=== PATIENT | male | born 1940 | race Caucasian/White ===

== ENCOUNTER 2017-09-28 09:46 | Day surgery (SDC) | payer MEDICARE, SELFPAY ==
[2017-09-28 09:57] VITALS: BP 134/52; PULSE 80; RESP 16; TEMP 36.5; O2SAT 95; BMI 31.8
[2017-09-28 10:30] VITALS: BP 137/87; PULSE 67; RESP 18; O2SAT 97
[2017-09-28 10:32] VITALS: BP 137/88; PULSE 68; RESP 18; O2SAT 97
--- NOTE | 2017-09-28 10:32 | HMH.PMPROC ---
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 He is having some increased pain. We will refill his intrathecal pain pump and increase him to 0.3 mg per day from 0.17 mg per day. We will also increase his PTM dose to 0.03 mg. He does have an antalgic gait. Motor strength of the lower extremities is 5/5. There is no gross sensory deficit. Procedure Details:: Pump refill Informed consent was obtained and the risks and benefits of the procedure was explained to the patient. The patient was taken to the procedure room. The pump was interrogated. The area over the pump was prepped using ChloraPrep. The pump was accessed with a 22-gauge needle. Approximately 6 mL mL's of the intrathecal solution was withdrawn and discarded. The pump was then refilled with 20 mL's of intrathecal Dilaudid 2 mg/mL. The pump was interrogated and the infusion was increased to 0.3 mg per day. PTC was increased to 0.03 mg up to 4 times a day with a 6 hour lockout. The patient tolerated the procedure well with no complication. Plan and Disposition:: We will follow-up with him in 2-3 weeks. We will make adjustments if needed. I have told him not to take hydrocodone and to use his bolus device instead. At his next refill we will refill him with intrathecal Dilaudid 5 mg per ml and add bupivacaine 5 mg/mL.
[2017-09-28 10:54] VITALS: BP 135/73; PULSE 72; RESP 18; O2SAT 99
== END 2017-09-28 10:45 | disposition home or self-care (01) ==
LOC: SC.PAINP 09:50
PROVIDERS: Family Provider Family Medicine; PCP Family Medicine; Visit Provider Anesthesiology
DX: M51.16 Intervertebral disc disorders with radiculopathy, lumbar region (principal); M96.1 Postlaminectomy syndrome, not elsewhere classified
CPT/HCPCS: 62370

== ENCOUNTER → 2017-12-04 10:12 | Outpatient (POV) | payer MEDICARE, SELFPAY ==
[2017-12-04 10:37] VITALS: BP 141/79; PULSE 70; RESP 18; O2SAT 98; BMI 31.7
--- NOTE | 2017-12-04 11:20 | HMH.PMPROC ---
- Procedure Date: 12/04/17 Time: 11:00 Anesthesiologist:: Zulma Wyatt APRN Complications:: None Pre-procedure Diagnosis:: Postlaminectomy syndrome, degenerative disc disease of lumbar spine with lumbar radiculopathy Post-procedure Diagnosis:: Same Indications for Procedure:: Patient is a pleasant 77-year-old white male who presents today for intrathecal pain pump increase. Patient has been doing well after his last increase however he is having increase in pain. Patient rates his pain a 6 out of 10 today. He denies any side effects to his current Dilaudid intrathecal dose of 0.3 mg a day with boluses. Patient has states he has been taking all of his boluses. Patient notices quite a difference after his bolus for at least 2 hours. We will change him today to periodic flow. Procedure Details:: Informed consent was obtained and the risk and benefits of the procedure were explained to the patient. The patient was taken to the procedure room where noninvasive monitoring was placed including noninvasive blood pressure cuff and pulse oximeter. Patient's pump was interrogated. The infusion rate was changed to 0.04 mg every 2 hours with a daily dose of 0.48 mg. The patient tolerated the procedure well. Plan and Disposition:: Follow-up with this patient in 2 weeks and reassess his symptoms at that time if the patient is doing well he is free to cancel that appointment and be seen at his next pain pump refill. Patient has been instructed to call the office if he has any issues prior to his next appointment. This note was dictated using voice recognition software and may contain errors or omissions
== END ==
PROVIDERS: Family Provider Family Medicine; PCP Family Medicine; Visit Provider Clinical Nurse Specialist Family Health
DX: M54.16 Radiculopathy, lumbar region (principal)
CPT/HCPCS: 99212

== ENCOUNTER → 2017-12-18 11:13 | Outpatient (POV) | payer MEDICARE, SELFPAY ==
[2017-12-18 11:32] VITALS: BP 139/75; PULSE 77; RESP 18; O2SAT 98; BMI 73.2
--- NOTE | 2017-12-18 11:42 | HMH.PMPROC ---
- Procedure Date: 12/18/17 Time: 11:40 Anesthesiologist:: Zulma Wyatt APRN Complications:: None Pre-procedure Diagnosis:: Stenosis, degenerative disc disease of the lumbar spine with lumbar radiculopathy Post-procedure Diagnosis:: Same Indications for Procedure:: Patient is a pleasant 77-year-old white male who presents today for intrathecal pain pump adjustment. Patient is having increase in pain and decreased in functionality. Patient states he is unable to walk or stand for long periods of time without having to sit down immediately and forward or backwards for relief. Patient has a diagnosis of stenosis which has seemed to worsen over the last few months. Patient was switched to periodic flow at his last intrathecal pain pump adjustment. Patient states he did not get much relief from this. Patient rates his pain a 7 out of 10 today. Denies side effects to his intrathecal infusion of Dilaudid. Physical Exam General: Alert and oriented x3, no acute distress, pleasant and cooperative, [on room air] Lungs: Resps E/U, Symmetrical chest expansion, Eyes: PERRL Musculoskeletal: Flexion and extension of lumbar spine somewhat guarded secondary to pain, deep tendon reflexes normal, strength in upper and lower extremities [5/5], [abnormal gait noted] Neurological: speech clear, salvage cutter equal, no gross sensory deficits Procedure Details:: Informed consent was obtained and the risk and benefits of the procedure were explained to the patient. The patient was taken to the procedure room where noninvasive monitoring was placed including noninvasive blood pressure cuff and pulse oximeter. Patient's pump was interrogated. The infusion rate was switch back to continuous flow of 0.5 mg daily. Patient's PTC was set up at 005 mg up to 4 times per day. Total daily dose 0.7 mg a day. The patient tolerated the procedure well. Plan and Disposition:: Patient and I had a long discussion about the mild procedure I believe that this would be beneficial for him. We will get a new MRI to determine any new pathology given the worsening pain and inability to walk for long periods of time. Patient and I discussed this therapy and I answered his questions. I also gave him information in regards to this. I will follow-up with the patient after his MRI. The patient has any issues prior to his next appointment he is to call the office. This note was dictated using voice recognition software and may contain errors or omissions
--- NOTE | 2017-12-18 11:47 | P.PCN_ITS ---
- Procedure Date: 12/18/17 Time: 11:40 Anesthesiologist:: Zulma Wyatt APRN Complications:: None Pre-procedure Diagnosis:: Stenosis, degenerative disc disease of the lumbar spine with lumbar radiculopathy Post-procedure Diagnosis:: Same Indications for Procedure:: Patient is a pleasant 77-year-old white male who presents today for intrathecal pain pump adjustment. Patient is having increase in pain and decreased in functionality. Patient states he is unable to walk or stand for long periods of time without having to sit down immediately and forward or backwards for relief. Patient has a diagnosis of stenosis which has seemed to worsen over the last few months. Patient was switched to periodic flow at his last intrathecal pain pump adjustment. Patient states he did not get much relief from this. Patient rates his pain a 7 out of 10 today. Denies side effects to his intrathecal infusion of Dilaudid. Physical Exam General: Alert and oriented x3, no acute distress, pleasant and cooperative, [ on room air] Lungs: Resps E/U, Symmetrical chest expansion, Eyes: PERRL Musculoskeletal: Flexion and extension of lumbar spine somewhat guarded secondary to pain, deep tendon reflexes normal, strength in upper and lower extremities [5/5], [abnormal gait noted] Neurological: speech clear, services advisor equal, no gross sensory deficits Procedure Details:: Informed consent was obtained and the risk and benefits of the procedure were explained to the patient. The patient was taken to the procedure room where noninvasive monitoring was placed including noninvasive blood pressure cuff and pulse oximeter. Patient's pump was interrogated. The infusion rate was switch back to continuous flow of 0.5 mg daily. Patient's PTC was set up at 005 mg up to 4 times per day. Total daily dose 0.7 mg a day. The patient tolerated the procedure well. Plan and Disposition:: Patient and I had a long discussion about the mild procedure I believe that this would be beneficial for him. We will get a new MRI to determine any new pathology given the worsening pain and inability to walk for long periods of time. Patient and I discussed this therapy and I answered his questions. I also gave him information in regards to this. I will follow-up with the patient after his MRI. The patient has any issues prior to his next appointment he is to call the office. This note was dictated using voice recognition software and may contain errors or omissions
== END ==
PROVIDERS: Family Provider Family Medicine; PCP Family Medicine; Visit Provider Clinical Nurse Specialist Family Health
DX: Z45.1 Encounter for adjustment and management of infusion pump (principal); M54.16 Radiculopathy, lumbar region
CPT/HCPCS: 99212

== ENCOUNTER → 2018-01-01 12:37 | Outpatient (CLI) | payer MEDICARE, SELFPAY ==
--- NOTE | 2018-01-01 12:44 | MR_ITS ---
MR lumbar spine wo con HISTORY: Low back pain ITS.REASON: WORSENING BACK PAIN ORDERING PHYSICIAN: Zulma Wyatt PATIENT AGE: 77 years Comparison: 04/21/2015 TECHNIQUE: Standard multiplanar multiecho sequences are performed without contrast. 3-D MIP and myelographic images are also rendered and reviewed FINDINGS: This exam is very limited with significant artifact and patient's prior lumbar surgery as previously described.. Artifact is even much more extensive on today's exam as compared to 04/21/2015. Aside from the interpedicular screws from L2 to L5, there is either an epidural stimulator device or epidural pump pack the right lower quadrant likely accounting for the increase artifact. The lower levels of the lumbar spine are not interpretable from L2 to S1. CT scan may provide further evaluation if clinically warranted. The spinal cord ends at the L1 level. T10-T11: Degenerative disc disease with right-sided lateral recess narrowing from ligamentum flavum hypertrophy. T11-T12: Mild degenerative disc disease. T12-L1: Degenerative disc disease with mild facet and ligamentum flavum hypertrophy. L1-L2: Severe degenerative disc disease with type III endplate changes and posterior endplate osteophytes. The sagittal images suggest base central disc protrusion/concentric bulging disc. There is bilateral foraminal narrowing from the facet hypertrophic change and bulging disc. IMPRESSION: 1. Very limited exam due to artifact from the posterior lumbar fusion from L2 to L5 and also due to a right lower quadrant epidural or neurostimulator. L2-S1 vertebra and endplates are not adequately evaluated. 2. Degenerative disc disease in the lower thoracic spine with severe degenerative disc disease at L1-L2 with type III endplate changes and posterior endplate osteophytes. The sagittal images suggest a central disc protrusion/concentric bulging disc. There is bilateral foraminal narrowing from the facet hypertrophic change and bulging disc
== END ==
PROVIDERS: Family Provider Family Medicine; PCP Family Medicine; Visit Provider Clinical Nurse Specialist Family Health
DX: M54.5 Low back pain (principal)
CPT/HCPCS: 72148; 76376

== ENCOUNTER → 2018-01-04 13:31 | Outpatient (POV) | payer MEDICARE, SELFPAY ==
[2018-01-04 13:15] VITALS: BP 133/78; PULSE 67; RESP 18; BMI 34.6
--- NOTE | 2018-01-04 13:35 | HMH.PMPROC ---
- Procedure Date: 01/04/18 Time: 13:35 Anesthesiologist:: Ruperto Carey MD Complications:: None Pre-procedure Diagnosis:: Adjustment of intrathecal morphine pain pump infusion Post-procedure Diagnosis:: Same Indications for Procedure:: This patient is a pleasant 77-year-old white male who we are treating for low back pain with lumbar radicular symptoms and postlaminectomy syndrome of lumbar spine. He is having some increasing back pain. We will adjust his intrathecal morphine pain pump today. He does have an antalgic gait. Motor strength of the lower extremities is 5/5. There is no gross sensory deficit. He also did recently get an MRI of lumbar spine. Due to artifact we are not able to see anything below L1. We will obtain a CT scan to discern pathology better at the L3-L4, L4-L5 and L5-S1 levels. I do believe that he has an aspect of spinal stenosis which would benefit from the mild procedure. We will follow-up with him after his CT scan. We will increase his intrathecal morphine pain pump today. Procedure Details:: Adjustment of intrathecal morphine pain pump Informed consent was obtained and the risk and benefits of the procedure was explained to the patient. Patient was taken to the procedure room. The pump was interrogated. Intrathecal morphine pain plan increase to 0.8 mg per day. PTM boluses were increased to 0.08 mg up to 6 times a day with a 4 hour lockout. The patient tolerated the procedure well with no complications. Plan and Disposition:: We will follow-up with him in 2 weeks. We will obtain a CT scan of the lumbar spine to discern pathology at L3-L4, L4-L5 and L5-S1 to see if he may be a candidate for the mild procedure to help with spinal stenosis.
== END ==
PROVIDERS: Family Provider Family Medicine; PCP Family Medicine; Visit Provider Anesthesiology
DX: M54.16 Radiculopathy, lumbar region (principal)
CPT/HCPCS: 62368

== ENCOUNTER → 2018-02-14 07:35 | Outpatient (CLI) | payer MEDICARE, SELFPAY ==
--- NOTE | 2018-02-14 07:53 | XR_ITS ---
XR tibia fibula RT 2V CLINICAL INDICATION: Pain and swelling ITS.REASON: CELLULITIS RT LEG ORDERING PHYSICIAN: Ryan Haynes MD PATIENT AGE: 77 years Comparison: None FINDINGS: No fracture or dislocation. No lytic or blastic change. Mild osteoarthritic changes are present at the patellofemoral joint. There is globular calcification along the distal aspect of the tibia laterally between the tibia and fibula which could be due to old syndesmosis injury. No radiopaque foreign bodies or soft tissue gas evident IMPRESSION: 1. No acute finding 2. Nonspecific calcification in the tibial fibular syndesmosis region distally suggesting old injury
[2018-02-14 11:39] LABS: Alanine Aminotransferase 22 U/L (12-78); Albumin Level 3.8 gm/dL (3.4-5.0); Albumin/Globulin Ratio 1.5 (1.1-1.8); Alkaline Phosphatase 74 U/L (46-116); Anion Gap 9.7 mEq/L (5-15); Aspartate Amino Transferase 15 U/L (15-37); Bilirubin,Total 0.3 mg/dL (0.2-1.0); Blood Urea Nitrogen 34 mg/dL (7-18); Carbon Dioxide 31 mmol/L (21.0-32.0); Chloride 106 mmol/L (98-107); Chol/HDL Ratio 2.5 (1-3.5); Cholesterol 119 mg/dL (140-200); Creatinine,Serum 1.21 mg/dL (0.70-1.30); Estimated Glomerular Filt Rate 58 ml/min (>60); GFR (African American) 70 ML/MIN (>60); Globulin 2.6 gm/dl (1.3-3.2); Glucose 95 mg/dL (74-106); HDL Cholesterol 47 mg/dL (27-67); LDL Cholesterol 36 mg/dL (0-130); Potassium 4.7 mmoL/L (3.5-5.1); Sodium 142 mmol/L (136-145); Total Protein,Serum 6.4 gm/dL (6.4-8.2); Triglycerides 179 mg/dL (30-200); VLDL Cholesterol 36 mg/dL (0-40)
== END ==
PROVIDERS: Visit Provider Family Medicine
DX: I25.10 Atherosclerotic heart disease of native coronary artery without angina pectoris (principal); E78.5 Hyperlipidemia, unspecified; L03.115 Cellulitis of right lower limb; Z79.899 Other long term (current) drug therapy
CPT/HCPCS: 36415; 73590; 80053; 80061; 83036

== ENCOUNTER → 2018-07-09 09:45 | Outpatient (CLI) | payer MEDICARE, SELFPAY ==
--- NOTE | 2018-07-09 09:53 | US_ITS ---
US Arterial Ankle Brachial Ind History: Peripheral vascular disease, skin color changes ORDERING PHYSICIAN: Ryan Haynes MD PATIENT AGE: 77 years TECHNIQUE: Segmental pressures obtained of both right and left leg. These are compared to brachial blood pressure to yield index at each level sampled including summary ISIDRA. The data sheets from the procedure are available in PACS FINDINGS Rest study only performed today No prior studies available for comparison. Blood pressures reported are in millimeters mercury. RIGHT LEG ISIDRA = 0.98. RIGHT LEG TBI=0.56 Brachial BP: 125 Thigh BP: 128 Calf BP: 128 Ankle PT: 122 Ankle DP : 123 Digit =70 LEFT LEG ISIDRA = 1.09 LEFT LEG TBI= 0.54 Brachial BPD: 123 Thigh BP: 130 Calf BP: 125 Ankle PT:136 Ankle DP: 140 Digit = 67 Pulses and waveforms: Normal IMPRESSION: The ABIs as reported above are within normal limits. Waveforms and pulses are also unremarkable. The TBI's are slightly low which may indicate small vessel disease
== END ==
PROVIDERS: PCP Family Medicine; Visit Provider Family Medicine
DX: I73.9 Peripheral vascular disease, unspecified (principal)
CPT/HCPCS: 93922

== ENCOUNTER → 2018-08-27 08:56 | Outpatient (POV) | payer MEDICARE, SELFPAY | PROVIDERS: Visit Provider Otolaryngology | DX: Z00.00 Encounter for general adult medical examination without abnormal findings (principal) ==

== ENCOUNTER → 2018-09-11 10:45 | Outpatient (CLI) | payer MEDICARE, SELFPAY ==
--- NOTE | 2018-09-11 10:47 | FL_ITS ---
FL barium swallow modified: 09/11/2018 10:47 AM CLINICAL HISTORY: Dysphagia, trouble swallowing ORDERING PHYSICIAN: Anusha Kimball MD PATIENT AGE: 78 years Comparison: None TECHNIQUE: Patient administered varying consistencies of barium contrast, while viewed in lateral position under real-time fluoroscopy with cine recording. FLUOROSCOPY TIME: 3 minutes and 29 seconds The study was performed in conjunction with speech pathologist. Please see that report & recommendations. FINDINGS: Patient was given varying consistencies of barium. There was flash penetration of thin liquids. Other consistencies swallowed without difficulty. IMPRESSION: Flash Penetration with thin liquids Please see speech pathologist report and recommendations.
--- NOTE | 2018-09-11 11:41 | HMH.SLMBS2 ---
Speech & Language Evaluation Speech/Language Mod Barium Swallow Start: 09/11/18 11:28 Freq: once Status: Complete Protocol: Document 09/11/18 11:28 STARR (Rec: 09/11/18 11:41 STARR [id number]) [facility] Recommendations Diet Dietary Recommendations Regular Thin Liquids Treatment/Strategies Treatment Recommendation Compens. Strategy Educat. Strategy/Precaution Recommend Sitting Upright (90 deg) Referrals/Other Other Recommendations Follow up with ENT and Primary Care if further difficulties arise. Oral Motor exercises and compensatory strategies were given to complete at home to help strengthen the swallowing mechanism. Mod Barium Swallow Impressions Summary and Impressions Oral Phase Impression No Impairment (WFL) Pharyngeal Phase Impression Mild Impairment Pharyngeal Phase Summary Mild pharyngeal impairment with minimal flash penetration . Mucas was also visualized on study at level of epiglotis . Speech/Language MBS Assessment/Goals/Plan Assessment Date of Evaluation: 09/11/18 Evaluation Type Initial Certification Assessment/Problems Pt reports sensation of something stuck or hung in throat . Denies problems with drinking and eating or any choking episodes. Does Patient Qualify for Service No Qualify/Failure Comment Pt. was able to perform compensatory strategies and with home exercise program to strengthen swallow mechanism swallowing should improve. He was instructed to consult with primary care doctor to initiate speech therapy if swallowing does not improve with home exercise program. Chin tuck strategy implemented to decrease penetration of thin fluids. Recommendations PHYSICIAN CERTIFICATION: The specified therapy services are required, authorized, and reviewed every 30 days. Diet Recommendations Normal Liquid Type Recommendations Normal/Thin SL Swallow Guidelines Standard Aspiration Prec. Dysphagia Swallow Precautions/Strategies Chin Tuck Plan Pt/Guardian verbally ack understanding Yes of dx/prognosis/goals Pt/Guardian ve
== END ==
PROVIDERS: PCP Family Medicine; Visit Provider Otolaryngology
DX: K21.9 Gastro-esophageal reflux disease without esophagitis (principal); R13.14 Dysphagia, pharyngoesophageal phase
CPT/HCPCS: 70371; 92611

== ENCOUNTER → 2019-03-25 12:55 | Outpatient (CLI) | payer MEDICARE, SELFPAY ==
[2019-03-25 16:02] LABS: Prostate Specific Ag Screen 1.1 ng/mL (0.0-4.0)
== END ==
PROVIDERS: Visit Provider Urology
DX: Z12.5 Encounter for screening for malignant neoplasm of prostate (principal); N40.0 Benign prostatic hyperplasia without lower urinary tract symptoms
CPT/HCPCS: 36415; G0103

== ENCOUNTER → 2019-05-28 12:20 | Outpatient (CLI) | payer MEDICARE, SELFPAY ==
--- NOTE | 2019-05-28 12:29 | XR_ITS ---
PROCEDURE: XR CHEST 2V CLINICAL HISTORY: SOB Shortness of breath, congestion COMPARISON: CXR1 CHEST-PORTABLE from 09/30/[address] CHEST W/O CONTRAST from 09/30/2015 CXR2 XR chest AP from 12/21/2017 FINDINGS: The cardiomediastinal silhouette and pulmonary vascularity are within normal limits. Increased markings are present in the left lung base consistent with an area of atelectasis or infiltrate. No lobar consolidation or collapse is evident. A small triangular-shaped area of increased density is present in the right lung base laterally at the CP angle and could be due to small area atelectasis or fibrosis versus a patchy area of infiltrate.. No acute bony abnormalities. Postsurgical changes lower cervical spine IMPRESSION: 1. Left basilar atelectasis and/or infiltrate a 2. Patchy density right lung base laterally which could be due to an area of fibrosis, atelectasis, or patchy infiltrate. Dictated by: Yovanny Neil MD 05/28/2019 13:08 Electronically signed by Yovanny Neil MD in [place] 05/28/2019 13:08
== END ==
PROVIDERS: PCP Nurse Practitioner Family; Visit Provider Nurse Practitioner Family
DX: R06.02 Shortness of breath (principal)
CPT/HCPCS: 71046

== ENCOUNTER → 2019-10-13 11:30 | Outpatient (POV) | payer MEDICARE, SELFPAY ==
--- NOTE | 2019-10-13 12:06 | XR_ITS ---
PROCEDURE: XR MULTIPLE SPINE 6+V CLINICAL INDICATION: ACUTE PAIN COMPARISON: SPLUMBWO CT lumbar spine wo con from 02/05/2018 FINDINGS: Thoracic spine: Three view show multilevel degenerative disc disease with endplate hypertrophic change as well as anterior bridging osteophytes. There is normal alignment. There is a bone plate present along the lower cervical spine. No acute fracture or dislocation. Lumbar spine: Five views. Postsurgical changes are present with inter pedicular screws at L2-L3 L4 and L5 with connecting rods and disc spacers. Severe degenerative disc disease is present at T12-L1 and L1-L2 as well as L5-S1. There is anterolisthesis of L5 on S1 of 10 mm not significantly changed. A pain pump is present with the tip at the T11-T12 area. No acute fracture or dislocation is evident. Incidental note is made of a 9 mm calcific density overlying the right mid abdominal region consistent with a kidney stone.. IMPRESSION: 1. Degenerative changes thoracic spine with no acute finding. 2. Degenerative and postsurgical changes of the lumbar spine as detailed above which appear stable from 02/05/2018. 3. Right nephrolithiasis. Dictated by: Yovanny Neil MD 10/13/2019 13:00 Electronically signed by Yovanny Neil MD in [place] 10/13/2019 13:00
[2019-10-13 12:29] VITALS: BP 144/79; PULSE 82; RESP 18; TEMP 37.2; O2SAT 98; BMI 32.3
--- NOTE | 2019-10-13 13:00 | P.PCN_ITS ---
- Procedure Date: 10/13/19 Time: 13:01 Anesthesiologist:: Zulma Wyatt APRN Complications:: None Pre-procedure Diagnosis:: Degenerative disc disease lumbar spine with lumbar radiculopathy symptoms and postlaminectomy syndrome lumbar spine with spinal stenosis neurogenic claudication Post-procedure Diagnosis:: Same Indications for Procedure:: Patient is a pleasant 79-year-old white male who presents today for follow-up. Patient was leaning down in his bathroom when he had an extreme pain in his low back radiating down his leg. Patient was concerned in regards to his intrathec al catheter. Patient was sent for x-rays to ensure catheter placement. Patient states the pain has alleviated somewhat. He rates his pain a 6 out of 10. Physical Exam General: Alert and oriented x3, no acute distress, pleasant and cooperative, [on room air] Lungs: Resps E/U, Symmetrical chest expansion, Eyes: PERRL Musculoskeletal: Flexion and extension of lumbar spine somewhat guarded s econdary to pain, deep tendon reflexes normal, strength in upper and lower extremities [5/5], [abnormal gait noted] Neurological: speech clear, vocational examiner equal, no gross sensory deficits Procedure Details:: Informed consent was obtained and the risk and benefits of the procedure were explained to the patient. The patient was taken to the procedure room where noninvasive monitoring was placed including noninvasive blood pressure cuff and pulse oximeter. Patient's pump was interrogated and reprogrammed. The a one- time bolus of 0.4 mg was given over 2 minutes. Patient did not notice a significant amount of difference however sitting down his pain was relieved some. The patient tolerated the procedure well. Plan and Disposition:: Put the patient on prednisone 20 mg 1 p.o. twice daily. Patient and I did discuss his kidney issues. This will be a short-term process for potential lumbar strain. Patient is going to let our office know if he is not feeling better on . If he is not we will move forward with a dye study. We specifically discussed risk factors for Covid-19 including age, heart or lung disease, diabetes, immunosuppression and travel. We also discussed that NSAIDs may worsen Covid-19 infection symptoms and that they should not be used to treat Covid-19 symptoms. Patient was also informed that corticosteroids in any form oral or injectable will decrease immune response and may increase risk of Covid- [address] Carey has reviewed this patient's chart and this note and agrees with plan of care. Patient has been instructed to call the office if they have any issues prior to the next appointment.
== END ==
LOC: SC.PAIN 11:30 → RAD 12:04
PROVIDERS: PCP Family Medicine; Visit Provider Clinical Nurse Specialist Family Health
DX: M54.5 Low back pain (principal); M54.6 Pain in thoracic spine
CPT/HCPCS: 62368; 72084

== ENCOUNTER 2019-12-09 13:38 | Day surgery (SDC) | payer MEDICARE, SELFPAY ==
[2019-12-09 14:05] VITALS: BP 145/69; PULSE 67; RESP 18; TEMP 36.5; O2SAT 93; BMI 32.5
[2019-12-09 14:40] VITALS: BP 135/89; BP 140/87; PULSE 86; PULSE 88; RESP 18; TEMP 36.8; O2SAT 99
--- NOTE | 2019-12-09 14:44 | P.PCN_ITS ---
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 He rates his pain today 2 out of 10 and overall doing well. He does have issues with standing for long periods of time and walking. Due to his spinal stenosis. Patient's intrathecal pain pump is currently at a dose of 2.57 mg/day of Dilaudid and is doing well with this. Physical Exam General: Alert and oriented x3, no acute distress, pleasant and cooperative, [on room air] Lungs: Resps E/U, Symmetrical chest expansion, Eyes: PERRL Musculoskeletal: Flexion and extension of lumbar spine somewhat guarded secondary to pain, deep tendon reflexes normal, strength in upper and lower extremities [5/5], [abnormal gait noted] Neurological: speech clear, donor relations coordinator equal, no gross sensory deficits Procedure Details:: Informed consent was obtained and the risk and benefits of the procedure were explained to the patient. The patient was taken to the procedure room where noninvasive monitoring was placed including noninvasive blood pressure cuff and pulse oximeter. Patient's pump was interrogated. The area over the pump was cleansed with chlorhexidine as a cleansing solution. In sterile fashion the pump was accessed with a 22-gauge needle. Approximately 7.5 mL's were removed of the pump solution and discarded appropriately. The pump was then refilled with 20 mL's of Dilaudid 20 mg/mL. The needle was withdrawn and a bandage was placed over the puncture site. The infusion rate was reprogrammed to continue at 2.57 mg/day. The patient tolerated the procedure well. Plan and Disposition:: I will follow-up with the patient i at his next intrathecal pain pain pump refill and reprogram patient's Levi #[id number] reviewed and appropriate. He is on Lyrica from his primary care physician. Dr. Carey has reviewed this note and agrees with this plan of care. This note was dictated using voice recognition software and may contain errors or omissions
[2019-12-09 14:50] VITALS: BP 172/79; PULSE 68; RESP 18; O2SAT 93
== END 2019-12-09 15:02 | disposition home or self-care (01) ==
LOC: SC.PAINP 13:39
PROVIDERS: PCP Family Medicine; Visit Provider Clinical Nurse Specialist Family Health
DX: M51.16 Intervertebral disc disorders with radiculopathy, lumbar region (principal); M48.062 Spinal stenosis, lumbar region with neurogenic claudication; M96.1 Postlaminectomy syndrome, not elsewhere classified
CPT/HCPCS: 95991

== ENCOUNTER 2020-02-23 13:01 | Day surgery (SDC) | payer MEDICARE, SELFPAY ==
[2020-02-23 13:12] VITALS: BP 127/73; BP 148/78; PULSE 67; PULSE 78; RESP 20; TEMP 36.7; O2SAT 97; BMI 33.2
--- NOTE | 2020-02-23 13:27 | HMH.PMPROC ---
- Procedure Date: 02/23/20 Time: 13:27 Anesthesiologist:: Zulma Wyatt APRN Complications:: None Pre-procedure Diagnosis:: degenerative disc disease lumbar spine lumbar radiculopathy and postlaminectomy syndrome with spinal stenosis and neurogenic claudication Post-procedure Diagnosis:: Same Indications for Procedure:: Patient is a pleasant 79-year-old white male who presents today for intrathecal pain pump refill and reprogram patient does not get much relief when he standing and walking. He does utilize a bolus which does help temporarily. We discussed changing him to periodic flow. Patient has been talked to about a neurostimulator but at this time he does not want to proceed with that. We will change him to periodic flow and see if this is helpful. He denies any side effects his medication his total daily dose is 4 mg/day of Dilaudid Physical Exam General: Alert and oriented x3, no acute distress, pleasant and cooperative, [on room air] Lungs: Resps E/U, Symmetrical chest expansion, Eyes: PERRL Musculoskeletal: Flexion and extension of lumbar spine somewhat guarded secondary to pain, deep tendon reflexes normal, strength in upper and lower extremities [5/5], [abnormal gait noted] Neurological: speech clear, medical and health services manager equal, no gross sensory deficits Procedure Details:: Informed consent was obtained and the risk and benefits of the procedure were explained to the patient. The patient was taken to the procedure room where noninvasive monitoring was placed including noninvasive blood pressure cuff and pulse oximeter. Patient's pump was interrogated. The area over the pump was cleansed with chlorhexidine as a cleansing solution. In sterile fashion the pump was accessed with a 22-gauge needle. Approximately 8.5 mL's were removed of the pump solution and discarded appropriately. The pump was then refilled with 20 mL's of Dilaudid 20 mg/mL. The needle was withdrawn and a bandage was placed over the puncture site. The infusion rate was reprogrammed to a periodic flow of 0.2 mg every 1 hour for total daily dose of 4.8 mg. The patient tolerated the procedure well. Plan and Disposition:: I will see him back in 1 week reassess his symptoms at that time. If he does not get relief from the periodic flow we may discuss changing him to fentanyl. He has been instructed to call the office if he has any issues prior to his next appointment. Dr. Carey has reviewed this note and agrees with this plan of care. This note was dictated using voice recognition software and may contain errors or omissions
[2020-02-23 13:31] VITALS: BP 158/72; PULSE 71; RESP 18; O2SAT 97
== END 2020-02-23 13:51 | disposition home or self-care (01) ==
PROVIDERS: PCP Family Medicine; Visit Provider Clinical Nurse Specialist Family Health
DX: M54.16 Radiculopathy, lumbar region (principal); M96.1 Postlaminectomy syndrome, not elsewhere classified; M48.061 Spinal stenosis, lumbar region without neurogenic claudication; Z87.39 Personal history of other diseases of the musculoskeletal system and connective tissue; Z88.2 Allergy status to sulfonamides; I10 Essential (primary) hypertension; K21.9 Gastro-esophageal reflux disease without esophagitis; N40.0 Benign prostatic hyperplasia without lower urinary tract symptoms; Z90.49 Acquired absence of other specified parts of digestive tract
CPT/HCPCS: 62370

== ENCOUNTER → 2020-02-27 10:41 | Outpatient (POV) | payer MEDICARE, SELFPAY ==
[2020-02-27 11:23] VITALS: BP 146/81; PULSE 64; RESP 18; TEMP 36.4; O2SAT 94; BMI 33.9
--- NOTE | 2020-02-27 11:36 | [facility]H.PMPROC ---
- Procedure Date: 02/27/20 Time: 11:36 Anesthesiologist:: Ruperto Carey MD Complications:: None Pre-procedure Diagnosis:: Postlaminectomy syndrome lumbar spine with lumbar radiculopathy symptoms Post-procedure Diagnosis:: Same Indications for Procedure:: Patient is a pleasant 79-year-old white male who we are treating for postlaminectomy syndrome lumbar spine with lumbar radiculopathy symptoms. He has an intrathecal Dilaudid pain pump in place on periodic flow with 0.2 mg boluses every hour. Total daily dose is 4.8 mg/day. He says he felt better when he was on a continuous infusion. We will switch him back to a continuous infusion at 5 mg/day with PTC boluses of 0.2 mg up to 4 times a day. Most of his pain is while standing walking. I do believe he has some aspect of spinal stenosis. We will plan on a lumbar epidural steroid injection with epidurogram to assess stenosis and make adjustments to his pain pump today. Procedure Details:: Pain pump analysis and adjustment Informed consent was obtained and the risk and benefits of the procedure were explained to the patient. Patient was taken to the procedure room. The pump was interrogated. Intrathecal Dilaudid infusion was switched to continuous infusion at 5 mg/day. PTC boluses were reinitiated at 0.2 mg up to 4 times a day. Patient tolerated the procedure well with no complications. Plan and Disposition:: We will follow-up with this patient in 2 weeks. Will plan on a lumbar epidural steroid injection with epidurogram to assess levels of stenosis. We will also follow-up on how he does with these adjustments to his pain pump.
== END ==
PROVIDERS: PCP Family Medicine; Visit Provider Anesthesiology
DX: M96.1 Postlaminectomy syndrome, not elsewhere classified (principal); M54.16 Radiculopathy, lumbar region; E66.9 Obesity, unspecified; Z68.33 Body mass index [BMI] 33.0-33.9, adult
CPT/HCPCS: 62368; 99212

== ENCOUNTER 2020-03-05 08:30 | Day surgery (SDC) | payer MEDICARE, SELFPAY ==
[2020-03-05 08:58] VITALS: BP 153/76; PULSE 81; RESP 18; TEMP 36; O2SAT 96; BMI 33.9
[2020-03-05 09:57] VITALS: BP 145/85; PULSE 85; RESP 18
[2020-03-05 09:58] VITALS: BP 144/78; PULSE 85; RESP 18; O2SAT 98
--- NOTE | 2020-03-05 10:12 | P.PCN_ITS ---
- Procedure Date: 03/05/20 Time: 10:12 Anesthesiologist:: Ruperto Carey MD Complications:: None Pre-procedure Diagnosis:: Postlaminectomy syndrome lumbar spine with lumbar radiculopathy symptoms Post-procedure Diagnosis:: Same Indications for Procedure:: This patient is a pleasant 79-year-old white male who we are treating for postlaminectomy syndrome lumbar spine with lumbar radiculopathy symptoms. He currently has an intrathecal Dilaudid pain pump in place. He continues to have significant pain in his back and down his legs with neurogenic claudication symptoms. We will do lumbar epidural steroid injection today to help him with his neurogenic claudication symptoms and radicular symptoms. Procedure Details:: Lumbar epidural steroid injection under fluoroscopy informed consent was obtained and the risk and benefits of the procedure was explained to the patient. The patient was taken to the procedure room. The patient was placed prone on the procedure table. The patient was prepped and draped in sterile fashion. C-arm fluoroscopy was used to view the lumbar spine. Skin and subcutaneous tissues were anesthetized using lidocaine. I placed an 18-gauge epidural needle and advanced into the L4-L5 interspace using fluoroscopic guidance and [id number] to air. After confirmation of needle placement in the epidural space with dye I injected 2 mL of lidocaine 1.5% with Depo-Medrol 80 mg. Patient tolerated the procedure well with no complications. Plan and Disposition:: We will follow-up with him in 2 weeks. Will reevaluate symptoms at that time. With all the hardware in his back is not a candidate for any lumbar spinal stenosis procedures including minimally invasive lumbar decompression or Supe cedric Vertiflex. However he may be candidate for spinal cord stimulation. We will see if he is amenable to a [employer] spinal cord stimulator trial.
[2020-03-05 10:25] VITALS: BP 135/77; PULSE 66; RESP 18; O2SAT 96
== END 2020-03-05 10:25 | disposition home or self-care (01) ==
PROVIDERS: PCP Family Medicine; Visit Provider Anesthesiology
DX: M96.1 Postlaminectomy syndrome, not elsewhere classified (principal); M54.16 Radiculopathy, lumbar region; I10 Essential (primary) hypertension; K21.9 Gastro-esophageal reflux disease without esophagitis; N40.0 Benign prostatic hyperplasia without lower urinary tract symptoms; F41.9 Anxiety disorder, unspecified; Z82.49 Family history of ischemic heart disease and other diseases of the circulatory system; Z88.2 Allergy status to sulfonamides; Z90.49 Acquired absence of other specified parts of digestive tract; Z79.82 Long term (current) use of aspirin; Z79.899 Other long term (current) drug therapy
CPT/HCPCS: 62323; J1040; Q9966

== ENCOUNTER → 2020-03-29 08:37 | Outpatient (POV) | payer MEDICARE, SELFPAY ==
[2020-03-29 09:06] VITALS: BP 128/74; PULSE 74; RESP 18; TEMP 36.8; O2SAT 99; BMI 33.9
--- NOTE | 2020-03-29 09:26 | P.PCN_ITS ---
- Procedure Date: 03/29/20 Time: 09:26 Anesthesiologist:: Adeline Aleman APRN Complications:: None Pre-procedure Diagnosis:: Degenerative disc disease lumbar spine with lumbar radiculopathy symptoms Post-procedure Diagnosis:: Same Indications for Procedure:: Patient is a pleasant 79-year-old white male who presents today for intrathecal pain pump adjustment. The patient has been treated for chronic low back pain with lumbar radiculopathy symptoms as well as postlaminectomy syndrome lumbar spine. Patient did undergo a lumbar epidural steroid injection at L4-L5 for which he says he got approximately 70% relief for 4 days. Patient says his pain has returned. Patient does have an intrathecal pain pump with Dilaudid at 5 mg/day. He says that he did hit the back of the pump when getting into the vehicle and says that he had significant pain at the pump site at the time. Per the patient's , the patient has a low tolerance for pain. She says that the patient is unable to tolerate most any type of pain. Patient is asking for an increase in his intrathecal therapy today as well as a repeat lumbar epidural steroid injection. He rates his pain a 5 out of 10 today. Physical exam General: Alert and oriented x3, no acute distress, pleasant and cooperative, [on room air] Lungs: Respirations even and unlabored, symmetrical chest expansion Eyes: PERRL Musculoskeletal: Flexion and extension of lumbar spine somewhat guarded secondary to pain, deep tendon reflexes normal, strength in upper and lower extremities [5/5], [abnormal gait noted] Neurological: Speech clear, net developer programmer equal, no gross sensory deficit Procedure Details:: Informed consent was obtained and the risk and benefits of the procedure were explained to the patient. Patient was taken to the procedure room where noninvasive monitoring was placed including noninvasive blood pressure cuff and pulse oximeter. Patient's pump was interrogated and was reprogrammed to Dila udid at 5.9 mg/day. The patient tolerated the procedure well with no complications. Plan and Disposition:: We will schedule the patient for a lumbar epidural steroid injection at L4-L5. He did get approximately 4 days of relief with the injection. We will plan to see him back in the clinic after his injection to reassess his symptoms. Patient has been instructed to contact the clinic if he has any concerns before his next appointment. Patient says he is not on any anticoagulation therapy. The patient and I specifically discussed risk factors for COVID19. These risks include, but are not limited to age greater than 60, heart or lung disease, diabetes, immunosuppression, and travel. We also discussed NSAIDs may worsen COVID19 infection or symptoms. Patient should not use NSAIDs to treat COVID19 signs or symptoms. Patient was also informed that any type of corticosteroid of any form (oral or injection) will decrease the patient's immune system response and may increase the likelihood of COVID19 infection [address] symptoms[address] Carey has reviewed this note and agrees with this plan of care. This note was dictated using voice recognition software and make contain errors or omissions.
== END ==
PROVIDERS: PCP Family Medicine; Visit Provider Clinical Nurse Specialist Family Health
DX: M51.16 Intervertebral disc disorders with radiculopathy, lumbar region (principal)
CPT/HCPCS: 62368

== ENCOUNTER 2020-04-02 11:01 | Day surgery (SDC) | payer MEDICARE, SELFPAY ==
[2020-04-02 11:36] VITALS: BP 168/60; PULSE 88; RESP 20; TEMP 36.4; O2SAT 96; BMI 33.9
[2020-04-02 12:15] VITALS: BP 135/88; PULSE 85; RESP 18; O2SAT 98
[2020-04-02 12:16] VITALS: BP 133/78; PULSE 88; RESP 18; O2SAT 99
--- NOTE | 2020-04-02 12:23 | HMH.PMPROC ---
- Procedure Date: 04/02/20 Time: 12:24 Anesthesiologist:: Ruperto Carey MD Complications:: None Pre-procedure Diagnosis:: Degenerative disc disease of lumbar spine with lumbar radiculopathy symptoms and postlaminectomy syndrome lumbar spine Post-procedure Diagnosis:: Same Indications for Procedure:: Patient is a pleasant 79-year-old white male who we have been treating for low back pain with lumbar radiculopathy symptoms and postlaminectomy syndrome lumbar spine. He did very well after his last lumbar epidural steroid injection. His pain is now starting to return. We will do a repeat lumbar pleural steroid injection under fluoroscopy today. Procedure Details:: Lumbar epidural steroid injection under fluoroscopy Informed consent was obtained and the risk and benefits of the procedure was explained to the patient. The patient was taken to the procedure room. The patient was placed prone on the procedure table. The patient was prepped and draped in sterile fashion. C-arm fluoroscopy was used to view the lumbar spine. Skin and subcutaneous tissues were anesthetized using lidocaine. I placed an 18-gauge epidural needle and advanced into the L4-L5 interspace using fluoroscopic guidance and [id number] to air. After confirmation of needle placement in the epidural space with dye I injected 2 mL of lidocaine 1.5% with Depo-Medrol 80 mg. Patient tolerated the procedure well with no complications. Plan and Disposition:: We will follow-up with him in 2 weeks. Will reevaluate symptoms at that time. He is also having some pain around his pump. I did also did inject some local and steroids around his pump site to help with his pain symptoms.
[2020-04-02 12:33] VITALS: BP 139/63; PULSE 78; RESP 20; O2SAT 96
== END 2020-04-02 12:34 | disposition home or self-care (01) ==
LOC: SC.PAINP 11:03
PROVIDERS: PCP Family Medicine; Visit Provider Anesthesiology
DX: M51.16 Intervertebral disc disorders with radiculopathy, lumbar region (principal); M96.1 Postlaminectomy syndrome, not elsewhere classified; G62.9 Polyneuropathy, unspecified; E78.5 Hyperlipidemia, unspecified; Z90.49 Acquired absence of other specified parts of digestive tract
CPT/HCPCS: 62323; J1040; Q9966

== ENCOUNTER 2020-04-19 15:11 | Day surgery (SDC) | payer MEDICARE, SELFPAY ==
[2020-04-19 15:40] VITALS: BP 134/72; PULSE 76; RESP 18; O2SAT 94; BMI 33.9
[2020-04-19 16:42] VITALS: BP 138/89; PULSE 85; RESP 18
--- NOTE | 2020-04-19 16:48 | HMH.PMPROC ---
- Procedure Date: 04/19/20 Time: 16:48 Anesthesiologist:: Zulma Wyatt APRN Complications:: None Pre-procedure Diagnosis:: Degenerative disc disease lumbar spine lumbar radiculopathy symptoms and postlaminectomy syndrome lumbar spine with spinal stenosis with neurogenic claudication Post-procedure Diagnosis:: Same Indications for Procedure:: Patient is a very pleasant 79-year-old white male who presents today for intrathecal pain pump refill and reprogram. Patient denies side effects his medication stating the lumbar epidural steroid injections are working well for him at this time he does not need any adjustments. Patient does seem to walk better and straighter after his injective therapy. Physical Exam General: Alert and oriented x3, no acute distress, pleasant and cooperative, [on room air] Lungs: Resps E/U, Symmetrical chest expansion, Eyes: PERRL Musculoskeletal: Flexion and extension of lumbar spine somewhat guarded secondary to pain, deep tendon reflexes normal, strength in upper and lower extremities [5/5], [abnormal gait noted] Neurological: speech clear, cardiac catheterization technician equal, no gross sensory deficits Procedure Details:: Informed consent was obtained and the risk and benefits of the procedure were explained to the patient. The patient was taken to the procedure room where noninvasive monitoring was placed including noninvasive blood pressure cuff and pulse oximeter. Patient's pump was interrogated. The area over the pump was cleansed with chlorhexidine as a cleansing solution. In sterile fashion the pump was accessed with a 22-gauge needle. Approximately 4.5 mL's were removed of the pump solution and discarded appropriately. The pump was then refilled with 20 mL's of Dilaudid 20 mg/mL. The needle was withdrawn and a bandage was placed over the puncture site. The infusion rate was reprogrammed to continue at 5.9 mg a day. The patient tolerated the procedure well. Plan and Disposition:: I will follow-up with the patient his next intrathecal pain pump refill and reprogram he has been instructed to call the office if he has any issues prior to his next appointment. Patient Levi #[id number] reviewed and appropriate. Dr. Carey has reviewed this note and agrees with this plan of care. This note was dictated using voice recognition software and may contain errors or omissions
[2020-04-19 16:50] VITALS: BP 148/74; PULSE 85; RESP 18; O2SAT 98
[2020-04-19 16:58] VITALS: BP 146/75; PULSE 61; RESP 20; O2SAT 94
== END 2020-04-19 16:59 | disposition home or self-care (01) ==
LOC: SC.PAINP 15:14
PROVIDERS: PCP Family Medicine; Visit Provider Clinical Nurse Specialist Family Health
DX: M51.16 Intervertebral disc disorders with radiculopathy, lumbar region (principal); M96.1 Postlaminectomy syndrome, not elsewhere classified; M48.062 Spinal stenosis, lumbar region with neurogenic claudication; I25.10 Atherosclerotic heart disease of native coronary artery without angina pectoris; E78.5 Hyperlipidemia, unspecified; I10 Essential (primary) hypertension; N40.0 Benign prostatic hyperplasia without lower urinary tract symptoms; Z90.49 Acquired absence of other specified parts of digestive tract; Z79.82 Long term (current) use of aspirin; Z79.899 Other long term (current) drug therapy
CPT/HCPCS: 95991

== ENCOUNTER → 2020-04-29 10:34 | Outpatient (POV) | payer MEDICARE, SELFPAY ==
[2020-04-29 11:30] VITALS: BP 144/74; PULSE 74; RESP 18; O2SAT 98; BMI 33.9
--- NOTE | 2020-04-29 11:59 | P.PCN_ITS ---
- Procedure Date: 04/29/20 Time: 11:59 Anesthesiologist:: Adeline Aleman APRN Complications:: None Pre-procedure Diagnosis:: Degenerative disc disease lumbar spine with lumbar radiculopathy symptoms, postlaminectomy syndrome lumbar spine, spinal stenosis with neurogenic claudication symptoms Post-procedure Diagnosis:: Same Indications for Procedure:: Patient is an 79-year-old white male who presents today for intrathecal pain pump adjustment. He has been treated for chronic low back pain with lumbar radiculopathy symptoms as well as postlaminectomy syndrome lumbar spine spinal stenosis with neurogenic claudication symptoms. Patient is complaining of low back pain today. He says that he is continuing to radiate down his legs. He did undergo a lumbar epidural steroid injection in the past which did give him relief. Patient is requesting to undergo a repeat injection to the area. He does rate his pain a 6 out of 10 today. He would also like an increase in his intrathecal therapy. Patient is currently on Dilaudid at 5.9 mg/day. The patient's drug screens have been appropriate. His morphine equivalent is 175. His Levi #[id number] has been reviewed and is appropriate. Physical exam General: Alert and oriented x3, no acute distress, pleasant and cooperative, [on room air] Lungs: Respirations even and unlabored, symmetrical chest expansion Eyes: PERRL Musculoskeletal: Flexion and extension of lumbar spine somewhat guarded secondary to pain, deep tendon reflexes normal, strength in upper and lower extremities [5/5], [abnormal gait noted] Neurological: Speech clear, aircraft pneudraulic systems mechanic equal, no gross sensory deficit Procedure Details:: Informed consent was obtained and the risk and benefits of the procedure were explained to the patient. Patient was taken to the procedure room where noninvasive monitoring was placed including noninvasive blood pressure cuff and pulse oximeter. Patient's pump was interrogated and was reprogrammed to Dilaudid at 6.5 mg/day. The patient tolerated the procedure well with no complications. Plan and Disposition:: Patient has undergone a lumbar epidural steroid injection at L4-L5 and has gotten relief in the past. We will schedule him for repeat injection. He does state he got about 70 to 80% relief with this injection. We will schedule him for a lumbar epidural steroid injection at L4-L5. He is not on any anticoagulation therapy. We will plan to see him back after his injection to reassess his symptoms. He was increased today. We will see if he gets relief with his increase in his intrathecal therapy as well. Patient has been instructed to contact the clinic if he has any concerns before his next appointment. The patient and I specifically discussed risk factors for COVID19. These risks include, but are not limited to age greater than 60, heart or lung disease, diabetes, immunosuppression, and travel. We also discussed NSAIDs may worsen COVID19 infection or symptoms. Patient should not use NSAIDs to treat COVID19 signs or symptoms. Patient was also informed that any type of corticosteroid of any form (oral or injection) will decrease the patient's immune system response and may increase the likelihood of COVID19 [address] Carey has reviewed this note and agrees with this plan of care. This note was dictated using voice recognition software and make contain errors or omissions.
== END ==
PROVIDERS: PCP Family Medicine; Visit Provider Clinical Nurse Specialist Family Health
DX: M51.16 Intervertebral disc disorders with radiculopathy, lumbar region (principal); M96.1 Postlaminectomy syndrome, not elsewhere classified; M48.062 Spinal stenosis, lumbar region with neurogenic claudication
CPT/HCPCS: 62368

== ENCOUNTER 2020-05-14 09:34 | Day surgery (SDC) | payer MEDICARE, SELFPAY ==
[2020-05-14 10:06] VITALS: BP 167/78; PULSE 78; RESP 18; TEMP 36.6; O2SAT 97; BMI 33.9
[2020-05-14 10:23] VITALS: BP 133/75; PULSE 84; RESP 18; O2SAT 98
[2020-05-14 10:26] VITALS: BP 143/89; PULSE 89; RESP 18; O2SAT 98
[2020-05-14 10:37] VITALS: BP 140/77; PULSE 67; RESP 18; O2SAT 97
--- NOTE | 2020-05-14 12:26 | HMH.PMPROC ---
- Procedure Date: 05/14/20 Time: 12:26 Anesthesiologist:: Ruperto Carey MD Complications:: None Pre-procedure Diagnosis:: Degenerative disc disease of lumbar spine with lumbar radiculopathy symptoms and postlaminectomy syndrome lumbar spine with spinal stenosis and neurogenic claudication symptoms Post-procedure Diagnosis:: Same Indications for Procedure:: Patient is a pleasant 79-year-old white male who we are treating for low back pain with lumbar radiculopathy symptoms. He is also currently on intrathecal Dilaudid pain pump at 5.9 mg/day. He did well with his last lumbar epidural steroid injection. He is 78% better. He presents for repeat lumbar epidural steroid injections today for his residual pain symptoms. Procedure Details:: Lumbar epidural steroid injection under fluoroscopy Informed consent was obtained and the risk and benefits of the procedure was explained to the patient. The patient was taken to the procedure room. The patient was placed prone on the procedure table. The patient was prepped and draped in sterile fashion. C-arm fluoroscopy was used to view the lumbar spine. Skin and subcutaneous tissues were anesthetized using lidocaine. I placed an 18-gauge epidural needle and advanced into the L4-L5 interspace using fluoroscopic guidance and [id number] to air. After confirmation of needle placement in the epidural space with dye I injected 2 mL of lidocaine 1.5% with Depo-Medrol 80 mg. Patient tolerated the procedure well with no complications. Plan and Disposition:: We will follow-up with him in 2 weeks. Will reevaluate his symptoms at that time.
== END 2020-05-14 10:38 | disposition home or self-care (01) ==
LOC: SC.PAINP 09:35
PROVIDERS: PCP Family Medicine; Visit Provider Anesthesiology
DX: M51.16 Intervertebral disc disorders with radiculopathy, lumbar region (principal); M96.1 Postlaminectomy syndrome, not elsewhere classified; M48.062 Spinal stenosis, lumbar region with neurogenic claudication; I10 Essential (primary) hypertension; K21.9 Gastro-esophageal reflux disease without esophagitis; N40.0 Benign prostatic hyperplasia without lower urinary tract symptoms; Z88.2 Allergy status to sulfonamides
CPT/HCPCS: 62323; J1040; Q9966

== ENCOUNTER 2020-05-31 13:25 | Day surgery (SDC) | payer MEDICARE, SELFPAY ==
[2020-05-31 13:26] VITALS: BP 130/74; PULSE 76; RESP 18; TEMP 36.8; O2SAT 95; BMI 33.9
[2020-05-31 14:07] VITALS: BP 141/64; PULSE 67; RESP 18; O2SAT 98
--- NOTE | 2020-05-31 14:11 | P.PCN_ITS ---
- Procedure Date: 05/31/20 Time: 14:15 Anesthesiologist:: Zulma Wyatt APRN Complications:: None Pre-procedure Diagnosis:: Degenerative disc disease lumbar spine lumbar radiculopathy and postlaminectomy syndrome lumbar spine with spinal stenosis and neurogenic claudication symptoms, back pain Post-procedure Diagnosis:: Same Indications for Procedure:: Patient is a pleasant 79-year-old white male who presents today for intrathecal pain pump refill and reprogram. He is currently on intrathecal Dilaudid going at 6.5 mg/day. Patient has had several epidural steroid injections which have been beneficial for him. Today he is here for his intrathecal pain pump refill. [facility] #[id number] reviewed and appropriate. Physical Exam General: Alert and oriented x3, no acute distress, pleasant and cooperative, [on room air] Lungs: Resps E/U, Symmetrical chest expansion, Eyes: PERRL Musculoskeletal: Flexion and extension of lumbar spine somewhat guarded secondary to pain, deep tendon reflexes normal, strength in upper and lower extremities [5/5], [abnormal gait noted] Neurological: speech clear, digital program manager equal, no gross sensory deficits Procedure Details:: Informed consent was obtained and the risk and benefits of the procedure were explained to the patient. The patient was taken to the procedure room where noninvasive monitoring was placed including noninvasive blood pressure cuff and pulse oximeter. Patient's pump was interrogated. The area over the pump was cleansed with chlorhexidine as a cleansing solution. In sterile fashion the pump was accessed with a 22-gauge needle. Approximately 6 mL's were removed of the pump solution and discarded appropriately. The pump was then refilled with 20 mL's of Dilaudid 20 mg/mL. The needle was withdrawn and a bandage was placed over the puncture site. The infusion rate was reprogrammed to continue at 6.5 mg/day. The patient tolerated the procedure well. Plan and Disposition:: We will see the patient back at his next intrathecal pain pump refill and reprogram he has been instructed to call the office if he has any issues prior to his next appointment. Dr. Carey has reviewed this note and agrees with this plan of care. This note was dictated using voice recognition software and may contain errors or omissions
[2020-05-31 14:12] VITALS: BP 160/57; PULSE 85; RESP 18; O2SAT 98
[2020-05-31 14:31] VITALS: BP 132/69; PULSE 77; RESP 20; O2SAT 95
== END 2020-05-31 14:32 | disposition home or self-care (01) ==
LOC: SC.PAINP 13:26
PROVIDERS: PCP Family Medicine; Visit Provider Clinical Nurse Specialist Family Health
DX: M51.16 Intervertebral disc disorders with radiculopathy, lumbar region (principal); M96.1 Postlaminectomy syndrome, not elsewhere classified; M48.062 Spinal stenosis, lumbar region with neurogenic claudication
CPT/HCPCS: 95991

== ENCOUNTER → 2020-07-05 08:14 | Outpatient (POV) | payer MEDICARE, SELFPAY ==
[2020-07-05 08:36] VITALS: BP 139/85; PULSE 85; RESP 18; O2SAT 98; BMI 33.9
--- NOTE | 2020-07-05 08:38 | HMH.PAINSOAP ---
[facility] Pain Management SOAP Note Subjective:: Patient is an 79-year-old white male who presents today for follow-up. Patient has an intrathecal pain pump going at 6.5 mg of Dilaudid a day. Patient is following up because he had a epidural steroid injection back in April and had 80% relief with his symptoms adjust until recently. His pain is started to return. He rates his pain a 9 out of 10 when he is standing and walking he has no pain when he sitting. He does have pain secondary to stenosis. Patient's not on any anticoagulation therapy. He is failed other conservative modalities of treatment including medications and pain pump adjustments. ROS General: no recent weight change, no fever, no sleep disturbances Respiratory: no cough, no shortness of air, no recurring pulmonary infections Cardiovascular/Peripheral Vascular: No chest pain, No palpitations, no edema, no shortness of breath. Gastrointestinal: no new onset incontinence, normal bowel movements reported Genitourinary: no new onset incontinence Musculoskeletal: Back pain, leg pain Psychiatric: normal mood/ affect Neurological: [denies new onset weakness in extremities], [denies new onset balance issues] Objective:: Physical Exam General: Alert and oriented x3, no acute distress, pleasant and cooperative, [on room air] Lungs: Resps E/U, Symmetrical chest expansion, Eyes: PERRL Musculoskeletal: Flexion and extension of lumbar spine somewhat guarded secondary to pain, deep tendon reflexes normal, strength in upper and lower extremities [5/5], [abnormal gait noted] Neurological: speech clear, geodetic technician equal, no gross sensory deficits Assessment:: Degenerative disc disease lumbar spine lumbar radiculopathy, postlaminectomy syndrome lumbar spine, spinal stenosis with neurogenic claudication and back pain Plan:: We will set the patient up for L4-L5 lumbar epidural steroid injection given the efficacy of this in the past. I will follow-up with him after his injection and reassess his symptoms at that time. He has been instructed to call the office if he has any issues prior to his next appointment. Dr. Carey has reviewed this note and agrees with this plan of care. This note was dictated using voice recognition software and may contain errors or omissions [facility] History I have reviewed the patient's past medical history: Yes Medical History: Reports:: Coronary Artery Disease, Hyperlipidemia, Hypertension Denies:: Cancer, Diabetes Mellitus Type 1, Diabetes Mellitus Type 2, MRSA, Seizures *Have you ever received a pneumonia vaccine?: Yes *Have you received a flu vaccine this season?: Yes Other Medical History: Denies: Blood Transfusion Reaction Other Surgeries: Yes: Appendectomy, Cardiac Catheterization, Colonoscopy, Other (painp pump implant) Amputation: No Fractures: No - *Social History Smoking Status: Never smoker Alcohol Intake: never Substance Use Type: denies use *Occupational Status:: other Housing: house Household Members: spouse *Travel in the last 8 weeks: None Family Hx:: Unable to obtain
== END ==
PROVIDERS: PCP Family Medicine; Visit Provider Clinical Nurse Specialist Family Health
DX: M51.16 Intervertebral disc disorders with radiculopathy, lumbar region (principal); M96.1 Postlaminectomy syndrome, not elsewhere classified; M48.062 Spinal stenosis, lumbar region with neurogenic claudication
CPT/HCPCS: 99212; G0463

== ENCOUNTER 2020-07-09 10:53 | Day surgery (SDC) | payer MEDICARE, SELFPAY ==
[2020-07-09 12:04] VITALS: BP 108/65; PULSE 74; RESP 18; TEMP 36.8; O2SAT 94; BMI 33.9
[2020-07-09 12:16] VITALS: BP 140/78; PULSE 74; RESP 18; O2SAT 98
[2020-07-09 12:25] VITALS: BP 142/78; PULSE 84; RESP 18; O2SAT 98
--- NOTE | 2020-07-09 12:41 | P.PCN_ITS ---
- Procedure Date: 07/09/20 Time: 12:41 Anesthesiologist:: Ruperto Carey MD Complications:: None Pre-procedure Diagnosis:: Postlaminectomy syndrome lumbar spine with lumbar radiculopathy symptoms and degenerative disc disease of lumbar spine Post-procedure Diagnosis:: Same Indications for Procedure:: Patient is a pleasant 79-year-old white male who we are treating for low back pain with lumbar radiculopathy symptoms and postlaminectomy syndrome lumbar spine. He did very well with his last lumbar epidural steroid injection. He was 80 to 90% better for a significant amount of time. He does have an intrathecal Dilaudid pain pump in place. We are adding bupivacaine to his intrathecal infusion today. We will refill his pump and add bupivacaine to his infusion. We will also do a repeat lumbar pleural steroid injection under fluoroscopy today. Levi and urine drug screen are all appropriate Levi [id number]. Patient does have an antalgic gait. Motor strength of the lower ex tremities is 5/5. There is no gross sensory deficit. Procedure Details:: Pain pump refill informed consent was obtained and the risks and benefits of the procedure was explained to the patient. The patient was taken to the procedure room. The pump was interrogated. The area over the pump was prepped using ChloraPrep. The pump was accessed with a 22-gauge needle. Approximately 7 mL's of the intrathecal solution was withdrawn and discarded. The pump was then refilled with 20 mL's of intrathecal Dilaudid 30 mg/mL plus bupivacaine 7.5 mg/mL. The pump was interrogated and the infusion was continued at 6.5 mg/day with PTC boluses of 0.2 mg up to 6 times a day. . The patient tolerated the procedure well with no complication. Lumber epidural steroid injection under fluoroscopy Informed consent was obtained and the risk and benefits of the procedure was explained to the patient. The patient was taken to the procedure room. The patient was placed prone on the procedure table. The patient was prepped and draped in sterile fashion. C-arm fluoroscopy was used to view the lumbar spine. Skin and subcutaneous tissues were anesthetized using lidocaine. I placed an 18-gauge epidural needle and advanced into the L2-L3 interspace using fluoroscopic guidance and [id number] to air. Access was above his hardware. After confirmation of needle placement in the epidural space with dye I injected 2 mL of lidocaine 1.5% with Depo-Medrol 80 mg. Patient tolerated the procedure well with no complications. Plan and Disposition:: We will follow-up with him in 2 weeks. Will reevaluate his symptoms at that time.
[2020-07-09 13:20] VITALS: BP 145/76; PULSE 75; RESP 18; TEMP 36.8; O2SAT 94
== END 2020-07-09 12:25 | disposition home or self-care (01) ==
LOC: SC.PAINP 10:55
PROVIDERS: PCP Family Medicine; Visit Provider Anesthesiology
DX: M96.1 Postlaminectomy syndrome, not elsewhere classified (principal); M51.16 Intervertebral disc disorders with radiculopathy, lumbar region; I11.0 Hypertensive heart disease with heart failure; K21.9 Gastro-esophageal reflux disease without esophagitis; N40.0 Benign prostatic hyperplasia without lower urinary tract symptoms
CPT/HCPCS: 62323; 95991; J1040; Q9966

== ENCOUNTER → 2020-08-04 10:18 | Outpatient (POV) | payer MEDICARE, SELFPAY ==
[2020-08-04 11:12] VITALS: BP 120/90; PULSE 110; RESP 20; TEMP 36.4; O2SAT 94; BMI 33.9
--- NOTE | 2020-08-04 11:21 | HMH.PAINSOAP ---
[facility] Pain Management SOAP Note Subjective:: Patient is a pleasant 67-year-old white male who I am treating for low back pain with lumbar radiculopathy symptoms and spinal stenosis with neurogenic claudication symptoms and postlaminectomy syndrome lumbar spine. He does have an intrathecal Dilaudid/bupivacaine pain pump in place. Currently is going at 6.5 mg/day. He is also received epidurals he does have some increasing low back pain with unsteadiness of his lower extremity along with weakness of his lower extremities. This weakness is progressively gotten worse. He is not a candidate for mill invasive lumbar decompression or superion vertiflex because of his previous surgery. I talked to him extensively about spinal cord stimulation. We will plan on setting him up for a spinal cord stimulator trial with [employer]. I believe this will help him significantly with his lower extremity weakness, unsteadiness and issues with walking and standing. Objective:: Alert and oriented x3 no acute distress. Patient does have an antalgic gait with some unsteadiness. Motor strength of the lower extremities is 4 out of 5. There is no gross sensory deficit. Intrathecal Dilaudid/bupivacaine pain pump was interrogated currently going at 6.5 mg/day. Refill is September 16, 2020. Assessment:: Postlaminectomy syndrome lumbar spine with lumbar radiculopathy symptoms. Degenerative disc disease of lumbar spine with lumbar radiculopathy symptoms with increasing lower extremity weakness and unsteadiness. Plan:: We will seek approval and plan on spinal cord stimulator trial to help him with his lower extremity weakness and unsteadiness. This will be with the [employer] system with leads placed at T7-T8 and T9. [facility] History Medical History: Reports:: Coronary Artery Disease, Hyperlipidemia, Hypertension Denies:: Cancer, Diabetes Mellitus Type 1, Diabetes Mellitus Type 2, MRSA, Seizures *Have you ever received a pneumonia vaccine?: Yes *Have you received a flu vaccine this season?: Yes Other Medical History: Denies: Blood Transfusion Reaction Other Surgeries: Yes: Appendectomy, Cardiac Catheterization, Colonoscopy, Other (painp pump implant) Amputation: No Fractures: No - *Social History Smoking Status: Never smoker Alcohol Intake: never Substance Use Type: denies use *Occupational Status:: retired Housing: house Household Members: spouse *Travel in the last 8 weeks: None Family Hx:: Unable to obtain
== END ==
PROVIDERS: PCP Family Medicine; Visit Provider Anesthesiology
DX: M96.1 Postlaminectomy syndrome, not elsewhere classified (principal); M51.16 Intervertebral disc disorders with radiculopathy, lumbar region
CPT/HCPCS: 99212; G0463

== ENCOUNTER → 2020-09-02 14:30 | Outpatient (POV) | payer MEDICARE, SELFPAY ==
--- NOTE | 2020-09-02 14:34 | HMH.VVPMSO ---
[facility] Virtual Visit SOAP Consent for virtual visit:: With the recent concerns about the COVID-19, we are trying to minimize exposure to you by shifting to telehealth appointments whenever possible. It restricts me from seeing you in person, but the trade off is protecting you during this pandemic. Can you see and hear me okay, and do you consent to this option? If not, I would be happy to see if we can reschedule your appointment in the future, when feasible. Has patient consented to this virtual visit?: Yes Subjective:: Pleasant 80-year-old white male who presents today for virtual visit in regards to his low back and leg pain. Patient has had multiple epidurals in the past however he stated his last epidural was not beneficial. He stated that it felt like it was not in the right place. Patient states that typically his epidurals are effective that he gets up to 80% relief for several months. Patient would like to repeat epidural given the efficacy in the past. Patient does have a intrathecal pain pump which is beneficial but is not covering his current pain. He is not on any anticoagulation therapy. He rates his pain a 8 out of 10. Objective:: Physical exam: Constitutional: Healthy appearing, well-developed, alert, in no acute distress Psychiatric: Judgment and insight intact, Alert and oriented x4 Mood and affect: Mood normal, affect appropriate Head and face: Inspection: Normocephalic atraumatic, extraocular movement intact Respiratory: Breathing nonlabored, nondyspneic Cardiovascular: No cyanosis, clubbing, or edema observed Skin: Head and neck: Skin with no lesions or rash observed Gait: Able to walk without assistive device: Able to heel and toe walk Neurologic: Sensation grossly intact per patient Musculoskeletal: Decreased range of motion lumbar spine Assessment:: Postlaminectomy syndrome lumbar spine spinal stenosis neurogenic claudication, lumbar radiculopathy, degenerative disc disease lumbar spine Plan:: We will set the patient up for repeat L4-L5 lumbar epidural steroid injection hopefully he will get increased benefit from this versus his last one. Patient's been instructed to call the office if he has any issues prior to his next appointment he is not on any anticoagulation therapy. Dr. Carey has reviewed this note and agrees with this plan of care. This encounter was performed as a telemedicine visit via secure 2 way video and audio to minimize risk and transmission of Covid-19. The patient and we understand the limitations of a telemedicine visit including inability to check reflexes, possibly missing subtle findings on physical exam. Alternative options were presented to the patient and the patient elected to proceed with the visit. We specifically discussed risk factors for Covid-19 including age, heart or lung disease, diabetes, immunosuppression and travel. We also discussed that NSAIDs may worsen Covid-19 infection symptoms and that they should not be used to treat Covid-19 symptoms. Patient was also informed that corticosteroids in any form oral or injectable will decrease immune response and may increase risk of Covid-[address] Carey has reviewed this patient's chart and this note and agrees with plan of care. Patient has been instructed to call the office if they have any issues prior to the next appointment. Time In:: 14:15 Time Out:: 14:30 [facility] History I have reviewed the patient's past medical history: Yes Medical History: Reports:: Coronary Artery Disease, Hyperlipidemia, Hypertension Denies:: Cancer, Diabetes Mellitus Type 1, Diabetes Mellitus Type 2, MRSA, Seizures *Have you ever received a pneumonia vaccine?: Yes *Have you received a flu vaccine this season?: Yes Other Medical History: Denies: Blood Transfusion Reaction Other Surgeries: Yes: Appendectomy, Cardiac Catheterization, Colonoscopy, Other (painp pump implant) Amputation: No Fractures: No - *Social History Smoking Status:
== END ==
PROVIDERS: Visit Provider Clinical Nurse Specialist Family Health
DX: M96.1 Postlaminectomy syndrome, not elsewhere classified (principal); M48.062 Spinal stenosis, lumbar region with neurogenic claudication; M51.16 Intervertebral disc disorders with radiculopathy, lumbar region
CPT/HCPCS: 99212; G0463

== ENCOUNTER 2020-09-03 09:54 | Day surgery (SDC) | payer MEDICARE, SELFPAY ==
[2020-09-03 09:56] VITALS: BP 153/69; PULSE 82; RESP 20; TEMP 36.4; O2SAT 95; BMI 33.9
[2020-09-03 11:25] VITALS: BP 135/64; PULSE 62; RESP 20; O2SAT 98
--- NOTE | 2020-09-03 11:30 | HMH.PMPROC ---
- Procedure Date: 09/03/20 Time: 11:30 Anesthesiologist:: Ruperto Carey MD Complications:: None Pre-procedure Diagnosis:: Postlaminectomy syndrome lumbar spine with lumbar radiculopathy symptoms Post-procedure Diagnosis:: Same Indications for Procedure:: This patient is a pleasant 80-year-old white male who has an intrathecal Dilaudid/bupivacaine pain pump in place. He is currently going at 6.5 mg/day. He is having some increasing pain in his back and legs. He also has a rash over his right hip. This rash does appear to be acute herpes zoster. We will do a peripheral nerve block for this acute herpes zoster episode and refill his intrathecal Dilaudid/bupivacaine pain pump today. Levi and drug screen are all appropriate. Patient does have an antalgic gait. Motor strength of the lower extremities is 4 out of 5. There is no gross sensory deficit. There is no new neurological changes. Patient was also scheduled for lumbar epidural steroid injection however since he is on antibiotics we will not do lumbar epidural steroid injection today. We did talk about spinal cord stimulator trial. We will plan on this in the next few weeks after he has completed his antibiotics. Today also we will place him on acyclovir 80 mg 5 times a day for his new onset of acute herpes zoster. Procedure Details:: Pain pump refill Informed consent was obtained and the risks and benefits of the procedure was explained to the patient. The patient was taken to the procedure room. The pump was interrogated. The area over the pump was prepped using ChloraPrep. The pump was accessed with a 22-gauge needle. Approximately 7 mL mL's of the intrathecal solution was withdrawn and discarded. The pump was then refilled with 20 mL's of intrathecal Dilaudid 30 mg/mL plus bupivacaine 7.5 mg per ml. The pump was interrogated and the infusion was continued at 6.5 mg/day. The patient tolerated the procedure well with no complication. Peripheral nerve block A 25-gauge needle was used to inject 5 mL bupivacaine 0.25% subcutaneous to the macular papular rash over the right hip. Patient tolerated the procedure well with no complications. Plan and Disposition:: We will place him on acyclovir 800 mg 5 times a day. He is to also continue with his antibiotics. We will follow-up with him in 2 weeks. Will plan on spinal cord stimulator trial to help him with his low back pain and leg pain in the next few weeks after is completed his antibiotic course.
[2020-09-03 13:50] VITALS: BP 142/78; PULSE 74; RESP 18; O2SAT 98
[2020-09-03 13:55] VITALS: BP 148/75; PULSE 79; RESP 18; O2SAT 98
== END 2020-09-03 11:25 | disposition home or self-care (01) ==
LOC: SC.PAINP 09:56
PROVIDERS: PCP Family Medicine; Visit Provider Anesthesiology
DX: M96.1 Postlaminectomy syndrome, not elsewhere classified (principal); M51.16 Intervertebral disc disorders with radiculopathy, lumbar region; Z45.1 Encounter for adjustment and management of infusion pump
CPT/HCPCS: 64450; 95991

== ENCOUNTER → 2020-09-23 09:24 | Outpatient (POV) | payer MEDICARE, SELFPAY ==
--- NOTE | 2020-09-23 10:18 | HMH.PMPROC ---
- Procedure Date: 09/23/20 Time: 10:18 Anesthesiologist:: Zulma Wyatt APRN Complications:: None Pre-procedure Diagnosis:: Degenerative disc disease lumbar spine lumbar radiculopathy and postlaminectomy syndrome Post-procedure Diagnosis:: Same Indications for Procedure:: Patient is a pleasant 80-year-old white male who presents today for intrathecal Dilaudid/bupivacaine adjustment. Patient would like to adjust his PTCs. He is rates his pain 8 out of 10 he is having difficulty with standing and walking. Patient was recently diagnosed with shingles which has since resolved. Patient and Dr. Pascual had a long conversation in regards to neurostimulator should he is ready to move forward has had a psychological evaluation. Procedure Details:: Informed consent was obtained and the risk and benefits of the procedure were explained to the patient. The patient was taken to the procedure room where noninvasive monitoring was placed including noninvasive blood pressure cuff and pulse oximeter. Patient's pump was interrogated and reprogrammed. The infusion rate was left at 6.5 mg a day and his PTC was set up to 0.4 milligrams per activation. The patient tolerated the procedure well. Plan and Disposition:: We will see the patient back for neurostimulator trial. I will follow-up with him after this reassess his symptoms at that time he has been instructed to call the office if he has any issues prior to his next appointment. Dr. Carey has reviewed this note and agrees with this plan of care. This note was dictated using voice recognition software and may contain errors or omissions
[2020-09-23 10:50] VITALS: BP 139/85; PULSE 82; RESP 18; O2SAT 98; BMI 33.2
== END ==
PROVIDERS: PCP Family Medicine; Visit Provider Clinical Nurse Specialist Family Health
DX: M51.16 Intervertebral disc disorders with radiculopathy, lumbar region (principal); M96.1 Postlaminectomy syndrome, not elsewhere classified
CPT/HCPCS: 62368

== ENCOUNTER → 2020-10-04 14:56 | Outpatient (CLI) | payer MEDICARE, SELFPAY ==
[2020-10-04 15:42] LABS: Basophils # 0.1 K/mm3 (0-0.2); Basophils % 0.7 % (0.1-2.0); Eosinophils # 0.3 K/mm3 (0.0-0.4); Eosinophils % 4.6 % (0.1-12.0); Hematocrit 37.2 % (42.0-52.0); Hemoglobin 12.2 g/dL (14.1-18.0); Lymphocytes # 2.1 K/mm3 (0.7-4.5); Lymphocytes % 29.7 % (10-50); Mean Corpuscular HGB Conc 32.9 g/dL (31.8-35.4); Mean Corpuscular Hemoglobin 31.2 pg (27.0-31.2); Mean Corpuscular Volume 94.8 fl (80-94); Mean Platelet Volume 9.7 fl (7.4-10.4); Monocytes # 0.3 K/mm3 (0.1-1.0); Monocytes % 4.3 % (1.7-9.3); Neutrophils # 4.2 K/mm3 (1.8-7.8); Neutrophils % 60.7 % (37.0-80.0); Platelet Count 122 K/mm3 (142-424); Red Blood Count 3.92 M/mm3 (4.60-6.20); Red Cell Distribution Width 13.3 % (11.5-17.5); White Blood Count 6.9 K/mm3 (4.8-10.8)
[2020-10-04 15:53] LABS: Chloride 102 mmol/L (98-107); Sodium 139 mmol/L (136-145)
[2020-10-04 15:54] LABS: Potassium 4.4 mmoL/L (3.5-5.1)
[2020-10-04 15:56] LABS: Blood Urea Nitrogen 26 mg/dl (9-20); Estimated Glomerular Filt Rate 72 ml/min (>60); GFR (African American) 87 ML/MIN (>60)
[2020-10-04 15:57] LABS: Anion Gap 11.4 mEq/L (5-15); Calcium 9.5 mg/dl (8.4-10.2); Carbon Dioxide 30 mmol/L (22.0-30.0); Glucose 133 mg/dl (74-100)
[2020-10-04 16:10] LABS: Coronavirus 19 IgG Antibody Positive (Negative); Coronavirus 19 IgM Antibody Negative (Negative)
== END ==
PROVIDERS: Visit Provider Anesthesiology
DX: Z01.812 Encounter for preprocedural laboratory examination (principal); Z20.822 Contact with and (suspected) exposure to COVID-19; M51.36 Other intervertebral disc degeneration, lumbar region
CPT/HCPCS: 36415; 80048; 85025; 86328

== ENCOUNTER 2020-10-06 09:30 | Day surgery (SDC) | payer MEDICARE, SELFPAY ==
[2020-10-04 14:22] VITALS: BMI 34.0
[2020-10-06] VITALS (8 sets, daily range): BP systolic 131–157; BP diastolic 72–88; PULSE 68–108; RESP 16–18; TEMP 36.4–37; O2SAT 93–98
--- NOTE | 2020-10-06 10:12 | HMH.ANESCL ---
[facility] Anesthesia Checklist - Patient Identification Patient Identification: Arm Band - Structural Data Admitted From: Home Planned Operative Procedure/s: Trial Neurostimulator Lead Placement Consent for Planned Operative Procedure(s) Verified: Yes Verified Documents: Surgical Consent, History and Physical - NPO Status Verified Time NPO: 00:00 - Additional verifications Anesthesia Reactions: No Hx Blood Transfusions: No Blood Transfusion Reaction: No - Airway Assessment C-Spine Mobility Assessed: Yes (mp2) TMJ Mobility Assessed: Yes Dentition: Good Dentition - Neurological Assessment Level of Consciousness: Awake, Alert - Anesthesia Plan Anesthesia Risk discussed: Yes Anesthesia Plan: Verified ASA Class: III Anesthesia Type: MAC [facility] History I have reviewed the patient's past medical history: Yes Medical History: Reports:: Coronary Artery Disease, Gastroesophageal Reflux Disease(GERD), Hyperlipidemia, Hypertension Denies:: Cancer, Diabetes Mellitus Type 1, Diabetes Mellitus Type 2, Internal Pacemaker, MRSA, Seizures *Have you ever received a pneumonia vaccine?: Yes *Have you received a flu vaccine this season?: Yes Other Medical History: Denies: Blood Transfusion Reaction Anesthesia experience/problems:: nac Other Surgeries: Yes: Appendectomy, Cardiac Catheterization, Colonoscopy, Other (painp pump implant). No: Pacemaker Amputation: No Fractures: No - *Social History Last grade of school completed: High school graduate Smoking Status: Never smoker Alcohol Intake: never Substance Use Type: denies use *Occupational Status:: retired Housing: house Household Members: spouse *Travel in the last 8 weeks: None Family Hx:: Unable to obtain
--- NOTE | 2020-10-06 11:52 | HMH.OPNOTE ---
Date of procedure: 10/06/20 Pre-op Diagnosis:: Postlaminectomy syndrome lumbar spine with lumbar radiculopathy symptoms and increasing back pain with degenerative disc disease of lumbar spine Post-op Diagnosis:: Same Procedure performed:: Spinal cord stimulator trial epidural lead placement x2 Surgeon:: Ruperto Carey MD GENERATOR OPERATOR STRAIGHT BEVEL GEAR:: Other Anesthesia: MAC Estimated blood loss (mL): 1 Clinical Note:: This patient is a pleasant 80-year-old white male who we are treating for low back pain and right leg pain. He has failed all previous conservative therapy including injections, oral medications, intrathecal therapy and previous surgery. He continues to have increasing low back pain and right leg pain. He has had a successful psychological evaluation. He presents for spinal cord stimulator trial with epidural lead placement x2 today to see if this gives him better relief of his pain symptoms. Operative findings:: None Operative note:: Informed consent was obtained and the risk and benefits of the procedure were explained to the patient. The patient was taken to the operating room placed prone on the procedure table. He was prepped and draped in sterile fashion. C-arm fluoroscopy was used to view the lumbar spine. The skin and subcutaneous tissues were anesthetized using lidocaine. I placed a 17-gauge epidural needle and advanced into the T12-L1 interspace. After confirmation needle placement in the epidural space stimulating lead was advanced to the T7-T8-T9 vertebral body. This lead was at midline. A second needle was inserted and advanced into the T12-L1 interspace again. Again after confirmation of needle placement in the epidural space a stimulating lead was inserted and advanced again to the T7-T8-T9 vertebral body. This lead was right of midline. Both leads were checked in AP and lateral views. The stylets and needles were withdrawn. The leads were secured in place. The patient tolerated the procedure well with no complications. The patient was programmed by the [employer] employee relations representative with good stimulation in all areas of pain. He was placed on a paresthesia free fast program. Patient was discharged home neurologically intact and with good relief of pain symptoms. And disposition: We will follow-up with this patient in 1 week for lead pull. We will continue to make adjustments throughout the week. If he has any problems or questions she is to call us back in the pain clinic. Condition: stable Disposition: PACU Complications:: None
== END 2020-10-06 13:15 | disposition home or self-care (01) ==
LOC: OR 09:30
PROVIDERS: PCP Family Medicine; Visit Provider Anesthesiology
PROC: (CPT 63650; principal; 2020-10-06 11:15)
DX: M96.1 Postlaminectomy syndrome, not elsewhere classified (principal); M51.16 Intervertebral disc disorders with radiculopathy, lumbar region; I25.10 Atherosclerotic heart disease of native coronary artery without angina pectoris; K21.9 Gastro-esophageal reflux disease without esophagitis; E78.5 Hyperlipidemia, unspecified; I10 Essential (primary) hypertension; Z90.49 Acquired absence of other specified parts of digestive tract; Z79.82 Long term (current) use of aspirin; Z79.899 Other long term (current) drug therapy
CPT/HCPCS: 63650 ×2; 96374; C1778; J2704; J3370

== ENCOUNTER → 2020-10-13 10:43 | Outpatient (POV) | payer MEDICARE, SELFPAY ==
--- NOTE | 2020-10-13 11:19 | HMH.PAINSOAP ---
[facility] Pain Management SOAP Note Subjective:: This patient is a pleasant 80-year-old white male who we have been treating for low back pain and right leg pain. He underwent spinal cord stimulator trial. He did not get adequate relief of his pain symptoms with the spinal cord stimulator trial. He presents for lead pull today. This was an unsuccessful trial. Objective:: Alert and oriented x3 no acute distress. Leads were pulled intact. There is no signs of redness or infection. Patient does have an antalgic gait. Motor strength of the lower extremities is 5/5. There is no gross sensory deficit. Assessment:: Degenerative disc disease of lumbar spine with lumbar radiculopathy symptoms and postlaminectomy syndrome lumbar spine Plan:: Leads were pulled intact. This was an unsuccessful spinal cord stimulator trial. Patient did get some temporary benefit from previous epidural steroid injections. We will plan on a repeat lumbar epidural steroid injection under fluoroscopy next week. [facility] History Medical History: Reports:: Coronary Artery Disease, Gastroesophageal Reflux Disease(GERD), Hyperlipidemia, Hypertension Denies:: Cancer, Diabetes Mellitus Type 1, Diabetes Mellitus Type 2, Internal Pacemaker, MRSA, Seizures *Have you ever received a pneumonia vaccine?: Yes *Have you received a flu vaccine this season?: Yes Other Medical History: Denies: Blood Transfusion Reaction Other Surgeries: Yes: Appendectomy, Cardiac Catheterization, Colonoscopy, Other (painp pump implant). No: Pacemaker Amputation: No Fractures: No - *Social History Smoking Status: Never smoker Alcohol Intake: never Substance Use Type: denies use *Occupational Status:: retired Housing: house Household Members: spouse *Travel in the last 8 weeks: Inside the [facility] Family Hx:: Unable to obtain
[2020-10-13 11:24] VITALS: BP 118/75; PULSE 75; RESP 20; O2SAT 94; BMI 33.2
== END ==
PROVIDERS: PCP Family Medicine; Visit Provider Anesthesiology
DX: M51.16 Intervertebral disc disorders with radiculopathy, lumbar region (principal); M96.1 Postlaminectomy syndrome, not elsewhere classified
CPT/HCPCS: 99212; G0463

== ENCOUNTER → 2020-10-22 11:48 | Day surgery (SDC) | payer MEDICARE, SELFPAY ==
[2020-10-22 11:52] VITALS: BP 185/86; PULSE 73; RESP 18; O2SAT 98; BMI 33.2
[2020-10-22 12:04] VITALS: BP 142/79; BP 143/89; PULSE 82; PULSE 89; RESP 18; O2SAT 98
--- NOTE | 2020-10-22 12:06 | HMH.PMPROC ---
- Procedure Date: 10/22/20 Time: 12:06 Anesthesiologist:: Ruperto Carey MD Complications:: None Pre-procedure Diagnosis:: Degenerative disc disease of lumbar spine with lumbar radiculopathy symptoms and postlaminectomy syndrome of the lumbar spine Post-procedure Diagnosis:: Same Indications for Procedure:: Patient is a pleasant 80-year-old white male who we are treating for low back pain with lumbar radiculopathy symptoms. Has increasing pain in the low back radiating down both legs. He has failed a previous spinal cord stimulator trial. He did get some benefit from previous epidural steroid injections however this has not been long-lasting. He does have an intrathecal pain pump in place. We will do lumbar epidural steroid injection today to see if this will help with some of his pain symptoms. Procedure Details:: Informed consent was obtained and the risk and benefits of the procedure was explained to the patient. The patient was taken to the procedure room. The patient was placed prone on the procedure table. The patient was prepped and draped in sterile fashion. C-arm fluoroscopy was used to view the lumbar spine. Skin and subcutaneous tissues were anesthetized using lidocaine. I placed an 18-gauge epidural needle and advanced into the L5-S1 interspace using fluoroscopic guidance and [id number] to air. After confirmation of needle placement in the epidural space with dye I injected 2 mL of lidocaine 1.5% with Depo-Medrol 80 mg. Patient tolerated the procedure well with no complications. Plan and Disposition:: We will follow-up with him in 2 weeks. Will reevaluate his symptoms at that time.
[2020-10-22 12:18] VITALS: BP 152/79; PULSE 70; RESP 18; O2SAT 98
== END ==
PROVIDERS: PCP Family Medicine; Visit Provider Anesthesiology
DX: M51.16 Intervertebral disc disorders with radiculopathy, lumbar region (principal); M96.1 Postlaminectomy syndrome, not elsewhere classified; I25.10 Atherosclerotic heart disease of native coronary artery without angina pectoris; E78.5 Hyperlipidemia, unspecified; I10 Essential (primary) hypertension; K21.9 Gastro-esophageal reflux disease without esophagitis; Z88.2 Allergy status to sulfonamides; F41.9 Anxiety disorder, unspecified
CPT/HCPCS: 62323; J1040

== ENCOUNTER 2020-11-01 13:25 | Day surgery (SDC) | payer MEDICARE, SELFPAY ==
[2020-11-01 13:34] VITALS: BP 131/74; BP 135/77; BP 135/87; BP 147/63; PULSE 74; PULSE 75; PULSE 84; RESP 18; O2SAT 97; O2SAT 98; BMI 33.2
--- NOTE | 2020-11-01 13:46 | P.PCN_ITS ---
- Procedure Date: 11/01/20 Time: 13:46 Anesthesiologist:: Zulma Wyatt APRN Complications:: None Pre-procedure Diagnosis:: Degenerative disc disease lumbar spine lumbar radiculopathy, back pain, postlaminectomy syndrome lumbar spine Post-procedure Diagnosis:: Same Indications for Procedure:: Patient is a pleasant 80-year-old white male who presents today for intrathecal pain pump refill and reprogram. He currently rates his pain a 6 out of 10. [facility] #[id number] reviewed and appropriate. Patient has pain in his low back radiating into his bilateral lower extremities. He has had a epidural recently which has helped somewhat. Patient has intrathecal pain pump infusion of Dilaudid at going at 6.5 mg/day he would like a slight increase to this. He denies side effects to the medication. Procedure Details:: Informed consent was obtained and the risk and benefits of the procedure were explained to the patient. The patient was taken to the procedure room where noninvasive monitoring was placed including noninvasive blood pressure cuff and pulse oximeter. Patient's pump was interrogated. The area over the pump was cleansed with chlorhexidine as a cleansing solution. In sterile fashion the pump was accessed with a 22-gauge needle. Approximately 5 mL's were removed of the pump solution and discarded appropriately. The pump was then refilled with 20 mL's of hydromorphone 30 mg/mL. The needle was withdrawn and a bandage was placed over the puncture site. The infusion rate was reprogrammed to 6.75 mg/day. The patient tolerated the procedure well. Plan and Disposition:: We will see the patient back in his next intrathecal pain pump refill and reprogram he has been instructed to call the office if he has any issues prior to his next appointment. Dr. Carey has reviewed this note and agrees with this plan of care. This note was dictated using voice recognition software and may contain errors or omissions
== END 2020-11-01 13:50 | disposition home or self-care (01) ==
LOC: SC.PAINP 13:26
PROVIDERS: PCP Family Medicine; Visit Provider Clinical Nurse Specialist Family Health
DX: M51.16 Intervertebral disc disorders with radiculopathy, lumbar region (principal); M96.1 Postlaminectomy syndrome, not elsewhere classified; Z45.1 Encounter for adjustment and management of infusion pump; I25.10 Atherosclerotic heart disease of native coronary artery without angina pectoris; I10 Essential (primary) hypertension; E78.5 Hyperlipidemia, unspecified; Z88.2 Allergy status to sulfonamides
CPT/HCPCS: 62370

== ENCOUNTER 2020-12-03 10:02 | Day surgery (SDC) | payer MEDICARE, SELFPAY ==
[2020-12-03 10:34] VITALS: BP 155/74; PULSE 66; RESP 18; TEMP 36.4; O2SAT 98; BMI 33.2
[2020-12-03 10:57] VITALS: BP 123/56; PULSE 63; RESP 18; O2SAT 96
[2020-12-03 10:59] VITALS: BP 138/75; PULSE 65; RESP 18; O2SAT 97
[2020-12-03 11:20] VITALS: BP 132/75; PULSE 61; RESP 18; O2SAT 98
--- NOTE | 2020-12-03 13:59 | HMH.PMPROC ---
- Procedure Date: 12/03/20 Time: 13:59 Anesthesiologist:: Ashley Abdi MD Complications:: None Pre-procedure Diagnosis:: Degenerative disc disease of the lumbar spine, lumbar radiculopathy, postlaminectomy syndrome Post-procedure Diagnosis:: Same Indications for Procedure:: Patient is a very pleasant 80-year-old white male who presents today with low back pain radiating into his bilateral lower extremities. He also has an intrathecal pain pump which she is reports is helping with his overall pain except for this pain described above. He is also trialed oral pain medications and home stretching program with minimal pain relief. Plan for today is for the patient to undergo laboratory steroid injection at L5-S1. Procedure Details:: Informed consent was obtained and the risk and benefits of the procedure was explained to the patient. The patient was taken to the procedure room. The patient was placed prone on the procedure table. The patient was prepped and draped in sterile fashion. C-arm fluoroscopy was used to view the lumbar spine. Skin and subcutaneous tissues were anesthetized using lidocaine. I placed an 18-gauge epidural needle and advanced into the L5-S1 interspace using fluoroscopic guidance and [id number] to air and saline. After confirmation of needle placement in the epidural space with dye I injected 2 mL of lidocaine 1.5% with Depo-Medrol 80 mg. Patient tolerated the procedure well with no complications. Plan and Disposition:: We will follow up with the patient in 2 weeks. Will reevaluate his pain symptoms at that time.
== END 2020-12-03 11:15 | disposition home or self-care (01) ==
LOC: SC.PAINP 10:04
PROVIDERS: PCP Family Medicine; Visit Provider Anesthesiology Pain Medicine
DX: M51.16 Intervertebral disc disorders with radiculopathy, lumbar region (principal); M96.1 Postlaminectomy syndrome, not elsewhere classified
CPT/HCPCS: 62323; J1040; Q9966

== ENCOUNTER 2020-12-20 14:27 | Day surgery (SDC) | payer MEDICARE, SELFPAY ==
[2020-12-20 14:32] VITALS: BP 125/70; PULSE 78; RESP 18; TEMP 37; O2SAT 98; BMI 31.8
[2020-12-20 15:04] VITALS: BP 114/69; PULSE 61; RESP 18; O2SAT 95
[2020-12-20 15:08] VITALS: BP 120/64; PULSE 61; RESP 18; O2SAT 96
--- NOTE | 2020-12-20 15:21 | P.PCN_ITS ---
- Procedure Date: 12/20/20 Time: 15:21 Anesthesiologist:: Adeline Aleman APRN Complications:: None Pre-procedure Diagnosis:: Degenerative disc disease lumbar spine with lumbar radicular symptoms, this laminectomy syndrome lumbar spine, chronic low back pain Post-procedure Diagnosis:: Same Indications for Procedure:: Patient is an 80-year-old white male who presents today for follow-up after lumbar epidural steroid injection at L5-S1 and for intrathecal pump refill and reprogram. He is being treated for degenerative disc disease lumbar spine with lumbar radicular symptoms and postlaminectomy syndrome lumbar spine. Patient rates his pain a 7 out of 10 today. He is currently on intrathecal therapy of Dilaudid at 6.75 mg/day and bupivacaine at 1.68 mg/day. He would like an increase. He denies any side effects. Levi and drug screen are appropriate. Patient says he did get about 60% relief with the epidural steroid injection for about a week. His pain has returned. He would like to undergo a repeat injection to the L5-S1 area. His pain is in his low back to bilateral lower extremities. 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 The patient was taken to the procedure room where noninvasive monitoring was placed including noninvasive blood pressure cuff and pulse oximeter. Patient's pump was interrogated. The area over the pump was cleansed with chlorhexidine as a cleansing solution. In sterile fashion the pump was accessed with a 22-gauge needle. Approximately 7 mls of the pump solution was removed and discarded appropriately. The pump was then refilled with 20 mL's of Dilaudid 30 mg/mL and bupivacaine 7.5 mg/mL. The needle was withdrawn and a bandage was placed over the puncture site. The infusion rate was reprogrammed at increased to Dilaudid at 7.4 mg/day and bupivacaine at 1.85 mg/day. The patient tolerated well with no complication. Plan and Disposition:: We will schedule the patient for a repeat lumbar epidural steroid injection at L5-S1. He did get 60% relief for up to a week with this last injection and would like a repeat injection. He was increased with his intrathecal therapy today. Patient is not on any anticoagulation therapy. We will see him back after his injection for reevaluation of symptoms. He has been instructed to contact clinic if he has any concerns for his next appointment. Patient has been instructed to contact the clinic with any concerns before the next appointment. Dr. Carey has reviewed this note and agrees with this plan of care. This note was dictated using voice recognition software and make contain errors or omissions. Risks and benefits of the procedure have been explained to the patient. Patient would like to proceed with the procedure. Possible side effects of corticosteroids have been discussed with the patient.
[2020-12-20 15:38] VITALS: BP 113/50; PULSE 63; RESP 18; TEMP 37; O2SAT 98
== END 2020-12-20 15:20 | disposition home or self-care (01) ==
LOC: SC.PAINP 14:28
PROVIDERS: PCP Family Medicine; Visit Provider Clinical Nurse Specialist Family Health
DX: M51.16 Intervertebral disc disorders with radiculopathy, lumbar region (principal); M96.1 Postlaminectomy syndrome, not elsewhere classified; G89.29 Other chronic pain
CPT/HCPCS: 62370

== ENCOUNTER 2020-12-24 13:36 | Day surgery (SDC) | payer MEDICARE, SELFPAY ==
[2020-12-24 13:38] VITALS: BP 98/56; PULSE 73; RESP 18; TEMP 36.7; O2SAT 98; BMI 31.8
[2020-12-24 14:00] VITALS: PULSE 66; RESP 18; O2SAT 97
[2020-12-24 14:10] VITALS: BP 140/78; PULSE 68; RESP 16; O2SAT 98
[2020-12-24 14:35] VITALS: BP 124/76; PULSE 63; RESP 18; O2SAT 98
--- NOTE | 2020-12-24 14:42 | P.PCN_ITS ---
- Procedure Date: 12/24/20 Time: 14:42 Anesthesiologist:: Ashley Abdi MD Complications:: None Pre-procedure Diagnosis:: Degenerative disc disease of the lumbar spine, lumbar radiculopathy, post laminectomy syndrome Post-procedure Diagnosis:: Same Indications for Procedure:: This is a very pleasant 80-year-old white male with back pain radiating into both legs to the above diagnosis. He has previously undergone lumbar epidural steroid injection and notes about 60% pain relief for about 1 week. He has tried and failed conservative treatment including oral pain medication home st retching program for greater than 6 weeks. He will prefer to undergo repeat lumbar epidural steroid injection for improved pain relief. He also has an intrathecal pain pump as well. Today the plan is for the patient to undergo repeat lumbar epidural steroid injection at L5-S1. Procedure Details:: Informed consent was obtained and the risk and benefits of the procedure was explained to the patient. The patient was taken to the procedure room. The patient was placed prone on the procedure table. The patient was prepped and draped in sterile fashion. C-arm fluoroscopy was used to view the lumbar spine. Skin and subcutaneous tissues were anesthetized using lidocaine. I placed an 18-gauge epidural needle and advanced into the L5-S1 interspace using fluoroscop ic guidance and [id number] to air and saline. After confirmation of needle placement in the epidural space with dye I injected 2 mL of lidocaine 1.0% with Depo-Medrol 80 mg. Patient tolerated the procedure well with no complications. Plan and Disposition:: We will follow-up with this patient in 2 weeks. Will reevaluate pain symptoms at that time.
== END 2020-12-24 14:35 | disposition home or self-care (01) ==
PROVIDERS: PCP Family Medicine; Visit Provider Anesthesiology Pain Medicine
DX: M51.16 Intervertebral disc disorders with radiculopathy, lumbar region (principal); M96.1 Postlaminectomy syndrome, not elsewhere classified; I25.10 Atherosclerotic heart disease of native coronary artery without angina pectoris; E78.5 Hyperlipidemia, unspecified; I10 Essential (primary) hypertension; K21.9 Gastro-esophageal reflux disease without esophagitis
CPT/HCPCS: 62323; J1040; Q9966

== ENCOUNTER → 2021-01-24 12:45 | Outpatient (CLI) | payer MEDICARE, SELFPAY ==
--- NOTE | 2021-01-24 | CA_ITS ---
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, suspect AFIB Doppler Spectral Velocity Analysis ECA (R) 88.30/0.00 cm/s ECA (L) 74.80/6.70 cm/s dICA (R) 110.50/29.10 cm/s dICA (L) 63.00/23.00 cm/s Aga (R) 149.90/39.40 cm/s Aga (L) 64.30/22.40 cm/s pICA (R) 117.40/25.70 cm/s pICA (L) 66.60/12.00 cm/s dCCA (R) 76.30/15.70 cm/s dCCA (L) 74.80/21.70 cm/s pCCA (R) 70.30/11.20 cm/s pCCA (L) 93.50/16.50 cm/s Vert (R) 32.90/0.00 cm/s Vert (L) 38.90/0.00 cm/s ICA/CCA 1.90 ICA/CCA 0.89 Findings Duplex evaluation demonstrates stenosis of the right proximal internal carotid artery in the range of 50-69% with PSV =140 cm/sec, EDV <100 cm/sec, and IC/CC Ratio <4.0. Duplex evaluation demonstrates stenosis of the left proximal internal carotid artery in the range of 20-49% with PSV <140 cm/sec, EDV <100 cm/sec, and IC/CC Ratio <4.0. Duplex evaluation demonstrates antegrade flow of the bilateral Vertebral Arteries. Cardiac arrythmia noted throughout exam. Conclusion Duplex evaluation demonstrates stenosis of the right proximal internal carotid artery in the range of 50-69% with PSV =140 cm/sec, EDV <100 cm/sec, and IC/CC Ratio <4.0. Duplex evaluation demonstrates stenosis of the left proximal internal carotid artery in the range of 20-49% with PSV <140 cm/sec, EDV <100 cm/sec, and IC/CC Ratio <4.0. Duplex evaluation demonstrates antegrade flow of the bilateral Vertebral Arteries. Electronically signed by : Yovanny Neil MD 01/24/2021 16:54:21
== END ==
PROVIDERS: PCP Family Medicine; Visit Provider Otolaryngology
DX: R42 Dizziness and giddiness (principal)
CPT/HCPCS: 93880

== ENCOUNTER → 2021-01-27 12:54 | Outpatient (CLI) | payer MEDICARE, SELFPAY ==
--- NOTE | 2021-01-27 12:56 | CA_ITS ---
APPROVED REPORT Bilateral Lower Extremity Venous Study for DVT. Chain Builder Loom Control: GAL MckeonT Indications Lower Extremity Edema: Bilateral Shortness of breath dypsnea,EDEMA Medications Aspirin Vein Imaging CFV (R): compressive, spontaneous, phasic, augmentation FEM (R): compressive, spontaneous, phasic, augmentation POP (R): compressive, spontaneous, phasic, augmentation PTV (R): Compressible GSV (R): Compressible Peroneals (R):Compressible GAS (R): Compressible CFV (L): compressive, spontaneous, phasic, augmentation FEM (L): compressive, spontaneous, phasic, augmentation POP (L): compressive, spontaneous, phasic, augmentation PTV (L): Compressible GSV (L): Compressible Peroneals (L):Compressible GAS (L): Compressible Findings Study suggests no evidence of DVT or SVT of the bilateral lower extremities. Conclusion Study suggests no evidence of DVT or SVT of the bilateral lower extremities. Electronically signed by : Yovanny Neil MD 01/27/2021 16:17:41
== END ==
PROVIDERS: PCP Family Medicine; Visit Provider Internal Medicine Cardiovascular Disease
DX: E78.5 Hyperlipidemia, unspecified (principal); I10 Essential (primary) hypertension; I25.10 Atherosclerotic heart disease of native coronary artery without angina pectoris; I49.9 Cardiac arrhythmia, unspecified; R00.2 Palpitations; R06.00 Dyspnea, unspecified; R42 Dizziness and giddiness; R60.0 Localized edema; Z95.5 Presence of coronary angioplasty implant and graft; I65.23 Occlusion and stenosis of bilateral carotid arteries
CPT/HCPCS: 93225; 93970

== ENCOUNTER → 2021-02-04 10:02 | Outpatient (CLI) | payer MEDICARE, SELFPAY ==
--- NOTE | 2021-02-04 | CA_ITS ---
APPROVED REPORT Exam: Pharmacologic Technologist: ethan pino, Ht: 6 ft 0 in Wt: 249 lbs BSA: 2.34 m2 HR: 74 bpm BP: 150/70 mmHg Indications: SOB, Abn Ekg, CAD Medical History Medications: Asa,,,,, Trazadone,,,,, Flomax,,,,, Losartan,,,,, Lyrica,,,,, Lasix,,,,, Crestor,,,,, Zolpidem,,,,, Valium,,,,, Celecoxib,,,,, Allergies: Sulfa Cardiac Risk Factors: HTN, , Hyperlipidemia Stress Test Details Test: LEXISCAN HR Resting HR: 70 bpm Max Heart Rate (APMHR): 138.307892 bpm Max HR Achieved: 90 bpm Target HR (85% APMHR): 117.582801 bpm % of APMHR: 65.22 Recovery HR: 78 bpm BP Resting BP: 150/70 mmHg Max BP: 150/70 mmHg Recovery BP: 136.0/74.0 mmHg ECG Resting ECG: NSR, frequent ectopic beats (probable PAC's). Cannot R/O ant MT Clinical Exercise duration: 04:02 min Highest Stage Achieved: Exercise capacity: 1.0 METs Stress ECG Conclusion No chest pain. Mild SOA at peak infusion resolved in recovery. Frequent PAC's. Occ PVC. No significant ST changes. Unremarkable Lexiscan stress.. Images reported separately. Test Summary REST 04:49 . . 70 . 150/ 70 . . Stage 1 01:00 . . 77 . . . . Stage 2 01:00 . . 80 . 131/ 67 . . Stage 3 01:00 . . 81 . . . . Stage 4 01:00 . . 77 . 132/ 66 . . Stage 4 01:02 . . 77 . 132/ 66 . Stop exercise at 04:02 RECOVERY 01:00 . . 74 . 136/ 74 . . RECOVERY 02:00 . . 72 . 141/ 65 . . RECOVERY 03:00 . . 74 . 148/ 67 . . RECOVERY 03:18 . . 73 . 148/ 67 . . Electronically signed by : Joshua Sun MD 02/05/2021 17:12:10
--- NOTE | 2021-02-04 10:03 | CA_ITS ---
APPROVED REPORT EXAM: Comprehensive 2D, Doppler, and color-flow Echocardiogram Grain Drier Operator: Joan Momin RDCS Ht: 6 ft 0 in Wt: 249lbs BSA: 2.34 BP: 129/68 mmHg Indications: SOA,ABN EKG 2D Dimensions LVOT 1.96 cm (M/F) 1.5-2.5 LA Volume 73.70 mL LA Volume Index 31.49 mL/m2 (M/F) 16-34 M-Mode Dimensions RVDd 3.14 cm (0.9-2.6) LA Diam 4.05 cm (1.9-4.0) LVDd 5.39 cm (3.5-5.7) Ao Diam 3.45 cm (2.0-3.7) LVDs 3.74 cm (3.5-5.7) IVSd 0.64 cm (0.6-1.1) PWd 0.89 cm (0.6-1.1) EF (Teich) 57.60% FS 30.60% EDV (Teich) 140.70 mL TAPSE 3.00 (<1.7) ESV (Teich) 59.60 mL LV Diastology E Decel Time 247.00 (160-240 msec) E/A Ratio 1.0 MED E' 5.20 (< 7 cm/sec) E'/MED E' Ratio 15.69 (>14) LAT E' 2.80 (<10 cm/sec) E/LAT E' Ratio 29.14 (>14) Mitral Valve MV E Max Maurice. 82.00 (40-130 cm/s) MV A Velocity 82.00 (40-130 cm/s) E/A Ratio 0.99 MV Decel. Time 247.00 (160-240 ms) MV PHT 72.00 ms Left Ventricle Left atrium is mildly enlarged, left ventricle is normal size, mild concentric left ventricular hypertrophy, visually estimated ejection fraction 55% with no regional wall motion abnormality, grade 2 diastolic dysfunction seen with tissue Doppler evidence of raise left atrial pressure. Right Ventricle Right atrium and right ventricle are normal size and contractility. Aortic Valve Aortic valve is minimally thickened and fibrosed, there is no aortic stenosis or aortic insufficiency. Mitral Valve Mitral valve is grossly normal, there is mild mitral regurgitation. Tricuspid Valve Tricuspid grossly normal, there is mild tricuspid regurgitation, tricuspid regurgitation jet velocity is inadequate for calculation of the right ventricular systolic pressure. Pulmonic Valve Pulmonic valve is poorly visualized. Great Vessels Aortic root is normal size. Pericardium No significant pericardial effusion noted. Conclusion 1. Mildly enlarged left atrium, normal left ventricular size, mild concentric left ventricular hypertrophy, visually estimated ejection fraction 55% with no regional wall motion abnormality, grade 2 diastolic dysfunction seen with tissue Doppler evidence of raise left atrial pressure. 2. Mild mitral and tricuspid regurgitation. 3. No significant pericardial effusion noted. Electronically signed by : Joshua Sun MD 02/04/2021 13:27:50
--- NOTE | 2021-02-04 10:30 | NM_ITS ---
APPROVED REPORT Exam: Nuclear Stress Test Indication: CAD, H/O MO, OBESITY, HTN, HYPERLIPIDEMIA, SOB, SYNCOPE, FATIGUE ABN EKG Patient Location: Outpatient Stress Tech: Ila Pickens [place] Tech:Mary Silveira JENNYPaloma RT (R)(N)(M) Ht: 6 ft 0 in Wt: 237 lbs HR: 74 bpm BP: 150/70 mmHg BSA: 2.29 m2 History: CAD, H/O MO, OBESITY, HTN, HYPERLIPIDEMIA, SOB, SYNCOPE, FATIGUE ABN EKG Procedure: Patient received a 0.4 mg of intravenous Lexiscan, resting heart rate 74 bpm, resting blood pressure 150/70 mmHg, with Lexiscan maximum heart rate achived was 98 bpm which is Less than 85 % of the maximum predicted heart rate and blood pressure was 131/67 mmHg. With Lexiscan, patient denied any complaint of chest pain. PT C/O SOA Electrocardiogram Resting electrocardiogram showed sinus rhythm, with Lexiscan there is less than 1.[address] segment depression noted from the baseline EKG. The EKG portion of the Lexiscan is nondiagnostic. Cardiac Stress and Resting SPECT Images: Cardiac Stress and Resting SPECT images were obtained using technetium 99m Myoview 32.9 mCi stress and 10.89 mCi at rest. Gated SPECT for analysis of segmental wall motion and calculation of the ejection fraction also done. Prone images were also obtained. Cardiac stress and resting SPECT images show a fixed defect involving the anterior apical wall consistent with area of myocardial scarring, in addition there is reversible ischemia involving the anteroseptal wall. Computer derived ejection fraction is 44% with moderate anterior apical wall hypokinesis, right ventricle is normal size and contractility. Conclusion: 1. The EKG portion of the Lexiscan is nondiagnostic. 2. Scintigraphic evidence of myocardial scarring involving the anterior apical wall, in addition there is reversible ischemia involving the anteroseptal wall, computer derived ejection fraction is 44% with segmental wall motion abnormality described above, right ventricle is normal size and contractility. 3. Abnormal Lexiscan Myoview study. Electronically signed by : Joshua Sun MD 02/05/2021 17:20:24
== END ==
PROVIDERS: PCP Family Medicine; Visit Provider Internal Medicine Cardiovascular Disease
DX: E78.5 Hyperlipidemia, unspecified (principal); I10 Essential (primary) hypertension; I25.10 Atherosclerotic heart disease of native coronary artery without angina pectoris; I49.9 Cardiac arrhythmia, unspecified; I65.29 Occlusion and stenosis of unspecified carotid artery; R00.2 Palpitations; R06.00 Dyspnea, unspecified; R42 Dizziness and giddiness; R60.0 Localized edema; Z95.5 Presence of coronary angioplasty implant and graft; R94.31 Abnormal electrocardiogram [ECG] [EKG]
CPT/HCPCS: 78452; 93017; 93306; A9502; J2785

== ENCOUNTER 2021-02-07 13:36 | Day surgery (SDC) | payer MEDICARE, SELFPAY ==
[2021-02-07 13:42] VITALS: BP 182/78; PULSE 73; RESP 18; TEMP 36.6; O2SAT 97; BMI 31.8
--- NOTE | 2021-02-07 13:51 | HMH.PMPROC ---
- Procedure Date: 02/07/21 Time: 13:51 Anesthesiologist:: Adeline Aleman APRN Complications:: None Pre-procedure Diagnosis:: Degenerative disc disease lumbar spine with lumbar radiculopathy symptoms Post-procedure Diagnosis:: Same Indications for Procedure:: Patient is an 80-year-old white male who presents today for intrathecal pain pump refill and reprogram. He has been treated for degenerative disc disease lumbar spine with lumbar radiculopathy symptoms. Patient says that he is having increased pain in the middle of his time for refill. He says that the pain is never completely controlled. He does report that he feels as though the pump is not working accurately. He says he was previously able to hear the pump taking on and off and is not able to hear that into this time. We will check his volume to determine if there is a discrepancy. His drug screen and Levi are appropriate. He is currently on a dose of Dilaudid and bupivacaine at 7.4 mg/day. 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 The patient was taken to the procedure room where noninvasive monitoring was placed including noninvasive blood pressure cuff and pulse oximeter. Patient's pump was interrogated. The area over the pump was cleansed with chlorhexidine as a cleansing solution. In sterile fashion the pump was accessed with a 22-gauge needle. Approximately next 6.5 mls of the pump solution was removed and discarded appropriately. The pump was then refilled with 20 mL's of Dilaudid 30 mg/mL and bupivacaine 7.5 mg/mL. The needle was withdrawn and a bandage was placed over the puncture site. The infusion rate was reprogrammed at Dilaudid/bupivacaine at 7.4 mg/day. The patient tolerated well with no complication. Plan and Disposition:: We will bring the patient back to the clinic in 4 weeks to see if this helps with his medication which seems to be wearing off early, before refill. Patient has been instructed to contact the clinic with any concerns before the next appointment. Dr. Carey has reviewed this note and agrees with this plan of care. This note was dictated using voice recognition software and make contain errors or omissions.
[2021-02-07 13:52] VITALS: BP 146/68; PULSE 69; RESP 18; O2SAT 97
[2021-02-07 13:54] VITALS: BP 146/68; PULSE 69; RESP 18; O2SAT 96
[2021-02-07 14:07] VITALS: BP 162/75; PULSE 65; RESP 18; O2SAT 97
== END 2021-02-07 14:08 | disposition home or self-care (01) ==
LOC: SC.PAINP 13:37
PROVIDERS: PCP Family Medicine; Visit Provider Clinical Nurse Specialist Family Health
DX: M51.16 Intervertebral disc disorders with radiculopathy, lumbar region (principal); Z45.1 Encounter for adjustment and management of infusion pump; I25.10 Atherosclerotic heart disease of native coronary artery without angina pectoris; E78.5 Hyperlipidemia, unspecified; I10 Essential (primary) hypertension; K21.9 Gastro-esophageal reflux disease without esophagitis
CPT/HCPCS: 62370

== ENCOUNTER → 2021-02-11 13:54 | Outpatient (CLI) | payer MEDICARE, SELFPAY | PROVIDERS: Visit Provider Internal Medicine Gastroenterology | DX: Z01.812 Encounter for preprocedural laboratory examination (principal); Z20.822 Contact with and (suspected) exposure to COVID-19; Z13.810 Encounter for screening for upper gastrointestinal disorder | CPT/HCPCS: U0003 ==

== ENCOUNTER 2021-02-14 08:48 | Day surgery (SDC) | payer MEDICARE, SELFPAY ==
[2021-02-08 11:11] VITALS: BMI 34.2
[2021-02-14 09:16] VITALS: BP 165/68; PULSE 75; RESP 20; TEMP 36.3; O2SAT 97
--- NOTE | 2021-02-14 09:27 | P.PN_ITS ---
[facility] Anesthesia Checklist - Patient Identification Patient Identification: Arm Band, Verbal (Name & ) - Structural Data Admitted From: Home Planned Operative Procedure/s: egd Consent for Planned Operative Procedure(s) Verified: Yes Verified Documents: History and Physical - NPO Status Verified Time NPO: 00:00 - Additional verifications Patient : No Anesthesia Reactions: No Hx Blood Transfusions: No Blood Transfusion Reaction: No Cephalosporin Allergy: No Previous Colonoscopy: No - Cardiovascular Assessment Heart Sounds: S1 & S2 Pulse Strength: Baseline Pulse Rhythm: Regular Peripheral Edema: No - Airway Assessment C-Spine Mobility Assessed: Yes TMJ Mobility Assessed: Yes Dentition: Good Dentition - Neurological Assessment Level of Consciousness: Awake, Alert, Appropriate Hx Seizures: No Numbness or tingling in extremities: No - Anesthesia Plan Anesthesia Risk discussed: Yes Anesthesia Plan: Verified ASA Class: II Anesthesia Type: MAC [facility] History I have reviewed the patient's past medical history: Yes Medical History: Reports:: Arrhythmia, Coronary Artery Disease, Gastroesophageal Reflux Disease(GERD), Hyperlipidemia, Hypertension, Peripheral Artery Disease, Peripheral Vascular Disease Denies:: Cancer, Diabetes Mellitus Type 1, Diabetes Mellitus Type 2, Internal Pacemaker, MRSA, Seizures *Have you ever received a pneumonia vaccine?: No *Have you received a flu vaccine this season?: Yes Other Medical History: Denies: Blood Transfusion Reaction Anesthesia experience/problems:: none Other Surgeries: Yes: Appendectomy, Cardiac Catheterization, Colonoscopy, Coronary Stent, Other (pain pump implant). No: Pacemaker Amputation: No Fractures: No - *Social History Last grade of school completed: High school graduate Smoking Status: Never smoker Alcohol Intake: never Substance Use Type: denies use *Occupational Status:: retired Housing: house Household Members: spouse *Travel in the last 8 weeks: None Family Hx:: Cancer, Coronary Artery Disease
[2021-02-14 10:33] VITALS: O2SAT 97
--- NOTE | 2021-02-14 10:54 | HMH.PROC ---
[facility] Procedure Note Procedure Note:: Upper Endoscopy Procedure Report: Esophagogastroduodenoscopy with cold biopsies and TTS balloon dilation Endoscopost: Saul Delarosa II, MD Referring Physician: Jackson Haynes MD Date of Procedure: February 14, 2021 Equipment: Olympus GIF 190 standard upper endoscope Sedation: MAC sedation Indications: Mr. Larson is an 80-year-old gentleman who presents with dysphagia and globus sensation over the last 3 months which has been getting worse. He has had bloating. He feels as if food is too large to go into his esophagus and he will sometimes have regurgitation. He does hear a clicking sound in his esophagus. He reports heartburn and reflux with every meal. He does take MiraLAX daily and feels as if he evacuates. He also started [id number] Nexium but did not notice any significant difference. He does take trazodone for sleep. He reports no tobacco use or weight loss. He does have a history of colon polyps and is followed by [facility] (Alisa Magana MD). He had a colonoscopy last in May 2016 with polyps. Procedure: Prior to the procedure, a history and physical exam was performed, and patient's medications and allergies were reviewed. The risks, benefits and alternatives of the sedation and procedure were discussed with the patient. All questions were answered and informed consent was obtained. The patient was brought to the procedure room. Patient identification and proposed procedure were verified by the physician and the nurse. The patient was placed in a left lateral decubitus position and the scope was passed under direct vision. Throughout the procedure, the patient's blood pressure, pulse, and oxygen saturations were monitored continuously. The upper GI endoscopy was accomplished without difficulty. The patient tolerated the procedure well. Findings: The scope was passed directly into the upper esophagus and advanced to the third portion of the duodenum. The post bulbar duodenum and duodenal bulb were normal with normal mucosa and conniventes. There was a single diminutive 3 mm polyp in the second portion of the duodenum that was removed via cold biopsy. The scope was withdrawn through a normal duodenal bulb and pylorus into the stomach. There was bile reflux with linear reactive gastropathy of the antrum of the stomach. The remainder of the body and fundus of the stomach were grossly normal. Upon retroflexion there was no hiatal hernia. 2 biopsies were taken in the antrum and along the lesser curvature for histology to rule out gastritis and/or H pylori. The scope was then withdrawn into the esophagus. There was a serrated Z-line and biopsies were taken at the GE junction. There was no evidence of reflux esophagitis, Jade's or Schatzki's ring. There were strong tertiary contractions and evidence of moderate esophageal dysmotility. The entire esophagus was dilated to 60 Bulgarian/20 mm with a TTS hydrostatic balloon. There was mild resistance at the cricopharyngeus. The remainder of the esophageal mucosa was normal. Impression: 1. Cricopharyngeal spasm status post dilation to 20 mm 2. Nonerosive GERD with moderate esophageal dysmotility 3. Bile reflux with linear reactive gastropathy 4. Diminutive duodenal polyp (3 mm) in second portion of duodenum Plan: The patient's dysphagia and globus sensation is related to functional GERD, esophageal dysmotility and cricopharyngeal spasm. We will discuss additional treatment options. I will follow-up the biopsies.
[2021-02-14 11:00] VITALS: BP 127/75; PULSE 61; RESP 12; TEMP 36.3; O2SAT 95
[2021-02-14 11:10] VITALS: BP 125/74; PULSE 61; RESP 16; O2SAT 95
[2021-02-14 11:20] VITALS: BP 139/88; PULSE 58; RESP 16; O2SAT 98
[2021-02-14 11:30] VITALS: BP 156/56; PULSE 72; RESP 16; TEMP 36.3; O2SAT 95
== END 2021-02-14 11:32 | disposition home or self-care (01) ==
LOC: OUTP 08:49
PROVIDERS: PCP Family Medicine; Visit Provider Internal Medicine Gastroenterology
PROC: 0DJ08ZZ Inspection of Upper Intestinal Tract, Via Natural or Artificial Opening Endoscopic (ICD-10-PCS; CPT 43235; principal; 2021-02-14 10:00)
DX: J39.2 Other diseases of pharynx (principal); K21.9 Gastro-esophageal reflux disease without esophagitis; K22.4 Dyskinesia of esophagus; K31.9 Disease of stomach and duodenum, unspecified; K31.7 Polyp of stomach and duodenum; I25.10 Atherosclerotic heart disease of native coronary artery without angina pectoris; E78.5 Hyperlipidemia, unspecified; I10 Essential (primary) hypertension; Z90.49 Acquired absence of other specified parts of digestive tract; Z88.2 Allergy status to sulfonamides; Z79.82 Long term (current) use of aspirin; Z79.899 Other long term (current) drug therapy
CPT/HCPCS: 43239; 43249; 88305; C1726

== ENCOUNTER → 2021-02-21 11:58 | Outpatient (CLI) | payer MEDICARE, SELFPAY ==
[2021-02-21 12:23] LABS: Basophils % 0.8 % (0.1-2.0); Eosinophils # 0.3 K/mm3 (0.0-0.4); Eosinophils % 7.7 % (0.1-12.0); Hematocrit 34.8 % (42.0-52.0); Hemoglobin 11.3 g/dL (14.1-18.0); Lymphocytes # 1.9 K/mm3 (0.7-4.5); Lymphocytes % 45.8 % (10-50); Mean Corpuscular HGB Conc 32.4 g/dL (31.8-35.4); Mean Corpuscular Hemoglobin 31.3 pg (27.0-31.2); Mean Corpuscular Volume 96.7 fl (80-94); Monocytes # 0.2 K/mm3 (0.1-1.0); Monocytes % 5.6 % (1.7-9.3); Neutrophils # 1.7 K/mm3 (1.8-7.8); Neutrophils % 40.1 % (37.0-80.0); Platelet Count 142 K/mm3 (142-424); Red Cell Distribution Width 13.1 % (11.5-17.5); White Blood Count 4.2 K/mm3 (4.8-10.8)
[2021-02-21 13:05] LABS: Chloride 102 mmol/L (98-107); Sodium 140 mmol/L (136-145)
[2021-02-21 13:06] LABS: Potassium 4.6 mmoL/L (3.5-5.1)
[2021-02-21 13:08] LABS: Blood Urea Nitrogen 21 mg/dl (9-20); Estimated Glomerular Filt Rate 64 ml/min (>60); GFR (African American) 78 ML/MIN (>60)
[2021-02-21 13:09] LABS: Anion Gap 12.6 mEq/L (5-15); Calcium 9.3 mg/dl (8.4-10.2); Carbon Dioxide 30 mmol/L (22.0-30.0); Glucose 94 mg/dl (74-100)
[2021-02-21 13:17] LABS: NT Pro Brain Natriuretic Pep. 243 pg/mL (0-450)
== END ==
PROVIDERS: Visit Provider Internal Medicine Cardiovascular Disease
DX: Z01.812 Encounter for preprocedural laboratory examination; Z20.822 Contact with and (suspected) exposure to COVID-19; R06.00 Dyspnea, unspecified; R42 Dizziness and giddiness; R00.2 Palpitations; I49.9 Cardiac arrhythmia, unspecified; I25.10 Atherosclerotic heart disease of native coronary artery without angina pectoris; I10 Essential (primary) hypertension; E78.5 Hyperlipidemia, unspecified; I65.29 Occlusion and stenosis of unspecified carotid artery; R60.0 Localized edema; R94.30 Abnormal result of cardiovascular function study, unspecified; Z95.5 Presence of coronary angioplasty implant and graft; Z98.2 Presence of cerebrospinal fluid drainage device
CPT/HCPCS: 36415; 80048; 83880; 85025; U0003

== ENCOUNTER 2021-02-22 11:21 | Day surgery (SDC) | payer MEDICARE, SELFPAY ==
[2021-02-22] VITALS (14 sets, daily range): BP systolic 114–166; BP diastolic 65–107; PULSE 54–79; RESP 13–18; TEMP 36.9; O2SAT 96–98; BMI 33.9
--- NOTE | 2021-02-22 07:19 | IR_ITS ---
APPROVED REPORT Patient Location: Outpatient Oxygen Therapy Technician: CAIT Bansal RT (R) PROCEDURES Left heart catheterization Left ventriculogram Selective coronary angiogram Drug-eluting stent deployment to the proximal dominant right coronary artery INDICATION Coronary artery disease, Angina pectoris, High risk abnormal Myoview, Informed consent was obtained prior to the procedure. COMPLICATIONS None Estimated Blood Loss: Less than 10 mls TECHNIQUE One percent lidocaine used to anesthetize the right anterior aspect of the wrist. The right radial artery was accessed via the Seldinger technique. A 6 Mosotho sheath was placed in the right radial artery. 2.5 mg of verapamil, 800 mcg of nitroglycerin, 1mg Lidocaine and 5000 U Heparin were given through the arterial sheath. The trap catheter was also used to perform left heart catheterization, left ventriculogram and selective coronary angiogram. At the end the diagnostic angiogram at the end of the diagnostic and and I Yaritza right guide catheter was used to intubate the right coronary artery. A Choice PT wire was placed distally and a 3.5 x 30 mm resolute Vienna stent was deployed at 24 adriana reducing the severe stenosis to 0%. DERECK-3 flow was present before and after the procedure. After achieving excellent angiographic results the apparatus was removed the sheath was removed good hemostasis was achieved using TR banding patient was transferred to the postop putting in stable condition ANGIOGRAPHIC RESULTS The left main artery Normal The left anterior descending artery Has a stent in the proximal has a stent in the proximal segment which is widely patent free of in-stent restenosis with excellent proximal distal transitioning The circumflex artery Is a nondominant vessel is a nondominant yet still large vessel giving rise to a large ramus intermedius. Both vessels are widely patent with minimal 10 to 20% atheromatous plaque throughout The right coronary artery There is a large dominant is a large dominant vessel with a proximal concentric 70% stenosis followed by distal mild luminal irregularities The AMIN ventriculogram reveals Dilated ventricle with reduced ejection fraction estimated at 40% The left ventricular end-diastolic pressure 25 mmHg IMPRESSION Severe disease in defect within the septum on Myoview images Successful stenting of the proximal to mid dominant right coronary severe disease reduced to 0% with one large drug-eluting stent Reduced ejection fraction Elevated LVEDP PLAN 1. Dual antiplatelet therapy 2. Risk factor modification 3. Cardiac rehabilitation 4. Avoidance of tobacco products 5. Beta-blockers and RYLEY inhibitors 6. LDL less than 55 Electronically signed by : Kyler Moraes MD 02/22/2021 13:31:03
[2021-02-22 13:10] LABS: CATHL Activated Clotting Time > 400 SEC (74-125)
--- NOTE | 2021-02-22 15:55 | HMH.PHACLD ---
Damir Larson has received discharge medication counseling on the following medications: PATIENT STARTED ON BRILINTA 90 MG BID. PATIENT IS CURRENTLY TAKING ASPIRIN 81 MG DAILY, LOSARTAN 25 MG DAILY, AND ROSUVASTATIN 10 MG HS. HR TOO LOW PER MD TO START BETA TREVOR AT THIS TIME.
== END 2021-02-22 16:15 | disposition home or self-care (01) ==
LOC: CATHLAB 11:22
PROVIDERS: PCP Family Medicine; Visit Provider Internal Medicine
DX: E78.5 Hyperlipidemia, unspecified (principal); I10 Essential (primary) hypertension; I25.118 Atherosclerotic heart disease of native coronary artery with other forms of angina pectoris; I49.9 Cardiac arrhythmia, unspecified; I51.9 Heart disease, unspecified; I65.29 Occlusion and stenosis of unspecified carotid artery; R94.30 Abnormal result of cardiovascular function study, unspecified; Z95.5 Presence of coronary angioplasty implant and graft; Z98.2 Presence of cerebrospinal fluid drainage device; I42.9 Cardiomyopathy, unspecified; I11.9 Hypertensive heart disease without heart failure; I25.84 Coronary atherosclerosis due to calcified coronary lesion
CPT/HCPCS: 85347; 92928; 93458; 99152; C1725; C1760; C1769; C1874; C9600; J1644; Q9967

== ENCOUNTER → 2021-03-04 07:23 | Outpatient (CLI) | payer MEDICARE, SELFPAY ==
[2021-03-04 07:35] LABS: Basophils % 0.6 % (0.1-2.0); Eosinophils # 0.5 K/mm3 (0.0-0.4); Eosinophils % 8.6 % (0.1-12.0); Hematocrit 35.6 % (42.0-52.0); Hemoglobin 11.7 g/dL (14.1-18.0); Lymphocytes # 2.3 K/mm3 (0.7-4.5); Lymphocytes % 42.2 % (10-50); Mean Corpuscular HGB Conc 32.9 g/dL (31.8-35.4); Mean Corpuscular Hemoglobin 31.9 pg (27.0-31.2); Mean Corpuscular Volume 96.9 fl (80-94); Monocytes # 0.2 K/mm3 (0.1-1.0); Monocytes % 4.4 % (1.7-9.3); Neutrophils # 2.4 K/mm3 (1.8-7.8); Neutrophils % 44.2 % (37.0-80.0); Platelet Count 152 K/mm3 (142-424); Red Blood Count 3.67 M/mm3 (4.60-6.20); Red Cell Distribution Width 13.4 % (11.5-17.5); White Blood Count 5.5 K/mm3 (4.8-10.8)
[2021-03-04 09:06] LABS: Anion Gap 15.9 mEq/L (5-15); Blood Urea Nitrogen 27 mg/dl (9-20); Calcium 9.3 mg/dl (8.4-10.2); Carbon Dioxide 28 mmol/L (22.0-30.0); Chloride 100 mmol/L (98-107); Estimated Glomerular Filt Rate 64 ml/min (>60); GFR (African American) 78 ML/MIN (>60); Glucose 104 mg/dl (74-100); Potassium 3.9 mmoL/L (3.5-5.1); Sodium 140 mmol/L (136-145)
== END ==
PROVIDERS: Visit Provider Internal Medicine
DX: I25.10 Atherosclerotic heart disease of native coronary artery without angina pectoris (principal); Z95.5 Presence of coronary angioplasty implant and graft
CPT/HCPCS: 36415; 80048; 85025

== ENCOUNTER → 2021-03-11 13:17 | Outpatient (CLI) | payer MEDICARE, SELFPAY ==
[2021-03-11 14:03] LABS: Basophils # 0.1 K/mm3 (0-0.2); Eosinophils # 0.3 K/mm3 (0.0-0.4); Hematocrit 35.7 % (42.0-52.0); Hemoglobin 11.8 g/dL (14.1-18.0); Lymphocytes # 1.9 K/mm3 (0.7-4.5); Lymphocytes % 33.1 % (10-50); Mean Corpuscular HGB Conc 33.1 g/dL (31.8-35.4); Mean Corpuscular Volume 96.5 fl (80-94); Mean Platelet Volume 9.3 fl (7.4-10.4); Monocytes # 0.3 K/mm3 (0.1-1.0); Monocytes % 4.4 % (1.7-9.3); Neutrophils # 3.3 K/mm3 (1.8-7.8); Neutrophils % 56.6 % (37.0-80.0); Platelet Count 136 K/mm3 (142-424); Red Cell Distribution Width 12.8 % (11.5-17.5); White Blood Count 5.8 K/mm3 (4.8-10.8)
[2021-03-11 14:47] LABS: Alanine Aminotransferase 12 U/L (12-78); Albumin Level 4.1 g/dl (3.5-5.0); Alkaline Phosphatase 52 U/L (38-126); Anion Gap 15.1 mEq/L (5-15); Aspartate Amino Transferase 21 U/L (17-59); Bilirubin,Direct 0.2 mg/dl (0.0-0.4); Bilirubin,Indirect 0.2 mg/dL (0.0-0.9); Bilirubin,Total 0.4 mg/dl (0.2-1.3); Bilirubin,Unconjugated 0.2 mg/dL (0.0-1.1); Blood Urea Nitrogen 20 mg/dl (9-20); Calcium 9.4 mg/dl (8.4-10.2); Carbon Dioxide 32 mmol/L (22.0-30.0); Chloride 100 mmol/L (98-107); Chol/HDL Ratio 2.4 (1-3.5); Cholesterol 133 mg/dl (140-200); Estimated Glomerular Filt Rate 72 ml/min (>60); GFR (African American) 87 ML/MIN (>60); Glucose 118 mg/dl (74-100); HDL Cholesterol 56 mg/dl (40-60); Potassium 5.1 mmoL/L (3.5-5.1); Sodium 142 mmol/L (136-145); Total Protein,Serum 6.3 g/dl (6.3-8.2); Triglycerides 148 mg/dl (30-150); VLDL Cholesterol 30 mg/dL (0-40)
[2021-03-11 14:57] LABS: Direct LDL Cholesterol 53.37 mg/dL (100-129)
== END ==
PROVIDERS: Visit Provider Internal Medicine Cardiovascular Disease
DX: R06.00 Dyspnea, unspecified; R42 Dizziness and giddiness; I49.9 Cardiac arrhythmia, unspecified; R00.2 Palpitations; I25.10 Atherosclerotic heart disease of native coronary artery without angina pectoris; I10 Essential (primary) hypertension; E78.5 Hyperlipidemia, unspecified; I65.29 Occlusion and stenosis of unspecified carotid artery; R60.0 Localized edema; R94.30 Abnormal result of cardiovascular function study, unspecified; Z95.5 Presence of coronary angioplasty implant and graft; Z98.2 Presence of cerebrospinal fluid drainage device
CPT/HCPCS: 36415; 80048; 80061; 80076; 85025

== ENCOUNTER → 2021-03-18 10:42 | Outpatient (CLI) | payer MEDICARE, SELFPAY ==
[2021-03-18 11:23] LABS: Basophils # 0.1 K/mm3 (0-0.2); Basophils % 1.2 % (0.1-2.0); Eosinophils # 0.3 K/mm3 (0.0-0.4); Eosinophils % 6.3 % (0.1-12.0); Hemoglobin 11.2 g/dL (14.1-18.0); Lymphocytes # 1.6 K/mm3 (0.7-4.5); Lymphocytes % 34.5 % (10-50); Mean Corpuscular HGB Conc 31.1 g/dL (31.8-35.4); Mean Corpuscular Volume 99.9 fl (80-94); Mean Platelet Volume 9.1 fl (7.4-10.4); Monocytes # 0.2 K/mm3 (0.1-1.0); Monocytes % 4.8 % (1.7-9.3); Neutrophils # 2.5 K/mm3 (1.8-7.8); Neutrophils % 53.2 % (37.0-80.0); Platelet Count 135 K/mm3 (142-424); Red Cell Distribution Width 12.9 % (11.5-17.5); White Blood Count 4.7 K/mm3 (4.8-10.8)
[2021-03-18 11:47] LABS: Chloride 104 mmol/L (98-107)
[2021-03-18 11:48] LABS: Potassium 4.6 mmoL/L (3.5-5.1); Sodium 140 mmol/L (136-145)
[2021-03-18 11:50] LABS: Anion Gap 10.6 mEq/L (5-15); Blood Urea Nitrogen 20 mg/dl (9-20); Carbon Dioxide 30 mmol/L (22.0-30.0); Estimated Glomerular Filt Rate 64 ml/min (>60); GFR (African American) 78 ML/MIN (>60)
[2021-03-18 11:51] LABS: Alanine Aminotransferase 12 U/L (12-78); Albumin Level 4.1 g/dl (3.5-5.0); Alkaline Phosphatase 69 U/L (38-126); Aspartate Amino Transferase 22 U/L (17-59); Bilirubin,Direct 0.2 mg/dl (0.0-0.4); Bilirubin,Total 0.2 mg/dl (0.2-1.3); Calcium 9.1 mg/dl (8.4-10.2); Glucose 105 mg/dl (74-100); Total Protein,Serum 6.3 g/dl (6.3-8.2)
== END ==
PROVIDERS: Visit Provider Internal Medicine Cardiovascular Disease
DX: E78.5 Hyperlipidemia, unspecified (principal); I10 Essential (primary) hypertension; I25.10 Atherosclerotic heart disease of native coronary artery without angina pectoris; I65.29 Occlusion and stenosis of unspecified carotid artery; R06.00 Dyspnea, unspecified; R53.83 Other fatigue; R60.0 Localized edema; Z95.5 Presence of coronary angioplasty implant and graft; R63.0 Anorexia; I49.9 Cardiac arrhythmia, unspecified; R00.2 Palpitations; R42 Dizziness and giddiness
CPT/HCPCS: 36415; 80048; 80076; 85025

== ENCOUNTER 2021-03-22 14:51 | Day surgery (SDC) | payer MEDICARE, SELFPAY ==
[2021-03-22 15:25] VITALS: BP 126/51; PULSE 86; RESP 20; O2SAT 93; BMI 33.2
[2021-03-22 15:27] VITALS: BP 104/63; PULSE 71; RESP 18; O2SAT 95
[2021-03-22 15:33] VITALS: BP 110/60; PULSE 68; RESP 18; O2SAT 95
--- NOTE | 2021-03-22 15:39 | HMH.PMPROC ---
- Procedure Date: 03/22/21 Time: 15:39 Anesthesiologist:: Adeline Aleman APRN Complications:: None Pre-procedure Diagnosis:: Degenerative disc disease lumbar spine with lumbar radiculopathy symptoms Post-procedure Diagnosis:: Same Indications for Procedure:: Patient is a pleasant 80-year-old white male who presents today for intrathecal pain pump refill and reprogram. On 10/13/2020 the patient did have a spinal cord stimulator trial that was unsuccessful. He did not get any relief with the trial. Instead, he does undergo routine injective therapy to his lumbar spine. The patient does rate his pain an 8 out of 10. He is on a dose of Procedure Details:: Informed consent was obtained and the risk and benefits of the procedure were explained to the patient. The patient was taken to the procedure room where noninvasive monitoring was placed including noninvasive blood pressure cuff and pulse oximeter. Patient's pump was interrogated. The area over the pump was cleansed with chlorhexidine as a cleansing solution. In sterile fashion the pump was accessed with a 22-gauge needle. Approximately 7.5 mls of the pump solution was removed and discarded appropriately. The pump was then refilled with 20 mL's of Dilaudid 30 mg per mill bupivacaine 7.5 mg per mill. The needle was withdrawn and a bandage was placed over the puncture site. The infusion rate was reprogrammed at Dilaudid 7.4 mg/day. The patient tolerated well with no complication. Plan and Disposition:: We will plan to increase the patient's concentration medication to Dilaudid 30 mg per mill bupivacaine 10 mg per mill at next visit we will see the patient back in the clinic at the next intrathecal refill. Patient has been instructed to contact the clinic with any concerns before the next appointment. Dr. Carey has reviewed this note and agrees with this plan of care. This note was dictated using voice recognition software and make contain errors or omissions.
[2021-03-22 16:10] VITALS: BP 99/55; PULSE 85; RESP 20; O2SAT 96
== END 2021-03-22 16:10 | disposition home or self-care (01) ==
LOC: SC.PAINP 14:52
PROVIDERS: PCP Family Medicine; Visit Provider Clinical Nurse Specialist Family Health
DX: M51.16 Intervertebral disc disorders with radiculopathy, lumbar region (principal); Z45.1 Encounter for adjustment and management of infusion pump
CPT/HCPCS: 95991

== ENCOUNTER → 2021-03-26 10:41 | Outpatient (CLI) | payer MEDICARE, SELFPAY ==
[2021-03-26 11:41] LABS: Anion Gap 8.4 mEq/L (5-15); Blood Urea Nitrogen 17 mg/dl (9-20); Calcium 8.9 mg/dl (8.4-10.2); Carbon Dioxide 30 mmol/L (22.0-30.0); Chloride 104 mmol/L (98-107); Estimated Glomerular Filt Rate 64 ml/min (>60); GFR (African American) 78 ML/MIN (>60); Glucose 124 mg/dl (74-100); Potassium 4.4 mmoL/L (3.5-5.1); Sodium 138 mmol/L (136-145)
== END ==
PROVIDERS: Visit Provider Internal Medicine Cardiovascular Disease
DX: E78.5 Hyperlipidemia, unspecified (principal); I10 Essential (primary) hypertension; I25.10 Atherosclerotic heart disease of native coronary artery without angina pectoris; I49.9 Cardiac arrhythmia, unspecified; I65.29 Occlusion and stenosis of unspecified carotid artery; R00.2 Palpitations; R06.00 Dyspnea, unspecified; R42 Dizziness and giddiness; R60.0 Localized edema; Z95.5 Presence of coronary angioplasty implant and graft
CPT/HCPCS: 36415; 80048

== ENCOUNTER 2021-04-14 15:28 | Outpatient (RCR) | payer MEDICARE, SELFPAY | END 2021-09-20 14:26 | disposition home or self-care (01) | LOC: PT 15:28 | PROVIDERS: Visit Provider Internal Medicine | DX: I25.10 Atherosclerotic heart disease of native coronary artery without angina pectoris (principal); Z95.5 Presence of coronary angioplasty implant and graft | CPT/HCPCS: 93798 ==

== ENCOUNTER 2021-05-02 13:52 | Day surgery (SDC) | payer MEDICARE, SELFPAY ==
[2021-05-02 13:55] VITALS: BP 160/85; PULSE 87; RESP 18; TEMP 36.7; O2SAT 99; BMI 33.2
--- NOTE | 2021-05-02 13:58 | HMH.PMPROC ---
- Procedure Date: 05/02/21 Time: 13:58 Anesthesiologist:: Adeline Aleman APRN Complications:: None Pre-procedure Diagnosis:: Degenerative disc disease lumbar spine with lumbar radiculopathy symptoms Post-procedure Diagnosis:: Same Indications for Procedure:: Patient is a pleasant 80-year-old white male who presents today for intrathecal pain pump [refill] [and reprogram]. The patient is being treated for degenerative disc disease lumbar spine with lumbar radiculopathy symptoms.. Patient rates pain a 5 out of 10. Drug screen is appropriate. Levi [ ] has been reviewed and is appropriate. Patient does report that he has had a fall. He is currently taking trazodone and Ambien together. He has been advised to use caution taking these medications together. He is also been advised to contact his primary care provider. There is a concern for oversedation with both medications taken together. He does also report to be taken Valium as needed. I have advised the patient I am concerned for oversedation with the medicines. I have advised the patient to take only 1 of these medications if needed. He will consult with his primary care provider. He is at a very high risk for oversedation with his intrathecal therapy. He is currently on Dilaudid/bupivacaine at 7.4 mg/day. We will increase his bupivacaine concentration to 10 mg/mL today. Physical exam General: Alert and oriented x3, no acute distress, pleasant and cooperative, [on room air] Lungs: Respirations even and unlabored, symmetrical chest expansion Eyes: PERRL Musculoskeletal: Flexion and extension of lumbar [spine] somewhat guarded secondary to pain, [antalgic gait noted] Neurological: Speech clear, no gross sensory deficit Procedure Details:: Informed consent was obtained and the risk and benefits of the procedure were explained to the patient. The patient was taken to the procedure room where noninvasive monitoring was placed including noninvasive blood pressure cuff and pulse oximeter. Patient's pump was interrogated. The area over the pump was cleansed with chlorhexidine as a cleansing solution. In sterile fashion the pump was accessed with a 22-gauge needle. Approximately 5 mls of the pump solution was removed and discarded appropriately. The pump was then refilled with 20 mL's of Dilaudid 30 mg/mL and bupivacaine 10 mg/mL. The needle was withdrawn and a bandage was placed over the puncture site. The infusion rate was reprogrammed at Dilaudid at 7.4 mg/day and bupivacaine at 2.466 mg/day. The patient tolerated well with no complication. Plan and Disposition:: Patient is complaining of dizziness and recent fall. He does not want any imaging. He does not feel any changes in his pain. He is currently taking Ambien, trazodone, and Valium. I have advised the patient to stop these medications as it can cause an increased risk for oversedation. He can take one of the medications as needed. He says the Ambien seems to give him the most relief. We will also order the patient Narcan in the event of oversedation. We will see the patient back in the clinic at the next intrathecal refill. Patient has been instructed to contact the clinic with any concerns before the next appointment. Dr. Carey has reviewed this note and agrees with this plan of care. This note was dictated using voice recognition software and make contain errors or omissions.
[2021-05-02 14:13] VITALS: BP 131/66; PULSE 91; RESP 18; O2SAT 95
[2021-05-02 14:16] VITALS: PULSE 88; RESP 18; O2SAT 95
[2021-05-02 14:35] VITALS: BP 110/55; PULSE 88; RESP 20; O2SAT 96
[2021-05-12 16:12] LABS: 6-Acetylmorphine Negative (.); Codeine Negative (.); Dihydrocodeine Negative (.); Hydrocodone Negative (.); Morphine Negative (.)
[2021-08-19 19:15] LABS: Amphetamines IA NEGATIVE; Barbituates IA NEGATIVE; Benzodiazepines IA POSITIVE
[2021-08-19 19:18] LABS: Cocaine & Metabolites IA NEGATIVE; Phencyclidine IA NEGATIVE; THC (marijauna) metabolite IA NEGATIVE
[2021-08-19 19:19] LABS: Opiate Confirmation POSITIVE; Opiates IA POSITIVE
[2021-08-19 19:20] LABS: Methadone IA NEGATIVE; Oxycodone IA NEGATIVE
[2021-08-19 19:21] LABS: Propoxyphene IA NEGATIVE
[2021-08-19 19:22] LABS: Alprazolam NEGTAIVE; Chlordiazepoxide NEGATIVE; Diazepam 214; Lorazepam NEGATIVE; Temazepam NEGATIVE
[2021-08-19 19:23] LABS: 7-Aminoclonazepam NEGATIVE; Clonazepam NEGATIVE; Desalkylflurazepam NEGATIVE; Flurazepam NEGATIVE; Midazolam NEGATIVE
== END 2021-05-02 14:35 | disposition home or self-care (01) ==
PROVIDERS: PCP Family Medicine; Visit Provider Clinical Nurse Specialist Family Health
DX: M51.16 Intervertebral disc disorders with radiculopathy, lumbar region (principal); Z45.1 Encounter for adjustment and management of infusion pump
CPT/HCPCS: 62370; 80307

== ENCOUNTER 2021-06-20 13:03 | Day surgery (SDC) | payer MEDICARE, SELFPAY ==
[2021-06-20 13:09] VITALS: BP 159/93; PULSE 82; RESP 18; TEMP 36.6; O2SAT 95; BMI 32.4
--- NOTE | 2021-06-20 13:12 | HMH.PMPROC ---
- Procedure Date: 06/20/21 Time: 13:12 Anesthesiologist:: Ashley Abdi MD Complications:: None Pre-procedure Diagnosis:: Degenerative disc disease lumbar spine with lumbar radiculopathy symptoms Post-procedure Diagnosis:: Same Indications for Procedure:: Patient is a pleasant 80-year-old male who presents today for intrathecal pain pump refill and reprogram. The patient is being treated for degenerative disc disease of lumbar spine with lumbar radiculopathy symptoms. She is currently being treated with Dilaudid 30 mg/mL at a rate of 7.4 mg/day and bupivacaine 10 mg/mL. Patient denies any side effects from these medications. Patient denies any change locations of pain. Patient rates pain a 7 out of 10. Drug screen is appropriate. Levi [id number] has been reviewed and is appropriate. Physical exam General: Alert and oriented x3, no acute distress, pleasant and cooperative, [on room air] Lungs: Respirations even and unlabored, symmetrical chest expansion Eyes: PERRL Musculoskeletal: Flexion and extension of [lumbar] [spine] somewhat guarded secondary to pain, [antalgic gait noted] Neurological: Speech clear, no gross sensory deficit Procedure Details:: Informed consent was obtained and the risk and benefits of the procedure were explained to the patient. The patient was taken to the procedure room where noninvasive monitoring was placed including noninvasive blood pressure cuff and pulse oximeter. Patient's pump was interrogated. The area over the pump was cleansed with chlorhexidine as a cleansing solution. In sterile fashion the pump was accessed with a 22-gauge needle. Approximately 6 mls of the pump solution was removed and discarded appropriately. The pump was then refilled with 20 mL's of Dilaudid 30 mg/mL and bupivacaine 10 mg/mL. The needle was withdrawn and a bandage was placed over the puncture site. The infusion rate was reprogrammed and continued at Dilaudid 7.4 mg/day. The patient tolerated well with no complication. Plan and Disposition:: We will see the patient back in the clinic at the next intrathecal refill. Patient has been instructed to contact the clinic with any concerns before the next appointment. This note was dictated using voice recognition software and make contain errors or omissions.
[2021-06-20 13:26] VITALS: BP 143/74; PULSE 68; RESP 18; O2SAT 96
[2021-06-20 13:45] VITALS: BP 155/83; PULSE 75; RESP 20; O2SAT 96
== END 2021-06-20 13:45 | disposition home or self-care (01) ==
LOC: SC.PAINP 13:04
PROVIDERS: PCP Family Medicine; Visit Provider Family Medicine
DX: M51.16 Intervertebral disc disorders with radiculopathy, lumbar region (principal); Z45.1 Encounter for adjustment and management of infusion pump; I25.10 Atherosclerotic heart disease of native coronary artery without angina pectoris; I73.9 Peripheral vascular disease, unspecified; E78.5 Hyperlipidemia, unspecified; I10 Essential (primary) hypertension; K21.9 Gastro-esophageal reflux disease without esophagitis; F32.A Depression, unspecified; F41.9 Anxiety disorder, unspecified; Z88.2 Allergy status to sulfonamides; Z79.899 Other long term (current) drug therapy; Z79.82 Long term (current) use of aspirin
CPT/HCPCS: 95991

== ENCOUNTER 2021-06-21 20:15 | Emergency (ER) | payer MEDICARE, SELFPAY ==
[2021-06-21 20:23] VITALS: BP 147/79; PULSE 81; RESP 14; TEMP 37.5; O2SAT 96; BMI 32.4
--- NOTE | 2021-06-21 20:24 | CT_ITS ---
PROCEDURE INFORMATION: Exam: CT Cervical Spine Without Contrast Exam date and time: 06/21/2021 8:24 PM Age: 80 years old Clinical indication: Injury or trauma; Fall; Blunt trauma; Patient HX: Denies pain TECHNIQUE: Imaging protocol: Computed tomography images of the cervical spine without contrast. Radiation optimization: All CT scans at this facility use at least one of these dose optimization techniques: automated exposure control; mA and/or kV adjustment per patient size (includes targeted exams where dose is matched to clinical indication); or iterative reconstruction. COMPARISON: [facility] CT cervical spine wo con 12/21/2017 8:39 PM FINDINGS: Bones/joints: Please see concurrent CT head for intracranial contents. ACDF noted at C4 through C6. No malalignment. No evidence of fracture. Prior posterior fossa craniectomy noted. Discs/Spinal canal/Neural foramina: Mild multilevel degenerative changes. Mild central canal stenosis at C4 through C6. Lungs: Lung apices are normal. Soft tissues: Unremarkable IMPRESSION: No evidence of acute osseous injury
--- NOTE | 2021-06-21 20:24 | CT_ITS ---
PROCEDURE INFORMATION: Exam: CT Head Without Contrast Exam date and time: 06/21/2021 8:24 PM Age: 80 years old Clinical indication: Pain; Other: Fall; Patient HX: Laceration to top of head TECHNIQUE: Imaging protocol: Computed tomography of the head without contrast. Radiation optimization: All CT scans at this facility use at least one of these dose optimization techniques: automated exposure control; mA and/or kV adjustment per patient size (includes targeted exams where dose is matched to clinical indication); or iterative reconstruction. COMPARISON: [facility] CT head/brain wo con 12/21/2017 8:35 PM FINDINGS: Brain: Parenchyma is unchanged including white matter hypoattenuation. No mass effect. No intracranial hemorrhage. Cerebral ventricles: Unchanged ventricular device. The unchanged moderate ventricular enlargement. Paranasal sinuses: Visualized sinuses are unremarkable. No fluid levels. Mastoid air cells: Visualized mastoid air cells are well aerated. Bones/joints: Unchanged. Soft tissues: Unremarkable. IMPRESSION: No acute intracranial pathology
--- NOTE | 2021-06-21 20:31 | HMH.EDWNDL ---
ED Disposition Clinical Impression: Scalp laceration Disposition: Home, Self-Care Condition on Discharge: Good Instructions: DI for Laceration Repair Additional Instructions: Please follow up with your primary care physician in 7-10 days for wound check. Please keep your wound clean and dry. Your wound was closed using the hair opposition method with dermabond, the glue should come off over the next few days. Please take tylenol for pain control. Please return for any concerning signs of infection such as purulent white drainage, redness, or any other symptoms. Referrals: Ryan Haynes MD [Primary Care Provider] - Time of Disposition: 21:35 - Critical Care Critical Care Time: No Attestation: On 06/21/21, the high probability of a clinically significant, sudden or life threatening deterioration of the following system(s) required my full and direct attention, intervention and personal management. The time I documented below is in addition to time spent performing reported procedures but includes the following listed in this critical care notation. Medical Decision Making - Medical Records Medical records reviewed: Yes: I reviewed the patient's medical records. - Levi Inquiry Pt receiving controlled substance: No Vital Signs: 06/21/21 20:23 06/21/21 21:34 Temperature 99.5 F 99.5 F Temperature Source Oral Oral Pulse Rate 69 Pulse Rate [Left] 81 Respiratory Rate 14 12 Blood Pressure 147/78 H Blood Pressure [Right Arm] 147/79 H Blood Pressure Mean [Right Arm] 101 02 Sat by Pulse Oximetry 96 Oxygen Delivery Method Room Air Room Air - Lab Data Lab results reviewed: Yes: I reviewed the patient's lab results. Orders (Tests/Meds): ED MEDICATIONS Discontinued Medications Generic Name Dose Route Start Last Admin Trade Name Freq PRN Reason Stop Dose Admin Tetanus/Reduced Diphtheria/Acell Pertussis 0.5 ml 06/21/21 20:36 06/21/21 20:53 Tet/Diphth/Pert-Adult 0.5ml Syringe IM 06/21/21 20:37 0.5 ml .ONCE ONE Administration Medical Decision Narrative: Mr. Larson is a 80 yo male w/ PMH for OK s/p stents on ASA and plavix who presents to the ED for mechanical fall w/ isolated laceration to top of scalp. Patient is neurovascularly intact and hemodynamically stable on arrival. Patient denies LOC. No focal deficits. No extremity pain, ambulatory on scene. No neck pain, chest pain, dyspnea, back pain, abdominal or other processpain, or other extremity pain. Differentials to consider but not limited to include: Cervical spinal pain, acute intracranial process. CT head and CT cervical spine obtained results unremarkable. Patients wound is irrigated and cleaned w/ chlorohexidine. Patients wound is closed using the hair opposition method. Patient is instructed to fu w/ his primary care physician in 5-7 days for wound check. Patient instructed to keep wound clean and dry and to return if any concerns for infection. Wound/Laceration HPI - General Chief Complaint: Wound/Laceration Stated Complaint: laceration on head Time Seen by Provider: 06/21/21 20:30 Mode of Arrival: Family Vehicle Source of Information: Patient Limitations: No Limitations Description of Symptoms (Recalled from ER Triage Doc. by RN): pt reports he tripped on a rug and hit his head on a table resulting in a laceration to the right side top of the head pt denies loc. currently no active bleeding - History of Present Illness HPI narrative: Mr. Larson is a 80 yo male w/ PMH for OK s/p stents on ASA and plavix who presents to the ED after a mechanical fall w/ isolated head trauma. Patient reports he slipped on a rug and hit the top of his head against a table. Patient has superficial laceration to top scalp. He denies LOC. Patient denies neck pain, back pain, headache, focal deficits, chest pain or abdominal pain. Patient was ambulatory following the incident. Denies any other blood thinners. Onset (ago): minute(s) Location:
[2021-06-21 21:34] VITALS: BP 147/78; PULSE 69; RESP 12; TEMP 37.5; O2SAT 97
== END 2021-06-21 21:38 | disposition home or self-care (01) ==
PROVIDERS: Emergency Provider Student in an Organized Health Care Education/Training Program; PCP Family Medicine
DX: S01.01XA Laceration without foreign body of scalp, initial encounter (principal); W01.190A Fall on same level from slipping, tripping and stumbling with subsequent striking against furniture, initial encounter; Z91.81 History of falling; Y92.019 Unspecified place in single-family (private) house as the place of occurrence of the external cause; Z23 Encounter for immunization; K21.9 Gastro-esophageal reflux disease without esophagitis; I10 Essential (primary) hypertension; I25.10 Atherosclerotic heart disease of native coronary artery without angina pectoris; E78.5 Hyperlipidemia, unspecified; Z79.899 Other long term (current) drug therapy
CPT/HCPCS: 12002; 70450; 72125; 90715; 99282

== ENCOUNTER → 2021-07-21 09:39 | Outpatient (CLI) | payer MEDICARE, SELFPAY ==
--- NOTE | 2021-07-21 09:50 | XR_ITS ---
FINAL REPORT CLINICAL HISTORY: fall, back pain t-spine and L-spine FINDINGS: THORACIC SPINE Two views were obtained. There is no acute fracture. Alignment is normal. The disc spaces are preserved. There is moderate anterior osteophyte formation in the mid and lower thoracic spine. IMPRESSION: No acute process. LUMBAR SPINE Five views were obtained. There is posterior fusion of L2-L5. There is no acute fracture. There are advanced hypertrophic changes of degenerative disc disease at T12-L1 and L1-L2. There is grade 1 spondylolisthesis of L5 on S1. IMPRESSION: No acute process. Reviewed, Interpreted and Dictated by Mathew Ozuna MD Transcribed by Mahad Barrera Authenticated by Mathew Ozuna MD on 07/21/2021 11:54:21 AM [facility]
== END ==
PROVIDERS: PCP Family Medicine; Visit Provider Anesthesiology
DX: M54.6 Pain in thoracic spine (principal); M54.50 Low back pain, unspecified
CPT/HCPCS: 72084

== ENCOUNTER → 2021-07-21 10:12 | Outpatient (POV) | payer MEDICARE, SELFPAY ==
[2021-07-21 10:51] VITALS: BP 165/71; PULSE 77; RESP 18; O2SAT 96; BMI 30.8
--- NOTE | 2021-07-21 10:59 | HMH.PAINSOAP ---
[facility] Pain Management SOAP Note Subjective:: Patient is an 80-year-old white male who presents today for follow-up. The patient had a fall yesterday striking the right side of his body. He says since then he has had excruciating pain in the right low back area radiating into right flank and right abdomen. He says that the pain is significant. He does state also that the pain has worsened today. He says the pain is deep in sensation. He does rate his pain a 10 out of 10. He says the pain is not related to movement. The pain is not made worse with breathing in or out. He says that he did take cyclobenzaprine at home last night which gave him relief. The patient is on Dilaudid 7.4 mg/day as well as bupivacaine and an intrathecal pump. Patient also takes diazepam 5 mg 1 tablet p.o. 3 times daily for tinnitus and Ambien 10 mg 1 tablet p.o. at bedtime. We had a long discussion today that the medications can cause a very high risk of oversedation. The says that the patient only takes diazepam intermittently for tinnitus. The patient has said that the pump is not working and he does want it removed. He has been advised that we cannot turn the pump off immediately due to withdrawal symptoms with his dosing. Patient was sent for stat x-ray of thoracic and lumbar spine. Review of Systems General: No recent weight changes, no fever, no sleep disturbances Respiratory: No cough, no shortness of air, no recurring pulmonary infections Cardiovascular/peripheral vascular: No chest pain, no palpitations, no edema, no shortness of breath Gastrointestinal: No new onset incontinence, normal bowel movements reported Genitourinary: No new onset incontinence Musculoskeletal: Right low back pain with radiation into right flank Psychiatric: [Normal mood/affect] Neurological: [Denies weakness in extremities], [denies balance issues] Objective:: Physical exam General: Alert and oriented x3, no acute distress, pleasant and cooperative Lungs: Respirations even and unlabored, symmetrical chest expansion Eyes: PERRL Musculoskeletal: Flexion and extension of lumbar [spine] somewhat guarded secondary to pain, [antalgic gait noted] Neurological: Speech clear, no gross sensory deficit Assessment:: Degenerative disc disease lumbar spine with lumbar radiculopathy symptoms, worsening right low back pain, status post fall Plan:: We are awaiting the results of the x-ray at this time. The imaging was ordered stat. The patient has been advised to not take diazepam along with cyclobenzaprine. The says that they will hold diazepam while trying the muscle relaxant. He has also been advised that we will be happy to wean him with his intrathecal therapy but will not be able to turn the intrathecal pump off abruptly due to risk of withdrawal symptoms. At this time he does not want any changes to the pump. He will see Dr. Carey/Dr. Abdi tomorrow for further discussion to see if the muscle relaxant was beneficial for his pain. Was beneficial. risks and benefits of the medication have been explained in detail to the patient. If side effects do present with the medication, patient has been advised to stop the medication immediately and call the clinic. The patient has been advised to consult with his/her primary care provider and pharmacist regarding drug-drug interaction of medications currently prescribed. [facility] History I have reviewed the patient's past medical history: Yes Medical History: Reports:: Arrhythmia, Carotid Stenosis, Coronary Artery Disease, Gastroesophageal Reflux Disease(GERD), Hyperlipidemia, Hypertension, Peripheral Artery Disease, Peripheral Vascular Disease Denies:: Cancer, Diabetes Mellitus Type 1, Diabetes Mellitus Type 2, Internal Pacemaker, MRSA, Seizures *Have you ever received a pneumonia vaccine?: Yes *Have you received a flu vaccine this season?: Yes Other Medical History: Reports: Arthritis. Denies: Blood Transfusion
== END ==
PROVIDERS: Visit Provider Clinical Nurse Specialist Family Health
DX: M51.16 Intervertebral disc disorders with radiculopathy, lumbar region (principal); W19.XXXD Unspecified fall, subsequent encounter
CPT/HCPCS: 62368; 72084; 99212; G0463

== ENCOUNTER → 2021-07-22 11:42 | Outpatient (POV) | payer MEDICARE, SELFPAY ==
[2021-07-22 12:00] VITALS: BP 180/85; PULSE 85; RESP 20; TEMP 36.5; O2SAT 96; BMI 32.5
--- NOTE | 2021-07-22 12:21 | HMH.PMPROC ---
- Procedure Date: 07/22/21 Time: 12:22 Anesthesiologist:: Ruperto Carey MD Complications:: None Pre-procedure Diagnosis:: Degenerative disc disease of lumbar spine with lumbar radiculopathy symptoms and postlaminectomy syndrome of lumbar spine with acute low back pain after fall Post-procedure Diagnosis:: Same Indications for Procedure:: Patient is a pleasant 80-year-old white male who we are treating for low back pain with lumbar radiculopathy symptoms and postlaminectomy syndrome lumbar spine. He had a recent fall on Sunday. He has increasing low back pain since his fall. He got muscle relaxants in the pain clinic yesterday. He presents today with some increasing low back pain. He is no tenderness however he did fall forwards and it is believed that he is probably tweaked his low back with increased inflammation. We will give him a 1 mg bolus to his intrathecal Dilaudid pain pump. We will also start him on prednisone 20 mg twice a day for 5 days and given tramadol 50 mg 3 times a day for a week. Procedure Details:: Analysis and adjustment of intrathecal Dilaudid pain pump Informed consent was obtained risk and benefits of the procedure were explained to the patient. Patient was taken to the procedure room. The pump was interrogated. Patient was given a 1 mg bolus for his intrathecal pain pump. Pump continues at 7.4 mg/day of intrathecal Dilaudid/bupivacaine. Patient tolerated procedure well with no complications. Plan and Disposition:: We will follow-up with this patient in 2 weeks. We will prescribe him prednisone 20 mg twice a day for 5 days. We will also start him on tramadol 50 mg 3 times a day for a week. I suspect that it will take a while for his pain to subside due to this acute fall.
== END ==
PROVIDERS: PCP Family Medicine; Visit Provider Anesthesiology
DX: M51.16 Intervertebral disc disorders with radiculopathy, lumbar region (principal); M96.1 Postlaminectomy syndrome, not elsewhere classified; W19.XXXA Unspecified fall, initial encounter; Z45.1 Encounter for adjustment and management of infusion pump
CPT/HCPCS: 62368

== ENCOUNTER 2021-08-01 14:35 | Day surgery (SDC) | payer MEDICARE, SELFPAY ==
[2021-08-01 14:46] VITALS: BP 161/90; PULSE 90; RESP 20; TEMP 36.8; O2SAT 97; BMI 32.5
[2021-08-01 15:15] VITALS: BP 126/72; PULSE 80; RESP 20; O2SAT 94
[2021-08-01 15:16] VITALS: BP 124/70; PULSE 91; RESP 20; O2SAT 95
--- NOTE | 2021-08-01 15:17 | P.PCN_ITS ---
- Procedure Date: 08/01/21 Time: 15:18 Anesthesiologist:: Adeline Aleman APRN Complications:: None Pre-procedure Diagnosis:: Degenerative disc disease lumbar spine with lumbar radiculopathy symptoms Post-procedure Diagnosis:: Same Indications for Procedure:: Patient is a pleasant 80-year-old male who presents today for intrathecal pain pump [refill] [and reprogram]. The patient is being treated for degenerative disc disease of the lumbar spine with lumbar radiculopathy symptoms and postlaminectomy syndrome of the lumbar spine. Patient is currently being managed with Dilaudid 30 mg/mL at a rate of 7.4 mg/day and bupivacaine 10 mg/mL. Side effects from these medications. Patient denies any change in location and type of pain. Patient states that his pain is being adequately controlled but would like an adjustment today.. Patient rates pain a 6 out of 10. Drug screen is appropriate. Levi [id number] has been reviewed and is appropriate. Physical exam General: Alert and oriented x3, no acute distress, pleasant and cooperative, [on room air] Lungs: Respirations even and unlabored, symmetrical chest expansion Eyes: PERRL Musculoskeletal: Flexion and extension of lumbar [spine] somewhat guarded secondary to pain, [antalgic gait noted] Neurological: Speech clear, no gross sensory deficit Procedure Details:: Informed consent was obtained and the risk and benefits of the procedure were explained to the patient. The patient was taken to the procedure room where noninvasive monitoring was placed including noninvasive blood pressure cuff and pulse oximeter. Patient's pump was interrogated. The area over the pump was cleansed with chlorhexidine as a cleansing solution. In sterile fashion the pump was accessed with a 22-gauge needle. Approximately 8 mls of the pump solution was removed and discarded appropriately. The pump was then refilled with 20 mL's of Dilaudid 30 mg/mL. The needle was withdrawn and a bandage was placed over the puncture site. The infusion rate was reprogrammed at Dilaudid 7.77 mg/day. The patient tolerated well with no complication. Plan and Disposition:: We will see the patient back in the clinic at the next intrathecal refill. Patient has been instructed to contact the clinic with any concerns before the next appointment. Dr. Carey has reviewed this note and agrees with this plan of care. This note was dictated using voice recognition software and make contain errors or omissions. Risks and benefits of the medication have been explained in detail to the patient. The patient does understand the risk of dependence on the medication when given over a prolonged period. Patient has been advised of risks of oversedation with the prescribed medi cation. Narcan has been offered to the paitent in the event of oversedation. Patient has been advised that a family member should also be educated regarding administration of Narcan. The patient has been advised to consult with his/her primary care provider and pharmacist regarding drug-drug interaction of medications currently prescribed. LEVI report has been obtained and reviewed prior to prescription and found to be appropriate. Opioid contract was reviewed and signed by the patient, and that they have agreed to all of the terms set forth by our compliance program. Patient has been instructed to contact the clinic with any concerns before the next appointment. Dr. Carey has reviewed this note and agrees with this plan of care. This note was dictated using voice recognition software and make contain errors or omissions.
[2021-08-01 15:30] VITALS: BP 137/80; PULSE 88; RESP 20; O2SAT 95
[2021-08-05 10:38] LABS: Acetone <0.010 g/dL (0.000-0.010); Butalbital <1 ug/mL (1-10); Chlordiazepoxide <0.1 ug/mL (0.1-0.9); Diazepam <0.1 ug/mL (0.1-0.9); Ethanol <0.010 g/dL (0.000-0.010); Isopropanol <0.010 g/dL (0.000-0.010); Pentobarbital <1 ug/mL (1-5)
== END 2021-08-01 15:35 | disposition home or self-care (01) ==
LOC: SC.PAINP 14:36
PROVIDERS: PCP Family Medicine; Visit Provider Clinical Nurse Specialist Family Health
DX: M51.16 Intervertebral disc disorders with radiculopathy, lumbar region (principal); Z45.1 Encounter for adjustment and management of infusion pump
CPT/HCPCS: 36415; 62370; 80306

== ENCOUNTER → 2021-08-03 09:41 | Outpatient (CLI) | payer MEDICARE, SELFPAY | LOC: RAD 09:44 → LAB 09:45 | PROVIDERS: PCP Family Medicine; Visit Provider Clinical Nurse Specialist Family Health | DX: M51.36 Other intervertebral disc degeneration, lumbar region (principal) ==

== ENCOUNTER → 2021-08-09 08:20 | Outpatient (CLI) | payer MEDICARE, SELFPAY ==
[2021-08-09 10:04] LABS: Basophils # 0.1 K/mm3 (0-0.2); Basophils % 0.6 % (0.1-2.0); Eosinophils # 0.3 K/mm3 (0.0-0.4); Eosinophils % 4.5 % (0.1-12.0); Hematocrit 39.7 % (42.0-52.0); Hemoglobin 12.8 g/dL (14.1-18.0); Lymphocytes # 2.2 K/mm3 (0.7-4.5); Lymphocytes % 28.6 % (10-50); Mean Corpuscular HGB Conc 32.2 g/dL (31.8-35.4); Mean Corpuscular Hemoglobin 30.9 pg (27.0-31.2); Mean Platelet Volume 8.3 fl (7.4-10.4); Monocytes # 0.3 K/mm3 (0.1-1.0); Monocytes % 4.1 % (1.7-9.3); Neutrophils # 4.8 K/mm3 (1.8-7.8); Neutrophils % 62.2 % (37.0-80.0); Platelet Count 153 K/mm3 (142-424); Red Blood Count 4.14 M/mm3 (4.60-6.20); Red Cell Distribution Width 13.4 % (11.5-17.5); White Blood Count 7.6 K/mm3 (4.8-10.8)
[2021-08-09 10:26] LABS: Chloride 100 mmol/L (98-107)
[2021-08-09 10:27] LABS: Potassium 4.2 mmoL/L (3.5-5.1); Sodium 134 mmol/L (136-145)
[2021-08-09 10:29] LABS: Alanine Aminotransferase 11 U/L (12-78); Alkaline Phosphatase 64 U/L (38-126); Anion Gap 6.2 mEq/L (5-15); Aspartate Amino Transferase 19 U/L (17-59); Bilirubin,Total 0.7 mg/dl (0.2-1.3); Blood Urea Nitrogen 19 mg/dl (9-20); Carbon Dioxide 32 mmol/L (22.0-30.0); Estimated Glomerular Filt Rate 71 ml/min (>60); GFR (African American) 86 ML/MIN (>60)
[2021-08-09 10:30] LABS: Albumin Level 4.4 g/dl (3.5-5.0); Calcium 8.6 mg/dl (8.4-10.2); Cholesterol 155 mg/dl (140-200); Globulin 2.2 g/dL (1.3-3.2); Glucose 98 mg/dl (74-100); HDL Cholesterol 79 mg/dl (40-60); Total Protein,Serum 6.6 g/dl (6.3-8.2); Triglycerides 150 mg/dl (30-150); VLDL Cholesterol 30 mg/dL (0-40)
[2021-08-09 10:41] LABS: Direct LDL Cholesterol 60.81 mg/dL (100-129)
[2021-08-09 11:01] LABS: Thyroid Stimulating Hormone 2.31 uIU/mL (0.465-4.68)
[2021-08-09 11:43] LABS: Prostate Specific Ag Screen 1.5 ng/ml (0.0-4.0)
== END ==
PROVIDERS: PCP Family Medicine; Visit Provider Family Medicine
DX: I25.10 Atherosclerotic heart disease of native coronary artery without angina pectoris (principal); E78.5 Hyperlipidemia, unspecified; R23.2 Flushing; G25.81 Restless legs syndrome; Z12.5 Encounter for screening for malignant neoplasm of prostate
CPT/HCPCS: 36415; 80053; 80061; 83036; 84436; 84443; 85025; G0103

== ENCOUNTER → 2021-09-28 13:09 | Outpatient (CLI) | payer MEDICARE, SELFPAY ==
--- NOTE | 2021-09-28 13:14 | MR_ITS ---
FINAL REPORT CLINICAL HISTORY: SPINAL STENOSIS OF LUMBAR REGION W/ NEUROGENIC CLAUDICATION BEST IMAGES POSSIBLE SEVERAL BACK SURGERIES WITH HARDWARE, PAIN PUMP. PT IN PAIN COULDNT HOLD LEGS STILL. COMPARISON: 01/01/2018 FINDINGS: Multiplanar MR imaging of the lumbar spine was performed without contrast. On the sagittal T2-weighted images, disc degeneration is seen throughout. There is fusion from L2-L5. There is 12 mm of anterolisthesis of L5 on S1. Postoperative changes obscures much of the detail. There is no evidence of fracture. The conus has an unremarkable appearance. T12-L1: An annular bulge is present. Facet arthropathy and osteophytes are present. There is mild right and moderate left neural foraminal narrowing. L1-2: An annular bulge is present. Facet arthropathy and osteophytes are present. There is severe bilateral neural foraminal narrowing. L2-3: This level is fused. An annular bulge is present. Facet arthropathy and osteophytes are present. The neural foramina are obscured but there is probably moderate right and mild left neural foraminal narrowing. L3-4: This level is fused which obscures the detail. There is probably bilateral neural foraminal narrowing. L4-5: This level is fused which obscures the detail. The neural foramina are not seen. L5-S1: An annular bulge is present. Facet arthropathy and osteophytes are present. There is severe bilateral neural foraminal narrowing. IMPRESSION: Exam technically limited by artifact. The overall appearance seems similar to previous. Reviewed, Interpreted and Dictated by Mike Zayas III, MD Transcribed by Karly Conklin Authenticated by Mike Zayas III, MD on 09/28/2021 03:08:29 PM [facility]
== END ==
PROVIDERS: PCP Family Medicine; Visit Provider Family Medicine
DX: M48.062 Spinal stenosis, lumbar region with neurogenic claudication (principal)
CPT/HCPCS: 72148; 76376

== ENCOUNTER 2021-09-30 04:53 | Observation (INO) | payer MEDICARE, SELFPAY ==
[2021-09-30] VITALS (17 sets, daily range): BP systolic 101–154; BP diastolic 70–120; PULSE 70–88; RESP 12–18; TEMP 36.6–36.7; O2SAT 90–97; BMI 33.5; BMI 32.5
--- NOTE | 2021-09-30 05:15 | CT_ITS ---
PROCEDURE INFORMATION: Exam: CT Lumbar Spine Without Contrast Exam date and time: 09/30/2021 5:43 AM Age: 81 years old Clinical indication: Injury or trauma; Fall; Prior surgery; Additional info: Multiple falls TECHNIQUE: Imaging protocol: Computed tomography images of the lumbar spine without contrast. Radiation optimization: All CT scans at this facility use at least one of these dose optimization techniques: automated exposure control; mA and/or kV adjustment per patient size (includes targeted exams where dose is matched to clinical indication); or iterative reconstruction. COMPARISON: MR LUMBAR SPINE WO CON 09/28/2021 1:47 PM FINDINGS: Vertebrae: There are postoperative changes from anterior and posterior fusion L2 through L5 with pedicle screws in anterior interbody devices in place. Bony union is present throughout. There is stable grade 1 anterolisthesis at L5-S1. There is no acute fracture. Discs/Spinal canal/Neural foramina: There is a baclofen pump in place extending into the central canal at L4, and extending superior to T11. There is degenerative disc disease with vacuum phenomena , subchondral sclerosis and osteophyte formation present at L1-L2 and L5-S1, unchanged. Soft tissues: Nonobstructing right renal calculus. IMPRESSION: 1. Postoperative changes with bony union L2-5. 2. No acute fracture.
--- NOTE | 2021-09-30 05:15 | CT_ITS ---
PROCEDURE INFORMATION: Exam: CT Cervical Spine Without Contrast Exam date and time: 09/30/2021 5:37 AM Age: 81 years old Clinical indication: Injury or trauma; Fall; Additional info: Multiple falls TECHNIQUE: Imaging protocol: Computed tomography images of the cervical spine without contrast. Radiation optimization: All CT scans at this facility use at least one of these dose optimization techniques: automated exposure control; mA and/or kV adjustment per patient size (includes targeted exams where dose is matched to clinical indication); or iterative reconstruction. COMPARISON: CT CERVICAL SPINE WO CON 06/21/2021 8:37 PM FINDINGS: Vertebrae: No acute fracture. Normal alignment. Prior C4-C6 fusion with hardware noted. Moderate multilevel spondylosis. Soft tissues: Atheromatous vascular calcification. Postinflammatory palatine tonsillar calcification. Lungs: Lung apices are normal. IMPRESSION: No acute fracture, subluxation or prevertebral swelling. Prior C4-C6 fusion. Moderate spondylosis. Other nonacute findings above.
--- NOTE | 2021-09-30 05:15 | CT_ITS ---
PROCEDURE INFORMATION: Exam: CT Head Without Contrast Exam date and time: 09/30/2021 5:37 AM Age: 81 years old Clinical indication: Injury or trauma; Fall; Additional info: Multiple falls TECHNIQUE: Imaging protocol: Computed tomography of the head without contrast. Radiation optimization: All CT scans at this facility use at least one of these dose optimization techniques: automated exposure control; mA and/or kV adjustment per patient size (includes targeted exams where dose is matched to clinical indication); or iterative reconstruction. COMPARISON: CT HEAD/BRAIN WO CON 06/21/2021 8:37 PM FINDINGS: Brain: Ill-defined areas of low attenuation are noted in the supratentorial white matter. Age related microvascular/ischemic disease may be considered. Atrophic changes. Cerebral ventricles: Right occipital ventriculostomy with tip traversing the left frontal horn. No hydrocephalus. Paranasal sinuses: Visualized sinuses are unremarkable. No fluid levels. Mastoid air cells: Visualized mastoid air cells are well aerated. Bones/joints: Prior suboccipital craniectomy with old right inferomedial cerebellar tissue loss. Soft tissues: Unremarkable. IMPRESSION: 1. Right occipital ventriculostomy. 2. Prior suboccipital craniectomy with old right inferomedial cerebellar tissue loss. 3. Presumed microvascular changes in the supratentorial white matter. 4. Atrophic changes. 5. No hemorrhage or extra-axial collection.
--- NOTE | 2021-09-30 05:15 | XR_ITS ---
PROCEDURE INFORMATION: Exam: XR Pelvis Exam date and time: 09/30/2021 5:55 AM Age: 81 years old Clinical indication: Injury or trauma; Fall; Blunt trauma (contusions or hematomas); Does not apply; Pelvic region; Additional info: Multiple falls TECHNIQUE: Imaging protocol: XR pelvis. Views: 1 or 2 view. COMPARISON: CT ABDOMEN PELVIS WO CON 09/30/2021 5:49 AM FINDINGS: Bones/joints: There is loss of articular cartilage in the hips bilaterally related to osteoarthritis. There is no evidence of an acute fracture. There is partial visualization spinal hardware. Soft tissues: There is a right-sided pump housing in place. There are surgical clips projected over the right SI joint. Other findings: Underpenetration limits evaluation. IMPRESSION: Somewhat limited exam due to underpenetration demonstrates no fracture.
--- NOTE | 2021-09-30 05:15 | XR_ITS ---
PROCEDURE INFORMATION: Exam: XR Left Shoulder Exam date and time: 09/30/2021 5:55 AM Age: 81 years old Clinical indication: Injury or trauma; Fall; Blunt trauma (contusions or hematomas); Shoulder; Left; Additional info: Multiple falls TECHNIQUE: Imaging protocol: XR Left shoulder. Views: 2 or more views. COMPARISON: CT CHEST WO CON 09/30/2021 5:46 AM FINDINGS: Bones/joints: No fracture. There is mild spurring at the acromioclavicular joint. Soft tissues: Normal. IMPRESSION: No acute findings.
--- NOTE | 2021-09-30 05:15 | CT_ITS ---
PROCEDURE INFORMATION: Exam: CT Thoracic Spine Without Contrast Exam date and time: 09/30/2021 5:40 AM Age: 81 years old Clinical indication: Injury or trauma; Fall; Additional info: Multiple falls TECHNIQUE: Imaging protocol: Computed tomography images of the thoracic spine without contrast. Radiation optimization: All CT scans at this facility use at least one of these dose optimization techniques: automated exposure control; mA and/or kV adjustment per patient size (includes targeted exams where dose is matched to clinical indication); or iterative reconstruction. COMPARISON: CR XR MULTIPLE SPINE 6+V 07/21/2021 9:53 AM FINDINGS: Vertebrae: There is no fracture or subluxation. Discs/Spinal canal/Neural foramina: There is loss of disc space height throughout related to degenerative disc disease. Soft tissues: Unremarkable. Other findings: The tip of the pump tubing is at T11-T12. IMPRESSION: There is no fracture or subluxation.
--- NOTE | 2021-09-30 05:20 | CT_ITS ---
PROCEDURE INFORMATION: Exam: CT Chest Without Contrast; Diagnostic Exam date and time: 09/30/2021 5:46 AM Age: 81 years old Clinical indication: Injury or trauma; Fall; Additional info: Multiple falls TECHNIQUE: Imaging protocol: Diagnostic computed tomography of the chest without contrast. Radiation optimization: All CT scans at this facility use at least one of these dose optimization techniques: automated exposure control; mA and/or kV adjustment per patient size (includes targeted exams where dose is matched to clinical indication); or iterative reconstruction. COMPARISON: [facility] CT CHEST W/O CONTRAST 09/30/2015 11:52 PM FINDINGS: Lungs: There is some left basilar atelectasis. Pleural spaces: No pneumothorax. No pleural effusion. Heart: There are coronary artery calcifications. 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 Lymph nodes: No enlarged lymph nodes. Diaphragm: There is a small hiatal hernia. There is elevation left hemidiaphragm. Bones/joints: No acute fracture. There are degenerative changes the thoracic spine. There is limited assessment of postoperative changes of the lower cervical spine. Soft tissues: Unremarkable. IMPRESSION: 1. There is no sequela of acute intrathoracic trauma. 2. 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 Continued follow-up recommended.
--- NOTE | 2021-09-30 05:20 | CT_ITS ---
PROCEDURE INFORMATION: Exam: CT Abdomen And Pelvis Without Contrast Exam date and time: 09/30/2021 5:49 AM Age: 81 years old Clinical indication: Injury or trauma; Fall; Prior surgery; Additional info: Multiple falls TECHNIQUE: Imaging protocol: Computed tomography of the abdomen and pelvis without contrast. Radiation optimization: All CT scans at this facility use at least one of these dose optimization techniques: automated exposure control; mA and/or kV adjustment per patient size (includes targeted exams where dose is matched to clinical indication); or iterative reconstruction. COMPARISON: CR PEL1V XR pelvis 1-2V 12/21/2017 8:57 PM FINDINGS: Tubes, catheters and devices: There is a baclofen pump in place with a housing in the right posterior abdomen. Heart: There are coronary artery calcifications. Liver: There are incidental hepatic cysts. Gallbladder and bile ducts: No calcified stones. No ductal dilation. Pancreas: Normal. No ductal dilation. Spleen: There are few splenic calcifications incidentally noted. Adrenal glands: Normal. No mass. Kidneys and ureters: There is a 1 cm nonobstructing calculus in the lower pole the right kidney. There is a 2.9 cm indeterminate mass in the mid zone of the left kidney. Stomach and bowel: No obstruction. Appendix: The appendix is surgically absent. Intraperitoneal space: No free air. No significant fluid collection. Vasculature: There is athrosclerotic disease involving the abdominal aorta and pelvis vessels without an aneurysm. Lymph nodes: No enlarged lymph nodes. Urinary bladder: Unremarkable as visualized. Reproductive: The prostate is enlarged. Bones/joints: There are postop changes from prior lumbar spine fusion. Soft tissues: There is induration of the anterior soft tissues of the left abdomen which may be related to contusions or prior injections. There is a very small fat containing periumbilical hernia. IMPRESSION: 1. There is no acute intra-abdominal finding. 2. 2.9 cm possibly solid left renal mass. A follow-up nonemergent renal ultrasound and/or CT without and with IV contrast is recommended.
[2021-09-30 05:24] LABS: Basophils # 0.1 K/mm3 (0-0.2); Basophils % 1.5 % (0.1-2.0); Eosinophils # 0.3 K/mm3 (0.0-0.4); Eosinophils % 3.2 % (0.1-12.0); Hematocrit 38.9 % (42.0-52.0); Hemoglobin 13.1 g/dL (14.1-18.0); Lymphocytes # 1.8 K/mm3 (0.7-4.5); Lymphocytes % 22.7 % (10-50); Mean Corpuscular HGB Conc 33.7 g/dL (31.8-35.4); Mean Corpuscular Hemoglobin 32.2 pg (27.0-31.2); Mean Corpuscular Volume 95.8 fl (80-94); Monocytes # 0.4 K/mm3 (0.1-1.0); Monocytes % 4.3 % (1.7-9.3); Neutrophils # 5.6 K/mm3 (1.8-7.8); Neutrophils % 68.3 % (37.0-80.0); Platelet Count 190 K/mm3 (142-424); Red Blood Count 4.06 M/mm3 (4.60-6.20); Red Cell Distribution Width 14.4 % (11.5-17.5); White Blood Count 8.1 K/mm3 (4.8-10.8)
--- NOTE | 2021-09-30 05:29 | ECG_ITS ---
APPROVED REPORT Exam: Resting ECG HR:81 bpm ECG Measurements Heart Rate 81 AXES SD 196 P 43 QRSd 84 QRS -24 QT 362 T 13 QTc 399 Conclusion SINUS RHYTHM LOW QRS VOLTAGE IN PRECORDIAL LEADS Late R wave progression, unchanged ABNORMAL ECG UNCONFIRMED REPORT Electronically signed by : Isidoro Chambers MD 09/30/2021 14:50:53
[2021-09-30 05:30] LABS: Alanine Aminotransferase 19 U/L (12-78); Albumin Level 4.6 g/dl (3.5-5.0); Alkaline Phosphatase 62 U/L (38-126); Anion Gap 14.3 mEq/L (5-15); Aspartate Amino Transferase 29 U/L (17-59); Bilirubin,Total 0.7 mg/dl (0.2-1.3); Blood Urea Nitrogen 20 mg/dl (9-20); Calcium 9.8 mg/dl (8.4-10.2); Carbon Dioxide 27 mmol/L (22.0-30.0); Chloride 100 mmol/L (98-107); Creatine Kinase 90 U/L (55-170); Creatinine Clearance Estimated 81 mL/min (50-200); Estimated Glomerular Filt Rate 64 ml/min (>60); GFR (African American) 77 ML/MIN (>60); Globulin 2.3 g/dL (1.3-3.2); Glucose 115 mg/dl (74-100); Potassium 3.3 mmoL/L (3.5-5.1); Sodium 138 mmol/L (136-145); Total Protein,Serum 6.9 g/dl (6.3-8.2)
[2021-09-30 05:42] LABS: Troponin I 0.03 ng/ml (0.00-0.034)
--- NOTE | 2021-09-30 05:53 | HMH.EDGENADL ---
ED Disposition Clinical Impression: Bulging lumbar disc, Multiple falls Chronic back pain Qualifiers: Back pain location: low back pain Back pain laterality: midline Sciatica presence: without sciatica Qualified Code(s): M54.50 - Low back pain, unspecified; G89.29 - Other chronic pain Disposition: Admitted As Inpatient Condition on Discharge: Good Referrals: Ryan Haynes MD [Primary Care Provider] - - Critical Care Critical Care Time: No Attestation: On 09/30/21, the high probability of a clinically significant, sudden or life threatening deterioration of the following system(s) required my full and direct attention, intervention and personal management. The time I documented below is in addition to time spent performing reported procedures but includes the following listed in this critical care notation. Medical Decision Making - Medical Records Medical records reviewed: Yes: I reviewed the patient's medical records. - Levi Inquiry Pt receiving controlled substance: No Vital Signs: 09/30/21 04:53 09/30/21 05:30 09/30/21 06:50 Temperature 97.8 F Temperature Source Oral Pulse Rate 78 86 Pulse Rate [Left] 88 Respiratory Rate 12 Blood Pressure 129/92 H 151/78 H Blood Pressure [Right Arm] 126/82 Blood Pressure Mean [Right Arm] 96 02 Sat by Pulse Oximetry 94 L 96 96 Oxygen Delivery Method Room Air Room Air Room Air - Lab Data Lab Results 09/30/21 05:01: WBC 8.1, RBC 4.06 L, Hgb 13.1 L, Hct 38.9 L, MCV 95.8 H, MCH 32.2 H, MCHC 33.7, RDW 14.4, Plt Count 190, MPV 9.0, Neut % (Auto) 68.3, Lymph % (Auto) 22.7, [place] % (Auto) 4.3, Eos % (Auto) 3.2, Baso % (Auto) 1.5, Neut # (Auto) 5.6, Lymph # (Auto) 1.8, [place] # (Auto) 0.4, Eos # (Auto) 0.3, Baso # (Auto) 0.1 09/30/21 05:01: Sodium 138, Potassium 3.3 L, Chloride 100, Carbon Dioxide 27, Anion Gap 14.3, BUN 20, Creatinine 1.10, Estimated Creat Clear 81, Estimated GFR 64, Est GFR ( Amer) 77, Glucose 115 H, Calcium 9.8, Total Bilirubin 0.7, AST 29, ALT 19, Alkaline Phosphatase 62, Total Creatine Kinase 90, Troponin I 0.03, Total Protein 6.9, Albumin 4.6, Globulin 2.3, Albumin/Globulin Ratio 2.0 H Result diagrams: 09/30/21 05:01 09/30/21 05:01 Orders (Tests/Meds): ED MEDICATIONS Discontinued Medications Generic Name Dose Route Start Last Admin Trade Name Freq PRN Reason Stop Dose Admin Sodium Chloride 1,000 mls @ 999 mls/hr 09/30/21 05:30 09/30/21 05:27 Sod Chlor 0.9% 1000ml Bag IV 09/30/21 06:30 999 mls/hr .Q1H1M LEODAN Administration ORDERS Category Date Time Status Rapid PCR Covid and Flu A/B Stat Lab 09/30/21 07:23 Received Troponin I Q3H Lab 09/30/21 08:30 Ordered Troponin I Q3H Lab 09/30/21 11:30 Ordered Urinalysis and Microscopic Stat Lab 09/30/21 06:51 Received Urine Culture Stat Micro 09/30/21 06:51 Received ECG Request by /Jamia Stat Y 09/30/21 05:15 Ordered - CT Data CT Scan: Head, C-Spine, Abdomen, Chest, T-Spine, L-Spine Time Received: 06:[address] Reviewed: Yes: I have reviewed the patient's CT results Findings Narrative: IMPRESSION: 1. There is no acute intra-abdominal finding. 2. 2.9 cm possibly solid left renal mass. A follow-up nonemergent renal ultrasound and/or CT without and with IV contrast is recommended. IMPRESSION: There is no fracture or subluxation. CT head with right occipital ventriculostomy, prior suboccipital craniectomy, no hemorrhage, no extra-axial collection, atrophic changes. CT C-spine with no acute fracture, prior C4-C6 fusion, moderate spondylosis, no subluxation CT abdomen pelvis without IV contrast with no acute intra-abdominal findings. 2.9 cm solid left renal mass with recommendations for nonemergent renal ultrasound or CT with contrast. CT lumbar spine with postoperative changes with bony union of L2-L5, no acute fracture. CT thoracic spine with no acute fracture or subluxation CT Chest IMPRESSION: 1. There is no sequela of acute
--- NOTE | 2021-09-30 06:44 | PC.NURSE ---
Lab at bedside
--- NOTE | 2021-09-30 06:53 | PC.NURSE ---
pt requested a [place] because of his trouble with urination
[2021-09-30 07:24] LABS: Microscopic, Urine URINE MICROSCOPIC (MICROSCOPIC)
--- NOTE | 2021-09-30 07:35 | PC.NURSE ---
has been paged
[2021-09-30 07:36] LABS: Appearance,Urine CLEAR (Clear); Bilirubin,Urine Negative (Negative); Blood, Urine Negative (Negative); Color,Urine YELLOW (Yellow); Glucose,Urine (UA) Negative (Negative); Ketones,Urine Negative (Negative); Leukocyte Esterase,Urine Negative (Negative); Nitrate,Urine Negative (Negative); PH,Urine 6.5 (5.0-8.5); Protein,Urine Negative (Negative); Urobilinogen,Urine 0.2 EU/dl (0.2)
--- NOTE | 2021-09-30 07:36 | PC.NURSE ---
pt resting in bed, given additional warm blanket, at BS
[2021-09-30 07:38] LABS: Coronavirus 19, PCR Not Detected (NotDetected); Influenza A, PCR Not Detected (NotDetected); Influenza B, PCR Not Detected (NotDetected)
--- NOTE | 2021-09-30 07:42 | PC.NURSE ---
on the phone with
[2021-09-30 07:51] LABS: Bacteria,Urine Trace /lpf; Squamous Epithelial Cell,Urine Occasional #/hpf (0-5)
--- NOTE | 2021-09-30 07:51 | PC.NURSE ---
Notified care management of admission
--- NOTE | 2021-09-30 08:09 | PC.NURSE ---
0751 bed assignment requested, pt will board in ED until bed becomes available on 2nd floor. all staff notified
--- NOTE | 2021-09-30 08:32 | PC.NURSE ---
pt given breakfast tray this time at BS pt boarding in ER until a bed is available on 2nd floor
--- NOTE | 2021-09-30 09:39 | PC.NURSE ---
Pt medicated with 9am meds. Updated pt that we were waiting on a bed on 2nd floor. at bedside. No new needs at this time.
--- NOTE | 2021-09-30 10:25 | PC.NURSE ---
dr. spain gave phone order at this time for pt/ot eval for pt.
--- NOTE | 2021-09-30 10:28 | HMH.HP ---
*Admission Date: 09/30/21 <Maryjane Velez - 09/30/21 10:40> *Chief complaint: back pain <Maryjane Velez - 09/30/21 10:40> *History of present illness: This is an 81-year-old male with past medical history of hypertension, chronic back pain status post multiple back procedures, CAD who is presenting to the ED with generalized weakness after several falls over the last week. Patient's is present at bedside, states that earlier tonight he accidentally fell out of bed when he was try to get up to go to the restroom. Patient states he did not experience any chest pain or shortness of breath prior to or after the fall. He admits to chronic back pain, difficulty urinating as well as numbness in his bilateral lower extremities. He has not had any recent fevers or chills. He takes aspirin and Plavix, no anticoagulant use. He has several bruises over his abdomen, left arm. His GCS currently 15, he has no focal neurological deficits. Spouse states that patient has had roughly 4 falls over the last 7 days. They have no other concerns. Brought in with EMS as he was unable to stand up after his initial fall. Differential diagnoses include fragility fracture, ICH, ACS, urinary tract infection, rib fracture, spinal stenosis, deconditioning. Given this work-up will include CT head, CT C-spine, T-spine, L-spine, CT chest abdomen pelvis without IV contrast, EKG, troponins, CK, CMP, CBC, urinalysis with culture. Vital signs are currently stable, normotensive, GCS 15 without any focal neurological deficits. Gave 1 L of IV fluids, no history of congestive heart failure. Patient is unable to urinate on his own therefore he was requesting to have an Rodriguez catheter anchored. Patient did have an MRI done of his lumbar spine performed yesterday, he has chronic degenerative changes with osteophytes, neural foraminal narrowing of lumbar spine, T12-L1 annular bulge/herniated disc. However overall impression appears to be unchanged and stable from prior studies. No acute traumatic findings on CT scans, patient does have a 4.0 cm thoracic aortic aneurysm as well as a 3 cm solid renal mass which will need follow-up on an outpatient basis if he is not admitted. Will attempt to ambulate patient. Spoke with and patient at bedside, she is uncomfortable going home given his multiple recent falls. I suspect that this is mostly related to his chronic back pain with herniated/bulging disc. Speak with his primary doctor for admission and PT/OT as well as pain control. Patient will be admitted to the hospital. (above as per ER physician) Further to above, the patient states he is neurosurgeon is Dr. Cotton in [place]. He has an appointment scheduled with him in the next few weeks but had to have the MRI completed first. He has had progressive left-sided leg weakness along with paresthesias over the last few weeks to the point where he is now unable to stand on that leg and has very diminished feeling in the leg as well. He denies any loss of bladder or bowel control but states it has been difficult to urinate, which is why his Rodriguez was placed. He did have something similar to this happen in the past and after having back surgery, the problem was resolved. He does have a pain pump present and this is followed by Dr. Carey. He states the pain pump does not seem to be helping with his low back pain. <Maryjane Velez - 09/30/21 11:28> [facility] History I have reviewed the patient's past medical history: Yes <Maryjane Velez - 09/30/21 11:28> Medical History: Reports:: Arrhythmia, Atherosclerotic Heart Disease, Carotid Stenosis, Coronary Artery Disease, Gastroesophageal Reflux Disease(GERD), Hyperlipidemia, Hypertension, Myocardial Infarction, Peripheral Artery Disease, Peripheral Vascular Disease Denies:: Cancer, Diabetes Mellitus Type 1, Diabetes Mellitus Type 2, Internal Pacemaker, MRSA, Seizures <Maryjane Velez - 09/30/21 10:40> *Have you ever received a pneumonia vaccine?: Yes <Luis Fernando
--- NOTE | 2021-09-30 10:32 | PC.NURSE ---
notified rehab department of pt/ot evaluation orders, spoke with Lluvia
--- NOTE | 2021-09-30 10:51 | PC.NURSE ---
Rehab at bedside for [place]
--- NOTE | 2021-09-30 10:51 | PC.NURSE ---
isaías lagos at
--- NOTE | 2021-09-30 11:16 | PC.NURSE ---
Went into check on patient and . They had asked about his room upstairs. Told them we are still in the process of getting him a room.
--- NOTE | 2021-09-30 11:27 | PC.NURSE ---
pt sitting up in bed, gave pt a fresh drink per his request at BS, will continue to monitor update pt/ that there a discharges on the floor but rooms are not available yet, they verbalized understanding
--- NOTE | 2021-09-30 11:42 | HMH.OTEV ---
OT Inpatient Evaluation Rehab OT IP Evaluation Start: 09/30/21 10:25 Freq: ONCE Status: Complete Protocol: Document 09/30/21 11:24 CAMPOS (Rec: 09/30/21 11:42 [facility] [id number]) Rehab OT IP Assessment Subjective History Pt oriented x 3 on arrival. Pt agreeable to engage in therapy evaluation. Pt was admitted via ED on 09/30/21 due to back pain. Pt reports prior to coming to the hosptial he lived at home with is . Pt claims within the last 3-4 days he has become increasingly weak in left leg and unable to walk on it. He also has significant numbness in the leg and difficulty with urination. Pt reports he has back complications that have caused these same symptoms in the past. Pt has had back surgery with Dr. Cook. Pt was independent with all ADLs and IADLs prior to the past few days; also still driving. He has been using a walker since these symptoms have started. He has also had multiple falls due to weakness. Pt has a past medical history of: Arrhythmia, Atherosclerotic Heart Disease, Carotid Stenosis, Coronary Artery Disease, Gastroesophageal Reflux Disease(GERD), Hyperlipidemia, Hypertension, Myocardial Infarction, Peripheral Artery Disease, Peripheral Vascular Disease Subjective I think it is my back. Pt resting in bed on arrival. Pt required mod assist to go from supine to sitting at eob. Pt demonstrated fair static sitting balance at eob with min assist. Pt stood from eob with mod assist x 2. Pt unable to take steps due to weaknes
--- NOTE | 2021-09-30 11:47 | HMH.PTEV ---
Physical Therapy Evaluation Rehab PT IP Evaluation Start: 09/30/21 10:25 Freq: ONCE Status: Active Protocol: Document 09/30/21 11:37 NANCY (Rec: 09/30/21 11:47 NANCY [id number]) Subjective/History History History Patient is an 81 year old male presenting to [facility] ED today with reports of chronic LBP with LLE radicular symptoms. Patient lives at home with his and was previously independent with all standing/ ambulatory activities. Most recently he has began to experience LLE N/T and weakness resulting in multiple falls over the past 2 weeks. Patient has previously underwent multiple lumbar and cervical spine surgeries. Cranial CT scans negative for any signs of CVA at this point . Subjective Subjective I can't feel my left leg, and it feels really weak. Rehab PT IP Eval Objective Appearance Patient Behavior Appropriate,Cooperative Patient Orientation Place,Birthday Difficulty following instructions none Speech Pattern Clear,Appropriate Ambulation Patient Able to Ambulate No Balance Ability to Arise Unable Standing Balance Unsteady Dynamic Sitting Balance Ability Good Dynamic Standing Balance Ability Fair Transfers Bed Transfer Ability Moderate x 2 (50% assist) Sit to Stand Bed Transfer Ability Moderate x 2 (50% assist) ROM All Extremities PT ROM Status WFL MMT LLE PT MMT ABN Abnormal MMT Grade 3/5 Rehab PT IP prob,goals,plan Problems Date of Evaluation: 09/30/21 PT IP Problems Bed Mobility,Transfers,Gait, Balance,Self care,Safety Rehab Potential Rehab Potential Good Equipment Needs Assistive Devices None / NA Plan PT Intervention Plan Bed Mobility,Transfers,Gait, Balance,Self care,Safety, Therapeutic Exercise PT Plan Frequency BID Duration LOS Discharge Goals Bed Transfer Ability Minimal x 1 (25% assist) Sit to Stand Chair Transfer Ability Minimal x 1 (25% assist) Ambulation Assistive Device Rolling Walker Discharge Plan PT Discharge Plan
--- NOTE | 2021-09-30 11:54 | PC.NURSE ---
Called dietary for lunch tray
--- NOTE | 2021-09-30 12:44 | PC.NURSE ---
report given to alma aguilar on second floor at this time. states she will send staff down to transport pt.
--- NOTE | 2021-09-30 12:45 | PC.NURSE ---
Called ER and received report from JULIO C MALLORY
--- NOTE | 2021-09-30 12:46 | PC.NURSE ---
marybel (care management) at speaking with pt and at this time updated pt and I just gave report on pt and he should be transported to room soon
--- NOTE | 2021-09-30 13:21 | SW/DCPLANNER ---
Addendum entered by Edith Celis 10/03/21 09:35: The plan for this patient is to discharge home with and other family assistance. has requested that DME (hospital bed, BSC and wheel chair) be ordered for this patient: [facility]age (Michael Kern) is aware of DME needed. Original Note: I spoke with patient and his regarding plans once medically stable for discharge. PT/OT has recommended SNF level of care at time of discharge. Patient and are not interested in placement once medically stable for discharge. stated their only interest at this time is a referral to their Neurosurgeon (Dr Cotton). I will continue to follow up with this patient and his until medically stable for discharge.
--- NOTE | 2021-09-30 13:37 | HMH.PHAINT ---
MEDICATION RECONCILIATION COMPLETED ON PATIENT USING EXTERNAL FILL HISTORY FROM PHARMACY. -MONTRELL SCHULTZ, IVOND
--- NOTE | 2021-09-30 13:45 | PC.NURSE ---
Called Pain Management for consult on this pt. Jonna Phylicia stated that he would have to be evaluated by pain management on Sunday if he is still inpatient when there is a provider in the office.
--- NOTE | 2021-09-30 14:55 | HMH.PHAVTE ---
[facility] Pharmacy VTE Monitoring - Patient Demographics Admission date: 09/30/21 Report Date: 09/30/21 Time: 14:55 Allergies/Adverse Reactions: Patient Allergies Sulfa (Sulfonamide Antibiotics) [SULFA (SULFONAMIDE ANTIBIOTICS)] Allergy (Mild, Verified 06/20/21 13:14) Height: 1.83 m Weight: 109.089 kg Patient Problems: Current Active Problems Chronic back pain (Chronic) Bulging lumbar disc (Acute) Multiple falls (Acute) Left renal mass (Acute) Hypokalemia (Acute) Weakness of left leg (Acute) Paresthesia of left leg (Acute) Carotid artery stenosis (Chronic) Intracranial shunt (Chronic) History of coronary artery stent placement (Chronic) HLD (hyperlipidemia) (Chronic) HTN (hypertension) (Chronic) CAD (coronary artery disease) (Chronic) - VTE Risk Labs: VTE Related Lab Results Hgb 13.1 g/dL (14.1-18.0) L 09/30/21 05:01 Hct 38.9 % (42.0-52.0) L 09/30/21 05:01 Plt Count 190 K/mm3 (142-424) 09/30/21 05:01 BUN 20 mg/dl (9-20) 09/30/21 05:01 Creatinine 1.10 mg/dl (0.66-1.25) 09/30/21 05:01 Estimated Creat Clear 81 mL/min (50-200) 09/30/21 05:01 - Prophylaxis VTE Prophylaxis Ordered?: Yes Types of VTE Prophylaxis: TEDS Knee High Location of Applied Device: Bilateral Lower Extremeties
--- NOTE | 2021-09-30 15:39 | PC.NURSE ---
Called office to ask for pain medication for pts chronic back pain. Waiting for call back. He has a consult in for pain management, but Dr. FLOREZ is not in office. PA will come see pt on sunday if still here.
[2021-10-01 01:20] VITALS: BP 166/87; PULSE 96; RESP 17; O2SAT 100
--- NOTE | 2021-10-01 01:20 | PC.NURSE ---
Patient was found on the floor by this RN and Brigitte Henderson RN. Patient states I was trying to go to the bathroom . Patient's vitals where all WNL. Patient has an abrasion that was cleaned up and bandaged to the left knee, he complains of no pain, denies hitting his head. Bed alarm was placed and patient observation every 30 minutes where initiated. MD emission technician was notified of the incident. Incident report was filed.
--- NOTE | 2021-10-01 01:57 | PC.NURSE ---
At the beginning of the shift Pt reported that he was constipated and had not had a BM in several days. Pt was informed that he was given a stool softener and it should begin to work shortly. Pt stated I want to sit on the toilet. Pt informed that he was a 2 or more assist and we could not place him on the toilet. Offered a BSC and Bed alves. Pt refused the bed alves. And was assisted on the BSC. Pt appeared more confused after taking his night time medications. Pt still able to correctly state the orientation questions but would repeat self with various questions and tell confusing stories. The last time that the Pt was placed on the BSC. Pt stayed on it for greater than 30 Min. Pt refused to go back to bed. Pt agreed at 0115 to go to bed. Pt placed in bed and handed the call riley. Approx 15 min later a loud thump from the room. Pt was found on the floor. He denied hitting his head. No redness noted on his head. Vs stable, An abrasion noted to his left knee. Pt assisted to the bathroom then back to bed. Pt again stated That he had no pain and answered all the orientation questions correctly. Increased monitoring at this time.
[2021-10-01 04:00] VITALS: BP 90/58; PULSE 86; RESP 16; TEMP 36.5; O2SAT 93
[2021-10-01 05:00] VITALS: BMI 32.4
--- NOTE | 2021-10-01 05:18 | PC.NURSE ---
Pt has remained in bed the rest of this shift. Pt awoken several times through out the shift and answered all questions approp. Pt denied pain or discomfort. Pt denied need to go to the bathroom. Rodriguez remains to gravity without a dep. loop. Neuro checks wnl. Pt resting/snoring but easily awaken with verbal stimuli. Pt continues to complain of numbness/weakness to his left leg and no changes post fall. Temp and pulse to leg are wnl. Javier hose intact and pedal pulses intact.
[2021-10-01 07:21] LABS: Chloride 102 mmol/L (98-107); Sodium 136 mmol/L (136-145)
[2021-10-01 07:22] LABS: Potassium 4.2 mmoL/L (3.5-5.1)
[2021-10-01 07:25] LABS: Anion Gap 10.2 mEq/L (5-15); Blood Urea Nitrogen 16 mg/dl (9-20); Calcium 8.4 mg/dl (8.4-10.2); Carbon Dioxide 28 mmol/L (22.0-30.0); Creatinine Clearance Estimated 86 mL/min (50-200); Estimated Glomerular Filt Rate 92 ml/min (>60); GFR (African American) 112 ML/MIN (>60); Glucose 155 mg/dl (74-100)
[2021-10-01 08:00] VITALS: BP 141/81; PULSE 95; RESP 18; TEMP 36.6; O2SAT 93
--- NOTE | 2021-10-01 08:57 | HMH.ACPN2 ---
Internal Medicine - PN: Subj *Date: 10/01/21 *Time: 08:57 Interval history: Nursing staff documented 2 falls during the night. Fortunately no injury. He seemed to be somewhat confused and try to get out of bed without assistance. This morning, he is alert and oriented but does not recall falling during the night. States his pain is better this morning but his left leg remains weak. Still has Rodriguez in place. Exam Vital signs and Labs for Last 24 Hours: Temp Pulse Resp BP Pulse Ox 97.9 F 95 H 18 141/81 H 93 L 10/01/21 08:00 10/01/21 08:00 10/01/21 08:00 10/01/21 08:00 10/01/21 08:00 Laboratory Results - last 24 hr 10/01/21 06:49: Sodium 136, Potassium 4.2 D, Chloride 102, Carbon Dioxide 28, Anion Gap 10.2, BUN 16, Creatinine 0.80 D, Estimated Creat Clear 86, Estimated GFR 92, Est GFR ( Amer) 112 D, Glucose 155 H, Calcium 8.4 I & O for Last 24 hours: Intake & Output 09/28/21 09/29/21 09/30/21 10/01/21 11:59 11:59 11:59 11:59 Intake Total 900 / 900 Output Total 1650 / 1650 Balance -750 / -750 Weight 247 lb 239 lb 1 oz Microbiology Reports for the Last 24 Hours: Microbiology 09/30/21 06:51 Urine,Clean Catch Urine Culture - Preliminary NO GROWTH AFTER 24 HOURS Narrative: He appears more comfortable. He is somewhat slow answering questions but is appropriate. Lungs are clear. Heart is regular. Extremities no edema. Assessment and Plan (1) Paresthesia of left leg Status: Acute Category: Medical Code(s): R20.2 - Paresthesia of skin (2) Weakness of left leg Status: Acute Category: Medical Code(s): R29.898 - Other symptoms and signs involving the musculoskeletal system (3) Bulging lumbar disc Status: Acute Category: Medical Code(s): M51.26 - Other intervertebral disc displacement, lumbar region (4) Multiple falls Status: Acute Category: Medical Code(s): R29.6 - Repeated falls (5) Chronic back pain Status: Chronic Qualifiers: Back pain location: low back pain Back pain laterality: midline Sciatica presence: without sciatica Qualified Code(s): M54.50 - Low back pain, unspecified; G89.29 - Other chronic pain Category: Medical Code(s): M54.9 - Dorsalgia, unspecified; G89.29 - Other chronic pain (6) CAD (coronary artery disease) Status: Chronic Qualifiers: Coronary Disease-Associated Artery/Lesion type: [place] artery [place] vs. transplanted heart: [place] heart Associated angina: without angina Qualified Code(s): I25.10 - Atherosclerotic heart disease of [place] coronary artery without angina pectoris Category: Medical Code(s): I25.10 - Atherosclerotic heart disease of [place] coronary artery without angina pectoris (7) Carotid artery stenosis Status: Chronic Qualifiers: Laterality: unspecified laterality Qualified Code(s): I65.29 - Occlusion and stenosis of unspecified carotid artery Category: Medical Code(s): I65.29 - Occlusion and stenosis of unspecified carotid artery (8) HLD (hyperlipidemia) Status: Chronic Qualifiers: Hyperlipidemia type: mixed hyperlipidemia Qualified Code(s): E78.2 - Mixed hyperlipidemia Category: Medical Code(s): E78.5 - Hyperlipidemia, unspecified (9) HTN (hypertension) Status: Chronic Qualifiers: Hypertension type: primary hypertension Qualified Code(s): I10 - Essential (primary) hypertension Category: Medical Code(s): I10 - Essential (primary) hypertension (10) History of coronary artery stent placement Status: Chronic Category: Surgical Code(s): Z95.5 - Presence of coronary angioplasty implant and graft (11) Intracranial shunt Status: Chronic Category: Surgical Code(s): Z98.2 - Presence of cerebrospinal fluid drainage device (12) Left renal mass Status: Acute Category: Medical Code(s): N28.89 - Other specified disorders of kidney and ureter (13) Hypokalemia Stat
--- NOTE | 2021-10-01 13:18 | HMH.PTEV ---
Physical Therapy Evaluation Rehab PT IP Evaluation Start: 09/30/21 10:25 Freq: ONCE Status: Active Protocol: Document 09/30/21 11:37 NANCY (Rec: 09/30/21 11:47 NANCY [id number]) Subjective/History History History Patient is an 81 year old male presenting to [facility] ED today with reports of chronic LBP with LLE radicular symptoms. Patient lives at home with his and was previously independent with all standing/ ambulatory activities. Most recently he has began to experience LLE N/T and weakness resulting in multiple falls over the past 2 weeks. Patient has previously underwent multiple lumbar and cervical spine surgeries. Cranial CT scans negative for any signs of CVA at this point . Subjective Subjective I can't feel my left leg, and it feels really weak. Rehab PT IP Eval Objective Appearance Patient Behavior Appropriate,Cooperative Patient Orientation Place,Birthday Difficulty following instructions none Speech Pattern Clear,Appropriate Ambulation Patient Able to Ambulate No Balance Ability to Arise Unable Standing Balance Unsteady Dynamic Sitting Balance Ability Good Dynamic Standing Balance Ability Fair Transfers Bed Transfer Ability Moderate x 2 (50% assist) Sit to Stand Bed Transfer Ability Moderate x 2 (50% assist) ROM All Extremities PT ROM Status WFL MMT LLE PT MMT ABN Abnormal MMT Grade 3/5 Rehab PT IP prob,goals,plan Problems Date of Evaluation: 09/30/21 PT IP Problems Bed Mobility,Transfers,Gait, Balance,Self care,Safety Rehab Potential Rehab Potential Good Equipment Needs Assistive Devices None / NA Plan PT Intervention Plan Bed Mobility,Transfers,Gait, Balance,Self care,Safety, Therapeutic Exercise PT Plan Frequency BID Duration LOS Discharge Goals Bed Transfer Ability Minimal x 1 (25% assist) Sit to Stand Chair Transfer Ability Minimal x 1 (25% assist) Ambulation Assistive Device Rolling Walker Discharge Plan PT Discharge Plan
[2021-10-01 15:27] VITALS: BP 136/76; PULSE 77; RESP 17; TEMP 36.5; O2SAT 94
[2021-10-01 20:00] VITALS: BP 155/90; PULSE 94; RESP 18; TEMP 36.9; O2SAT 93
--- NOTE | 2021-10-02 04:19 | PC.NURSE ---
Pt alert and oriented x 3 at beginning of my shift. After night time meds - pt slept for a while, then woke up complaining of RLQ pain. Pt states its because he is constipated. He says the only thing that will help with this pain is an enema. Contacted Dr. Ryne Patel MD institution librarian. Orders received for Milk of Mag and dulcolax supp. - see if this works first, then go from there. Pt agreed to regimen. Medicated per order/AUG. Pt went back to sleep then woke up confused, thinking he was at home. VSS. Pt continually trying to get out of bed - when asked where he is going pt states I don't know . Pt insisting on calling . I talked to Kylie, asked if this is normal for him at night, per documentation - pt was confused last night as well. says it happens occasionally if he takes too much medicine. Pt also insisting on getting up and walking to bathroom. Explained to pt his legs are too weak to walk to bathroom - he has to use bedside commode. Assisted pt to bedside commode multiple times with x 2-3 assist. Pt did have 2 soft BMs. Pt back in bed resting at this time. Bed alarm on, call light in reach.
[2021-10-02 05:00] VITALS: BMI 32.5
[2021-10-02 07:32] VITALS: BP 168/99; PULSE 81; RESP 17; TEMP 36.4; O2SAT 95
[2021-10-02 07:51] VITALS: BMI 32.5
--- NOTE | 2021-10-02 09:12 | HMH.ACPN2 ---
Internal Medicine - PN: Subj *Date: 10/02/21 *Time: 09:29 Interval history: Rodriguez catheter was removed yesterday. He initially has some difficulty urinating and became somewhat agitated according to his . He was finally able to urinate and has had no problems since then. He was confused again last night, continually trying to get out of bed on his own. No falls. He was able to have 2 soft bowel movements. Denies abdominal pain this morning. Back pain seems to be more positional. Left leg remains weak. Exam Vital signs and Labs for Last 24 Hours: Temp Pulse Resp BP Pulse Ox 97.5 F L 81 17 168/99 H 95 10/02/21 07:32 10/02/21 07:32 10/02/21 07:32 10/02/21 07:32 10/02/21 07:32 I & O for Last 24 hours: Intake & Output 09/29/21 09/30/21 10/01/21 10/02/21 11:59 11:59 11:59 11:59 Intake Total 900 / 900 1320 / 1320 Output Total 1650 / 1650 1025 / 1025 Balance -750 / -750 295 / 295 Weight 247 lb 239 lb 1 oz 240 lb 4.862 oz Microbiology Reports for the Last 24 Hours: Microbiology 09/30/21 06:51 Urine,Clean Catch Urine Culture - Final NO GROWTH AFTER 48 HOURS Narrative: He is alert and oriented this morning. Lungs are clear. Heart is regular. Extremities show no edema. Left leg remains weak with 3+/5 strength on testing. Assessment and Plan (1) Lumbar spinal stenosis Status: Acute Category: Medical Code(s): M48.061 - Spinal stenosis, lumbar region without neurogenic claudication (2) Acute back pain Status: Acute Category: Medical Code(s): M54.9 - Dorsalgia, unspecified (3) Weakness of left leg Status: Acute Category: Medical Code(s): R29.898 - Other symptoms and signs involving the musculoskeletal system (4) Paresthesia of left leg Status: Acute Category: Medical Code(s): R20.2 - Paresthesia of skin (5) Bulging lumbar disc Status: Acute Category: Medical Code(s): M51.26 - Other intervertebral disc displacement, lumbar region (6) Multiple falls Status: Acute Category: Medical Code(s): R29.6 - Repeated falls (7) Chronic back pain Status: Chronic Qualifiers: Back pain location: low back pain Back pain laterality: midline Sciatica presence: without sciatica Qualified Code(s): M54.50 - Low back pain, unspecified; G89.29 - Other chronic pain Category: Medical Code(s): M54.9 - Dorsalgia, unspecified; G89.29 - Other chronic pain (8) CAD (coronary artery disease) Status: Chronic Qualifiers: Coronary Disease-Associated Artery/Lesion type: [place] artery [place] vs. transplanted heart: [place] heart Associated angina: without angina Qualified Code(s): I25.10 - Atherosclerotic heart disease of [place] coronary artery without angina pectoris Category: Medical Code(s): I25.10 - Atherosclerotic heart disease of [place] coronary artery without angina pectoris (9) Carotid artery stenosis Status: Chronic Qualifiers: Laterality: unspecified laterality Qualified Code(s): I65.29 - Occlusion and stenosis of unspecified carotid artery Category: Medical Code(s): I65.29 - Occlusion and stenosis of unspecified carotid artery (10) HLD (hyperlipidemia) Status: Chronic Qualifiers: Hyperlipidemia type: mixed hyperlipidemia Qualified Code(s): E78.2 - Mixed hyperlipidemia Category: Medical Code(s): E78.5 - Hyperlipidemia, unspecified (11) HTN (hypertension) Status: Chronic Qualifiers: Hypertension type: primary hypertension Qualified Code(s): I10 - Essential (primary) hypertension Category: Medical Code(s): I10 - Essential (primary) hypertension (12) History of coronary artery stent placement Status: Chronic Category: Surgical Code(s): Z95.5 - Presence of coronary angioplasty implant and graft (13) Intracranial shunt Status: Chronic Category: Surgical Code(s): Z98.2 - Presence of cerebrospinal fluid drainage device (14) Le
[2021-10-02 15:18] VITALS: BP 149/74; PULSE 71; RESP 18; TEMP 36.6; O2SAT 97
[2021-10-02 20:38] VITALS: BP 110/62; PULSE 83; RESP 18; TEMP 36.6; O2SAT 94
[2021-10-03 04:16] VITALS: BP 132/72; PULSE 70; RESP 20; TEMP 36.6; O2SAT 95
[2021-10-03 05:00] VITALS: BMI 33.4
--- NOTE | 2021-10-03 05:58 | PC.NURSE ---
At beginning of my shift pt requested pain medication for leg/back pain, ordered medication not due at this time. Contacted travel occupational therapist doctor - orders received for Tylenol. Medicated per AUG. Pts MD changed some of his night time meds d/t confusion the past 2 nights. Explained to pt that his sleep medication has been changed, that the doctor wants to see how he does with this new medication. Pt agreed. Pt remained A&O x 3 and did NOT attempt to get out of bed without assistance. Pt received Vistaril at bedtime - but did not sleep well. He has been requesting his regular sleeping medication and Valium. Explained to pt that those medications have been discontinued for now, that we would have to discuss that with the doctor. Pt has been up to bsc multiple times this shift with 2-3 assist. Pt has had some difficulty urinating - but has voided multiple times w/ good output. No other needs at this time. Call light in reach. Bed alarm on for safety.
[2021-10-03 08:00] VITALS: BP 100/63; PULSE 83; RESP 18; TEMP 36.4; O2SAT 96
--- NOTE | 2021-10-03 08:37 | HMH.ACPN2 ---
<Karly Barrera - Last Filed: 10/03/21 08:37> Internal Medicine - PN: Subj *Date: 10/03/21 *Time: 08:37 Interval history: Patient had a bad night. He states he stayed awake throughout and was anxious. He does not feel like he was confused. He and his are concerned about making the appointment tomorrow. He denies chest pain or shortness of breath. He was able to transfer to a chair this morning. He states he cannot bear weight on that left leg although he does have some range of motion. Exam Vital signs and Labs for Last 24 Hours: Temp Pulse Resp BP Pulse Ox 97.5 F L 83 18 100/63 L 96 10/03/21 08:00 10/03/21 08:00 10/03/21 08:00 10/03/21 08:00 10/03/21 08:00 I & O for Last 24 hours: Intake & Output 09/30/21 10/01/21 10/02/21 10/03/21 11:59 11:59 11:59 11:59 Intake Total 900 / 900 1560 / 1560 840 / 840 Output Total 1650 / 1650 1025 / 1025 1070 / 1070 Balance -750 / -750 535 / 535 -230 / -230 Weight 247 lb 239 lb 1 oz 240 lb 4.862 oz 247 lb Microbiology Reports for the Last 24 Hours: Microbiology 09/30/21 06:51 Urine,Clean Catch Urine Culture - Final NO GROWTH AFTER 48 HOURS - Constitutional no acute distress Comments: Sitting up in a chair at bedside - *Routine Respiratory Exam Present: CTA bilaterally (Anteriorly and posteriorly) - *Routine Cardiovascular Exam Present: RRR - *Routine Abdominal Exam Present: soft, normoactive bowel sounds. Absent: tenderness - *Routine Extremities Exam Absent: edema, calf tenderness Comments: He has some range of motion of the left leg. - *Routine Neurological Exam Present: alert, oriented X3 Assessment and Plan (1) Lumbar spinal stenosis Status: Acute Category: Medical Code(s): M48.061 - Spinal stenosis, lumbar region without neurogenic claudication (2) Acute back pain Status: Acute Category: Medical Code(s): M54.9 - Dorsalgia, unspecified (3) Weakness of left leg Status: Acute Category: Medical Code(s): R29.898 - Other symptoms and signs involving the musculoskeletal system (4) Paresthesia of left leg Status: Acute Category: Medical Code(s): R20.2 - Paresthesia of skin (5) Bulging lumbar disc Status: Acute Category: Medical Code(s): M51.26 - Other intervertebral disc displacement, lumbar region (6) Multiple falls Status: Acute Category: Medical Code(s): R29.6 - Repeated falls (7) Chronic back pain Status: Chronic Qualifiers: Back pain location: low back pain Back pain laterality: midline Sciatica presence: without sciatica Qualified Code(s): M54.50 - Low back pain, unspecified; G89.29 - Other chronic pain Category: Medical Code(s): M54.9 - Dorsalgia, unspecified; G89.29 - Other chronic pain (8) CAD (coronary artery disease) Status: Chronic Qualifiers: Coronary Disease-Associated Artery/Lesion type: [place] artery [place] vs. transplanted heart: [place] heart Associated angina: without angina Qualified Code(s): I25.10 - Atherosclerotic heart disease of [place] coronary artery without angina pectoris Category: Medical Code(s): I25.10 - Atherosclerotic heart disease of [place] coronary artery without angina pectoris (9) Carotid artery stenosis Status: Chronic Qualifiers: Laterality: unspecified laterality Qualified Code(s): I65.29 - Occlusion and stenosis of unspecified carotid artery Category: Medical Code(s): I65.29 - Occlusion and stenosis of unspecified carotid artery (10) HLD (hyperlipidemia) Status: Chronic Qualifiers: Hyperlipidemia type: mixed hyperlipidemia Qualified Code(s): E78.2 - Mixed hyperlipidemia Category: Medical Code(s): E78.5 - Hyperlipidemia, unspecified (11) HTN (hypertension) Status: Chronic Qualifiers: Hypertension type: primary hypertension Qualified Code(s): I10 - Essential (primary) hypertension Category: Medical Code(s): I10 -
--- NOTE | 2021-10-03 13:13 | CARE MANAGER ---
Addendum entered by Edith Celis 10/03/21 15:36: All patient information/order has been faxed to [facility]. Adeline king/ [facility] has stated that patient information/order has been reviewed and DME will be delivered to patient's home today. Original Note: Patient will require a BSC, due to inability to ambulate to bathroom due to distance in home. Patient will require a hospital bed due to inability to independently make changes in body position significant enough to alleviate pressure. He has a diagnosis of leg parasthesia and spinal stenosis. Patient will require a wheel chair due to inability to ambulate with cane or walker.
--- NOTE | 2021-10-03 15:50 | HMH.PAINSOAP ---
[facility] Pain Management SOAP Note Subjective:: Patient is a pleasant 81-year-old male who presented to the hospital over the weekend because he fell on Sunday. He states that he was having weakness in his legs and keeps falling. He is currently being managed for degenerative disc disease of lumbar spine with lumbar radiculopathy symptoms. Patient is on intrathecal pain pump Dilaudid 30 mg/mL at a rate of 7.7 mg/day and bupivacaine 10 mg/mL at a rate of 2.59 mg/day. Patient has been on these medications for a long time now with no issues. According to the patient, he has been having weakness issues. Since his fall, patient has been having issues controlling his bladder and bowels. Today, patient says that he had a bad night. He has been having continuous left thigh numbness and pain. He rates his pain today as 4 out of 10. Review of Systems: General: No recent weight changes, no fever, no sleep disturbances Respiratory: No cough, no shortness of air, no recurring pulmonary infections Cardiovascular/peripheral vascular: No chest pain, no palpitations, no edema, no shortness of breath Gastrointestinal: No new onset incontinence, normal bowel movements reported Genitourinary: No new onset incontinence Musculoskeletal: Low back pain, left leg pain Psychiatric: [Normal mood/affect] Neurological: [Denies weakness in extremities], [denies balance issues] Objective:: Physical Exam: General: Alert and oriented x3, no acute distress, pleasant and cooperative, [on room air] Lungs: Respirations even and unlabored, symmetrical chest expansion Eyes: PERRL Musculoskeletal: Flexion and extension of lumbar [spine] somewhat guarded secondary to pain, [antalgic gait noted] Neurological: Speech clear, no gross sensory deficit Assessment:: Degenerative disease of lumbar spine with lumbar radiculopathy symptoms Spinal stenosis with neurogenic claudication Plan:: Patient has been having worsening left leg weakness. He recently fell Sunday and was sent to the hospital. He is currently on an intrathecal Dilaudid and bupivacaine pump. He has been on these medications for several months now with no issues. Patient will follow up with neurosurgery tomorrow for further evaluation. At the moment, we will not adjust his pump until he sees neurosurgery. We will follow with this patient in our clinic in 1 to 2 weeks. Patient has been instructed to contact the clinic with any concerns before the next appointment. Dr. Carey has reviewed this note and agrees with this plan of care. This note was dictated using voice recognition software and make contain errors or omissions. [facility] History Medical History: Reports:: Arrhythmia, Atherosclerotic Heart Disease, Carotid Stenosis, Coronary Artery Disease, Gastroesophageal Reflux Disease(GERD), Hyperlipidemia, Hypertension, Myocardial Infarction, Peripheral Artery Disease, Peripheral Vascular Disease Denies:: Cancer, Diabetes Mellitus Type 1, Diabetes Mellitus Type 2, Internal Pacemaker, MRSA, Seizures *Have you ever received a pneumonia vaccine?: No *Have you received a flu vaccine this season?: No Other Medical History: Reports: Arthritis. Denies: Blood Transfusion Reaction Other Surgeries: Yes: Appendectomy, Cardiac Catheterization, Colonoscopy, Coronary Stent, EGD, Other (Back sx, hemorrhoidectomy, brain surgery, pain pump). No: Pacemaker Amputation: Yes (middle finger) Fractures: No - *Social History Last grade of school completed: High school graduate Smoking Status: Never smoker Alcohol Intake: never Substance Use Type: denies use *Occupational Status:: retired Housing: house Household Members: spouse *Travel in the last 8 weeks: None Family Hx:: Bleeding Disorder, Cancer, Heart Attack, Alcoholism
--- NOTE | 2021-10-04 21:17 | HMH.DCSUM ---
General - General Admission date:: 09/30/21 <Ryan Haynes - 10/11/21 08:39> 09/30/21 <Luis FernandojgMaryjane - 10/04/21 21:27> Discharge date: 10/03/21 <Luis FernandoMaryjane gregorio - 10/04/21 21:27> HPI HPI: This is an 81-year-old male with past medical history of hypertension, chronic back pain status post multiple back procedures, CAD who is presenting to the ED with generalized weakness after several falls over the last week. Patient's is present at bedside, states that earlier tonight he accidentally fell out of bed when he was try to get up to go to the restroom. Patient states he did not experience any chest pain or shortness of breath prior to or after the fall. He admits to chronic back pain, difficulty urinating as well as numbness in his bilateral lower extremities. He has not had any recent fevers or chills. He takes aspirin and Plavix, no anticoagulant use. He has several bruises over his abdomen, left arm. His GCS currently 15, he has no focal neurological deficits. Spouse states that patient has had roughly 4 falls over the last 7 days. They have no other concerns. Brought in with EMS as he was unable to stand up after his initial fall. Differential diagnoses include fragility fracture, ICH, ACS, urinary tract infection, rib fracture, spinal stenosis, deconditioning. Given this work-up will include CT head, CT C-spine, T-spine, L-spine, CT chest abdomen pelvis without IV contrast, EKG, troponins, CK, CMP, CBC, urinalysis with culture. Vital signs are currently stable, normotensive, GCS 15 without any focal neurological deficits. Gave 1 L of IV fluids, no history of congestive heart failure. Patient is unable to urinate on his own therefore he was requesting to have an Rodriguez catheter anchored. Patient did have an MRI done of his lumbar spine performed yesterday, he has chronic degenerative changes with osteophytes, neural foraminal narrowing of lumbar spine, T12-L1 annular bulge/herniated disc. However overall impression appears to be unchanged and stable from prior studies. No acute traumatic findings on CT scans, patient does have a 4.0 cm thoracic aortic aneurysm as well as a 3 cm solid renal mass which will need follow-up on an outpatient basis if he is not admitted. Will attempt to ambulate patient. Spoke with and patient at bedside, she is uncomfortable going home given his multiple recent falls. I suspect that this is mostly related to his chronic back pain with herniated/bulging disc. Speak with his primary doctor for admission and PT/OT as well as pain control. Patient will be admitted to the hospital. (above as per ER physician) Further to above, the patient states he is neurosurgeon is Dr. Cotton in [place]. He has an appointment scheduled with him in the next few weeks but had to have the MRI completed first. He has had progressive left-sided leg weakness along with paresthesias over the last few weeks to the point where he is now unable to stand on that leg and has very diminished feeling in the leg as well. He denies any loss of bladder or bowel control but states it has been difficult to urinate, which is why his Rodriguez was placed. He did have something similar to this happen in the past and after having back surgery, the problem was resolved. He does have a pain pump present and this is followed by Dr. Carey. He states the pain pump does not seem to be helping with his low back pain. <Maryjane Velez - 10/04/21 21:27> Hospital Course Hospital Course: The patient was admitted for pain control and a PT consult as well as a consult with Dr. Carey. He was very uncomfortable and developed muscle spasms when trying to sit in bed. He could not bear any weight on his left leg. His MRI showed a similar appearance to his previous imaging with multilevel degenerative changes and bilateral foraminal narrowing throughout the spine. He was started on IV steroids and [employer] was added for pain. Diazepam was added for
--- NOTE | 2021-10-05 15:52 | CARE MANAGER ---
CM called and spoke with patient's to discuss post discharge status. Patient is currently in [place] and is planned for Sx tomorrow.
== END 2021-10-03 14:25 | disposition home or self-care (01) ==
LOC: ER 07:41 → 2ND 09:21
PROVIDERS: Admitting Provider Family Medicine; Emergency Provider Emergency Medicine; PCP Family Medicine; Visit Provider Family Medicine
DX: M51.26 Other intervertebral disc displacement, lumbar region (principal); G89.29 Other chronic pain; R29.6 Repeated falls; I10 Essential (primary) hypertension; I25.10 Atherosclerotic heart disease of native coronary artery without angina pectoris; W06.XXXA Fall from bed, initial encounter; W18.11XA Fall from or off toilet without subsequent striking against object, initial encounter; Z91.81 History of falling; Y92.230 Patient room in hospital as the place of occurrence of the external cause; Z20.822 Contact with and (suspected) exposure to COVID-19; E78.5 Hyperlipidemia, unspecified; M48.061 Spinal stenosis, lumbar region without neurogenic claudication; Z95.5 Presence of coronary angioplasty implant and graft; Z98.2 Presence of cerebrospinal fluid drainage device; N40.1 Benign prostatic hyperplasia with lower urinary tract symptoms; E87.6 Hypokalemia; R33.8 Other retention of urine; R45.1 Restlessness and agitation
CPT/HCPCS: G0378; 36415; 51702; 70450; 71250; 72125; 72128; 72131; 72170; 73030; 74176; 80048; 80053; 81001; 82550; 84484; 85025; 87086; 93005; 96365; 97116; 97166; 97530; 99285; C9803; U0003; U0005

== ENCOUNTER 2021-11-28 13:21 | Day surgery (SDC) | payer MEDICARE, SELFPAY ==
[2021-11-28 14:00] VITALS: BP 105/62; PULSE 82; RESP 20; TEMP 36.9; O2SAT 97; BMI 31.8
[2021-11-28 14:09] VITALS: BP 136/61; BP 139/67; PULSE 80; RESP 17; O2SAT 97
[2021-11-28 14:22] VITALS: BP 145/73; PULSE 85; RESP 20; O2SAT 98
--- NOTE | 2021-11-28 14:22 | HMH.PMPROC ---
- Procedure Date: 11/28/21 Time: 14:22 Anesthesiologist:: HOWARD Thornton Complications:: None Pre-procedure Diagnosis:: Degenerative disc disease of lumbar spine with lumbar radiculopathy symptoms, spinal stenosis with neurogenic claudication Post-procedure Diagnosis:: Same Indications for Procedure:: Patient is a pleasant 81-year-old male who presents today for intrathecal pain pump refill and reprogram. The patient is being treated for degenerative disc disease of lumbar spine with lumbar radiculopathy symptoms, spinal stenosis with neurogenic claudication. Patient is currently being managed with intrathecal Dilaudid 30 mg/mL at a rate of 7.77 mg/day and bupivacaine 10 mg/mL at a rate of 2.59 mg/day. Patient denies any side effects from this medication. Patient rates pain a 5 out of 10. Drug screen is appropriate. Levi [id number] has been reviewed and is appropriate. When I last saw this patient on 09/30/21, he was admitted to the [facility] because he fell 2-3 times and was having significant weakness to his bilateral lower extremities. He was discharged a few days later and saw Darya West in [facility] on 10/04/2021. After reviewing his imaging, Dr. Cotton did an emergency back surgery on his cervical spine to relieve some of his pressure. He spent about 8 days in [facility] and was transferred to [facility] for rehab. While he was in [facility], he fell again and was found confused. Then, he went to the emergency department again. He stated [place] for 3 more days for further testing to make sure that there is nothing wrong with the hardware that was put in. He did a few more days of physical therapy at [facility] and was then discharged. At the moment, patient has a Rodriguez catheter and is being seen by home health. He is also set up for physical therapy at home. Overall, patient is getting better. In today's refill, patient is too weak and unable to get on the procedure table for us to use fluoroscopy. Physical exam General: Alert and oriented x3, no acute distress, pleasant and cooperative Lungs: Respirations even and unlabored, symmetrical chest expansion Eyes: PERRL Musculoskeletal: Flexion and extension of lumbar [spine] somewhat guarded secondary to pain, [antalgic gait noted] Neurological: Speech clear, no gross sensory deficit Procedure Details:: Are you can she outside some mood informed consent was obtained and the risk and benefits of the procedure were explained to the patient. The patient was taken to the procedure room where noninvasive monitoring was placed including noninvasive blood pressure cuff and pulse oximeter. Patient's pump was interrogated. The area over the pump was cleansed with chlorhexidine as a cleansing solution. In sterile fashion the pump was accessed with a 22-gauge needle. Approximately 0.2 mls of the pump solution was removed and discarded appropriately. The pump was then refilled with 20 mL's of Dilaudid 30 mg/mL and bupivacaine 10 mg/mL the needle was withdrawn and a bandage was placed over the puncture site. The infusion rate was reprogrammed and continued at Dilaudid 7.77 mg/day and bupivacaine 2.59 mg. The patient tolerated well with no complication. Plan and Disposition:: I have discussed with the patient and his that we can set them off for home refills. His says that they getting give her a better estimate on how much she was going to cost. She is okay with coming to the hospital for refills. We will see the patient back in the clinic at the next intrathecal refill. Patient has been instructed to contact the clinic with any concerns before the next appointment. Dr. Carey has reviewed this note and agrees with this plan of care. This note was dictated using voice recognition software and make contain errors or omissions.
== END 2021-11-28 14:22 | disposition home or self-care (01) ==
LOC: SC.PAINP 13:21
PROVIDERS: PCP Family Medicine; Visit Provider Student in an Organized Health Care Education/Training Program
DX: M51.16 Intervertebral disc disorders with radiculopathy, lumbar region (principal); M48.062 Spinal stenosis, lumbar region with neurogenic claudication
CPT/HCPCS: 62370

== ENCOUNTER 2022-01-09 13:33 | Day surgery (SDC) | payer MEDICARE, SELFPAY ==
[2022-01-09 13:45] VITALS: BP 150/54; PULSE 61; RESP 20; TEMP 36.6; O2SAT 98; BMI 32.5
--- NOTE | 2022-01-09 14:04 | P.PCN_ITS ---
- Procedure Date: 01/09/22 Time: 14:04 Anesthesiologist:: HOWARD Thornton Complications:: None Pre-procedure Diagnosis:: Degenerative disc disease of lumbar spine with lumbar radiculopathy symptoms, spinal stenosis with neurogenic claudication Post-procedure Diagnosis:: Same Indications for Procedure:: Patient is a pleasant 81-year-old male who presents today for intrathecal pain pump refill and adjustment. The patient is being treated for degenerative disc disease of lumbar spine with lumbar radiculopathy symptoms, spinal stenosis with neurogenic claudication. Patient is currently being managed with Dilaudid 30 mg/mL to daily dose of 7.7 mg a day and bupivacaine 10 mg/mL at the daily dose of 2.59 mg/day. Patient denies any side effects from this medication. Patient rates pain a 8 out of 10. Drug screen is appropriate. Levi [id number] has been reviewed and is appropriate. Physical exam General: Alert and oriented x3, no acute distress, pleasant and cooperative Lungs: Respirations even and unlabored, symmetrical chest expansion Eyes: PERRL Musculoskeletal: Flexion and extension of lumbar [spine] somewhat guarded secondary to pain, [antalgic gait noted] Neurological: Speech clear, no gross sensory deficit Procedure Details:: Informed consent was obtained and the risk and benefits of the procedure were explained to the patient. The patient was taken to the procedure room where noninvasive monitoring was placed including noninvasive blood pressure cuff and pulse oximeter. Patient's pump was interrogated. The area over the pump was cleansed with chlorhexidine as a cleansing solution. In sterile fashion the pump was accessed with a 22-gauge needle. Approximately 8.7 mls of the pump solution was removed and discarded appropriately. The pump was then refilled with 20 mL's of Dilaudid 30 mg/mL and bupivacaine 10 mg/mL. The needle was withdrawn and a bandage was placed over the puncture site. The infusion rate was reprog rammed and increased to Dilaudid 8.4 mg/day and bupivacaine 2.8 mg/day. The patient tolerated well with no complication. Plan and Disposition:: We will see the patient back in the clinic at the next intrathecal refill. Patient has been instructed to contact the clinic with any concerns before the next appointment. Dr. Carey has reviewed this note and agrees with this plan of care. This note was dictated using voice recognition software and make contain errors or omissions.
[2022-01-09 14:13] VITALS: BP 150/59; PULSE 76; RESP 20; O2SAT 96
[2022-01-09 14:14] VITALS: BP 116/61; PULSE 74; RESP 20; O2SAT 98
== END 2022-01-09 14:15 | disposition home or self-care (01) ==
LOC: SC.PAINP 13:34
PROVIDERS: PCP Family Medicine; Visit Provider Student in an Organized Health Care Education/Training Program
DX: M51.16 Intervertebral disc disorders with radiculopathy, lumbar region (principal); M48.062 Spinal stenosis, lumbar region with neurogenic claudication
CPT/HCPCS: 62370

== ENCOUNTER 2022-02-21 09:52 | Day surgery (SDC) | payer MEDICARE, SELFPAY ==
[2022-02-21 09:59] VITALS: BP 111/61; BP 112/66; PULSE 66; PULSE 69; RESP 20; TEMP 36.8; O2SAT 97; BMI 32.5
[2022-02-21 10:09] VITALS: BP 135/72; PULSE 70; RESP 18; O2SAT 97
[2022-02-21 10:12] VITALS: BP 135/72; PULSE 68; RESP 18; O2SAT 95
--- NOTE | 2022-02-21 10:17 | EXP.PAIN.PRO ---
Procedure Date: 02/21/22 Time: 10:17 Anesthesiologist:: Bora Solo CRNA Complications:: None Pre-procedure Diagnosis:: Degenerative disc disease of lumbar spine with lumbar radiculopathy symptoms, spinal stenosis with neurogenic claudication Post-procedure Diagnosis:: Same Indications for Procedure:: Patient is a pleasant 81-year-old male who presents today for intrathecal pain pump refill and adjustment. We are currently treating the patient for degenerative disc disease of lumbar spine with lumbar radiculopathy symptoms spinal stenosis with neurogenic claudication. Patient is currently being managed with Dilaudid 30 mg/mL with a daily dose of 8.4 mg/day. Patient denies any side effects from this medication. He states this medication is helping with his pain symptoms. Today the patient rates his pain a 7 out of 10 and is requesting a increase of his medication. His Levi is [id number]. It has been reviewed and appropriate. Physical exam General: Alert and oriented x3, no acute distress, pleasant and cooperative Lungs: Respirations even and unlabored, symmetrical chest expansion Eyes: PERRL Musculoskeletal: Flexion extension of lumbar spine somewhat guarded secondary to pain, antalgic gait noted Neurologic: Speech clear no gross sensory deficit Procedure Details:: Informed consent was obtained and the risk and benefits of the procedure were explained to the patient. Patient was taken to the procedure room where noninvasive monitoring was placed including noninvasive blood pressure cuff and pulse oximeter. Patient's pump was interrogated. The area over the pump was cleansed with chlorhexidine as a cleansing solution. In a sterile fashion the pump was accessed with a 22-gauge needle. The interrogation system 8 mL was expected. Approximately 7.2 mL of the pump solution was removed and discarded appropriately. The pump was then refilled with 20 mL of Dilaudid 30 mg/mL. The needle was withdrawn and the bandage was placed over the puncture site. The infusion rate was increased by 5% to Dilaudid 8.82 mg/day. The patient tolerated the procedure well with no complication Plan and Disposition:: We will see the patient back in clinic at the next intrathecal refill. Patient has been instructed to contact the clinic with any concerns before the next appointment. Dr. Carey has reviewed this note and agrees with this plan of care. This note was dictated using voice recognition software and may contain errors or omissions. It is medically necessary for this patient to continue to have very intrathecal pump refilled at regular intervals. This patient has an intrathecal pain pump implanted after meeting criteria of chronic intractable pain for greater than 3 months and failing conservative treatments. Patient is committed and been compliant to the treatment plan and all plan follow-up care. Since implantation of the intrathecal pain pump, the patient has had decreased pain and been more functional. Oral medications have been reduced including intake of oral opioids. Patient continues to do well with intrathecal therapy with decrease in pain symptoms and increase in functional status. Stopping intrathecal medications can lead to life-threatening withdrawal, seizures, cardiac arrest, severe pain and possible . Pumps that are not refilled at regular intervals can be damaged and cause and need for replacement. We continually titrate dose and concentration to optimize pain relief and function. We are limited in concentration for certain drugs to safely deliver medications through the pump and stay within the recommendations from the [place] analgesic consensus committee guidelines. Depending on dosing concentration these pumps may need to be refilled sooner than 3 months as we titrate.
== END 2022-02-21 10:22 | disposition home or self-care (01) ==
LOC: SC.PAINP 09:52
PROVIDERS: PCP Family Medicine; Visit Provider Nurse Anesthetist, Certified Registered
DX: M51.16 Intervertebral disc disorders with radiculopathy, lumbar region (principal); M48.062 Spinal stenosis, lumbar region with neurogenic claudication
CPT/HCPCS: 62370

== ENCOUNTER 2022-04-11 12:59 | Day surgery (SDC) | payer MEDICARE, SELFPAY ==
[2022-04-11 13:09] VITALS: BP 126/51; PULSE 71; RESP 18; TEMP 37; O2SAT 96; BMI 32.5
[2022-04-11 13:32] VITALS: BP 115/64; PULSE 71; RESP 18; O2SAT 94
--- NOTE | 2022-04-11 13:35 | P.PCN_ITS ---
Procedure Date: 04/11/22 Time: 13:00 Anesthesiologist:: Bora Solo CRNA Complications:: None Pre-procedure Diagnosis:: Degenerative disc disease lumbar spine multilevels. Lumbar radiculopathy. Lumbar postlaminectomy syndrome. Post-procedure Diagnosis:: Same. Indications for Procedure:: Patient is a pleasant 81-year-old male that comes our clinic today for intrathecal pain pump refill. He is currently being managed with Dilaudid 30 mg/mL at 8.82 mg/day. Also, bupivacaine 10 mg/mL at 2.94 mg/day. Patient is complaining of midline back pain that he describes as constant, dull, aching. He reports pain intensifies significantly with ambulation. He denies radiculopathy. He denies any side effects from the medication. He is requesting an increase in his pump rate today. Patient reports using his PTC without much relief. We will refill his pump today. Also, we will increase his rate by 20%. Procedure Details:: Details of the procedure were explained to the patient. The patient was taken the procedure room placed in the sitting position. The area over the pump was cleansed using chlorhexidine as a cleansing solution. The pump was accessed with ease using a 22-gauge needle. 4.6 mL of solution was withdrawn and dis carded appropriately. The pump was then filled with 20 cc of of solution containing Dilaudid 30 mg/mL and bupivacaine 10 mg/mL. The pump was then interrogated. The rate was increased by 20%. The new pump rate is now Dilaudid 30 mg/mL at 10.584 mg/day. Bupivacaine 10 mg/mL at 3.5280 mg/day. Plan and Disposition:: Patient will follow-up with us in the clinic for reevaluation of pump rate and effectiveness in 2 weeks.
== END 2022-04-11 13:32 | disposition home or self-care (01) ==
LOC: SC.PAINP 13:00
PROVIDERS: PCP Family Medicine; Visit Provider Nurse Anesthetist, Certified Registered
DX: M51.16 Intervertebral disc disorders with radiculopathy, lumbar region (principal); M96.1 Postlaminectomy syndrome, not elsewhere classified
CPT/HCPCS: 62370

== ENCOUNTER → 2022-05-01 14:09 | Outpatient (POV) | payer MEDICARE, SELFPAY ==
[2022-05-01 14:57] VITALS: BP 159/73; PULSE 72; RESP 18; O2SAT 97; BMI 32.5
--- NOTE | 2022-05-01 15:16 | EXP.PAIN.SOA ---
[facility] Pain Management SOAP Note Subjective:: Patient is a pleasant 81-year-old male who presents today for follow-up of intrathecal pain pump adjustment and reprogram on 04/11/2022. We are currently treating the patient for degenerative disc disease of lumbar spine multilevels with lumbar radiculopathy symptoms, postlaminectomy syndrome. Today the patient rates his pain a 7 out of 10. He states the 20% increase at our last visit did help for approximately 4 hours or so however he continues to have significant pain in his low back with no radiating symptoms. Patient denies any new trauma or injury. Patient states this is a constant aching, popping sensation that is worse with increased activity. Patient has had a cervical spinal fusion in the past with Dr. Cotton. He is scheduled to see him next week and have updated imaging of his cervical spine. Patient states it has been a while since he has had lumbar imaging. He is currently managed with Dilaudid 30 mg/mL with a daily dose of 10.584 mg/day and bupivacaine 10 mg/mL with a daily dose of 3.5 to 8 mg/day. Patient denies any side effects from this medication. He does state this medication does help take the edge off of his pain symptoms. Patient does use his PTC device and does use all 4 boluses provided. Patient has had falls in the past however he denies any new injury since our last visit. Patient states he has tried compounding cream in the past however this did not do anything to help his pain symptoms additionally. His Levi is [id number]. It has been reviewed and appropriate. Review of Systems: General: No recent weight changes, no fever, no sleep disturbances Respiratory: No cough, no shortness of air, no recurring pulmonary infections Cardiovascular/peripheral vascular: No chest pain, no palpitations, no edema, no shortness of breath Gastrointestinal: No new onset incontinence, normal bowel movements reported Genitourinary: No new onset incontinence Musculoskeletal: Low back pain Psychiatric: [Normal mood/affect] Neurological: [Denies weakness in extremities], [denies balance issues] Objective:: Physical Exam: General: Alert and oriented x3, no acute distress, pleasant and cooperative Lungs: Respirations even and unlabored, symmetrical chest expansion Eyes: PERRL Musculoskeletal: Flexion and extension of lumbar [spine] somewhat guarded secondary to pain, [antalgic gait noted] Neurological: Speech clear, no gross sensory deficit Assessment:: Degenerative disc disease of lumbar spine multilevels with lumbar radiculopathy symptoms, postlaminectomy syndrome Plan:: Patient continues to experience significant pain in his low back. He did have limited range of motion of his lumbar spine during today's visit. I will order the patient a CT scan of his lumbar spine. I will also order tizanidine 4 mg 3 times daily and provide a 2-week supply of this medication. I have discussed with the patient that he may get beneficial relief with a epidural injection. We will discuss this following imaging. We will plan on following up with the patient following this imaging for reevaluation of symptoms and plan of care. Patient has been instructed to contact the clinic with any concerns before the next appointment. Dr. Carey has reviewed this note and agrees with this plan of care. This note was dictated using voice recognition software and make contain errors or omissions. -- It Is medically necessary for this patient to continue to have their intrathecal pump refilled at regular intervals. This patient had an intrathecal pain pump implanted after meeting criteria of chronic intractable pain for greater than 3 months and failing conservative treatments. Patient has committed and been compliant to the treatment plan and all planned follow up care. Since implantation of the intrathecal pain pump, the patient has had decreased pain and been more functional. Oral medications have been reduced including intake of oral
== END | disposition home or self-care (01) ==
PROVIDERS: PCP Family Medicine; Visit Provider Nurse Practitioner Family
DX: M51.16 Intervertebral disc disorders with radiculopathy, lumbar region (principal); M96.1 Postlaminectomy syndrome, not elsewhere classified; Z79.899 Other long term (current) drug therapy
CPT/HCPCS: 99212; G0463

== ENCOUNTER → 2022-05-11 14:47 | Outpatient (CLI) | payer MEDICARE, SELFPAY ==
--- NOTE | 2022-05-11 14:52 | CT_ITS ---
FINAL REPORT TECHNIQUE: Axial images were performed through the lumbar spine by computed tomography. Sagittal reconstruction images were also performed. This study was performed with techniques to keep radiation doses as low as reasonably achievable, (ALARA). Individualized dose reduction techniques using automated exposure control or adjustment of mA and/or kV according to the patient's size were employed. CLINICAL HISTORY: LOW BACK PAIN FINDINGS: CT LUMBAR SPINE W/O CONTRAST There is streak artifact associated with fusion hardware bridging L2 through L5. Sagittal reconstruction images demonstrate grade 1 spondylolisthesis of L5 on S1. The disk heights are preserved. A stimulator lead is seen in the lumbar spine. T12-L1: A mild disc bulge is present with mild bilateral neural foraminal narrowing. L1-2: A large posterior osteophyte is present in the midline with moderate spinal canal compromise and moderate bilateral neural foraminal narrowing. L2-3: Mild endplate hypertrophy is present with mild bilateral neural foraminal narrowing. L3-4: No central canal stenosis or neural foraminal narrowing is identified. L4-5: Mild endplate hypertrophy is present with mild bilateral neural foraminal narrowing. L5-S1: Grade 1 spondylolisthesis with endplate sclerosis and high-grade bilateral neural foraminal narrowing. IMPRESSION: Grade 1 spondylolisthesis of L5 on S1 with high-grade bilateral neural foraminal narrowing. Posterior osteophyte at L1-2 with moderate spinal canal compromise. Reviewed, Interpreted and Dictated by Mathew Ozuna MD Transcribed by Kiki Juárez Authenticated and [facility]
== END ==
PROVIDERS: PCP Family Medicine; Visit Provider Nurse Practitioner Family
DX: M54.50 Low back pain, unspecified (principal)
CPT/HCPCS: 72131

== ENCOUNTER 2022-05-23 13:32 | Day surgery (SDC) | payer MEDICARE, SELFPAY ==
[2022-05-23 13:54] VITALS: BP 141/70; PULSE 74; RESP 18; TEMP 36.6; O2SAT 97; BMI 33.9
--- NOTE | 2022-05-23 14:25 | P.PCN_ITS ---
Procedure Date: 05/23/22 Time: 14:25 Anesthesiologist:: Bora Solo CRNA Complications:: None Pre-procedure Diagnosis:: Degenerative disc disease of lumbar spine multilevels with lumbar radiculopathy symptoms, postlaminectomy syndrome Post-procedure Diagnosis:: Same Indications for Procedure:: Patient is a pleasant 81-year-old male who presents today for intrathecal pain pump refill. We are currently treating the patient for degenerative disc disease of lumbar spine multilevels with lumbar radiculopathy symptoms, postlaminectomy syndrome. Today the patient rates his pain a 6 out of 10. Patient denies any new trauma or injury. Patient denies any change to the location or type of pain he experiences. Patient does state this is an achy sensation that is worse with increased activity. Patient is currently managed with Dilaudid 30 mg/mL with a daily dose of 10.584 mg/day and bupivacaine 10 mg/mL with a daily dose of 3.528 mg/day. Patient denies any side effects from this medication. Patient states he continuously has significant pain and he continues to use all 4 of his boluses Dilaudid in a 24-hour period. General: Alert and oriented x3, no acute distress, pleasant and cooperative Lungs: Respiration even unlabored, symmetrical chest expansion Eyes: PERRL Musculoskeletal: Flexion and extension of lumbar spine somewhat guarded secondary to pain, antalgic gait noted Neurological: Speech clear, no gross sensory deficit Procedure Details:: Informed consent was obtained and the risk and benefits of the procedure were explained to the patient. The patient was taken to the procedure room and placed in a sitting position. Noninvasive monitoring was placed on the patient including a noninvasive blood pressure cuff and pulse oximeter. The pump was interrogated with approximately 3.4 mL of solution expected. The area over the pump was cleansed with ChloraPrep as a cleansing solution. Using a 22-gauge sterile needle the pump was accessed with approximately 4.2 mL of solution removed and discarded appropriately. Then 20 mL of Dilaudid 30 mg/mL and bupivacaine 10 mg/mL were refilled in the patient's pump. Needle was removed and a sterile bandage applied. patient's pump was then reinterrogated and rep rogrammed to periodic flow with Dilaudid 30 mg/mL with a daily dose of 10.68 mg/day and bupivacaine 10 mg/mL with a daily dose of 3.56 mg/day. Patient tolerated the procedure well with no complications. Plan and Disposition:: Patient was monitored in clinic for short period of time following this procedure and discharged neurologically intact. We will follow-up with the patient at his next intrathecal refill date. Patient has been instructed to contact the clinic with any questions or concerns before the next appointment date. Dr. Carey has read this note and agrees with this plan of care. This note was dictated using voice recognition software and may contain errors or omissions.
[2022-05-23 14:31] VITALS: BP 108/42; PULSE 62; RESP 20
== END 2022-05-23 14:32 | disposition home or self-care (01) ==
PROVIDERS: PCP Family Medicine; Visit Provider Nurse Anesthetist, Certified Registered
DX: M51.16 Intervertebral disc disorders with radiculopathy, lumbar region (principal); M96.1 Postlaminectomy syndrome, not elsewhere classified
CPT/HCPCS: 62370

== ENCOUNTER → 2022-06-05 11:21 | Outpatient (POV) | payer MEDICARE, SELFPAY ==
[2022-06-05 11:33] VITALS: BP 121/61; PULSE 72; RESP 18; O2SAT 95; BMI 33.9
--- NOTE | 2022-06-05 12:00 | EXP.PAIN.SOA ---
[facility] Pain Management SOAP Note Subjective:: Patient is a pleasant 81-year-old male who presents today for follow-up. We are currently treating the patient for degenerative disc disease of lumbar spine multilevels with lumbar radiculopathy symptoms, postlaminectomy syndrome. Today the patient rates his pain a 5 out of 10. Patient denies any new trauma or injury. Patient denies any change location or type of pain he experiences. Patient was recently changed from continuous flow and his intrathecal pain pump to periodic. Patient states that he does feel like he has had significant improvement of his pain symptoms following this change. Patient is currently managed with Dilaudid 30 mg/mL with a daily dose of 10.68 mg/day and bupivacaine 10 mg/mL with a daily dose of 3.56 mg/day. Patient denies any side effects from this medication. He states this medication does help manage his pain symptoms. Patient has been prescribed compounding cream in the past however he states this did not provide significant improvement. Patient does use a walker for ambulation. Patient presents today with his in office. Patients did mention that he is experiencing some cellulitis in his right leg. Patient states he has had this issue in the past and was treated for by Dr. Haynes. Patient is requesting possible antibiotics. His Levi is [id number]. It has been reviewed and appropriate. Review of Systems: General: No recent weight changes, no fever, no sleep disturbances Respiratory: No cough, no shortness of air, no recurring pulmonary infections Cardiovascular/peripheral vascular: No chest pain, no palpitations, no edema, no shortness of breath Gastrointestinal: No new onset incontinence, normal bowel movements reported Genitourinary: No new onset incontinence Musculoskeletal: Low back pain Psychiatric: [Normal mood/affect] Neurological: [Denies weakness in extremities], [denies balance issues] Objective:: Physical Exam: General: Alert and oriented x3, no acute distress, pleasant and cooperative Lungs: Respirations even and unlabored, symmetrical chest expansion Eyes: PERRL Musculoskeletal: Flexion and extension of lumbar [spine] somewhat guarded secondary to pain, [antalgic gait noted] Neurological: Speech clear, no gross sensory deficit Skin: Right leg erythema with swelling, grade 1 edema, warm to touch in comparison to the left FINDINGS: CT LUMBAR SPINE W/O CONTRAST? There is streak artifact associated with fusion hardware bridging L2 through L5. Sagittal reconstruction images demonstrate grade 1 spondylolisthesis of L5 on S1.? The disk heights are preserved. A stimulator lead is seen in the lumbar spine.? T12-L1:? A mild disc bulge is present with mild bilateral neural foraminal narrowing.? L1-2:? A large posterior osteophyte is present in the midline with moderate spinal canal compromise and moderate bilateral neural foraminal narrowing.? L2-3:? Mild endplate hypertrophy is present with mild bilateral neural foraminal narrowing.? L3-4:? No central canal stenosis or neural foraminal narrowing is identified.? ? L4-5:? Mild endplate hypertrophy is present with mild bilateral neural foraminal narrowing. L5-S1:? Grade 1 spondylolisthesis with endplate sclerosis and high-grade bilateral neural foraminal narrowing. IMPRESSION: Grade 1 spondylolisthesis of L5 on S1 with high-grade bilateral neural foraminal narrowing.? ? Posterior osteophyte at L1-2 with moderate spinal canal compromise. Reviewed, Interpreted and Dictated by Mathew Ozuna MD Transcribed by Kiki Juárez Authenticated and [facility] Assessment:: Degenerative disc disease of lumbar spine multilevels with lumbar radiculopathy symptoms, postlaminectomy syndrome, right leg cellulitis Plan:: Patient has had significant improvement of his pain symptoms following the conversion of continuous flow to periodic of his intra
== END | disposition home or self-care (01) ==
PROVIDERS: PCP Family Medicine; Visit Provider Nurse Practitioner Family
DX: M51.16 Intervertebral disc disorders with radiculopathy, lumbar region (principal); M96.1 Postlaminectomy syndrome, not elsewhere classified; L03.115 Cellulitis of right lower limb
CPT/HCPCS: 99212; G0463

== ENCOUNTER 2022-06-30 12:51 | Day surgery (SDC) | payer MEDICARE, SELFPAY ==
[2022-06-30 13:29] VITALS: BP 145/102; PULSE 65; RESP 18; TEMP 36.4; O2SAT 98; BMI 33.0
--- NOTE | 2022-06-30 14:59 | EXP.PAIN.PRO ---
Procedure Date: 06/30/22 Time: 14:59 Anesthesiologist:: Ruperto Carey MD Complications:: None Pre-procedure Diagnosis:: Degenerative disc disease of lumbar spine with lumbar radiculopathy symptoms and postlaminectomy syndrome lumbar spine Post-procedure Diagnosis:: Same Indications for Procedure:: This patient is a pleasant 81-year-old white male who we are treating for degenerative disc disease of lumbar spine lumbar radiculopathy symptoms and postlaminectomy syndrome lumbar spine. He has increasing pain in his back rating down both legs. He has an intrathecal Dilaudid/bupivacaine pain pump in place currently going at 10.68 mg/day. Levi and drug screen are all appropriate. He does have an antalgic gait. Motor strength of lower extremities is 5/5. There is no gross sensory deficit. We will refill his pump today and increase his infusion as he is having some increasing pain. Procedure Details:: Informed consent was obtained and the risks and benefits of the procedure was explained to the patient. The patient was taken to the procedure room. The pump was interrogated. The area over the pump was prepped using ChloraPrep. The pump was accessed with a 22-gauge needle. Approximately 6 mL's of the intrathecal solution was withdrawn and discarded. The pump was then refilled with 20 mL's of intrathecal Dilaudid 30 mg/mL plus bupivacaine 10 mg/mL. The pump was interrogated and the infusion was increased to 12 mg/day increasing periodic boluses to 1 mg every 2 hours. The patient tolerated the procedure well with no complication. Plan and Disposition:: We will follow-up with this patient at his next pump refill. This will be on her for August 09, 2022.
[2022-06-30 15:02] VITALS: BP 145/75; PULSE 65; RESP 18; O2SAT 96
== END 2022-06-30 15:02 | disposition home or self-care (01) ==
PROVIDERS: PCP Family Medicine; Visit Provider Anesthesiology
DX: M51.16 Intervertebral disc disorders with radiculopathy, lumbar region (principal); M96.1 Postlaminectomy syndrome, not elsewhere classified
CPT/HCPCS: 62370

== ENCOUNTER 2022-08-01 13:13 | Day surgery (SDC) | payer MEDICARE, SELFPAY ==
[2022-08-01 13:25] VITALS: BP 139/51; PULSE 67; RESP 18; TEMP 36.7; O2SAT 100; BMI 33.9
[2022-08-01 14:02] VITALS: BP 124/54; PULSE 67; RESP 18; O2SAT 100
--- NOTE | 2022-08-01 14:05 | EXP.PAIN.PRO ---
Procedure Date: 08/01/22 Time: 13:50 Anesthesiologist:: Bora Solo CRNA Complications:: None Pre-procedure Diagnosis:: Degenerative disc disease lumbar spine multilevel severe lumbar radiculopathy. Lumbar postlaminectomy syndrome. Post-procedure Diagnosis:: Same. Indications for Procedure:: Very pleasant 81-year-old male that comes our clinic today for intrathecal pain pump refill. Patient currently being managed with Dilaudid 30 mg/mL at 12 mg/day. Also, bupivacaine 10 mg/L at 4 mg/day. He is complaining of some increased pain in the low back as well as bilateral hip and legs when he is up and ambulating. He is requesting an increase in his pump today we will increase it by 10%. Procedure Details:: Details of the procedure explained to the patient. The patient was taken the procedure room placed in the sitting position. The area of the pump was cleansed using chlorhexidine as a cleansing solution. The pump was then accessed with ease using a 22-gauge inch and half needle. 7 mL of solution was withdrawn and discarded appropriately. The pump was then filled with 20 cc containing Dilaudid 30 mg/mL and bupivacaine 10 mg/mL. The pump was increased by 10%. The new rate for Dilaudid is 13.2 mg/day and bupivacaine 4.4 mg/day. Plan and Disposition:: Patient was discharged without incident.
== END 2022-08-01 14:02 | disposition home or self-care (01) ==
LOC: SC.PAINP 13:14
PROVIDERS: PCP Family Medicine; Visit Provider Nurse Anesthetist, Certified Registered
DX: Z45.1 Encounter for adjustment and management of infusion pump (principal); M51.16 Intervertebral disc disorders with radiculopathy, lumbar region; M96.1 Postlaminectomy syndrome, not elsewhere classified
CPT/HCPCS: 62370

== ENCOUNTER 2022-08-29 09:42 | Day surgery (SDC) | payer MEDICARE, SELFPAY ==
[2022-08-29 09:56] VITALS: BP 135/66; PULSE 75; RESP 18; TEMP 36.6; O2SAT 100; BMI 40.3
[2022-08-29 10:18] VITALS: BP 110/48; PULSE 70; RESP 18; O2SAT 100
--- NOTE | 2022-08-29 12:19 | EXP.PAIN.PRO ---
Procedure Date: 08/29/22 Time: 11:10 Anesthesiologist:: Bora Solo CRNA Complications:: None Pre-procedure Diagnosis:: Degenerative disc disease lumbar spine multilevels. Lumbar radiculopathy. Lumbar postlaminectomy syndrome Post-procedure Diagnosis:: Same. Indications for Procedure:: This patient is a very pleasant 81-year-old male that comes our clinic today for intrathecal pain pump interrogation and refill. Patient currently being managed with Dilaudid 30 mg/mL at 13.2 mg/day. Bupivacaine 10 mg/mL at 4.4 mg/day. He is requesting an increase in the rate. Having some increase in low back pain he describes as constant, dull and aching. He rates his pain 5/10. Procedure Details:: Details of the procedure were explained to the patient. The patient was taken to procedure room placed in the sitting position. The area of the pump was cleansed using chlorhexidine as a cleansing solution. The pump was accessed with ease using a 22-gauge inch and a half needle. 8.4 mL of solution was expected 7 mL of solution was withdrawn. Discarded appropriately. The pump was then filled incrementally with 20 cc of volume including 30 mg/mL of Dilaudid and 10 mg/mL of bupivacaine. The pump was interrogated. The rate was increased to 14.52 mg/day of Dilaudid as well as 4.84 mg/day of bupivacaine. Patient tolerated procedure without difficulty. No complications Plan and Disposition:: Patient was discharged without incident.
== END 2022-08-29 10:18 | disposition home or self-care (01) ==
LOC: SC.PAINP 09:42
PROVIDERS: PCP Family Medicine; Visit Provider Nurse Anesthetist, Certified Registered
DX: M51.16 Intervertebral disc disorders with radiculopathy, lumbar region (principal); M96.1 Postlaminectomy syndrome, not elsewhere classified; Z45.1 Encounter for adjustment and management of infusion pump
CPT/HCPCS: 62370

== ENCOUNTER → 2022-09-07 08:25 | Outpatient (CLI) | payer MEDICARE, SELFPAY ==
[2022-09-07 09:31] LABS: Basophils # 0.1 K/mm3 (0-0.2); Basophils % 0.9 % (0.1-2.0); Eosinophils # 0.3 K/mm3 (0.0-0.4); Eosinophils % 6.8 % (0.1-12.0); Hematocrit 33.5 % (42.0-52.0); Lymphocytes # 1.9 K/mm3 (0.7-4.5); Lymphocytes % 37.5 % (10-50); Mean Corpuscular HGB Conc 32.7 g/dL (31.8-35.4); Mean Corpuscular Volume 94.7 fl (80-94); Mean Platelet Volume 8.6 fl (7.4-10.4); Monocytes # 0.2 K/mm3 (0.1-1.0); Monocytes % 4.7 % (1.7-9.3); Neutrophils # 2.5 K/mm3 (1.8-7.8); Neutrophils % 50.1 % (37.0-80.0); Platelet Count 178 K/mm3 (142-424); Red Blood Count 3.54 M/mm3 (4.60-6.20); Red Cell Distribution Width 14.5 % (11.5-17.5); White Blood Count 5.1 K/mm3 (4.8-10.8)
[2022-09-07 09:59] LABS: Alanine Aminotransferase 12 U/L (12-78); Albumin Level 4.3 g/dl (3.5-5.0); Albumin/Globulin Ratio 2.2 (1.1-1.8); Alkaline Phosphatase 62 U/L (38-126); Aspartate Amino Transferase 21 U/L (17-59); Bilirubin,Total 0.6 mg/dl (0.2-1.3); Blood Urea Nitrogen 16 mg/dl (9-20); Calcium 8.8 mg/dl (8.4-10.2); Carbon Dioxide 30 mmol/L (22.0-30.0); Cholesterol 130 mg/dl (140-200); Estimated Glomerular Filt Rate 64 ml/min (>60); GFR (African American) 77 ML/MIN (>60); Glucose 100 mg/dl (74-100); Total Protein,Serum 6.3 g/dl (6.3-8.2); Triglycerides 138 mg/dl (30-150); VLDL Cholesterol 28 mg/dL (0-40)
[2022-09-07 10:12] LABS: Direct LDL Cholesterol 61.72 mg/dL (100-129)
[2022-09-07 10:30] LABS: Thyroid Stimulating Hormone 2.69 uIU/mL (0.465-4.68)
[2022-09-07 10:57] LABS: Anion Gap 11.9 mEq/L (5-15); Chloride 99 mmol/L (98-107); Chol/HDL Ratio 2.7 (1-3.5); HDL Cholesterol 48 mg/dl (40-60); Potassium 3.9 mmoL/L (3.5-5.1); Sodium 137 mmol/L (136-145)
== END ==
PROVIDERS: PCP Family Medicine; Visit Provider Family Medicine
DX: R60.0 Localized edema (principal); I25.10 Atherosclerotic heart disease of native coronary artery without angina pectoris; E55.9 Vitamin D deficiency, unspecified; R53.83 Other fatigue; I87.2 Venous insufficiency (chronic) (peripheral); E78.5 Hyperlipidemia, unspecified; M48.062 Spinal stenosis, lumbar region with neurogenic claudication; I10 Essential (primary) hypertension; G62.9 Polyneuropathy, unspecified; G89.4 Chronic pain syndrome
CPT/HCPCS: 36415; 80053; 80061; 82306; 84443; 85025

== ENCOUNTER 2022-09-26 09:40 | Day surgery (SDC) | payer MEDICARE, SELFPAY ==
[2022-09-26 09:52] VITALS: BP 147/87; PULSE 77; TEMP 36.4; O2SAT 97; BMI 33.2
--- NOTE | 2022-09-26 10:10 | P.PCN_ITS ---
Procedure Date: 09/26/22 Time: 10:05 Anesthesiologist:: Bora Solo CRNA Complications:: None Pre-procedure Diagnosis:: Degenerative disc disease lumbar spine multilevels. Lumbar radiculopathy. Lumbar postlaminectomy syndrome. Post-procedure Diagnosis:: Same. Indications for Procedure:: This patient is a pleasant 81-year-old male that comes our clinic today for intrathecal pain pump interrogation refill. Patient is currently being managed with Dilaudid 30 mg/mL at 14.52 mg/day and bupivacaine 4.84 mg/day. Patient continued to complain of low lumbar midline back pain that he describes as constant, dull, aching. This pain is predominantly when standing. Patient denies significant pain when ambulating. However, when standing in 1 spot for any length of time lumbar back pain is significant. Patient denies any significant radiculopathy. I discussed in detail with the patient regarding medial branch blocks/facet blocks L4-5, L5-S1 bilaterally. Patient wishes to proceed. Patient takes Plavix. 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 Procedure Details:: Details of the procedure explained to the patient. The patient taken to procedure room placed in sitting position. The area over the pump was cleaned using chlorhexidine as a cleansing solution. The pump was interrogated. The pump was accessed with ease using a 22-gauge inch and a half needle. 7.3 mL of solution was withdrawn and discarded appropriately. The pump was then filled incrementally with 20 cc containing Dilaudid 10 mg/mL and bupivacaine 10 mg/mL. There were no changes in the intrathecal pain pump rate. Patient tolerated procedure without difficulty. There are no complications Plan and Disposition:: Patient was discharged without incident.
[2022-09-26 10:25] VITALS: BP 108/88; PULSE 64; RESP 18; O2SAT 98
== END 2022-09-26 10:26 | disposition home or self-care (01) ==
PROVIDERS: PCP Family Medicine; Visit Provider Nurse Anesthetist, Certified Registered
DX: Z45.1 Encounter for adjustment and management of infusion pump (principal); M51.16 Intervertebral disc disorders with radiculopathy, lumbar region; M96.1 Postlaminectomy syndrome, not elsewhere classified
CPT/HCPCS: 95991

== ENCOUNTER 2022-10-10 09:14 | Day surgery (SDC) | payer MEDICARE, SELFPAY ==
[2022-10-10 09:42] VITALS: BP 142/71; PULSE 75; RESP 18; TEMP 36.8; O2SAT 96; BMI 33.9
[2022-10-10 09:56] VITALS: BP 132/88; PULSE 83; RESP 19; O2SAT 97
[2022-10-10 09:57] VITALS: BP 132/88; PULSE 83; RESP 19; O2SAT 97
--- NOTE | 2022-10-10 10:02 | P.PCN_ITS ---
Procedure Date: 10/10/22 Time: 09:50 Anesthesiologist:: Bora Solo CRNA Complications:: None Pre-procedure Diagnosis:: Degenerative disc lumbar spine multilevels. Lumbar radiculopathy. Lumbar spondylosis. Multilevel lumbar facet arthropathy. Lumbar postlaminectomy syndrome. Post-procedure Diagnosis:: Same. Indications for Procedure:: Patient is a very pleasant 82-year-old male comes our clinic today for lumbar medial branch block L4-5, L5-S1 bilaterally. Patient has had 6 separate lumbar surgeries including multiple fusions. He describes his low back pain as constant, dull, aching. He rates his pain 9/10. Patient has difficulty with flexion, extension, left and right rotation. Standing for any length of time is impossible. He also complains of bilateral hip and leg radicular symptoms. However, his low back pain is superseding this radicular component. Procedure Details:: Informed consent was obtained and the risk and benefits of the procedure was explained to the patient. Patient was taken to the procedure room where noninvasive monitors were placed, including noninvasive blood pressure cuff as well as pulse oximeter. The area over the lumbar spine was cleansed using chlorhexidine as a cleansing solution. I anesthetized the skin and subcutaneous tissues with 1% Lidocaine. I placed 22-gauge spinal needles into the facet joint/ medial branches of L4-L5, and L5-S1] bilaterally. Needle placement was confirmed with fluoroscopy. After confirmation of needle placement, each site was injected with 1 mL of 1% lidocaine and 0.25 % Marcaine and 10 mg of Depo- Medrol. A total of 80 mg of depo medrol was used for bilateral medial branch blocks of L4-L5, and L5-S1] bilaterally. Patient tolerated the procedure without difficulty. There were no complications. Plan and Disposition:: Patient was discharged without incident. Patient was evaluated 10 minutes post procedure. He reports minimal to no lumbar back pain while standing and ambulating.
[2022-10-10 10:10] VITALS: BP 119/51; PULSE 61; RESP 18; O2SAT 96
== END 2022-10-10 10:10 | disposition home or self-care (01) ==
PROVIDERS: PCP Family Medicine; Visit Provider Nurse Anesthetist, Certified Registered
DX: M51.16 Intervertebral disc disorders with radiculopathy, lumbar region (principal); M47.896 Other spondylosis, lumbar region; M96.1 Postlaminectomy syndrome, not elsewhere classified
CPT/HCPCS: 64493; 64494; J1040

== ENCOUNTER → 2022-10-23 13:27 | Outpatient (CLI) | payer MEDICARE, SELFPAY ==
[2022-10-23 15:39] LABS: Chloride 97 mmol/L (98-107); Potassium 4.6 mmoL/L (3.5-5.1); Sodium 138 mmol/L (136-145)
[2022-10-23 15:42] LABS: Anion Gap 16.6 mEq/L (5-15); Blood Urea Nitrogen 30 mg/dl (9-20); Carbon Dioxide 29 mmol/L (22.0-30.0); Estimated Glomerular Filt Rate 48 ml/min (>60); GFR (African American) 58 ML/MIN (>60)
[2022-10-23 15:43] LABS: Calcium 9.2 mg/dl (8.4-10.2); Glucose 106 mg/dl (74-100)
== END ==
PROVIDERS: PCP Family Medicine; Visit Provider Physician Assistant
DX: E78.2 Mixed hyperlipidemia (principal); I10 Essential (primary) hypertension; I25.10 Atherosclerotic heart disease of native coronary artery without angina pectoris; R60.9 Edema, unspecified; Z95.5 Presence of coronary angioplasty implant and graft; R06.00 Dyspnea, unspecified
CPT/HCPCS: 36415; 80048; 93306

== ENCOUNTER 2022-10-24 13:19 | Day surgery (SDC) | payer MEDICARE, SELFPAY ==
[2022-10-24 13:31] VITALS: BP 126/67; PULSE 82; RESP 18; O2SAT 97; O2SAT 98
[2022-10-24 13:37] VITALS: BP 140/62; PULSE 83; RESP 18; TEMP 36.7; O2SAT 98; BMI 33.9
--- NOTE | 2022-10-24 13:45 | EXP.PAIN.PRO ---
Procedure Date: 10/24/22 Time: 13:35 Anesthesiologist:: Bora Solo CRNA Complications:: None Pre-procedure Diagnosis:: Degenerative disc disease lumbar spine multilevels. Lumbar radiculopathy. Lumbar spondylosis. Multilevel lumbar facet arthropathy. Lumbar postlaminectomy syndrome. Post-procedure Diagnosis:: Same. Indications for Procedure:: Patient is a very pleasant 82-year-old male that comes our clinic today for intrathecal pain pump interrogation and refill. Patient currently is being managed with hydromorphone 30 mg/mL and bupivacaine 10 mg/mL. His current settings are Dilaudid 14.52 mg/day. Bupivacaine 4.84 mg/day. He is doing well with his current setting. However, his only complaint today is on 10/10/2022 he had medial branch block L4-5, L5-S1 bilaterally. Patient reports significant improvement terms of his overall low back pain while standing and or sitting for any length of time. Patient requesting a repeat of those injections with subsequent radiofrequency ablation of the same levels if necessary. Patient reporting 75 to 90% improvement in his overall low back pain after medial branch block L4-5, L5-S1. Patient is doing very well with his current intrathecal pain pump management. He does not complain of any side effects or complications. Procedure Details:: Details of the procedure explained to the patient. The patient taken to procedure room placed in the sitting position. The area over the pump was cleansed using chlorhexidine as a cleansing solution. The pump was interrogated. The pump was accessed with ease using a 22-gauge inch and a half needle. 7.5 mL of solution was withdrawn and discarded appropriately. The pump was then filled incrementally with 20 cc of fluid containing hydromorphone 30 mg/mL and bupivacaine 10 mg/mL. The rate will continue unchanged. Dilaudid 14.52 mg/day. Bupivacaine 4.84 mg/day. Plan and Disposition:: Patient was discharged without incident. We will schedule the patient for medial ranch block L4-5, L5-S1 bilaterally.
[2022-10-24 13:47] VITALS: BP 111/47; PULSE 80; RESP 18; O2SAT 98
== END 2022-10-24 13:47 | disposition home or self-care (01) ==
PROVIDERS: PCP Family Medicine; Visit Provider Nurse Anesthetist, Certified Registered
DX: Z45.1 Encounter for adjustment and management of infusion pump (principal); M51.16 Intervertebral disc disorders with radiculopathy, lumbar region; M47.26 Other spondylosis with radiculopathy, lumbar region; M96.1 Postlaminectomy syndrome, not elsewhere classified
CPT/HCPCS: 95991

== ENCOUNTER 2022-10-31 14:09 | Day surgery (SDC) | payer MEDICARE, SELFPAY ==
[2022-10-31 14:16] VITALS: BP 142/82; PULSE 78; RESP 18; TEMP 36.3; O2SAT 97; BMI 33.9
--- NOTE | 2022-10-31 14:38 | P.PCN_ITS ---
Procedure Date: 10/31/22 Time: 14:30 Anesthesiologist:: Bora Solo CRNA Complications:: None Pre-procedure Diagnosis:: Degenerative disc disease lumbar spine multilevels. Lumbar radiculopathy. Lumbar postlaminectomy syndrome. Lumbar post fusion syndrome. Lumbar spondylosis. Multilevel lumbar facet arthropathy Post-procedure Diagnosis:: Same. Indications for Procedure:: Patient is a very pleasant 82-year-old male that comes our clinic today for medial branch block bilaterally L4-5, L5-S1. Patient had this block in the recent past with significant proved in terms of low back pain as well as bilateral hip and leg radicular symptoms. Patient is also being managed with intrathecal pain pump. Patient states the pain pump has made a significant difference in terms of his overall pain. However, he continues having low back pain when standing for any length of time. Procedure Details:: Informed consent was obtained and the risk and benefits of the procedure was explained to the patient. Patient was taken to the procedure room where noninvasive monitors were placed, including noninvasive blood pressure cuff as well as pulse oximeter. The area over the lumbar spine was cleansed using chlorhexidine as a cleansing solution. I anesthetized the skin and subcutaneous tissues with 1% Lidocaine. I placed 22-gauge spinal needles into the facet joint/ medial branches of L4-L5, and L5-S1] bilaterally. Needle placement was confirmed with fluoroscopy. After confirmation of needle placement, each site was injected with 1 mL of 1% lidocaine and 0.25 % Marcaine and 10 mg of Depo- Medrol. A total of 80 mg of depo medrol was used for bilateral medial branch blocks of , L4-L5, and L5-S1] bilaterally. Patient tolerated the procedure without difficulty. There were no complications. Plan and Disposition:: Patient was discharged without incident.
[2022-10-31 14:47] VITALS: BP 113/72; PULSE 72; RESP 18; O2SAT 97
== END 2022-10-31 14:47 | disposition home or self-care (01) ==
PROVIDERS: PCP Family Medicine; Visit Provider Nurse Anesthetist, Certified Registered
DX: M51.16 Intervertebral disc disorders with radiculopathy, lumbar region (principal); M96.1 Postlaminectomy syndrome, not elsewhere classified; M47.896 Other spondylosis, lumbar region
CPT/HCPCS: 64493; 64494; J1040

== ENCOUNTER 2022-11-28 12:41 | Day surgery (SDC) | payer MEDICARE, SELFPAY ==
[2022-11-28 12:50] VITALS: BP 153/68; PULSE 82; RESP 18; TEMP 36.4; O2SAT 97; BMI 32.3
--- NOTE | 2022-11-28 12:53 | EXP.PAIN.PRO ---
Procedure Date: 11/28/22 Time: 12:40 Anesthesiologist:: Bora Solo CRNA Complications:: None Pre-procedure Diagnosis:: Degenerative disc disease lumbar spine multilevels. Lumbar radiculopathy. Lumbar postlaminectomy syndrome. Bilateral sacroiliitis. Chronic pain syndrome. Post-procedure Diagnosis:: Same. Indications for Procedure:: Patient is a very pleasant 82-year-old
--- NOTE | 2022-11-28 13:03 | EXP.PAIN.PRO ---
Procedure Date: 11/28/22 Time: 12:50 Anesthesiologist:: Bora Solo CRNA Complications:: None Pre-procedure Diagnosis:: Degenerative disc disease lumbar spine multilevels. Lumbar radiculopathy. Lumbar postlaminectomy syndrome. Lumbar spondylosis. Multilevel lumbar facet arthropathy. Post-procedure Diagnosis:: Same. Indications for Procedure:: Very pleasant 82-year-old male that comes our clinic today for intrathecal pain pump refill and follow-up visit from medial branch block lumbar spine bilateral L4-5, L5-S1. Patient doing very well with his current settings of his intrathecal pain pump. He is currently being managed with Dilaudid 30 mg/mL at 14.5 mg/day. Also bupivacaine 10 mg/mL at 4.84 mg/day. Patient is status post recent second round medial branch block L4-5, L5-S1 bilaterally. He reports 90% improvement terms of his overall lumbar back pain following injections. Patient states he was able to stand and ambulate for 30 to 45 minutes without pain. I discussed in detail with the patient regarding radiofrequency ablation of the same levels. He wishes to proceed. Procedure Details:: Details of the procedure explained to the patient. The patient taken the procedure room placed in the sitting position. The area over the pump was cleansed using chlorhexidine cleansing solution. The pump was interrogated. The pump was accessed with ease using a 22-gauge inch and half needle. 5.5 mL of solution was withdrawn and discarded appropriately. 3.1 mL of solution was expected. The pump was then filled incrementally with 20 cc containing Dilaudid 30 mg/mL and bupivacaine 10 mg/mL. There will be no change in the pump rate today. Patient tolerated the procedure without difficulty. There are no complications. Plan and Disposition:: We will schedule the patient for radiofrequency ablation lumbar bilateral L4-5, L5-S1 levels. I discussed in detail the procedure with the patient and his . Answered their questions. They wish to proceed.
[2022-11-28 13:12] VITALS: BP 92/60; PULSE 80; RESP 16; O2SAT 97
--- NOTE | 2022-11-28 13:21 | PC.NURSE ---
1312- pt monitored after injection. Pt with no c/o dizziness or change in LOC, Pt a&o
== END 2022-11-28 13:12 | disposition home or self-care (01) ==
PROVIDERS: PCP Family Medicine; Visit Provider Nurse Anesthetist, Certified Registered
DX: Z45.1 Encounter for adjustment and management of infusion pump (principal); M51.16 Intervertebral disc disorders with radiculopathy, lumbar region; M96.1 Postlaminectomy syndrome, not elsewhere classified; M47.26 Other spondylosis with radiculopathy, lumbar region
CPT/HCPCS: 95991

== ENCOUNTER 2022-12-05 13:06 | Day surgery (SDC) | payer MEDICARE, SELFPAY ==
[2022-12-05 13:20] VITALS: BP 143/87; PULSE 77; RESP 18; TEMP 36.4; O2SAT 93; BMI 32.3
--- NOTE | 2022-12-05 13:24 | P.PCN_ITS ---
Procedure Date: 12/05/22 Time: 13:30 Anesthesiologist:: Bora Solo CRNA Complications:: None Pre-procedure Diagnosis:: Degenerative disc lumbar spine multilevels. Lumbar radiculopathy. Lumbar postlaminectomy syndrome. Lumbar spondylosis. Lumbar facet arthropathy. Post-procedure Diagnosis:: Same. Indications for Procedure:: Very pleasant 82-year-old male that comes to our clinic today for bilateral lumbar radiofrequency ablation L4-5, L5-S1. Patient complains of low back pain with some bilateral hip and leg radiculopathy. Patient has difficulty with flexion, extension, left and right rotation. Patient has difficulty standing for any length of time. Ambulating is difficult due to low back pain. Procedure Details:: Procedure Details: Lumbar RFA Informed consent was obtained and the risk and benefits of the procedure was e xplained to the patient. Patient was placed prone on the procedure table. The patient was prepped and draped in sterile fashion. C-arm fluoroscopy was used to view the lumbar spine. The skin and subcutaneous tissues were anesthetized using lidocaine. I placed 20-gauge RF needles into the facet joints of L4-L5 and L5- S1 on the left side. We underwent sensory stimulation. There is good sensory stimulation at 0.8 V. We underwent motor stimulation. There is no motor stimulation at 2 V. We then anesthetized these levels with lidocaine and Depo- Medrol. I used a total of 40 mg Depo-Medrol for all 3 levels. I then burned all 3 levels of L4-5 and L5-S1 on the left side for 4 minutes at 80 ?C. Patient tolerated the procedure well with no complication. Plan and Disposition:: Patient was discharged without incident.
[2022-12-05 13:30] VITALS: BP 138/63; PULSE 69; RESP 18; O2SAT 97
[2022-12-05 13:58] VITALS: BP 120/59; PULSE 64; RESP 16; O2SAT 93
== END 2022-12-05 13:58 | disposition home or self-care (01) ==
PROVIDERS: PCP Family Medicine; Visit Provider Nurse Anesthetist, Certified Registered
DX: M51.16 Intervertebral disc disorders with radiculopathy, lumbar region (principal); M96.1 Postlaminectomy syndrome, not elsewhere classified; M47.26 Other spondylosis with radiculopathy, lumbar region; M47.896 Other spondylosis, lumbar region
CPT/HCPCS: 64635; 64636; J1040

== ENCOUNTER 2022-12-19 11:02 | Day surgery (SDC) | payer MEDICARE, SELFPAY ==
[2022-12-19 11:20] VITALS: BP 134/91; PULSE 65; RESP 18; TEMP 36.3; O2SAT 100; BMI 32.5
--- NOTE | 2022-12-19 11:46 | EXP.PAIN.PRO ---
Procedure Date: 12/19/22 Time: 11:40 Anesthesiologist:: Bora Solo CRNA Complications:: None Pre-procedure Diagnosis:: Degenerative disc lumbar spine multilevels. Lumbar radiculopathy. Lumbar spondylosis. Multilevel lumbar facet arthropathy. Lumbar postlaminectomy syndrome. Post-procedure Diagnosis:: Same. Indications for Procedure:: Very pleasant 82-year-old male who comes the clinic today for intrathecal pain pump interrogation refill. Patient currently being managed with Dilaudid 30 mg/mL at 14.52 mg/day and bupivacaine 10 mg/mL at 4.84 mg/day. Patient doing very well with his current settings. He is not complaining of any side effects or complications. Procedure Details:: Details of the procedure explained to the patient. The patient taken to procedure room and placed in the sitting position. The area of the pump was cleansed using chlorhexidine as a cleansing solution. The pump was interrogated. The pump was accessed with ease using a 22-gauge inch and half needle. 11 mL of solution with was drawn and discarded appropriately. The pump was then refilled with 20 cc incrementally of Dilaudid 30 mg/mL and bupivacaine 10 mg/mL. Plan and Disposition:: Patient was discharged without incident.
[2022-12-19 11:50] VITALS: BP 110/60; PULSE 67; RESP 18; O2SAT 97
== END 2022-12-19 11:50 | disposition home or self-care (01) ==
PROVIDERS: PCP Family Medicine; Visit Provider Nurse Anesthetist, Certified Registered
DX: M51.16 Intervertebral disc disorders with radiculopathy, lumbar region (principal); M47.26 Other spondylosis with radiculopathy, lumbar region; M96.1 Postlaminectomy syndrome, not elsewhere classified
CPT/HCPCS: 95991

== ENCOUNTER → 2023-01-16 12:21 | Day surgery (SDC) | payer MEDICARE, SELFPAY ==
[2023-01-16 12:39] VITALS: BP 133/74; PULSE 69; RESP 18; TEMP 36.2; O2SAT 93; BMI 33.9
--- NOTE | 2023-01-16 12:55 | EXP.PAIN.PRO ---
Procedure Date: 01/16/23 Time: 12:50 Anesthesiologist:: Bora Solo CRNA Complications:: None Pre-procedure Diagnosis:: Degenerative disc lumbar spine multilevels. Lumbar radiculopathy. Lumbar spondylosis. Multilevel lumbar facet arthropathy. Lumbar postlaminectomy syndrome. Post-procedure Diagnosis:: Same Indications for Procedure:: Very pleasant 82-year-old male that comes our clinic today for intrathecal pain pump interrogation and refill. Patient is currently being managed with Dilaudid 30 mg/mL at 14.52 mg/day and bupivacaine 10 mg per/ml at 4.84 mg today. Patient doing very well with his current settings. He is not reporting any side effects or complications. Patient asking today regarding medial branch blocks lumbar spine L4-5, L5-S1 bilaterally. Patient had this in the past with significant improvement terms of lumbar back pain. However, temporary. Subsequently, We proceeded to radiofrequency ablation bilateral L4-5, L5-S1. Patient requesting repeat of the blocks and radiofrequency ablation if possible. Patient having difficulty flexion,'s extension, left and right rotation. Procedure Details:: Details of procedure explained to the patient. The patient taken to procedure room placed in the sitting position. The area of the pump was cleansed using chlorhexidine as a cleansing solution. The pump was interrogated. The pump was accessed with ease using 22-gauge inch and half needle. 6.2 mL of solution was withdrawn and discarded appropriately. The pump was then filled with 20 cc of a solution containing Dilaudid 30 mg/mL and bupivacaine 10 mg/mL. Patient tolerated procedure without difficulty with her no complications. Plan and Disposition:: Discussed in detail with the patient regarding lumbar medial branch blocks/facet injections bilaterally L4-5, L5-S1. Answered his questions. He wishes to proceed. Patient was discharged without incident.
[2023-01-16 13:00] VITALS: BP 131/56; PULSE 68; RESP 18; O2SAT 98
[2023-01-20 17:40] LABS: Acetone <0.010 g/dL (0.000-0.010); Butalbital <1 ug/mL (1-10); Chlordiazepoxide <0.1 ug/mL (0.1-0.9); Diazepam 0.1 ug/mL (0.1-0.9); Ethanol <0.010 g/dL (0.000-0.010); Isopropanol <0.010 g/dL (0.000-0.010); Pentobarbital <1 ug/mL (1-5)
[2023-01-29 13:49] LABS: Oxycodone Cofirmation WB Negative (.); Oxymorphone GS/MS Negative (.)
== END | disposition home or self-care (01) ==
PROVIDERS: Anesthesiology; PCP Family Medicine; Visit Provider Nurse Anesthetist, Certified Registered
DX: M51.16 Intervertebral disc disorders with radiculopathy, lumbar region (principal); M47.26 Other spondylosis with radiculopathy, lumbar region; M96.1 Postlaminectomy syndrome, not elsewhere classified
CPT/HCPCS: 36415; 80306; 80307; 95991

== ENCOUNTER 2023-02-02 12:30 | Day surgery (SDC) | payer MEDICARE, SELFPAY ==
[2023-02-02 13:00] VITALS: BP 165/72; PULSE 78; RESP 18; O2SAT 97; BMI 33.7
[2023-02-02 13:17] VITALS: BP 136/66; PULSE 72; RESP 18; O2SAT 94
--- NOTE | 2023-02-02 13:17 | P.PCN_ITS ---
Procedure Date: 02/02/23 Time: 13:20 Anesthesiologist:: Bora Solo CRNA Complications:: None Pre-procedure Diagnosis:: Degenerative disease lumbar spine multilevels. Lumbar radiculopathy. Lumbar spondylosis. Multilevel lumbar facet arthropathy. Lumbar postlaminectomy syndrome. Post-procedure Diagnosis:: Same. Indications for Procedure:: Patient is a very pleasant 82-year-old male that comes our clinic today for medial branch blocks/facet injections lumbar L4-5, L5-S1. Patient has had this in the past with significant improvement. However, only lasting for a few days. Subsequently, he had radiofrequency ablation of the same levels. Again, patient has significant improvement however, only lasting a few weeks. Patient also being managed with intrathecal pain pump. Dilaudid 30 mg/mL at 14.52 mg/day. And bupivacaine 10 mg/mL at 4.84 mg/day. Patient continued to have extreme low back pain he describes as constant, dull, aching. Patient also complaining of left anterior leg radiculopathy. I discussed with Dr. Carey the patient's constant and continual pain that supersedes intrathecal pain pump management. Dr. Carey recommends he return to the clinic in 2 weeks for consultation with himself. Procedure Details:: Informed consent was obtained and the risk and benefits of the procedure was explained to the patient. Patient was taken to the procedure room where noninvasive monitors were placed, including noninvasive blood pressure cuff as well as pulse oximeter. The area over the lumbar spine was cleansed using chlorhexidine as a cleansing solution. I anesthetized the skin and subcutaneous tissues with 1% Lidocaine. I placed 22-gauge spinal needles into the facet joint/ medial branches of L4-L5, and L5-S1 bilaterally. Needle placement was confirmed with fluoroscopy. After confirmation of needle placement, each site was injected with 1 mL of 1% lidocaine and 0.25 % Marcaine and 10 mg of Depo- Medrol. A total of 80 mg of depo medrol was used for bilateral medial branch blocks of L4-L5, and L5-S1 bilaterally. Patient tolerated the procedure without difficulty. There were no complications. Plan and Disposition:: Patient was discharged without incident.
== END 2023-02-02 13:17 | disposition home or self-care (01) ==
PROVIDERS: PCP Family Medicine; Visit Provider Nurse Anesthetist, Certified Registered
DX: M96.1 Postlaminectomy syndrome, not elsewhere classified; M51.16 Intervertebral disc disorders with radiculopathy, lumbar region; M47.896 Other spondylosis, lumbar region
CPT/HCPCS: 64493; 64494; J1040

== ENCOUNTER 2023-02-13 13:16 | Day surgery (SDC) | payer MEDICARE, SELFPAY ==
[2023-02-13 13:38] VITALS: BP 143/79; PULSE 76; RESP 16; TEMP 36.7; O2SAT 96; BMI 33.5
[2023-02-13 13:39] VITALS: BP 140/78; PULSE 76; RESP 18; O2SAT 96
[2023-02-13 13:42] VITALS: BP 140/70; PULSE 70; RESP 18; O2SAT 96
[2023-02-13 13:55] VITALS: BP 116/62; PULSE 69; RESP 18; O2SAT 96
--- NOTE | 2023-02-13 13:59 | EXP.PAIN.PRO ---
Procedure Date: 02/13/23 Time: 13:55 Anesthesiologist:: Bora Solo CRNA Complications:: None Pre-procedure Diagnosis:: Left sacroiliitis. Post-procedure Diagnosis:: Same. Indications for Procedure:: Patient is a very pleasant 82-year-old male that comes to our clinic today for intrathecal pain pump interrogation refill. Patient currently being managed with intrathecal Dilaudid 30 mg/mL at 14.52 mg/day. Also bupivacaine 10 mg/mL at 4.84 mg/day. Patient is continued to have difficulty with low back pain bilateral hip and leg radicular symptoms. At his last refill we discussed potentially changing out medication to fentanyl. I discussed in detail with Dr. Carey at that time. Patient will follow-up with Dr. Carey this 02/16/2023. Patient describes his pain as constant, dull, aching. Pain increases with activity. He rates his pain 6/10. Procedure Details:: Details of the procedure explained to the patient. The patient taken the procedure room placed in sitting position. The area of the pump was cleansed using chlorhexidine as a cleansing solution. The pump was interrogated. The pump was accessed with ease using a 22-gauge inch and half needle. 6.2 mL of solution was withdrawn and discarded appropriately. The pump was then filled with 20 cc of a solution containing Dilaudid 30 mg/mL and bupivacaine 10 mg/mL. Patient tolerated procedure without difficulty. There are no complications. Plan and Disposition:: Patient was discharged without incident.
== END 2023-02-13 13:55 | disposition home or self-care (01) ==
PROVIDERS: PCP Family Medicine; Visit Provider Nurse Anesthetist, Certified Registered
DX: M46.1 Sacroiliitis, not elsewhere classified (principal); Z97.8 Presence of other specified devices
CPT/HCPCS: 95991

== ENCOUNTER → 2023-02-16 14:15 | Outpatient (POV) | payer MEDICARE, SELFPAY ==
[2023-02-16 14:34] VITALS: BP 151/83; PULSE 94; RESP 20; TEMP 36.4; O2SAT 98; BMI 33.2
--- NOTE | 2023-02-16 16:46 | EXP.PAIN.SOA ---
[facility] Pain Management SOAP Note Subjective:: The patient is a pleasant 82-year-old white male who we have been treating for postlaminectomy syndrome lumbar spine with lumbar radiculopathy symptoms and degenerative disc disease of lumbar spine. He currently has an intrathecal Dilaudid/bupivacaine pain pump going at 14.52 mg/day. Patient continues to have increasing pain in his back radiating down his legs left greater than right. He is not getting any benefit from the intrathecal Dilaudid infusion. He has previously been on morphine also which did not help. I talked to him about switching him to intrathecal fentanyl. Objective:: Alert and oriented x3 no acute distress. Patient does have an antalgic gait. Motor strength of the lower extremities is 5/5. There is no gross sensory deficit. Assessment:: Degenerative disease of lumbar spine multilevel with lumbar radiculopathy symptoms and lumbar spondylosis with postlaminectomy syndrome lumbar spine Plan:: We will switch this patient to intrathecal fentanyl 500 mcg per ml to start at 100 mcg/day. We will plan on keeping the bupivacaine the same at 10 mg per ml. We will switch his infusion out next Sunday. [facility] Disclaimer: The information contained in this section may have been updated after the patient was seen, as this information can be updated by other users. Medical History Fatigue Surgical History History of back surgery Family History Other No significant family history Social History Smoking Status: Never smoker second hand exposure: Yes alcohol intake: never substance use type: denies use current occupational status: other Travel in the last 8 weeks: None household members: spouse housing: house current occupational exposures/hazards: No caffeine: No
== END ==
PROVIDERS: PCP Family Medicine; Visit Provider Anesthesiology
DX: M51.16 Intervertebral disc disorders with radiculopathy, lumbar region (principal); M96.1 Postlaminectomy syndrome, not elsewhere classified; M47.26 Other spondylosis with radiculopathy, lumbar region; Z97.8 Presence of other specified devices
CPT/HCPCS: 99212; G0463

== ENCOUNTER 2023-02-23 09:48 | Day surgery (SDC) | payer MEDICARE, SELFPAY ==
[2023-02-23 10:00] VITALS: BP 160/78; PULSE 80; RESP 20; TEMP 36.8; O2SAT 96; BMI 73.2
[2023-02-23 10:18] VITALS: BP 187/87; PULSE 69; RESP 18; O2SAT 97
--- NOTE | 2023-02-23 11:02 | P.PCN_ITS ---
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 He has an intrathecal D ilaudid/bupivacaine pain pump in place. He is not doing well with his pump. We are refilling him and switching him over to intrathecal fentanyl/bupivacaine. We will do a double catheter aspiration of the catheter aspiration port to get all Dilaudid out of his pump. We will start him at 100 mcg/day of intrathecal fentanyl/bupivacaine. He does have an antalgic gait. Motor strength of lower extremities is 5/5. There is no gross sensory deficit. Procedure Details:: Informed consent was obtained and the risks and benefits of the procedure was explained to the patient. The patient was taken to the procedure room. The pump was interrogated. The area over the pump was prepped using ChloraPrep. The pump was accessed with a 22-gauge needle. Approximately 14 mL's of the intrathecal solution was withdrawn and discarded. The pump was then refilled with 20 mL's of intrathecal fentanyl 500 mcg per ml plus bupivacaine 10 mg per ml the pump was interrogated and the infusion was started at 100 mcg/day after double catheter aspiration at the catheter aspiration port to get all Dilaudid out of the pump. The patient tolerated the procedure well with no complication. Plan and Disposition:: We will follow-up with this patient next Sunday to adjust his pump if needed. He has Valium at home. We will give him Zofran to take over the weekend for withdrawal symptoms. He will bring his PTC in next week. At that time we can increase his pump to 125-150 mcg/day if needed depending on his pain symptoms and give him 15 mcg PTC boluses up to 8 times a day with a 3-hour lockout.
[2023-02-23 11:10] VITALS: BP 139/72; PULSE 62; RESP 20
== END 2023-02-23 11:10 | disposition home or self-care (01) ==
PROVIDERS: PCP Family Medicine; Visit Provider Anesthesiology
DX: M96.1 Postlaminectomy syndrome, not elsewhere classified (principal); M51.16 Intervertebral disc disorders with radiculopathy, lumbar region; Z97.8 Presence of other specified devices
CPT/HCPCS: 95991; C1772

== ENCOUNTER → 2023-02-27 12:55 | Outpatient (POV) | payer MEDICARE, SELFPAY ==
[2023-02-27 13:10] VITALS: BP 112/45; PULSE 82; RESP 20; BMI 33.2
--- NOTE | 2023-02-27 14:10 | EXP.PAIN.PRO ---
Procedure Date: 02/27/23 Time: 13:30 Anesthesiologist:: Bora Solo CRNA Complications:: None Pre-procedure Diagnosis:: Degenerative disc lumbar spine multilevels. Lumbar radiculopathy. Lumbar postlaminectomy syndrome. Lumbar spondylosis. Multilevel lumbar facet arthropathy. Post-procedure Diagnosis:: Same. Indications for Procedure:: Patient is a very pleasant 82-year-old male that comes our clinic today for a follow-up visit after receiving a recent medication change in his intrathecal pain pump. Patient was changed from Dilaudid and bupivacaine to fentanyl 500 mcg/mL and bupivacaine 10 mg/mL. Patient having withdrawal symptoms due to medication change. I assured the patient this would subside. We will increase the patient's pump to 150 mcg/day of fentanyl and 3 mg/day of bupivacaine. Procedure Details:: Details of the procedure explained to the patient. The patient was taken to procedure room placed in the sitting position. The pump was interrogated. The pump was increased to 150 mcg/day of fentanyl. Bupivacaine we will increase to 3 mg/day. Patient tolerated procedure without difficulty. There are no complications Plan and Disposition:: Patient will return next week for follow-up visit.
== END | disposition home or self-care (01) ==
PROVIDERS: PCP Family Medicine; Visit Provider Nurse Anesthetist, Certified Registered
DX: M51.16 Intervertebral disc disorders with radiculopathy, lumbar region (principal); M96.1 Postlaminectomy syndrome, not elsewhere classified; M47.26 Other spondylosis with radiculopathy, lumbar region; Z97.8 Presence of other specified devices
CPT/HCPCS: 62368; 99212; G0463

== ENCOUNTER → 2023-03-05 11:22 | Outpatient (POV) | payer MEDICARE, SELFPAY ==
--- NOTE | 2023-03-05 11:53 | EXP.PAIN.SOA ---
[facility] Pain Management SOAP Note Subjective:: Patient is a pleasant 82-year-old male who presents today for follow-up. We are currently treating the patient for degenerative disc disease of lumbar spine with lumbar radiculopathy symptoms, lumbar postlaminectomy syndrome, lumbar spondylosis, lumbar facet arthropathy. Today he rates his pain a 2 out of 10. Patient denies any new trauma or injury. At his last visit he did have his intrathecal pump increased and he states this has helped with his pain. Patient did switch from Dilaudid to fentanyl 500 mcg/mL with a daily dose of 150 mcg/day and bupivacaine 10 mg/mL with a daily dose of 3 mg/day. Patient denies any side effects from this medication. He states the withdrawal symptoms he had been experiencing has improved as well as the emotional wants. Patient does state that he continues to have bilateral leg weakness with numbness more prominent in his left leg. Patient states that his gait is altered. He does present today in wheelchair to help with ambulation. Patient denies any recent lumbar imaging. Patient does have a history of 5 previous back surgeries. He has been to Dr. Cotton in the past who was not recommending any additional surgeries. He is also prescribed compounding cream. His Levi is [phone]. Its been reviewed and appropriate. Review of Systems: General: No recent weight changes, no fever, no sleep disturbances Respiratory: No cough, no shortness of air, no recurring pulmonary infections Cardiovascular/peripheral vascular: No chest pain, no palpitations, no edema, no shortness of breath Gastrointestinal: No new onset incontinence, normal bowel movements reported Genitourinary: No new onset incontinence Musculoskeletal: Low back pain, bilateral leg weakness Psychiatric: [Normal mood/affect] Neurological: [Denies weakness in extremities], [denies balance issues] Objective:: Physical Exam: General: Alert and oriented x3, no acute distress, pleasant and cooperative Lungs: Respirations even and unlabored, symmetrical chest expansion Eyes: PERRL Musculoskeletal: Flexion and extension of lumbar [spine] somewhat guarded secondary to pain, [antalgic gait noted] Neurological: Speech clear, no gross sensory deficit Assessment:: Degenerative disc disease of lumbar spine with lumbar radiculopathy symptoms, lumbar postlaminectomy syndrome, lumbar spondylosis, lumbar facet arthropathy Plan:: Patient continues to experience weakness in his bilateral lower extremities. I will order physical therapy evaluation and treatment for his low back pain and leg weakness. Patient is requesting this to be done at in [facility] here in [place]. I have also counseled the patient that I will order x-ray imaging of his lumbar spine as well as CT without contrast for evaluation of any new changes. I have recommended that the patient use boost drinks to help with his decreased appetite. At this time patient does not require any additional adjustments of his intrathecal pump device. I have counseled the patient to let us know if he experiences any worsening symptoms. Patient will return to clinic in 1 month for reevaluation of symptoms and plan of care. Patient has been instructed to contact the clinic with any concerns before the next appointment. Dr. Carey has reviewed this note and agrees with this plan of care. This note was dictated using voice recognition software and make contain errors or omissions. -- It Is medically necessary for this patient to continue to have their intrathecal pump refilled at regular intervals. This patient had an intrathecal pain pump implanted after meeting criteria of chronic intractable pain for greater than 3 months and failing conservative treatments. Patient has committed and been compliant to the treatment plan and all planned follow up care. Since implantation of the intrathecal pain pump, the patient has had decreased pain and been more functional. Oral medications have been reduc
[2023-03-05 12:06] VITALS: BP 136/67; PULSE 61; RESP 18; O2SAT 98; BMI 33.1
== END ==
PROVIDERS: Visit Provider Nurse Practitioner Family
DX: M51.16 Intervertebral disc disorders with radiculopathy, lumbar region (principal); M96.1 Postlaminectomy syndrome, not elsewhere classified; M47.26 Other spondylosis with radiculopathy, lumbar region; Z97.8 Presence of other specified devices
CPT/HCPCS: 99212; G0463

== ENCOUNTER → 2023-03-05 12:11 | Outpatient (CLI) | payer MEDICARE, SELFPAY ==
--- NOTE | 2023-03-05 12:15 | XR_ITS ---
FINAL REPORT CLINICAL HISTORY: LT HIP PAIN, fall COMPARISON: None FINDINGS: LEFT HIP: Two views of the left hip demonstrate no acute fracture or dislocation. T mild degenerative changes present. The visualized bony structures are well aligned. No soft tissue abnormality is seen. IMPRESSION: Mild degenerative change, no acute abnormality. Reviewed, Interpreted and Dictated by iMke Zayas III, MD Transcribed by Kay Sanchez Authenticated and [facility] [place] [place]
--- NOTE | 2023-03-05 12:15 | XR_ITS ---
FINAL REPORT CLINICAL HISTORY: LBP fall COMPARISON: None FINDINGS: 5 views of the lumbar spine were obtained. The patient has been posteriorly fused from the L2 through the L5 levels with orthopedic screws and rods. There is no evidence of fracture or dislocation. The vertebral alignment is normal. There are severe degenerative changes present with multilevel osteophytes. There is vacuum phenomenon at the T12-L1 and L5-S1 levels. Moderate vascular calcifications are present. IMPRESSION: Prior lumbar fusion with severe degenerative change and multilevel osteophytes. No acute bony abnormality identified. Reviewed, Interpreted and Dictated by Mike Zayas III, MD Transcribed by Kay Sanchez Authenticated and . [facility]
== END ==
PROVIDERS: PCP Family Medicine; Visit Provider Nurse Practitioner Family
DX: M54.50 Low back pain, unspecified (principal); M25.552 Pain in left hip; R53.1 Weakness
CPT/HCPCS: 72110; 73502; 99212; G0463

== ENCOUNTER → 2023-03-27 14:17 | Outpatient (CLI) | payer MEDICARE, SELFPAY ==
--- NOTE | 2023-03-27 14:20 | CT_ITS ---
FINAL REPORT CLINICAL HISTORY: LBP WITH BLE WEAKNESS COMPARISON: May 11, 2022 FINDINGS: Axial imaging of the lumbar spine was obtained without contrast. Sagittal and coronal reformatted images were also obtained and reviewed.This study was performed with techniques to keep radiation doses as low as reasonably achievable (ALARA). Individualized dose reduction techniques using automated exposure control or adjustment of mA and/or kV according to the patient''s size were employed. Postoperative changes are again seen from fusion from L2-L5. There is 9 mm of anterolisthesis of L5 on S1 that is visually stable. Multilevel severe degenerative changes are seen. There is mild retrolisthesis of L1 on L2 that is stable. L1-2: An annular bulge is present with vertebral osteophytes and bilateral facet arthropathy. There is severe bilateral neural foraminal narrowing. L2-3: Postoperative changes are seen from fusion. Moderate right and mild left neural foraminal narrowing is seen. L3-4: Postoperative changes are seen from fusion. No significant neural foraminal narrowing is seen. L4-5: Postoperative changes are seen from fusion. There is mild bilateral neural foraminal narrowing. L5-S1: A disc bulge is present with vertebral osteophytes and bilateral facet arthropathy. The anterolisthesis of L5 on S1 is felt to be due to severe facet arthropathy. There is severe bilateral neural foraminal narrowing. Note is made of a 34 x 29 mm lateral left renal mass most worrisome for renal neoplasm. This was mentioned on a prior CT of the abdomen from September 2021. A 7 mm stone is seen in the right renal pelvis without significant hydronephrosis. IMPRESSION: Postoperative changes from fusion L2-L5. Multilevel severe degenerative disc disease and spondylosis with multilevel neural foraminal narrowing, worst at L1-2 and L5-S1. The overall appearance has not significantly changed since the prior exam. 34 mm left renal mass most worrisome for renal neoplasm. This can be further evaluated with renal mass protocol CT. 7 mm stone in the right renal pelvis. Authenticated and [facility]
== END ==
PROVIDERS: PCP Family Medicine; Visit Provider Nurse Practitioner Family
DX: M54.50 Low back pain, unspecified (principal); R53.1 Weakness
CPT/HCPCS: 72131

== ENCOUNTER 2023-04-06 11:53 | Day surgery (SDC) | payer MEDICARE, SELFPAY ==
[2023-04-06 12:10] VITALS: BP 160/81; PULSE 87; RESP 20; O2SAT 98; BMI 73.1
[2023-04-06 12:28] VITALS: BP 139/66; PULSE 66; RESP 20; O2SAT 94
--- NOTE | 2023-04-06 12:30 | EXP.PAIN.PRO ---
Procedure Date: 04/06/23 Time: 12:25 Anesthesiologist:: Bora Solo CRNA Complications:: None Pre-procedure Diagnosis:: Degenerative disc lumbar spine multilevels. Lumbar radiculopathy lumbar postlaminectomy syndrome. Lumbar spondylosis. Lumbar facet arthropathy Post-procedure Diagnosis:: Same. Indications for Procedure:: Patient is a very pleasant 82-year-old male that comes our clinic today for intrathecal pain for interrogation refill. Patient currently being managed with fentanyl 500 mcg and 150 mcg/day. Also, bupivacaine 10 mg/mL at 3.0 mg/day. Patient doing very well with his current settings. Patient is not requesting any changes. Patient does not report any side effects from intrathecal management. Patient continues with physical therapy. He rates his pain today 0/10. Procedure Details:: Details of the procedure explained to the patient. The patient taken to procedure room placed in send position. The area over the pump is cleansed using chlorhexidine as a cleansing solution. The pump was interrogated. The pump was accessed with ease using a 22-gauge inch and half needle. 7 mL of solution was withdrawn and discarded appropriately. The pump was then filled with 20 cc of solution containing fentanyl 500 mcg/mL and bupivacaine 10 mg/mL. Pump will continue at previous settings. Patient tolerated procedure without difficulty. There are no complications. Plan and Disposition:: Patient was discharged without incident.
[2023-04-06 12:40] VITALS: BP 123/65; PULSE 75; RESP 20
== END 2023-04-06 12:40 | disposition home or self-care (01) ==
PROVIDERS: PCP Family Medicine; Visit Provider Nurse Anesthetist, Certified Registered
DX: M51.16 Intervertebral disc disorders with radiculopathy, lumbar region (principal); M47.26 Other spondylosis with radiculopathy, lumbar region; M96.1 Postlaminectomy syndrome, not elsewhere classified; Z97.8 Presence of other specified devices
CPT/HCPCS: 95991

== ENCOUNTER 2023-05-22 12:45 | Day surgery (SDC) | payer MEDICARE, SELFPAY ==
[2023-05-22 13:07] VITALS: BP 141/72; PULSE 75; RESP 16; TEMP 36.7; O2SAT 98; BMI 33.9
--- NOTE | 2023-05-22 13:29 | EXP.PAIN.PRO ---
Procedure Date: 05/22/23 Time: 13:20 Anesthesiologist:: Bora Solo CRNA Complications:: None Pre-procedure Diagnosis:: Degenerative disc lumbar spine multilevels. Lumbar radiculopathy. Lumbar postlaminectomy syndrome. Lumbar spinal stenosis. Lumbar facet arthropathy. Lumbar spondylosis. Post-procedure Diagnosis:: Same. Indications for Procedure:: Patient is a very pleasant 82-year-old male that comes our clinic today for intrathecal pain pump interrogation, refill, reprogram. Patient currently being managed with fentanyl 500 mcg/mL at a rate of 150.0 mcg/day. Also bupivacaine 10 mg/mL at a rate of 3.0 mg/day. Patient is asking for increase in rate due to increasing low back pain with standing. Patient states after ambulating or standing for any length of time low back pain begins to intensify. He describes the pain as intermittent. Procedure Details:: Details of the procedure explained to the patient. Patient was taken the procedure and placed in the sitting position. The area over the pump was cleansed using chlorhexidine as a cleansing solution. The pump was interrogated. The pump was accessed with ease using a 22-gauge inch and half needle. 5 mL of solution was withdrawn discarded appropriately. The pump was then filled with 20 cc of a solution containing fentanyl 500 mcg/mL and bupivacaine 10 mg/mL. His rate will be increased by 10%. Fentanyl right is now 165.0 mcg/day. Bupivacaine 3.3 mg/day. Patient tolerated procedure without difficulty. There are no complications. Plan and Disposition:: Patient was discharged out incident.
[2023-05-22 13:30] VITALS: BP 128/65; PULSE 73; RESP 16; O2SAT 98
== END 2023-05-22 13:30 | disposition home or self-care (01) ==
PROVIDERS: PCP Family Medicine; Visit Provider Nurse Anesthetist, Certified Registered
DX: M51.16 Intervertebral disc disorders with radiculopathy, lumbar region (principal); M96.1 Postlaminectomy syndrome, not elsewhere classified; M47.26 Other spondylosis with radiculopathy, lumbar region; M48.061 Spinal stenosis, lumbar region without neurogenic claudication; Z97.8 Presence of other specified devices
CPT/HCPCS: 62370

== ENCOUNTER 2023-07-03 11:14 | Day surgery (SDC) | payer MEDICARE, SELFPAY ==
[2023-07-03 11:30] VITALS: BP 123/73; PULSE 73; RESP 16; O2SAT 96; BMI 33.9
--- NOTE | 2023-07-03 11:50 | EXP.PAIN.PRO ---
Procedure Date: 07/03/23 Time: 11:30 Anesthesiologist:: Bora Solo CRNA Complications:: None Pre-procedure Diagnosis:: Degenerative disc multiple levels lumbar spine. Lumbar radiculopathy. Lumbar postlaminectomy syndrome. Degenerative disc cervical spine. Cervical radiculopathy. Lumbar spondylosis. Post-procedure Diagnosis:: Same. Indications for Procedure:: Patient is a very pleasant 82-year-old male who comes our clinic today for intrathecal pain pump interrogation refill. Patient is currently being managed with fentanyl 500 mcg/mL at a rate of 165.0 mcg/day. Also, bupivacaine 10 mg/mL at a rate of 3.3 mg/day. Patient doing well with his current settings. He is not requesting any increase. Patient reporting a recent fall following his nephrectomy. Has been having posterior right-sided cervical neck pain since. Patient reports going to his primary care and receiving a low-dose narcotic oral prescription. We discussed this at length in regards to him having narcotic in his intrathecal pain pump. I suggested he not take the narcotic orally. We will prescribe methocarbamol 500 mg 1 p.o. twice daily for this posterior cervical myalgia. Procedure Details:: Details of the procedure explained to the patient. The patient taken to procedure room placed in the sitting position. The area over the pump was cleaned using chlorhexidine as a cleansing solution. The pump was interrogated. The pump was accessed with ease using a 22-gauge inch and half needle. 5 mL of solution was withdrawn discarded appropriate. The pump was then filled with 20 cc of a solution containing fentanyl 500 mcg/mL and bupivacaine 10 mg/mL. No change in rate. Patient tolerated procedure without difficulty. There are no complications. Plan and Disposition:: Patient was discharged without incident.
[2023-07-03 12:15] VITALS: BP 135/83; PULSE 68; RESP 18; O2SAT 95
== END 2023-07-03 12:18 | disposition home or self-care (01) ==
PROVIDERS: PCP Family Medicine; Visit Provider Nurse Anesthetist, Certified Registered
DX: M51.16 Intervertebral disc disorders with radiculopathy, lumbar region (principal); M96.1 Postlaminectomy syndrome, not elsewhere classified; M50.10 Cervical disc disorder with radiculopathy, unspecified cervical region; M47.26 Other spondylosis with radiculopathy, lumbar region; Z97.8 Presence of other specified devices; Z45.1 Encounter for adjustment and management of infusion pump; M79.18 Myalgia, other site
CPT/HCPCS: 95991

== ENCOUNTER 2023-08-14 13:16 | Day surgery (SDC) | payer MEDICARE, SELFPAY ==
[2023-08-14 13:35] VITALS: BP 124/77; PULSE 56; RESP 18; TEMP 36.5; O2SAT 98; BMI 33.9
--- NOTE | 2023-08-14 13:54 | EXP.PAIN.PRO ---
Procedure Date: 08/14/23 Time: 13:40 Anesthesiologist:: Bora Solo CRNA Complications:: None Pre-procedure Diagnosis:: Degenerative disc lumbar spine multilevels. Lumbar radiculopathy. Lumbar postlaminectomy syndrome. Degenerative disc cervical spine. Cervical radiculopathy. Cervical spondylosis Post-procedure Diagnosis:: Same. Indications for Procedure:: Patient is a very pleasant 83-year-old male comes our clinic today for intrathecal pain pump interrogation refill. Patient currently being managed with fentanyl 500 mcg/mL at a rate of 165 mcg/day. Also, bupivacaine 10 mg/mL rate of 3.3 mg/day. Patient requesting increase in his rate today. Patient reporting some increased lumbar back pain at the midline when transitioning from sitting to standing. He rates the pain 7/10. I will increase his pump rate by 5% today. Procedure Details:: Details of the procedure explained to the patient. The patient taken procedure room placed in the sitting position. The area of the pump is cleansed using chlorhexidine's cleansing solution. The pump was interrogated. The pump was accessed with ease using a 22-gauge inch and half needle. 5 mL of solution was withdrawn discarded appropriate. The pump was then filled with 20 cc of solution containing fentanyl 500 mcg/mL and bupivacaine 10 mg/mL. The rate will be increased by 5%. His new rate will be fentanyl 1 and 73.0 mcg/day. Bupivacaine 3.4600 mg/day. Plan and Disposition:: Patient tolerated procedure without difficulty. There are no complications.
[2023-08-14 14:00] VITALS: BP 106/60; PULSE 80; RESP 18; O2SAT 98
== END 2023-08-14 14:00 | disposition home or self-care (01) ==
PROVIDERS: PCP Family Medicine; Visit Provider Nurse Anesthetist, Certified Registered
DX: M51.16 Intervertebral disc disorders with radiculopathy, lumbar region (principal); M96.1 Postlaminectomy syndrome, not elsewhere classified; M50.10 Cervical disc disorder with radiculopathy, unspecified cervical region; M47.22 Other spondylosis with radiculopathy, cervical region; Z97.8 Presence of other specified devices; Z45.1 Encounter for adjustment and management of infusion pump
CPT/HCPCS: 95991

== ENCOUNTER 2023-09-07 10:33 | Outpatient (POV) | payer MEDICARE, SELFPAY ==
--- NOTE | 2023-09-07 11:01 | EXP.PAIN.PRO ---
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 Today he rates his pain an 8 out of 10. Patient denies any new trauma or injury. He does state that he is experiencing worsening pain in his low back with occasional pains into his legs. He states that it is random and no specific movement that seems to aggravate his overall symptoms. He does state that he does continue to have leg weakness however this is not new. Patients last back surgery with Dr. Cotton did help some of his overall left leg weakness but still states from time to time either leg will feel like it is going to give out. Patient was on physical therapy but then in May had a kidney removed and he did stop this intervention prior to this procedure. Patient is currently managed with fentanyl 500 mcg/mL and a daily dose of 173 micrograms per day and bupivacaine 10 mg/mL with a daily dose of 3.46 mg/day. He denies any side effects from this medication. His Levi has been reviewed and is appropriate. Physical Exam: General: Alert and oriented x3, no acute distress, pleasant and cooperative Lungs: Respirations even and unlabored, symmetrical chest expansion Eyes: PERRL Musculoskeletal: Flexion and extension of lumbar [spine] somewhat guarded secondary to pain, [antalgic gait noted] Neurological: Speech clear, no gross sensory deficit Procedure Details:: Informed consent was obtained and the risk and benefits of the procedure were explained to the patient. Patient was taken to the procedure room where noninvasive monitoring was placed including noninvasive blood pressure cuff and pulse oximeter. Patient's pump was interrogated and was reprogrammed to fentanyl 185 mcg/day and bupivacaine 3.7 mg/day. The patient tolerated the procedure well with no complications. Plan and Disposition:: Patient tolerated his intrathecal increase with no complications. I have discussed with patient that I will order him home health for evaluation and treatment of his low back and bilateral leg weakness. I have discussed with the patient that at his intrathecal refill date of September 25 to let our office know if the increase did help. If the patient does continue to have worsening pain in his low back with occasional pain into his legs he may benefit from injection therapy. I have already reviewed this with the patient and gone over the lumbar medial branch block for the epidural. We will follow-up with this at his next visit. Patient was discharged neurologically intact. We will see the patient back in the clinic at the next intrathecal refill. Patient has been instructed to contact the clinic with any concerns before the next appointment. Dr. Carey has reviewed this note and agrees with this plan of care. This note was dictated using voice recognition software and make contain errors or omissions. -- It Is medically necessary for this patient to continue to have their intrathecal pump refilled at regular intervals. This patient had an intrathecal pain pump implanted after meeting criteria of chronic intractable pain for greater than 3 months and failing conservative treatments. Patient has committed and been compliant to the treatment plan and all planned follow up care. Since implantation of the intrathecal pain pump, the patient has had decreased pain and been more functional. Oral medications have been reduced including intake of oral opioids. Patient continues to do well with intrathecal therapy with decrease in pain symptoms and increase in functional status. Stopping intrathecal medications can lead to life threatening withdrawal, seizures, cardiac arrest, severe pain, and possible . Pumps that are not refilled at regular intervals can be damages and cause and need for replacement. We continually titrate dose and concentration to optimize pain relief and function. We are limited in concentration for certain drugs to safely deliver medications through the pump and stay within the recommendations from the Polyanalgesic Consensus Committee Guidelines. Depending on dose and concentration these pumps may need to be refilled sooner than 3 months as we titrate.
[2023-09-07 11:07] VITALS: BP 132/52; PULSE 70; RESP 18; O2SAT 98; BMI 33.1
== END 2023-09-07 23:59 | disposition home or self-care (01) ==
PROVIDERS: PCP Family Medicine; Visit Provider Nurse Practitioner Family
DX: M50.10 Cervical disc disorder with radiculopathy, unspecified cervical region (principal); M51.16 Intervertebral disc disorders with radiculopathy, lumbar region; M96.1 Postlaminectomy syndrome, not elsewhere classified; Z97.8 Presence of other specified devices; Z45.1 Encounter for adjustment and management of infusion pump
CPT/HCPCS: 62368; 99213; G0463

== ENCOUNTER 2023-09-25 11:40 | Day surgery (SDC) | payer MEDICARE, SELFPAY ==
[2023-09-25 11:54] VITALS: BP 155/78; PULSE 74; RESP 20; O2SAT 97; BMI 25.5
[2023-09-25 12:53] VITALS: BP 155/78; PULSE 74; RESP 20; O2SAT 97
--- NOTE | 2023-09-25 13:56 | EXP.PAIN.PRO ---
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 He is on a intrathecal fentanyl/bupivacaine pain pump. He is currently going at 185 mcg/day. He is having some increasing pain. He does have an antalgic gait and needs assistance with walking. He walks with a walker. He does have some numbness in his feet. He does have significant neuropathy as well. Motor strength of lower extremities is 4 out of 5. There is no gross sensory deficit. Levi and drug screen are all appropriate. Will refill his pump and increase his to intrathecal fentanyl/bupivacaine at 200 mcg/day. He is having some increasing pain. We have also talked to him about starting physical therapy to help with his functionality. Procedure Details:: Informed consent was obtained and the risks and benefits of the procedure was explained to the patient. The patient was taken to the procedure room. The pump was interrogated. The area over the pump was prepped using ChloraPrep. The pump was accessed with a 22-gauge needle. Approximately 4 mL's of the intrathecal solution was withdrawn and discarded. The pump was then refilled with 20 mL's of intrathecal fentanyl 500 mcg per ml plus bupivacaine 10 mg/mL. The pump was interrogated and the infusion was increased to 200 mcg/day the patient tolerated the procedure well with no complication. Plan and Disposition:: This patient continues to have some increasing pain. We did encourage him to start physical therapy to help with functionality. We will also put him on the list to replace his intrathecal pain pump as the Flowonix pumps are not working as well. The company has gone out of business and there is no service for these pumps. There also has been a warning issued about battery stoppage of these pumps. Since his pump was not working as well we will seek approval for changing it to a [employer] SynchroMed 3 pump. Will have to change pump generator and place a new intrathecal catheter.
== END 2023-09-25 12:54 | disposition home or self-care (01) ==
LOC: SC.PAINP 11:41
PROVIDERS: PCP Family Medicine; Visit Provider Anesthesiology
DX: M96.1 Postlaminectomy syndrome, not elsewhere classified (principal); M54.16 Radiculopathy, lumbar region; Z97.8 Presence of other specified devices
CPT/HCPCS: 62370

== ENCOUNTER 2023-10-18 07:42 | Outpatient (CLI) | payer MEDICARE, SELFPAY ==
--- NOTE | 2023-10-18 07:42 | CA_ITS ---
FINAL REPORT TECHNIQUE: Color Doppler, duplex Doppler and robins scale sonography of the bilateral neck arterial vasculature was performed. Velocities were measured in the carotid arteries. Stenosis evaluation based on the validated velocity criteria. CLINICAL HISTORY: SALLY CAD, Afib FINDINGS: The peak systolic velocity of the right common carotid artery is 92 cm/s. The peak systolic velocity of the right internal carotid artery is 134 cm/s and end diastolic velocity 32 cm/s. The ICA/CCA ratio is 1.6. A hkgz-[id number] amount of plaque is present. The right external carotid artery is patent. The right vertebral artery is patent with antegrade flow. The peak systolic velocity of the left common carotid artery is 100 cm/s. The peak systolic velocity of the left internal carotid artery is 82 cm/s and end diastolic velocity 14 cm/s. The ICA/CCA ratio is 0.92. A mild to moderate amount of plaque is present. The left external carotid artery is patent.The left vertebral artery is patent with antegrade flow. IMPRESSION: Less than 50% bilateral carotid stenoses. Bilateral patent vertebral arteries with antegrade flow. If indicated, CTA or MRA could further evaluate. Reviewed, Interpreted and Dictated by Mathew Ozuna MD Transcribed by Karly Conklin Authenticated and [facility]
[2023-10-18 08:54] LABS: Alanine Aminotransferase 20 U/L (12-78); Albumin Level 4.2 g/dl (3.5-5.0); Alkaline Phosphatase 56 U/L (38-126); Aspartate Amino Transferase 24 U/L (17-59); Bilirubin,Direct 0.2 mg/dl (0.0-0.4); Bilirubin,Indirect 0.3 mg/dL (0.0-0.9); Bilirubin,Total 0.5 mg/dl (0.2-1.3); Bilirubin,Unconjugated 0.4 mg/dL (0.0-1.1); Chol/HDL Ratio 3.7 (1-3.5); Cholesterol 153 mg/dl (140-200); HDL Cholesterol 41 mg/dl (40-60); Total Protein,Serum 6.4 g/dl (6.3-8.2); Triglycerides 266 mg/dl (30-150); VLDL Cholesterol 53 mg/dL (0-40)
[2023-10-18 09:06] LABS: Direct LDL Cholesterol 66.26 mg/dL (100-129)
== END 2023-10-18 23:59 | disposition home or self-care (01) ==
LOC: RT 07:42
PROVIDERS: PCP Family Medicine; Visit Provider Nurse Practitioner
DX: I65.23 Occlusion and stenosis of bilateral carotid arteries (principal); I65.29 Occlusion and stenosis of unspecified carotid artery; I11.9 Hypertensive heart disease without heart failure; R60.9 Edema, unspecified; Z95.5 Presence of coronary angioplasty implant and graft; E78.2 Mixed hyperlipidemia; I10 Essential (primary) hypertension; I25.10 Atherosclerotic heart disease of native coronary artery without angina pectoris
CPT/HCPCS: 36415; 80061; 80076; 93880

== ENCOUNTER 2023-10-30 13:39 | Day surgery (SDC) | payer MEDICARE, SELFPAY ==
[2023-10-30 14:08] VITALS: BP 154/79; PULSE 89; RESP 18; O2SAT 98; BMI 34.5
[2023-10-30 14:10] VITALS: BP 154/79; PULSE 74; PULSE 89; RESP 18; O2SAT 97; O2SAT 98
[2023-10-30 14:15] VITALS: BP 154/79; PULSE 89; RESP 18; O2SAT 97
--- NOTE | 2023-10-30 14:24 | P.PCN_ITS ---
Procedure Date: 10/30/23 Time: 14:00 Anesthesiologist:: Bora Solo CRNA Complications:: None Pre-procedure Diagnosis:: Degenerative disc lumbar spine multilevels. Lumbar radiculopathy. Lumbar postlaminectomy syndrome. lumbar spondylosis. Post-procedure Diagnosis:: Same. Indications for Procedure:: Patient is a very pleasant 83-year-old male that comes our clinic today for intrathecal pain pump interrogation refill. Patient is currently being managed with fentanyl 500 mcg/mL at 200 mcg/day. Also, bupivacaine 10 mg/mL at 4 mg/day. Patient requesting increase in rate due to additional low back pain as well as bilateral hip and leg radicular symptoms with activity. Patient is s taying active in physical therapy 2 to 3 days a week. He rates his pain today 5/10. Procedure Details:: Details of the procedure explained to the patient. The patient taken the procedure room placed in the sitting position. They over the pumps cleansed using chlorhexidine as a cleansing solution. The pump was interrogated. The pump was accessed with ease using a 22-gauge inch and half needle. 5 cc of solution was withdrawn and discarded appropriate. The pump was then filled with 20 cc of solution containing fentanyl 500 mcg/mL and bupivacaine 10 mg/mL. The rate will be increased by 10%. The new daily rate of fentanyl was 220 mcg/day. Bupivacaine 4.4 mg/day. Patient tolerated procedure without difficulty. There are no complications. Plan and Disposition:: Patient was discharged without incident.
== END 2023-10-30 14:11 | disposition home or self-care (01) ==
LOC: SC.PAINP 13:40
PROVIDERS: PCP Family Medicine; Visit Provider Nurse Anesthetist, Certified Registered
DX: M51.16 Intervertebral disc disorders with radiculopathy, lumbar region (principal); M96.1 Postlaminectomy syndrome, not elsewhere classified; M47.26 Other spondylosis with radiculopathy, lumbar region; Z97.8 Presence of other specified devices; Z45.1 Encounter for adjustment and management of infusion pump
CPT/HCPCS: 62370

== ENCOUNTER 2023-11-27 12:42 | Day surgery (SDC) | payer MEDICARE, SELFPAY ==
[2023-11-27 13:11] VITALS: BP 146/76; PULSE 89; RESP 18; TEMP 36.8; O2SAT 98; BMI 35.2
[2023-11-27 13:19] VITALS: BP 165/63; PULSE 70; RESP 18; O2SAT 98
--- NOTE | 2023-11-27 13:21 | P.PCN_ITS ---
Procedure Date: 11/27/23 Time: 13:00 Anesthesiologist:: Bora Solo CRNA Complications:: None Pre-procedure Diagnosis:: generative disc lumbar spine multilevels. Lumbar radiculopathy. Lumbar postlaminectomy syndrome. Lumbar spondylosis. Multilevel lumbar facet arthropathy. Post-procedure Diagnosis:: Same. Indications for Procedure:: Patient is a very pleasant 84-year-old male who comes our clinic today for intrathecal pain pump interrogation and refill. He is currently being managed with fentanyl 500 mcg at 220 mcg/day. Also bupivacaine 10 mg/mL at 4.4 mg/day. Patient reporting some numbness on the left side. Specifically, left hip and leg at times. Left torso. We discussed in detail regarding the age of his FlowOnyx intrathecal pump. He is on the schedule for intrathecal pain pump exchange. He will be receiving the new Medtronic intrathecal pump. Also, we discussed decreasing the concentration of bupivacaine to help with his numbness on the left side. This will be decided at the time of pump exchange. Procedure Details:: Details of the procedure explained to the patient. The patient was taken the procedure room placed in sitting position. The over the pump was cleansed using chlorhexidine's cleansing solution. The pump was accessed with ease using a 22- gauge inch and half needle. 7.5 mL of solution was withdrawn discarded appropriate. The pump was then filled 20 cc of solution containing fentanyl 500 mcg/mL and bupivacaine 10 mg/mL. There will be no change in pump rate. Patient tolerated procedure without difficulty. There are no complications. Plan and Disposition:: Patient was discharged without incident.
== END 2023-11-27 13:19 | disposition home or self-care (01) ==
PROVIDERS: Anesthesiology; PCP Family Medicine; Visit Provider Nurse Anesthetist, Certified Registered
DX: M51.16 Intervertebral disc disorders with radiculopathy, lumbar region (principal); M96.1 Postlaminectomy syndrome, not elsewhere classified; M47.26 Other spondylosis with radiculopathy, lumbar region; Z97.8 Presence of other specified devices; Z45.1 Encounter for adjustment and management of infusion pump
CPT/HCPCS: 36415; 95991

== ENCOUNTER 2023-12-21 07:47 | Day surgery (SDC) | payer MEDICARE, SELFPAY ==
[2023-12-20 10:21] VITALS: BMI 35.2
[2023-12-21] VITALS (11 sets, daily range): BP systolic 96–149; BP diastolic 57–95; PULSE 58–109; RESP 16–24; TEMP 36.4–36.5; O2SAT 93–96
[2023-12-21] MEDS: LACTATED RINGERS 1000ML 1,000 ML 25 ML IV (08:08)
[2023-12-21] MEDS: VANCOMYCIN HCL 2,000 MG in 0.9 % SODIUM CHLORIDE 250 ML 125 MG IV (09:06)
--- NOTE | 2023-12-21 09:24 | P.PNANES_ITS ---
[facility] Disclaimer: The information contained in this section may have been updated after the patient was seen, as this information can be updated by other users. Medical History Depression HLD (hyperlipidemia) CAD (coronary artery disease) Renal mass Fatigue Surgical History History of brain shunt History of appendectomy H/O kidney removal History of back surgery Family History Other Family history of cancer Family history of emphysema Social History Smoking Status: Never smoker second hand exposure: Yes alcohol intake: never substance use type: denies use current occupational status: retired Travel in the last 8 weeks: None household members: spouse housing: house current occupational exposures/hazards: No caffeine: No [facility] Anesthesia Checklist Patient Identification Patient Identification: Arm Band and Verbal (Name & ) Structural Data Admitted From: Home Planned Operative Procedure/s: IPPP Consent for Planned Operative Procedure(s) Verified: Yes Verified Documents: Surgical Consent NPO Status Verified Time NPO: 00:00 Additional verifications Anesthesia Reactions: No Hx Blood Transfusions: No Blood Transfusion Reaction: No Airway Assessment Mallampati Score:: Class IV C-Spine Mobility Assessed: Yes TMJ Mobility Assessed: Yes Dentition: Good Dentition Neurological Assessment Level of Consciousness: Awake Hx Seizures: No Numbness or tingling in extremities: No Anesthesia Plan Anesthesia Risk discussed: Yes Anesthesia Plan: Verified ASA Class: III Anesthesia Type: MAC
[2023-12-21] MEDS: GENTAMICIN 80 MG/2 ML VIAL (09:54)
[2023-12-21] MEDS: SODIUM CHLORIDE 0.9% 20ML VIAL 40 ML IV (09:54)
[2023-12-21] MEDS: LIDOCAINE 1% W/EPI 1:100,000 20ML VIAL 20 ML ×2 (09:54→10:06)
[2023-12-21] MEDS: MORPHINE 4MG/ML SYRINGE 4 MG (10:50)
[2023-12-21] MEDS: MORPHINE 4MG/ML SYRINGE 4 MG IV (11:05)
[2023-12-21] MEDS: METHOCARBAMOL 500MG TABLET 750 MG PO (12:03)
--- NOTE | 2023-12-21 12:49 | P.OP_ITS ---
Date of procedure: 12/21/23 Pre-op Diagnosis:: Nonfunctioning intrathecal pain pump system for postlaminectomy syndrome lumbar spine with lumbar colopathy symptoms Post-op Diagnosis:: Same Procedure performed:: Replacement pain pump system with new tunneled intrathecal catheter and replacement pain pump generator Surgeon:: Ruperto Carey MD [employer] DRIVER:: Ervin Ayala Anesthesia: MAC Estimated blood loss (mL): 5 Clinical Note:: Patient's pleasant 84-year-old white male who we are treating for postlaminectomy syndrome lumbar spine with lumbar colopathy symptoms. He is currently managed with fentanyl 500 mcg/mL plus bupivacaine 10 mg/mL at 220 mcg/day. He does have a nonfunctioning Flowonix pain pump system in place. He presents for replacement of his intrathecal pain pump system today with a new tunneled intrathecal catheter and replacement of his pain pump generator. Operative findings:: None Operative note:: Informed consent was obtained risk and benefits of the procedure explained to the patient. The patient was taken the operating room placed prone on the procedure table. He was prepped and draped in sterile fashion. C-arm fluoroscopy was used to view the pain pump generator and intrathecal catheter. The skin and subcutaneous tissues overlying the pain pump generator were not sized using lidocaine. I made an incision dissected out the pain pump gene rator. I disconnected the catheter. I did tie off the catheter with 0 silk ties x 3. Serum fluoroscopy was then used the lumbar spine. The skin and subtendinous tissues adjacent to the L4-5 and L5-S1 interspace were anesthetized using lidocaine. I made an incision dissected down to the lumbar paraspinous fascia. A 17-gauge spinal needle was inserted and advanced into the L4-5 interspace until clear CSF was obtained. After this intrathecal catheter was inserted and advanced very easily to the T9 vertebral body. Above this level there was kinking of the catheter. We did pull it down to the T9 vertebral body. The catheter was in good position of his midline and posterior. The stylet of the catheter and the needle withdrawn. The catheter secured to the fascia with an anchor device and 2-0 Prolene. I tunneled the catheter from the back to the generator pocket. I filled the pump with 20 mL of intrathecal fentanyl 500 mcg/mL plus bupivacaine 10 mg/mL. I attached catheter to the pump. We are able to freely withdraw clear CSF through the sideport. The pump was then placed in the pocket with an antibiotic pouch. We did widen the pocket inferiorly since the current pump was at his belt line. Both incisions were then closed with 2-0 Vicryl and 4-0 nylon roselyn. The pump was interrogated and started back at his normal rate 200 mcg/day. Patient tolerated the procedure well with no complications. Patient did have some spasms of his left leg and recovery. We did give him a 50 mcg bolus followed by 150 mcg bolus. After that patient did have some numbness of his legs. He no longer had pain or shocking sensations down his left leg. We also did give him methocarbamol 750 mg while in recovery. Patient was then discharged home pain was much better. His left leg was still somewhat numb however his did say they had assistance getting him into the house. Plan and disposition: Will follow-up with this patient in 1 to 2 weeks for reprogramming and wound check. Will follow-up in 2 weeks for suture removal. Condition: stable Disposition: PACU Complications:: None
--- NOTE | 2023-12-21 13:12 | SUR.PHASEII ---
1300-Helping patient with dressing at this time. Assisted with standing but patient states legs are numb and cannot stand. Help was obtained by Thor Santillan RN, Jeronimo Garcia RN, Otis Arzate RN, Daniel Aguirre RN, and Giselle Carey MD to help patient to wheelchair. Pt pale and diaphoretic after transfer. Per MD, remain in wheel chair for 30-45 mins and then may discharge if feeling better.
== END 2023-12-21 14:05 | disposition home or self-care (01) ==
PROVIDERS: PCP Family Medicine; Visit Provider Anesthesiology
PROC: (CPT 62350; principal; 2023-12-21 09:30)
DX: Z45.1 Encounter for adjustment and management of infusion pump (principal); M96.1 Postlaminectomy syndrome, not elsewhere classified
CPT/HCPCS: 62350; 62362; 96374; C1755; C1772; J1580; J2270; J3370; J7120

== ENCOUNTER 2023-12-31 10:21 | Outpatient (POV) | payer MEDICARE, SELFPAY ==
--- NOTE | 2023-12-31 10:51 | EXP.PAIN.PRO ---
Procedure Date: 12/31/23 Time: 10:51 Anesthesiologist:: Sadaf Proctor APRN Complications:: None Pre-procedure Diagnosis:: Degenerative disc disease of lumbar spine with lumbar radiculopathy symptoms, lumbar postlaminectomy syndrome Post-procedure Diagnosis:: same Indications for Procedure:: Patient is a pleasant 83-year-old male who presents today for 2 week postop of intrathecal pain pump replacement. Patient rates his pain today a 5 out of 10. He denies any new injury or trauma. He does however state that he continues to have worsening pain and numbness down his entire left extremity. Patient states this is not new and been going on progressively causes him to drag his left leg and frequently feels like he stumbles due to this. He does state the pain interferes with his ability perform activities of daily living such as cooking and cleaning. Patient does have chronic pain throughout his low back. Patient is currently managed with fentanyl 500 mcg/mL with a daily dose of 219.91 mcg/day and 10 mg bupivacaine per mL with a daily dose of 9.16 mg/day. He denies any side effects from this medication. He does state while he was in the recovery area due to having worsening pain that they gave him a couple of boluses and he felt like he had additional numbness even into his face however it was very temporary and denies any other issues regarding that. Patient did previously have his kidney removed in May due to cancer and did have clear margins. Patient denies any other changes. He is prescribed gabapentin 300 mg 3 times a day from our office as well. His Levi has been reviewed and is appropriate. Physical Exam: General: Alert and oriented x3, no acute distress, pleasant and cooperative Lungs: Respirations even and unlabored, symmetrical chest expansion Eyes: PERRL Musculoskeletal: Flexion and extension of lumbar [spine] somewhat guarded secondary to pain, [antalgic gait noted] positive left leg raise with decreased sensation to light touch and decreased reflexes Neurological: Speech clear, no gross sensory deficit Skin: Incisions are clean, dry, well-approximated with minimal erythema noted Procedure Details:: Informed consent was obtained and the risk and benefits of the procedure were explained to the patient. Patient was taken to the procedure room where noninvasive monitoring was placed including noninvasive blood pressure cuff and pulse oximeter. Patient's pump was interrogated and was reprogrammed to that now 230.71 mcg/day and bupivacaine 4.614 mg/day. The patient tolerated the procedure well with no complications. Plan and Disposition:: Patient tolerated his intrathecal increase with no complications and was discharged neurologically intact. I have discussed with the patient that he may benefit from a lumbar epidural due to his worsening pain in his low back and numbness and tingling into his entire left extremity. Risk and benefits were discussed with patient and he would like to proceed forward with this plan of care. Patient is not on any blood thinners other than an 81 mg aspirin. Patient has tried and failed conservative therapy including oral medication, heat and ice, topicals, current physical therapy with continued at home stretching and exercise for longer than 6 weeks. We will submit to insurance for a lumbar epidural steroid injection L5-S1 under fluoroscopy. Patient did have more severe bilateral neuroforaminal narrowing noted at this level and his last lumbar imaging. Patient has been instructed to contact the clinic with any concerns before the next appointment. Dr. Carey has reviewed this note and agrees with this plan of care. This note was dictated using voice recognition software and make contain errors or omissions. -- It Is medically necessary for this patient to continue to have their intrathecal pump refilled at regular intervals. This patient had an intrathecal pain pump implanted after meeting criteria of chronic intractable pain for greater than 3 months and failing conservative treatments. Patient has committed and been compliant to the treatment plan and all planned follow up care. Since implantation of the intrathecal pain pump, the patient has had decreased pain and been more functional. Oral medications have been reduced including intake of oral opioids. Patient continues to do well with intrathecal therapy with decrease in pain symptoms and increase in functional status. Stopping intrathecal medications can lead to life threatening withdrawal, seizures, cardiac arrest, severe pain, and possible . Pumps that are not refilled at regular intervals can be damages and cause and need for replacement. We continually titrate dose and concentration to optimize pain relief and function. We are limited in concentration for certain drugs to safely deliver medications through the pump and stay within the recommendations from the Polyanalgesic Consensus Committee Guidelines. Depending on dose and concentration these pumps may need to be refilled sooner than 3 months as we titrate.
[2023-12-31 10:57] VITALS: BP 129/81; PULSE 79; RESP 20; O2SAT 97; BMI 15.0
== END 2023-12-31 23:59 | disposition home or self-care (01) ==
PROVIDERS: PCP Family Medicine; Visit Provider Nurse Practitioner Family
DX: G89.29 Other chronic pain (principal); M51.36 Other intervertebral disc degeneration, lumbar region; M96.1 Postlaminectomy syndrome, not elsewhere classified
CPT/HCPCS: 62368; 99213; G0463

== ENCOUNTER 2024-01-15 13:36 | Day surgery (SDC) | payer MEDICARE, SELFPAY ==
[2024-01-15 13:53] VITALS: BP 156/83; PULSE 93; RESP 18; TEMP 36.6; O2SAT 98; BMI 35.2
--- NOTE | 2024-01-15 14:13 | EXP.PAIN.PRO ---
Procedure Date: 01/15/24 Time: 13:50 Anesthesiologist:: Bora Solo CRNA Complications:: None Pre-procedure Diagnosis:: Degenerative disc lumbar spine multilevels. Lumbar radiculopathy. Lumbar postlaminectomy syndrome. Post-procedure Diagnosis:: Same. Indications for Procedure:: Patient is a pleasant 83-year-old male comes our clinic today for intrathecal pain pump interrogation refill. Patient is currently being managed with fentanyl 500 mcg/mL and bupivacaine 10 mg/mL. He is doing very well with his current settings. He is not requesting any changes. He does not report any side effects or complications. His only complaint is his right leg was numb after awaking from sleep recently. He is concerned the right leg numbness will cause him to fall. Especially, during the night. I recommend we decrease his bupivacaine concentration to 5%. Also, patient is 1 month post intrathecal pain pump reimplant. His roselny will be removed today. His incision looks clean and dry at both sites. Procedure Details:: Details of the procedure explained to the patient. The patient was taken to the procedure room and placed in the sitting position. The area of the pump was cleansed using chlorhexidine as a cleansing solution. The pump was interrogated. The pump was accessed with ease using 22-gauge inch and half needle. 7 mL of solution was withdrawn and discarded appropriate. The pump was then filled with 20 cc of solution containing fentanyl 500 mcg/mL and bupivacaine 10 mg/mL. The rate will continue the same. Fentanyl 230.71 mcg/day. And bupivacaine 4.614 mg/day. Patient tolerated procedure without difficulty. There are no complications. Plan and Disposition:: Patient was discharged without incident.
[2024-01-15 14:15] VITALS: BP 154/81; PULSE 90; RESP 18; O2SAT 98
== END 2024-01-15 14:24 | disposition home or self-care (01) ==
PROVIDERS: PCP Family Medicine; Visit Provider Nurse Anesthetist, Certified Registered
DX: G89.29 Other chronic pain (principal); M54.16 Radiculopathy, lumbar region; M96.1 Postlaminectomy syndrome, not elsewhere classified
CPT/HCPCS: 95991

== ENCOUNTER 2024-01-22 13:40 | Day surgery (SDC) | payer MEDICARE, SELFPAY ==
[2024-01-22 13:59] VITALS: BP 147/83; PULSE 71; RESP 16; TEMP 36.9; O2SAT 96; BMI 35.2
--- NOTE | 2024-01-22 14:18 | EXP.PAIN.PRO ---
Procedure Date: 01/22/24 Time: 14:15 Anesthesiologist:: Bora Solo CRNA Complications:: None Pre-procedure Diagnosis:: Degenerative disc lumbar spine multilevels. Lumbar radiculopathy. Lumbar postlaminectomy syndrome. Post-procedure Diagnosis:: Same. Indications for Procedure:: Patient is a pleasant 83-year-old male comes our clinic today for lumbar epidural steroid injection at the L5-S1 level. Patient scribes low back pain as constant, dull, aching. He has been managed with intrathecal pain pump as well. This is an attempt to see if potentially his breakthrough pain could be managed to some degree with epidural steroids. He rates his pain 6/10. Procedure Details:: Procedure: Lumbar epidural steroid injection under fluoroscopy Informed consent was obtained and the risks and benefits of the procedure were explained to the patient. The patient was taken to the procedure room and noninvasive monitors placed, including noninvasive blood pressure cuff and pulse oximeter. The back was viewed using C-arm Fluoroscopy and prepped using Chloraprep as a cleansing solution and the L5-S1 interspace was palpated. Skin and subcutaneous tissues were anesthetized using lidocaine 1.5% and a 25-gauge needle. After this, an 18-gauge Touhy epidural needle was placed into the L5-S1 interspace and advanced using fluoroscopic guidance and loss of resistance to air until the epidural space was encountered. After confirmation of needle placement in the epidural space, with dye, a solution containing normal saline, 3 mL and Depo-Medrol 80 mg were incrementally injected into the lumbar epidural space. The patient tolerated the procedure well with no complications. The patient was observed in the Pain Clinic and then discharged home neurologically intact. Plan and Disposition:: Patient was discharged without incident.
[2024-01-22 14:24] VITALS: BP 153/79; PULSE 69; RESP 16; O2SAT 96
[2024-01-22] MEDS: methylPREDNISolone ACETATE 80MG/ML VIAL 80 MG (14:25)
--- NOTE | 2024-01-22 14:46 | PC.NURSE ---
1430- remaining roselyn removed from pt surgical incision. Skin glue and steri strips applied. Pt tolerated well. No redness or drainage noted.
== END 2024-01-22 14:37 | disposition home or self-care (01) ==
PROVIDERS: PCP Family Medicine; Visit Provider Nurse Anesthetist, Certified Registered
DX: M54.16 Radiculopathy, lumbar region (principal); M51.36 Other intervertebral disc degeneration, lumbar region; M96.1 Postlaminectomy syndrome, not elsewhere classified
CPT/HCPCS: 62323; J1010

== ENCOUNTER 2024-02-05 12:46 | Day surgery (SDC) | payer MEDICARE, SELFPAY ==
[2024-02-05 13:36] VITALS: BP 132/66; PULSE 60; RESP 16; TEMP 36.8; O2SAT 98; BMI 35.2
--- NOTE | 2024-02-05 13:42 | EXP.PAIN.PRO ---
Procedure Date: 02/05/24 Time: 13:20 Anesthesiologist:: Bora Solo CRNA Complications:: None Pre-procedure Diagnosis:: Degenerative disc lumbar spine multilevels. Lumbar radiculopathy. Lumbar postlaminectomy syndrome. Post-procedure Diagnosis:: Same. Indications for Procedure:: Patient is a very pleasant 83-year-old male who comes our clinic today for intrathecal pain pump interrogation and refill. Patient is currently being managed with fentanyl 500 mcg/mL at 230.71 mcg/day and bupivacaine 10 mg/mL at 4.614 mg/day.. Patient having some increased numbness in the legs. We are changing his medication to fentanyl 500 mcg/mL and bupivacaine 5 mg/mL today. Patient doing very well with his current settings otherwise. He is not reporting any side effects or complications other than the above-mentioned. Procedure Details:: Details of the procedure explained to the patient. The patient taken procedure and placed in sitting position. They over the pumps cleansed using chlorhexidine as a cleansing solution. The pump was interrogated. The pump was accessed with ease using a 22-gauge inch and half needle. 5 mL of solution was withdrawn discarded appropriately. The pump was then filled with 20 cc of solution containing fentanyl 500 mcg/mL at 230.71 mcg/day and bupivacaine 5 mg/mL at 2.3071 mg/day. The rate will continue at. Patient tolerated procedure without difficulty. There are no complications. Plan and Disposition:: Patient was discharged without incident.
[2024-02-05 13:48] VITALS: BP 143/69; PULSE 69; RESP 18; O2SAT 98
== END 2024-02-05 13:48 | disposition home or self-care (01) ==
PROVIDERS: PCP Family Medicine; Visit Provider Nurse Anesthetist, Certified Registered
DX: M96.1 Postlaminectomy syndrome, not elsewhere classified; M51.36 Other intervertebral disc degeneration, lumbar region
CPT/HCPCS: 95991

== ENCOUNTER 2024-02-08 18:09 | Emergency (ER) | payer MEDICARE, SELFPAY ==
[2024-02-08 18:18] VITALS: BP 151/74; PULSE 80; RESP 14; TEMP 36.8; O2SAT 94; BMI 35.2
[2024-02-08 18:30] VITALS: BP 138/80; PULSE 56; O2SAT 95
[2024-02-08] MEDS: COCAINE 4% TOPICAL SOLN 4ML BOTTLE 1 ML TP (18:31)
[2024-02-08] MEDS: LIDOCAINE 2% UROJET 10ML TP (18:31)
[2024-02-08] MEDS: EPINEPHrine 1 MG/ML AMPUL TP (18:31)
--- NOTE | 2024-02-08 18:34 | CT_ITS ---
PROCEDURE INFORMATION: Exam: CT Head Without Contrast Exam date and time: 02/08/2024 6:50 PM Age: 83 years old Clinical indication: Injury or trauma; Fall; Bleeding/hemorrhage TECHNIQUE: Imaging protocol: Computed tomography of the head without contrast. Radiation optimization: All CT scans at this facility use at least one of these dose optimization techniques: automated exposure control; mA and/or kV adjustment per patient size (includes targeted exams where dose is matched to clinical indication); or iterative reconstruction. COMPARISON: CT HEAD/BRAIN WO CON 09/30/2021 5:37 AM FINDINGS: Tubes, catheters and devices: Large bore ventriculostomy shunt in place the right posterior parietal approach. Brain: Encephalomalacia noted in the midline cerebellum. Moderate generalized cerebral atrophy. No intracranial mass, hemorrhage or evidence of acute ischemia. Cerebral ventricles: Stable moderate ventriculomegaly. Paranasal sinuses: Visualized sinuses are unremarkable. No fluid levels. Mastoid air cells: Visualized mastoid air cells are well aerated. Bones: Evidence of prior suboccipital craniotomy. Soft tissues: Unremarkable. IMPRESSION: Stable chronic findings as noted. No acute intracranial abnormality evident.
--- NOTE | 2024-02-08 18:34 | CT_ITS ---
PROCEDURE INFORMATION: Exam: CT Cervical Spine Without Contrast Exam date and time: 02/08/2024 6:53 PM Age: 83 years old Clinical indication: Injury or trauma; Fall; Other: Pain TECHNIQUE: Imaging protocol: Computed tomography of the cervical spine without contrast. Radiation optimization: All CT scans at this facility use at least one of these dose optimization techniques: automated exposure control; mA and/or kV adjustment per patient size (includes targeted exams where dose is matched to clinical indication); or iterative reconstruction. COMPARISON: CT CERVICAL SPINE WO CON 09/30/2021 5:37 AM FINDINGS: Bones: Osseous alignment is normal. No acute fracture. Severe multilevel degenerative disc space narrowing moderate uncovertebral spurring and facet arthropathy throughout the cervical spine. Orthopedic hardware produces posterior fusion at C2-C3 and anterior fusion C4-C5-C6. Moderate degenerative changes noted in the atlantodental joint. Moderate atherosclerotic calcification in the bilateral carotid siphons. Lungs: Lung apices are normal. Soft tissues: Unremarkable. IMPRESSION: No acute abnormality. Significant chronic findings as noted
--- NOTE | 2024-02-08 18:34 | HMH.EDGENADL ---
Discharge Plan Disposition Patient Disposition: Home, Self-Care Condition: Good Prescriptions Prescriptions: No Action dutasteride 0.5 mg capsule 0.5 mg PO DAILY furosemide 20 mg tablet 20 mg PO DAILY Qty: 90 1RF rosuvastatin 10 mg tablet See Rx Instructions .ROUTE .COMPLEX Qty: 30 11RF Dose Instruction: TAKE ONE TABLET BY MOUTH EVERY DAY Rx Instructions: TAKE ONE TABLET BY MOUTH EVERY DAY spironolactone 25 mg tablet See Rx Instructions .ROUTE .COMPLEX Qty: 30 5RF Dose Instruction: TAKE ONE TABLET BY MOUTH EVERY DAY Rx Instructions: TAKE ONE TABLET BY MOUTH EVERY DAY bethanechol chloride 25 MG tablet 25 mg PO TID Trintellix 10 mg Tablet 10 mg PO DAILY aspirin 81 MG tablet,delayed release (DR/EC) 81 mg PO DAILY tamsulosin 0.4 MG capsule 0.8 mg PO DAILY omeprazole 40 MG capsule,delayed release(DR/EC) 40 mg PO DAILY erythromycin 250 MG tablet 250 mg PO TID diazepam 5 MG tablet 5 mg PO DAILYP PRN (Reason: Anxiety) Referrals Follow up/Referrals: Ryan Haynes MD [Primary Care Provider] - See instructions Activity Restrictions/Add. Instructions Additional Instructions/Restrictions: You were evaluated in the ER and are appropriate for discharge at this time. Keep the wound clean and dry. Make an appointment with your primary care physician for reevaluation in a few days. Have the sanjeev removed in 7 to 10 days. Return to the ER with new, worsening, or otherwise concerning symptoms Clinical Impressions Clinical Impression: Fall, Laceration of scalp Print Language Print Language: Upper Sorbian Discharge ED Provider: Sydnie Blount Adult HPI General Chief complaint: Fall Stated complaint: AO 02/07 1730 Fall cut on left side of head Time Seen by Provider: 02/08/24 18:26 Mode of Arrival: Wheelchair Source of Information: Patient Limitations: No Limitations Description of Symptoms (Recalled from ER Triage Doc. by RN): pt states he was walking and he slipped on his socks. pt states he lost his balance and hit the L side of his head above his ear on the trim of a door frame. pt denies LOC. pt presents with a lac that is no longer bleeding. pt states the area surrounding the lac is painful 4/10. pt denies neck/back pain. pt takes a daily baby ASA History of Present Illness HPI narrative: 83-year-old male presents to the ER with concerns of mechanical fall calling left head laceration. 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 Patient denies loss of consciousness, denies neck pain, denies headache. He has no numbness, tingling, or weakness, he denies pain anywhere else in the body. Patient states his head initially bled quite a bit but has slowed. He does take daily aspirin but no other blood thinners. No other complaints at this time. Related Data Home Medications ?Medication ?Instructions ?Recorded ?Confirmed aspirin 81 mg tablet,delayed 81 mg PO DAILY HEART HEALTH 09/28/17 02/05/24 release tamsulosin 0.4 mg capsule 0.8 mg PO DAILY PROSTATE 09/28/17 02/05/24 dutasteride 0.5 mg capsule 0.5 mg PO DAILY PROSTATE 03/25/19 02/05/24 omeprazole 40 mg capsule,delayed 40 mg PO DAILY GERD 02/08/21 02/05/24 release diazepam 5 mg tablet 5 mg PO DAILYP PRN Anxiety 09/30/21 02/05/24 erythromycin 250 mg tablet 250 mg PO TID stomach motility 09/30/21 02/05/24 bethanechol chloride 25 mg tablet 25 mg PO TID retention 01/09/22 02/05/24 vortioxetine 10 mg tablet 10 mg PO DAILY 12/20/23 02/05/24 (Trintellix) Previous Rx's ?Medication ?Instructions ?Recorded furosemide 20 mg tablet 20 mg PO DAILY Fluid #90 tabs 11/22/22 rosuvastatin 10 mg tablet See Rx Instructions .Route 05/14/23 .COMPLEX #30 tabs spironolactone 25 mg tablet See Rx Instructions .Route 07/09/23 .COMPLEX #30 tabs Allergies Allergy/AdvReac Type Severity Reaction Status Date / Time Sulfa (Sulfonamide Allergy Mild Hives Verified 02/08/24 18:26 Antibiotics) [SULFA (SULFONAMIDE ANTIBIOTICS)] [facility] Disclaimer: The information contained in this section may have been updated after the patient was seen, as this information can be updated by other users. Medical History Depression HLD (hyperlipidemia) CAD (coronary artery disease) Renal mass Fatigue Surgical History History of brain shunt History of appendectomy H/O kidney removal History of back surgery Family History Other Family history of cancer Family history of emphysema Social History Smoking Status: Never smoker second hand exposure: Yes alcohol intake: never substance use type: denies use current occupational status: retired Travel in the last 8 weeks: None household members: spouse housing: house current occupational exposures/hazards: No caffeine: No ROS Obtained: Yes All systems reviewed & no additional complaints except as documented Positive ROS per HPI Physical Exam General General appearance: alert and in no apparent distress Head Head exam: normocephalic and other (4 cm laceration, linear, vertically oriented from the crown of the scalp over the left parietal/temporal scalp. Hemostatic at this time. No underlying skull deformity appreciated on palpation. No associated hematoma) Eye Eye exam: Present PERRL and EOMI ENT ENT exam: Present mucous membranes moist Neck Neck exam: Present normal inspection and full ROM; Absent tenderness Chest Chest inspection: Present symmetric chest wall rise Respiratory Respiratory exam: Present normal lung sounds bilaterally; Absent respiratory distress, wheezes or stridor Cardiovascular Cardiovascular exam: Present regular rate and normal rhythm Abdominal Exam Abdominal exam: Present soft; Absent distention or tenderness Extremities Exam Extremities exam: Present full ROM Neurological Exam Neurological exam: Present alert, oriented X3 and normal gait; Absent motor sensory deficit Psychiatric Psychiatric exam: Present normal affect and normal mood Skin Skin exam: Present warm and dry Medical Decision Making Medical Records Medical records reviewed: Yes I reviewed the patient's medical records. MR Comment: Patient has a history of CAD and was most recently evaluated in September by the cardiology office. At this time plan was for bilateral carotid ultrasound to evaluate carotid disease. Levi Inquiry Pt receiving controlled substance: No Vital Signs: 02/08/24 18:18 02/08/24 18:30 Temperature 98.3 F Temperature Source Oral Pulse Rate 56 L Pulse Rate [Left] 80 Respiratory Rate 14 Blood Pressure 138/80 Blood Pressure [Right Arm] 151/74 H Blood Pressure Mean [Right Arm] 99 Blood Pressure Source [Right Arm] Automatic Cuff Blood Pressure Position [Right Arm] Sitting 02 Sat by Pulse Oximetry 94 L 95 Oxygen Delivery Method Room Air Orders (Tests/Meds): ED MEDICATIONS Discontinued Medications Generic Name Dose Route Start Last Admin Trade Name Cee PRN Reason Stop Dose Admin Cocaine HCl 1 ml 02/08/24 18:27 02/08/24 18:31 Cocaine 4% Topical Soln 4ml Bottle TP 02/08/24 18:28 1 ml ONCE ONE Administration Epinephrine HCl 1 mg 02/08/24 18:27 02/08/24 18:31 Epinephrine 1 Mg/Ml Ampul TP 02/08/24 18:28 1 mg ONCE ONE Administration Lidocaine HCl 1 ml 02/08/24 18:27 02/08/24 18:31 Lidocaine 2% Urojet 10ml TP 02/08/24 18:28 1 ml ONCE ONE Administration Tetanus/Reduced Diphtheria/Acell Pertussis 0.5 ml 02/08/24 18:40 02/08/24 19:38 Tet/Diphth/Pert-Adult 0.5ml Syringe IM 02/08/24 18:41 0.5 ml .ONCE ONE Administration ORDERS Category Date Time Status CT cervical spine wo con Stat Cat Scan 02/08/24 18:[address] head/brain wo con Stat Cat Scan 02/08/24 18:34 Completed Medical Decision Narrative: In summary, this 83-year-old male presents to the emergency department today with left scalp laceration after fall. On initial evaluation patient is hemodynamically stable, afebrile, GCS 15, neurologically intact,, no tenderness of the C-spine, no deformity of the skull, hemostatic wound as described in physical exam is present, remainder of exam benign. Differential diagnosis includes but is not limited to intracranial bleed, skull fracture, laceration, foreign body, C-spine injury. Based on these concerns, I ordered CT imaging. Topical analgesia was applied to the wound. Wound was repaired. See procedure note for details. Tdap administered. CT imaging personally interpreted does not demonstrate acute traumatic injury in the head or C-spine. See radiology read for final interpretation. Patient is appropriate for discharge at this time. Patient was given instructions on symptomatic management, follow up instructions, and return precautions for the emergency department. Patient indicated understanding and was discharged in stable condition. Procedures Laceration Laceration 1: Site: scalp Side (If applicable): left Size (cm): 4 Description: linear Depth: simple, single layer Local Anesthetic: other anesthetic (Topical lidocaine/epinephrine/cocaine) Skin layer closed with: other (Sanjeev) Number of sutures: 8 Critical Care Critical Care Time Critical Care Time: No
--- NOTE | 2024-02-08 18:44 | PC.NURSE ---
LET applied to wound. pt taken to CT
--- NOTE | 2024-02-08 19:08 | PC.NURSE ---
patient assisted to bathroom and back to room
[2024-02-08] MEDS: TET/DIPHTH/PERT-ADULT 0.5ML SYRINGE 0.5 ML IM (19:38)
[2024-02-08 19:56] VITALS: BP 132/78; PULSE 64; RESP 16; TEMP 36.8; O2SAT 96
== END 2024-02-08 19:57 | disposition home or self-care (01) ==
PROVIDERS: Emergency Provider Emergency Medicine; PCP Family Medicine
DX: S01.01XA Laceration without foreign body of scalp, initial encounter (principal); W18.30XA Fall on same level, unspecified, initial encounter; Z23 Encounter for immunization
CPT/HCPCS: 12002; 70450; 72125; 90471; 90715; 99285

== ENCOUNTER 2024-02-26 13:33 | Day surgery (SDC) | payer MEDICARE, SELFPAY ==
[2024-02-26 13:46] VITALS: BP 150/68; PULSE 128; RESP 16; TEMP 36.2; O2SAT 98; BMI 35.9
--- NOTE | 2024-02-26 14:16 | EXP.PAIN.PRO ---
Procedure Date: 02/26/24 Time: 14:00 Anesthesiologist:: Bora Solo CRNA Complications:: None Pre-procedure Diagnosis:: Degenerative disc lumbar spine multilevels. Lumbar radiculopathy. Lumbar postlaminectomy syndrome. Post-procedure Diagnosis:: Same. Indications for Procedure:: Patient is a very pleasant 83-year-old male comes our clinic today for intrathecal pain pump interrogation and refill. He is currently being managed with fentanyl 500 mcg/mL at a rate of 230.71 mcg/day. Also bupivacaine 5 mg/mL at a rate of 2.3071 mg/day. He is requesting increase in rate due to lumbar back pain with or without activity. He rates his pain 7/10. I think this is reasonable. Will increasing 5%. I encouraged the patient to return to the clinic in 2 weeks for additional 5% increase if in fact he is not any better. Procedure Details:: Details of the procedure explained the patient. The patient taken procedure room placed in sitting position. The area of the pump was cleansed using chlorhexidine as a cleansing solution. The pump was interrogated. The pump was accessed with ease using a 22-gauge inch and half needle. 8 mL of solution was withdrawn discarded appropriate. The pump was then filled with 20 cc of solution containing fentanyl 500 mcg/mL and bupivacaine 5 mg/mL. The new rate for fentanyl is 242.05 mcg/day. Bupivacaine 2.4205 mg/day. Patient tolerated procedure without difficulty. There are no complications. Plan and Disposition:: Patient was discharged without incident.
[2024-02-26 14:17] VITALS: BP 114/49; PULSE 67; RESP 18; O2SAT 98
== END 2024-02-26 14:18 | disposition home or self-care (01) ==
PROVIDERS: PCP Family Medicine; Visit Provider Nurse Anesthetist, Certified Registered
DX: M51.36 Other intervertebral disc degeneration, lumbar region (principal); M96.1 Postlaminectomy syndrome, not elsewhere classified
CPT/HCPCS: 95991

== ENCOUNTER 2024-03-18 09:34 | Day surgery (SDC) | payer MEDICARE, SELFPAY ==
[2024-03-18 09:40] VITALS: BP 109/51; PULSE 73; RESP 16; TEMP 36.3; O2SAT 97; BMI 35.2
[2024-03-18 10:10] VITALS: BP 93/57; PULSE 68; RESP 18; O2SAT 96
--- NOTE | 2024-03-18 10:23 | EXP.PAIN.PRO ---
Procedure Date: 03/18/24 Time: 10:00 Anesthesiologist:: Bora Solo CRNA Complications:: None Pre-procedure Diagnosis:: Degenerative disc lumbar spine multilevels. Lumbar radiculopathy. Lumbar postlaminectomy syndrome. Post-procedure Diagnosis:: Same. Indications for Procedure:: Patient is a very pleasant 83-year-old male who comes our clinic today for intrathecal pain pump interrogation and refill. Patient currently being managed with fentanyl 500 mcg/mL and bupivacaine 5 mg/mL. We will change his medication today to fentanyl 750 mcg/mL and bupivacaine 5 mg/mL. His current rate is fentanyl 242 mcg/day. Bupivacaine 2.42 mg/day. Patient is reporting low back pain continues throughout the day. Worse when standing. He is requesting increase in the pump rate. I think this is reasonable. I will increasing 5% today. He is not reporting any side effects or complications. Procedure Details:: Details of the procedure explained the patient. The patient taken to procedure room placed in sitting position. The area of the pump was cleansed using chlorhexidine as a cleansing solution. The pump was interrogated. The pump was accessed with ease using a 22-gauge inch and half needle. 8 mL of solution was withdrawn discarded appropriate. The pump was then filled with 20 cc of solution containing fentanyl set her 50 mcg/mL and bupivacaine 5 mg/mL. The pump rate will increase by 5%. The new fentanyl rate is 254.16 mcg/day. Bupivacaine 1.6944 mg/day. Patient tolerated procedure without difficulty. No complications. Plan and Disposition:: Patient was discharged without incident.
== END 2024-03-18 10:10 | disposition home or self-care (01) ==
PROVIDERS: PCP Family Medicine; Visit Provider Nurse Anesthetist, Certified Registered
DX: M51.16 Intervertebral disc disorders with radiculopathy, lumbar region (principal); M96.1 Postlaminectomy syndrome, not elsewhere classified
CPT/HCPCS: 95991

== ENCOUNTER 2024-04-15 09:52 | Day surgery (SDC) | payer MEDICARE, SELFPAY ==
[2024-04-15 10:13] VITALS: BP 123/63; PULSE 70; RESP 16; TEMP 36.7; O2SAT 98; BMI 33.9
--- NOTE | 2024-04-15 10:42 | EXP.PAIN.PRO ---
Procedure Date: 04/15/24 Time: 10:30 Anesthesiologist:: Bora Solo CRNA Complications:: None Pre-procedure Diagnosis:: Degenerative disc lumbar spine multilevels. Lumbar radiculopathy. Lumbar postlaminectomy syndrome. Lumbar spondylosis. Multilevel lumbar facet arthropathy. Post-procedure Diagnosis:: Same. Indications for Procedure:: Patient is a very pleasant 83-year-old male who comes our clinic today for intrathecal pain pump interrogation and refill. Patient currently being managed with fentanyl 750 mcg/mL at a rate of 254.16 mcg/day. Also, bupivacaine 5 mg/mL at a rate of 1.6944 mg/day. Patient is reporting his pain is 8/10. He is reporting low lumbar back pain that he describes as constant, dull, sharp, stabbing. Patient also reporting bilateral hip and leg radicular symptoms. Patient reports he does use his bolus however, this does not provide much relief. He is requesting increase in the pain pump. I think this is reasonable. I will give him a 20% increase. Patient is awake alert [place] x 3. In no acute distress. Flexion-extension lumbar spine guarded secondary to pain. Deep tendon reflexes upper lower extremities normal. Motor strength upper lower extremities normal. There is no gross sensory deficit. Gait is normal. However, patient does use rollator for stability with ambulation. Procedure Details:: Details of the procedure explained to the patient. The patient taken procedure room placed in sitting position. They over the pumps cleansed using chlorhexidine as a cleansing solution. The pump was interrogated. The pump was accessed with ease using a 22-gauge inch and half needle. 8 mL of solution was withdrawn discarded appropriately. The pump was then filled with 20 cc of solution containing fentanyl set her 50 mcg/mL and bupivacaine 5 mg/mL. The pump rate will increase by 20%. The new fentanyl rate is 305.19 mcg/day. Bupivacaine 2.0346 mg/day. Patient tolerated procedure without difficulty. No complications. Plan and Disposition:: Patient was discharged without incident.
[2024-04-15 10:45] VITALS: BP 112/67; PULSE 67; RESP 16; O2SAT 94
== END 2024-04-15 10:45 | disposition home or self-care (01) ==
PROVIDERS: PCP Family Medicine; Visit Provider Nurse Anesthetist, Certified Registered
DX: M51.16 Intervertebral disc disorders with radiculopathy, lumbar region (principal); M96.1 Postlaminectomy syndrome, not elsewhere classified; M47.26 Other spondylosis with radiculopathy, lumbar region
CPT/HCPCS: 62370

== ENCOUNTER 2024-05-13 09:19 | Day surgery (SDC) | payer MEDICARE, SELFPAY ==
[2024-05-13 09:41] VITALS: BP 131/42; PULSE 64; RESP 16; TEMP 36.7; O2SAT 94; BMI 35.2
[2024-05-13 09:59] VITALS: BP 109/44; PULSE 52; RESP 18
[2024-05-13 10:01] VITALS: BP 109/44; PULSE 52; RESP 18
[2024-05-13 10:13] VITALS: BP 103/43; PULSE 44; RESP 16; O2SAT 95
--- NOTE | 2024-05-13 10:13 | EXP.PAIN.PRO ---
Procedure Date: 05/13/24 Time: 10:00 Anesthesiologist:: Bora Solo CRNA Complications:: None Pre-procedure Diagnosis:: Degenerative disc lumbar spine multilevels. Lumbar radiculopathy. Lumbar postlaminectomy syndrome. Lumbar spondylosis. Post-procedure Diagnosis:: Same. Indications for Procedure:: This patient is a very pleasant 83-year-old male who comes our clinic today for intrathecal pain pump interrogation refill. Patient currently being managed with fentanyl 750 mcg/mL at a rate of 305.19 mcg/day. Also, bupivacaine 5 mg/mL at a rate of 2.0346 mg/day. He is doing very well with his current settings. He is not requesting any changes. He is not reporting side effects or complications. Patient does report some left leg numbness this morning. However, he reports it is transient. Patient is awake alert [place] x 3. In no acute distress. Flexion-extension lumbar spine guarded secondary to pain. Deep tendon reflexes upper lower extremities normal. Motor strength upper and lower extremities normal. There is no gross sensory deficit. Gait is antalgic. Patient arrives in our clinic in a wheelchair. Procedure Details:: Details of the procedure explained to the patient. The patient taken procedure room placed in sitting position. The area of the pump was cleaned using chlorhexidine as a cleansing solution. The pump was interrogated. The pump was accessed with ease using a 22-gauge inch and half needle. 6 mL of solution was withdrawn discarded appropriate. The pump was then filled with 20 cc of solution containing fentanyl set 150 mcg/mL and bupivacaine 5 mg/mL. Patient tolerated procedure without difficulty. There are no complications. Plan and Disposition:: Patient was discharged without incident.
== END 2024-05-13 10:13 | disposition home or self-care (01) ==
PROVIDERS: PCP Family Medicine; Visit Provider Nurse Anesthetist, Certified Registered
DX: M51.16 Intervertebral disc disorders with radiculopathy, lumbar region (principal); M96.1 Postlaminectomy syndrome, not elsewhere classified; M47.26 Other spondylosis with radiculopathy, lumbar region
CPT/HCPCS: 95991

== ENCOUNTER 2024-05-23 09:01 | Emergency (ER) | payer MEDICARE, SELFPAY ==
[2024-05-23] VITALS (12 sets, daily range): BP systolic 139–171; BP diastolic 68–100; PULSE 50–78; RESP 20; TEMP 36.6–36.8; O2SAT 84–99; BMI 35.9
--- NOTE | 2024-05-23 09:20 | CT_ITS ---
FINAL REPORT TECHNIQUE: Thin section axial images were obtained through the abdomen after intravenous contrast. Reconstruction images were obtained from the axial data. Exam was performed using dose reduction techniques. CLINICAL HISTORY: Fall, back/left flank/side pain, head hit wall COMPARISON: 09/30/2021 FINDINGS: There are 2 hypodense lesions in the liver which are unchanged, likely cysts. The gallbladder is present. The spleen, adrenal glands, and pancreas are unremarkable. 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 The right kidney is normal. There is no hydronephrosis. There is a nonobstructing stone in the lower pole measuring 10 mm. No renal mass is identified. Abdominal GI tract is without acute abnormality. There is no abdominal lymphadenopathy or ascites. The prostate is enlarged. The appendix is absent. There is no pelvic lymphadenopathy or ascites. IMPRESSION: No CT evidence of acute intra-abdominal or intrapelvic abnormality. Enlarged prostate. Reviewed, Interpreted and Dictated by Libia Campos MD Transcribed by Karly Conklin Authenticated and [facility]
--- NOTE | 2024-05-23 09:20 | CT_ITS ---
FINAL REPORT TECHNIQUE: Thin section axial images were obtained through the thoracic spine without contrast. Sagittal and coronal images were obtained from the axial data. CLINICAL HISTORY: Fall, back/left flank/side pain, head hit wall COMPARISON: 09/30/2021 FINDINGS: There is an acute fracture involving the anterior/inferior endplate of T10. There is no loss of height of the T10 vertebral body. No additional fractures identified. There is multilevel degenerative disc disease, progressed since previous. There is airspace disease in the left lower lobe, could be atelectasis or pneumonia. IMPRESSION: Acute fracture of the inferior endplate of T10. Reviewed, Interpreted and Dictated by Libia Campos MD Transcribed by Karly Conklin Authenticated and [facility]
--- NOTE | 2024-05-23 09:20 | CT_ITS ---
FINAL REPORT TECHNIQUE: Thin section axial images were obtained through the cervical spine without contrast. Multiplanar reconstruction images were obtained from the axial data. Exam was performed using dose reduction techniques. CLINICAL HISTORY: Fall x 3 days ago, back/left flank/side pain, head hit wall COMPARISON: 02/08/2024 FINDINGS: Exam is limited by motion. There are postoperative changes from posterior fusion of C2-3 and anterior fusion of C4-5. There is no facet lock. The craniocervical junction is normal. There is multilevel degenerative disc disease, unchanged. IMPRESSION: No acute abnormality. Stable postoperative and degenerative changes. Reviewed, Interpreted and Dictated by Libia Campos MD Transcribed by Karly Conklin Authenticated and [facility]
--- NOTE | 2024-05-23 09:20 | CT_ITS ---
FINAL REPORT TECHNIQUE: Thin section axial images were obtained through the lumbar spine without contrast. Sagittal and coronal reconstruction images were obtained from the axial data. Exam was performed using dose reduction techniques. CLINICAL HISTORY: Fall, back/left flank/side pain, head hit wall COMPARISON: 03/27/2023 FINDINGS: There are postoperative changes from posterior fusion of L2-L5. The hardware is intact. No acute fracture of the lumbar spine is identified. There is multilevel degenerative disc disease with grade 1 anterior spondylolisthesis of L5 on S1. Finding is stable since previous. The left kidney is surgically absent. Evaluation of the paraspinal soft tissues is limited. There is a nonobstructing right renal stone. IMPRESSION: No acute fracture identified. Multilevel degenerative disc disease. Reviewed, Interpreted and Dictated by Libia Campos MD Transcribed by Karly Conklin Authenticated and [facility]
--- NOTE | 2024-05-23 09:20 | CT_ITS ---
FINAL REPORT TECHNIQUE: Thin section axial images were obtained from the thoracic inlet through the upper abdomen after intravenous contrast injection. Reconstruction images were obtained from the axial data. Exam was performed using dose reduction technique. CLINICAL HISTORY: Fall, back/left flank/side pain, head hit wall COMPARISON: 09/30/2021 FINDINGS: There is no mediastinal, hilar, or axillary lymphadenopathy. Small right pleural effusion is new since prior. No left effusion is identified. The heart is mildly enlarged. There is bilateral lower lobe airspace disease, left greater than right which could be atelectasis or pneumonia. IMPRESSION: Bilateral lower lobe airspace disease which could be atelectasis or pneumonia with small right pleural effusion. Reviewed, Interpreted and Dictated by Libia Campos MD Transcribed by Karly Conklin Authenticated and [facility]
--- NOTE | 2024-05-23 09:20 | CT_ITS ---
FINAL REPORT TECHNIQUE: Thin section axial images were obtained from skull base to vertex without contrast. Coronal reconstruction images were obtained from the axial data. Exam was performed using dose reduction technique. CLINICAL HISTORY: Fall, back/left flank/side pain, head hit wall COMPARISON: 01/29/2024 FINDINGS: Again identified is a large bore ventriculostomy tube. The ventricles are enlarged, unchanged from previous. There is no mass effect or midline shift. There is no hydrocephalus. There is no intracranial hemorrhage. The posterior fossa is without acute abnormality. The basilar cisterns are preserved. The soft tissues are without acute abnormality. No acute osseous abnormality is identified. IMPRESSION: No acute intracranial abnormality. Extensive chronic findings, unchanged from previous. Reviewed, Interpreted and Dictated by Libia Campos MD Transcribed by Karly Conklin Authenticated and [facility]
--- NOTE | 2024-05-23 09:25 | HMH.EDGENADL ---
Discharge Plan Disposition Patient Disposition: Xfer Other Condition: Good Chief Complaint: Back Pain/Injury Prescriptions Prescriptions: No Action dutasteride 0.5 mg capsule 0.5 mg PO DAILY spironolactone 25 mg tablet See Rx Instructions .ROUTE .COMPLEX Qty: 30 5RF Dose Instruction: TAKE ONE TABLET BY MOUTH EVERY DAY Rx Instructions: TAKE ONE TABLET BY MOUTH EVERY DAY furosemide 20 mg tablet 20 mg PO DAILY Qty: 90 1RF rosuvastatin 10 mg tablet See Rx Instructions .ROUTE .COMPLEX Qty: 30 11RF Dose Instruction: TAKE ONE TABLET BY MOUTH EVERY DAY Rx Instructions: TAKE ONE TABLET BY MOUTH EVERY DAY bethanechol chloride 25 MG tablet 25 mg PO TID Trintellix 10 mg Tablet 10 mg PO DAILY aspirin 81 MG tablet,delayed release (DR/EC) 81 mg PO DAILY tamsulosin 0.4 MG capsule 0.8 mg PO DAILY omeprazole 40 MG capsule,delayed release(DR/EC) 40 mg PO DAILY erythromycin 250 MG tablet 250 mg PO TID diazepam 5 MG tablet 5 mg PO DAILYP PRN (Reason: Anxiety) Referrals Follow up/Referrals: Ryan Haynes MD [Primary Care Provider] - See instructions Clinical Impressions Clinical Impression: Closed fracture of T10 vertebra, Acute UTI, CKD (chronic kidney disease), Back pain, Contusion, Pleural effusion Instructions Patient Instructions: DI for Low Back Pain Print Language Print Language: Luxembourgish Discharge ED Provider: Baltazar Walker General Adult HPI <Baltazar Walker DO - Last Filed: 05/23/24 16:24> General Chief complaint: Back Pain/Injury Stated complaint: AO-05/20/24 Fall, back pain Time Seen by Provider: 05/23/24 09:07 History of Present Illness HPI narrative: 83-year-old male presents to ED with complaint of back, left flank pain, left side pain after a fall 3 days ago when he was in the restroom turned and fell hitting his left back and side against the toilet and his head against the wall. Denies loss of consciousness, denies blood thinners. Past medical history of CAD, ventriculostomy tube, renal mass status post nephrectomy, multiple back surgeries, intrathecal pain pump for which he receives fentanyl and bupivacaine with most recent refill 10 days ago. States pain pump is still working. Patient has been unable to tolerate laying down since that time. Patient is able to ambulate, able to walk. Denies other complaints or injuries at this time including chest pain, shortness of breath, worsening neurological deficits, denies saddle anesthesia, denies urinary or bowel incontinence. Patient has baseline left-sided weakness and numbness from prior back surgeries. These are at baseline per patient during exam. Please note that above description of symptoms, in this electronic medical record under categorization of recalled from ER triage doctor by RN are reflective of an initial nursing assessment, however, is not reflective of my full history and physical exam that was personally taken and clarified. Consequentially, this preceding description of symptoms, which may include the patient's categorized chief complaint in the EMR, do not reflect my personal clinical impression, and the ultimate description of history of present illness and patient stated complaints should be deferred to this section of the note. Unless stated otherwise or congruent with this section of the note, additional signs, symptoms, or incongruence should be interpreted as inaccurate with my clinical impression. Related Data Home Medications ?Medication ?Instructions ?Recorded ?Confirmed aspirin 81 mg tablet,delayed 81 mg PO DAILY [facility] 09/28/17 05/13/24 release tamsulosin 0.4 mg capsule 0.8 mg PO DAILY PROSTATE 09/28/17 05/13/24 dutasteride 0.5 mg capsule 0.5 mg PO DAILY PROSTATE 03/25/19 05/13/24 omeprazole 40 mg capsule,delayed 40 mg PO DAILY GERD 02/08/21 05/13/24 release diazepam 5 mg tablet 5 mg PO DAILYP PRN Anxiety 09/30/21 05/13/24 erythromycin 250 mg tablet 250 mg PO TID stomach motility 09/30/21 05/13/24 bethanechol chloride 25 mg tablet 25 mg PO TID retention 01/09/22 05/13/24 vortioxetine 10 mg tablet 10 mg PO DAILY 12/20/23 05/13/24 (Trintellix) Previous Rx's ?Medication ?Instructions ?Recorded furosemide 20 mg tablet 20 mg PO DAILY Fluid #90 tabs 11/22/22 rosuvastatin 10 mg tablet See Rx Instructions .Route 05/14/23 .COMPLEX #30 tabs spironolactone 25 mg tablet See Rx Instructions .Route 04/15/24 .COMPLEX #30 tabs Allergies Allergy/AdvReac Type Severity Reaction Status Date / Time Sulfa (Sulfonamide Allergy Mild Hives Verified 04/15/24 13:12 Antibiotics) (SULFA (SULFONAMIDE ANTIBIOTICS)) [facility] <Baltazar Walker DO - Last Filed: 05/23/24 16:24> [facility] Disclaimer: The information contained in this section may have been updated after the patient was seen, as this information can be updated by other users. Medical History (Updated 05/23/24 @ 16:10 by Baltazar Walker DO) Venous insufficiency Depression HLD (hyperlipidemia) CAD (coronary artery disease) Renal mass Fatigue Surgical History History of brain shunt History of appendectomy H/O kidney removal History of back surgery Family History Other Family history of cancer Family history of emphysema Social History Smoking Status: Never smoker second hand exposure: Yes alcohol intake: never substance use type: denies use current occupational status: retired household members: spouse housing: house current occupational exposures/hazards: No caffeine: No Other Medical History Have you received the Flu Vaccine for this season: No Have you received the Pneumonia Vaccine: No <Baltazar Walker DO - Last Filed: 05/23/24 16:24> ROS Obtained: Yes Systems reviewed as appropriate & no additional complaints except as documented Physical Exam <Baltazar Walker DO - Last Filed: 05/23/24 16:24> General General appearance: alert and in no apparent distress Head Head exam: atraumatic and normocephalic Eye Eye exam: Present normal appearance, PERRL and EOMI ENT ENT exam: Present normal exam Neck Neck exam: Present normal inspection and full ROM; Absent tenderness Chest Chest inspection: Present normal inspection and symmetric chest wall rise; Absent tenderness Respiratory Respiratory exam: Present normal lung sounds bilaterally; Absent respiratory distress Cardiovascular Cardiovascular exam: Present regular rate, normal rhythm and normal heart sounds Abdominal Exam Abdominal exam: Present soft and normal bowel sounds; Absent distention, tenderness or guarding exam: Present deferred Extremities Exam Extremities exam: Present normal inspection and full ROM; Absent tenderness Back Exam Back exam: Present normal inspection and other (Bruising noted left-sided paraspinal region of mid thoracic spine); Absent tenderness, CVA tenderness (R), CVA tenderness (L) or vertebral tenderness Neurological Exam Neurological exam: Present alert, oriented X3 and other (Motor/sensory deficit at baseline left side) Psychiatric Psychiatric exam: Present normal affect and normal mood Skin Skin exam: Present warm, dry, intact, normal color and other (Bruise noted left-sided mid axillary ribs/abdomen); Absent rash Medical Decision Making <Baltazar Walker DO - Last Filed: 05/23/24 16:24> Medical Records Medical records reviewed: Yes I reviewed the patient's medical records. Screening: Per USPSTF and CDC recommendations, given the prevalence of disease in our region, it is our hospital?s policy to screen for HIV and viral Hepatitis for all patients aged 18 and over and those with ongoing risk factors. Levi Inquiry Pt receiving controlled substance: Yes Levi was queried for this patient: No Reason not queried -: Levi login issues Risks and benefits of using a controlled substance: were not discussed with pt by me Comment: Patient has intrathecal pain pump for which he receives prescribed meds Vital Signs: 05/23/24 09:02 05/23/24 09:16 05/23/24 09:30 Temperature 97.9 F Temperature Source Oral Pulse Rate 71 71 Pulse Rate [Left Radial] 73 Respiratory Rate 20 Blood Pressure Blood Pressure [Right Arm] 171/100 H Blood Pressure Mean Blood Pressure Mean [Right Arm] 123 02 Sat by Pulse Oximetry 98 99 98 Oxygen Delivery Method Room Air Room Air Room Air 05/23/24 09:30 05/23/24 09:45 05/23/24 10:15 Temperature Temperature Source Pulse Rate 68 64 Pulse Rate [Left Radial] Respiratory Rate Blood Pressure 163/90 H 163/90 H Blood Pressure [Right Arm] Blood Pressure Mean 104 Blood Pressure Mean [Right Arm] 02 Sat by Pulse Oximetry 96 92 L Oxygen Delivery Method 05/23/24 11:00 05/23/24 13:16 05/23/24 13:31 Temperature Temperature Source Pulse Rate 50 L 78 71 Pulse Rate [Left Radial] Respiratory Rate Blood Pressure 149/86 H 139/68 Blood Pressure [Right Arm] Blood Pressure Mean 97 91 Blood Pressure Mean [Right Arm] 02 Sat by Pulse Oximetry 95 84 L 98 Oxygen Delivery Method 05/23/24 14:00 05/23/24 14:30 05/23/24 14:59 Temperature Temperature Source Pulse Rate 71 70 74 Pulse Rate [Left Radial] Respiratory Rate Blood Pressure 144/90 H 149/83 H 160/89 H Blood Pressure [Right Arm] Blood Pressure Mean 97 99 103 Blood Pressure Mean [Right Arm] 02 Sat by Pulse Oximetry 97 90 L 93 L Oxygen Delivery Method Lab Data Lab Results 05/23/24 09:55: WBC 6.0, RBC 3.28 L, Hgb 10.5 L, Hct 31.1 L, MCV 94.7 H, MCH 32.0 H, MCHC 33.8, RDW 14.7, Plt Count 140 L, MPV 8.9, Neut % (Auto) 54.3, Lymph % (Auto) 33.8, [place] % (Auto) 5.5, Eos % (Auto) 5.7, Baso % (Auto) 0.8, Neut # (Auto) 3.2, Lymph # (Auto) 2.0, [place] # (Auto) 0.3, Eos # (Auto) 0.3, Baso # (Auto) 0.1, Sodium 138, Potassium 4.2, Chloride 109 H, Carbon Dioxide 23, Anion Gap 10.2, BUN 25 H, Creatinine 2.10 H, Estimated Creat Clear 44, Estimated GFR 30 L, Est GFR ( Amer) 37 L, Glucose 101 H, Calcium 8.6, Total Bilirubin 0.5, AST 18, ALT 12, Alkaline Phosphatase 49, Total Protein 6.4, Albumin 4.0, Globulin 2.4, Albumin/Globulin Ratio 1.7 05/23/24 12:35: Urine Color Yellow, Urine Appearance Clear, Urine pH 6.0, Ur Specific [place] 1.020, Urine Protein Trace, Urine Glucose (UA) Negative, Urine Ketones Negative, Urine Blood Trace-i, Urine Nitrate Positive A, Urine Bilirubin Negative, Urine Urobilinogen 0.2, Ur Leukocyte Esterase 2+ A, Urine RBC 5-10, Urine WBC Tntc, Ur Squamous Epith Cells Occasional, Urine Bacteria 2+ 05/23/24 09:55 05/23/24 09:55 Orders (Tests/Meds): ED MEDICATIONS Generic Name Dose Route Start Last Admin Trade Name Freq PRN Reason Stop Dose Admin Sodium Chloride 10 ml 05/23/24 09:50 Sodium Chloride 0.9% 10ml Flush Syringe IV 06/22/24 09:49 NEEDED PRN Maintain IV Site Sodium Chloride 10 ml 05/23/24 14:37 Sodium Chloride 0.9% 10ml Vial IV 06/22/24 14:36 NEEDED PRN to Dilute Lorazepam inj Discontinued Medications Generic Name Dose Route Start Last Admin Trade Name Cee PRN Reason Stop Dose Admin Fentanyl Citrate 50 mcg 05/23/24 13:09 05/23/24 13:12 Fentanyl 100mcg/2ml Vial IV 05/23/24 13:10 50 mcg ONCE ONE Administration Hydromorphone HCl 1 mg 05/23/24 09:20 05/23/24 11:12 Hydromorphone 2mg/Ml Syringe IV 05/23/24 09:21 1 mg ONCE ONE Administration Hydromorphone HCl 1 mg 05/23/24 11:28 05/23/24 11:29 Hydromorphone 2mg/Ml Syringe IV 05/23/24 11:29 1 mg ONCE ONE Administration Hydromorphone HCl 1 mg 05/23/24 13:59 05/23/24 14:03 Hydromorphone 2mg/Ml Syringe IV 05/23/24 14:00 1 mg ONCE ONE Administration Lactated Ringer's 500 mls @ 999 mls/hr 05/23/24 10:39 05/23/24 10:41 Lactated Ringer's 500ml IV 05/23/24 11:09 999 mls/hr .Q31M ONE Administration Ceftriaxone Sodium 2 gm/ 100 mls @ 200 mls/hr 05/23/24 15:53 05/23/24 16:08 Sodium Chloride IV 05/23/24 16:22 200 mls/hr ONCE ONE Administration Iopamidol 75 ml 05/23/24 14:49 05/23/24 14:50 Iopamidol-370 (76%);100ml Bottle IV 05/23/24 14:50 75 ml ONCE ONE Administration Lidocaine 1 each 05/23/24 11:33 05/23/24 11:43 Lidocaine 5% Transdermal Patch TP 05/23/24 11:34 1 each ONCE ONE Administration Lorazepam 1 mg 05/23/24 14:37 05/23/24 15:02 Lorazepam 2mg/Ml Vial IV 05/23/24 14:38 1 mg ONCE ONE Administration Methocarbamol 750 mg 05/23/24 11:33 05/23/24 11:44 Methocarbamol 500mg Tablet PO 05/23/24 11:34 750 mg ONCE ONE Administration Ondansetron HCl 4 mg 05/23/24 09:20 05/23/24 09:46 Ondansetron 4mg/2ml Vial IV 05/23/24 09:21 4 mg ONCE ONE Administration Oxycodone HCl 10 mg 05/23/24 13:59 05/23/24 14:03 Oxycodone 5mg Immediate Release Tablet PO 05/23/24 14:00 10 mg ONCE ONE Administration Sodium Chloride 10 ml 05/23/24 14:49 05/23/24 14:50 Sodium Chloride 0.9% 10ml Syr (Rad Only) IV 05/23/24 14:50 10 ml ONCE ONE Administration ORDERS Category Date Time Status CT abdomen pelvis w con Stat Cat Scan 05/23/24 09:[address] cervical spine wo con Stat Cat Scan 05/23/24 09:[address] chest w con Stat Cat Scan 05/23/24 09:[address] head/brain wo con Stat Cat Scan 05/23/24 09:[address] lumbar spine wo con Stat Cat Scan 05/23/24 09:[address] thoracic spine wo con Stat Cat Scan 05/23/24 09:20 Completed CBC [Complete Blood Count Auto Diff] Stat Lab 05/23/24 09:55 Completed CMP [Comprehensive Metabolic Panel] Stat Lab 05/23/24 09:55 Completed Urinalysis and Microscopic Stat Lab 05/23/24 12:35 Completed Urine Culture Stat Micro 05/23/24 12:35 Received Medical Decision Narrative: Patient with history and exam per above presenting for evaluation of back pain following a fall 3 days ago Diagnoses considered include intracranial normality, spinous abnormality, intrathoracic abdominal or pelvic abnormality, fracture, renal injury ED workup and treatment included: As above Labs were independently interpreted by me, significant for no noted acute electrolyte abnormality, chronic anemia, no noted leukocytosis, elevated creatinine which is stable from prior, baseline patient has prior nephrectomy. Urinalysis with UTI. Given Rocephin. Imaging was independently visualized and interpreted by me, significant for no noted acute intracranial abnormality, T10 inferior endplate fracture, no noted acute fracture of C or L-spine - hardware in place, no acute pathology noted of abdomen pelvis. Patient has findings of bilateral atelectasis and right small pleural effusion. Please refer to radiology report for full details. My clinical impression at this time is most consistent with T10 fracture, intractable pain, small right-sided pleural effusion, UTI. Due to intractable pain as well as thoracic fracture patient would likely benefit from bracing as well as spine team evaluation. Imaging [facility] to [facility]. Have paged for discussion and potential transfer. At time of signout awaiting callback from [facility]. Patient care signed over to oncoming physician, Dr. Yu. I discussed my clinical impression with patient and answered all questions. At this time, the evidence for any other entities in the differential is insufficient to warrant any further testing or ED observation. This was explained to the patient. The patient was advised that persistent or worsening symptoms require further evaluation. <Bennett Yu MD - Last Filed: 05/23/24 16:58> Vital Signs: 05/23/24 09:02 05/23/24 09:16 05/23/24 09:30 Temperature 97.9 F Temperature Source Oral Pulse Rate 71 71 Pulse Rate [Left Radial] 73 Respiratory Rate 20 Blood Pressure Blood Pressure [Right Arm] 171/100 H Blood Pressure Mean Blood Pressure Mean [Right Arm] 123 02 Sat by Pulse Oximetry 98 99 98 Oxygen Delivery Method Room Air Room Air Room Air 05/23/24 09:30 05/23/24 09:45 05/23/24 10:15 Temperature Temperature Source Pulse Rate 68 64 Pulse Rate [Left Radial] Respiratory Rate Blood Pressure 163/90 H 163/90 H Blood Pressure [Right Arm] Blood Pressure Mean 104 Blood Pressure Mean [Right Arm] 02 Sat by Pulse Oximetry 96 92 L Oxygen Delivery Method 05/23/24 11:00 05/23/24 13:16 05/23/24 13:31 Temperature Temperature Source Pulse Rate 50 L 78 71 Pulse Rate [Left Radial] Respiratory Rate Blood Pressure 149/86 H 139/68 Blood Pressure [Right Arm] Blood Pressure Mean 97 91 Blood Pressure Mean [Right Arm] 02 Sat by Pulse Oximetry 95 84 L 98 Oxygen Delivery Method 05/23/24 14:00 05/23/24 14:30 05/23/24 14:59 Temperature Temperature Source Pulse Rate 71 70 74 Pulse Rate [Left Radial] Respiratory Rate Blood Pressure 144/90 H 149/83 H 160/89 H Blood Pressure [Right Arm] Blood Pressure Mean 97 99 103 Blood Pressure Mean [Right Arm] 02 Sat by Pulse Oximetry 97 90 L 93 L Oxygen Delivery Method Lab Data Lab results reviewed: Yes I reviewed the patient's lab results. Lab Results 05/23/24 09:55: WBC 6.0, RBC 3.28 L, Hgb 10.5 L, Hct 31.1 L, MCV 94.7 H, MCH 32.0 H, MCHC 33.8, RDW 14.7, Plt Count 140 L, MPV 8.9, Neut % (Auto) 54.3, Lymph % (Auto) 33.8, [place] % (Auto) 5.5, Eos % (Auto) 5.7, Baso % (Auto) 0.8, Neut # (Auto) 3.2, Lymph # (Auto) 2.0, [place] # (Auto) 0.3, Eos # (Auto) 0.3, Baso # (Auto) 0.1, Sodium 138, Potassium 4.2, Chloride 109 H, Carbon Dioxide 23, Anion Gap 10.2, BUN 25 H, Creatinine 2.10 H, Estimated Creat Clear 44, Estimated GFR 30 L, Est GFR ( Amer) 37 L, Glucose 101 H, Calcium 8.6, Total Bilirubin 0.5, AST 18, ALT 12, Alkaline Phosphatase 49, Total Protein 6.4, Albumin 4.0, Globulin 2.4, Albumin/Globulin Ratio 1.7 05/23/24 12:35: Urine Color Yellow, Urine Appearance Clear, Urine pH 6.0, Ur Specific [place] 1.020, Urine Protein Trace, Urine Glucose (UA) Negative, Urine Ketones Negative, Urine Blood Trace-i, Urine Nitrate Positive A, Urine Bilirubin Negative, Urine Urobilinogen 0.2, Ur Leukocyte Esterase 2+ A, Urine RBC 5-10, Urine WBC Tntc, Ur Squamous Epith Cells Occasional, Urine Bacteria 2+ Orders (Tests/Meds): ED MEDICATIONS Generic Name Dose Route Start Last Admin Trade Name Freq PRN Reason Stop Dose Admin Sodium Chloride 10 ml 05/23/24 09:50 Sodium Chloride 0.9% 10ml Flush Syringe IV 06/22/24 09:49 NEEDED PRN Maintain IV Site Sodium Chloride 10 ml 05/23/24 14:37 Sodium Chloride 0.9% 10ml Vial IV 06/22/24 14:36 NEEDED PRN to Dilute Lorazepam inj Discontinued Medications Generic Name Dose Route Start Last Admin Trade Name Cee PRN Reason Stop Dose Admin Fentanyl Citrate 50 mcg 05/23/24 13:09 05/23/24 13:12 Fentanyl 100mcg/2ml Vial IV 05/23/24 13:10 50 mcg ONCE ONE Administration Hydromorphone HCl 1 mg 05/23/24 09:20 05/23/24 11:12 Hydromorphone 2mg/Ml Syringe IV 05/23/24 09:21 1 mg ONCE ONE Administration Hydromorphone HCl 1 mg 05/23/24 11:28 05/23/24 11:29 Hydromorphone 2mg/Ml Syringe IV 05/23/24 11:29 1 mg ONCE ONE Administration Hydromorphone HCl 1 mg 05/23/24 13:59 05/23/24 14:03 Hydromorphone 2mg/Ml Syringe IV 05/23/24 14:00 1 mg ONCE ONE Administration Lactated Ringer's 500 mls @ 999 mls/hr 05/23/24 10:39 05/23/24 10:41 Lactated Ringer's 500ml IV 05/23/24 11:09 999 mls/hr .Q31M ONE Administration Ceftriaxone Sodium 2 gm/ 100 mls @ 200 mls/hr 05/23/24 15:53 05/23/24 16:08 Sodium Chloride IV 05/23/24 16:22 200 mls/hr ONCE ONE Administration Iopamidol 75 ml 05/23/24 14:49 05/23/24 14:50 Iopamidol-370 (76%);100ml Bottle IV 05/23/24 14:50 75 ml ONCE ONE Administration Lidocaine 1 each 05/23/24 11:33 05/23/24 11:43 Lidocaine 5% Transdermal Patch TP 05/23/24 11:34 1 each ONCE ONE Administration Lorazepam 1 mg 05/23/24 14:37 05/23/24 15:02 Lorazepam 2mg/Ml Vial IV 05/23/24 14:38 1 mg ONCE ONE Administration Methocarbamol 750 mg 05/23/24 11:33 05/23/24 11:44 Methocarbamol 500mg Tablet PO 05/23/24 11:34 750 mg ONCE ONE Administration Ondansetron HCl 4 mg 05/23/24 09:20 05/23/24 09:46 Ondansetron 4mg/2ml Vial IV 05/23/24 09:21 4 mg ONCE ONE Administration Oxycodone HCl 10 mg 05/23/24 13:59 05/23/24 14:03 Oxycodone 5mg Immediate Release Tablet PO 05/23/24 14:00 10 mg ONCE ONE Administration Sodium Chloride 10 ml 05/23/24 14:49 05/23/24 14:50 Sodium Chloride 0.9% 10ml Syr (Rad Only) IV 05/23/24 14:50 10 ml ONCE ONE Administration ORDERS Category Date Time Status CT abdomen pelvis w con Stat Cat Scan 05/23/24 09:[address] cervical spine wo con Stat Cat Scan 05/23/24 09:[address] chest w con Stat Cat Scan 05/23/24 09:[address] head/brain wo con Stat Cat Scan 05/23/24 09:[address] lumbar spine wo con Stat Cat Scan 05/23/24 09:[address] thoracic spine wo con Stat Cat Scan 05/23/24 09:20 Completed CBC [Complete Blood Count Auto Diff] Stat Lab 05/23/24 09:55 Completed CMP [Comprehensive Metabolic Panel] Stat Lab 05/23/24 09:55 Completed Urinalysis and Microscopic Stat Lab 05/23/24 12:35 Completed Urine Culture Stat Micro 05/23/24 12:35 Received Medical Decision Narrative: Patient with history and exam per above presenting for evaluation of back pain following a fall 3 days ago Diagnoses considered include intracranial normality, spinous abnormality, intrathoracic abdominal or pelvic abnormality, fracture, renal injury ED workup and treatment included: As above Labs were independently interpreted by me, significant for no noted acute electrolyte abnormality, chronic anemia, no noted leukocytosis, elevated creatinine which is stable from prior, baseline patient has prior nephrectomy. Urinalysis with UTI. Given Rocephin. Imaging was independently visualized and interpreted by me, significant for no noted acute intracranial abnormality, T10 inferior endplate fracture, no noted acute fracture of C or L-spine - hardware in place, no acute pathology noted of abdomen pelvis. Patient has findings of bilateral atelectasis and right small pleural effusion. Please refer to radiology report for full details. My clinical impression at this time is most consistent with T10 fracture, intractable pain, small right-sided pleural effusion, UTI. Due to intractable pain as well as thoracic fracture patient would likely benefit from bracing as well as spine team evaluation. Imaging [facility] to [facility]. Have paged for discussion and potential transfer. At time of signout awaiting callback from [facility]. Patient care signed over to oncoming physician, Dr. Yu. I discussed my clinical impression with patient and answered all questions. At this time, the evidence for any other entities in the differential is insufficient to warrant any further testing or ED observation. This was explained to the patient. The patient was advised that persistent or worsening symptoms require further evaluation. This is Dr. Yu 4:57 PM I took over from Dr. Walker awaiting a call from [facility]. I spoke with Cole Juárez who is the physician at the transfer center today. Discussed with him the extensive amount of pain medication that this patient has required just to get scanned in the fact that he has a T10 inferior endplate fracture and given his severe amount of pain that he has been in and will require bracing. Dr. Juárez excepted him to [facility] emergency department for further evaluation and management by the spine team/trauma team. I personally reviewed and interpreted the images no other injuries found and this does not appear to be an unstable fracture just a fracture causing severe debilitating pain on top of his chronic and known back pain. Critical Care <Baltazar Walker, DO - Last Filed: 05/23/24 16:24> Critical Care Time Critical Care Time: No
[2024-05-23] MEDS: ONDANSETRON 4MG/2ML VIAL 4 MG IV (09:46)
[2024-05-23 10:08] LABS: Chloride 109 mmol/L (98-107); Sodium 138 mmol/L (136-145)
[2024-05-23 10:09] LABS: Potassium 4.2 mmoL/L (3.5-5.1)
[2024-05-23 10:11] LABS: Alanine Aminotransferase 12 U/L (12-78); Anion Gap 10.2 mEq/L (5-15); Aspartate Amino Transferase 18 U/L (17-59); Basophils # 0.1 K/mm3 (0-0.2); Basophils % 0.8 % (0.1-2.0); Blood Urea Nitrogen 25 mg/dl (9-20); Carbon Dioxide 23 mmol/L (22.0-30.0); Creatinine Clearance Estimated 44 mL/min (50-200); Eosinophils # 0.3 K/mm3 (0.0-0.4); Eosinophils % 5.7 % (0.1-12.0); Estimated Glomerular Filt Rate 30 ml/min (>60); GFR (African American) 37 ML/MIN (>60); Hematocrit 31.1 % (42.0-52.0); Hemoglobin 10.5 g/dL (14.1-18.0); Lymphocytes % 33.8 % (10-50); Mean Corpuscular HGB Conc 33.8 g/dL (31.8-35.4); Mean Corpuscular Volume 94.7 fl (80-94); Mean Platelet Volume 8.9 fl (7.4-10.4); Monocytes # 0.3 K/mm3 (0.1-1.0); Monocytes % 5.5 % (1.7-9.3); Neutrophils # 3.2 K/mm3 (1.8-7.8); Neutrophils % 54.3 % (37.0-80.0); Platelet Count 140 K/mm3 (142-424); Red Blood Count 3.28 M/mm3 (4.60-6.20); Red Cell Distribution Width 14.7 % (11.5-17.5)
[2024-05-23 10:12] LABS: Albumin/Globulin Ratio 1.7 (1.1-1.8); Alkaline Phosphatase 49 U/L (38-126); Bilirubin,Total 0.5 mg/dl (0.2-1.3); Calcium 8.6 mg/dl (8.4-10.2); Globulin 2.4 g/dL (1.3-3.2); Glucose 101 mg/dl (74-100); Total Protein,Serum 6.4 g/dl (6.3-8.2)
[2024-05-23] MEDS: RINGERS SOLUTION,LACTATED 500 ML 999 ML IV (10:41)
--- NOTE | 2024-05-23 11:03 | HMH.ITSTN ---
Pieter to call when pt is ready
[2024-05-23] MEDS: HYDROMORPHONE 2MG/ML SYRINGE 1 MG IV ×3 (11:12→14:03)
[2024-05-23] MEDS: LIDOCAINE 5% TRANSDERMAL PATCH 1 EACH TP (11:43)
[2024-05-23] MEDS: METHOCARBAMOL 500MG TABLET 750 MG PO (11:44)
[2024-05-23 12:42] LABS: Microscopic, Urine URINE MICROSCOPIC (MICROSCOPIC)
[2024-05-23 12:50] LABS: Appearance,Urine CLEAR (Clear); Bilirubin,Urine Negative (Negative); Blood, Urine TRACE-I (Negative); Color,Urine YELLOW (Yellow); Glucose,Urine (UA) Negative (Negative); Ketones,Urine Negative (Negative); Leukocyte Esterase,Urine 2+ (Negative); Nitrate,Urine POSITIVE (Negative); Protein,Urine TRACE (Negative); Urobilinogen,Urine 0.2 EU/dl (0.2)
[2024-05-23 13:12] LABS: Bacteria,Urine 2+ /lpf; Squamous Epithelial Cell,Urine Occasional #/hpf (0-5); WBC,Urine TNTC #/hpf (0-3)
[2024-05-23] MEDS: FENTANYL 100MCG/2ML VIAL 50 MCG IV (13:12)
[2024-05-23] MEDS: OXYCODONE 5MG IMMEDIATE RELEASE TABLET 10 MG PO (14:03)
[2024-05-23] MEDS: SODIUM CHLORIDE 0.9% 10ML SYR (RAD ONLY) 10 ML IV (14:50)
[2024-05-23] MEDS: IOPAMIDOL-370 (76%);100ML BOTTLE 75 ML IV (14:50)
[2024-05-23] MEDS: LORazepam 2MG/ML VIAL 1 MG IV (15:02)
--- NOTE | 2024-05-23 15:55 | PC.NURSE ---
Called [facility] to speak with them about this pt. [facility] advised that they would call us back
[2024-05-23] MEDS: CEFTRIAXONE SODIUM 2 GM in 0.9 % SODIUM CHLORIDE 100 ML IV (16:08)
--- NOTE | 2024-05-23 16:30 | PC.NURSE ---
Called [facility] back to check on the status of speaking with the hospitalist about this pt.
--- NOTE | 2024-05-23 16:51 | PC.NURSE ---
called back and is speaking with Dr Yu at this time
--- NOTE | 2024-05-23 17:17 | PC.NURSE ---
Called EMS to advise them of this pt transfer to ER. and that the patient was ready
--- NOTE | 2024-05-25 15:59 | PC.NURSE ---
Faxed completed Urine culture to [facility] [address] [place] [address],
== END 2024-05-23 17:44 | disposition other institution (70) ==
PROVIDERS: Emergency Provider Student in an Organized Health Care Education/Training Program; PCP Family Medicine
DX: N39.0 Urinary tract infection, site not specified (principal); J90 Pleural effusion, not elsewhere classified; S22.079A Unspecified fracture of T9-T10 vertebra, initial encounter for closed fracture; T14.8XXA Other injury of unspecified body region, initial encounter; N18.9 Chronic kidney disease, unspecified; R10.32 Left lower quadrant pain; M54.9 Dorsalgia, unspecified; W01.198A Fall on same level from slipping, tripping and stumbling with subsequent striking against other object, initial encounter; Y93.89 Activity, other specified; Y92.002 Bathroom of unspecified non-institutional (private) residence as the place of occurrence of the external cause
CPT/HCPCS: 70450; 71260; 72125; 72128; 72131; 74177; 80053; 81001; 85025; 87086; 87088; 87186; 96361; 96374; 96375; 99285; J0696; J1171; J2060; J2405; J3010; J7120; Q9967

== ENCOUNTER 2024-06-13 09:25 | Day surgery (SDC) | payer MEDICARE, SELFPAY ==
[2024-06-13 09:53] VITALS: BP 153/79; PULSE 69; RESP 16; TEMP 36.8; O2SAT 94; BMI 35.2
--- NOTE | 2024-06-13 09:59 | P.PCN_ITS ---
Procedure Date: 06/13/24 Time: 10:50 Anesthesiologist:: Sadaf Proctor APRN Complications:: None Pre-procedure Diagnosis:: Degenerative disc disease of lumbar spine with lumbar radiculopathy symptoms, lumbar spinal stenosis Post-procedure Diagnosis:: Same Indications for Procedure:: Patient is a pleasant 83-year-old male who presents today for intrathecal refill and reprogram. Today he rates his pain a 8 out of 10. Patient does present in an hard shell cast all across his torso and states that he does have to wear this 8 to 10 weeks. He has been at [facility] and been doing physical therapy. He states that he is scheduled to be discharged from that facility to go home with home health. Patient is currently managed with fentanyl 750 mcg/mL and bupivacaine 5 mg/mL with a daily dose of fentanyl 305.19 mcg/day. He denies any side effects from this medication. He is requesting if we can increase it.His Levi has been reviewed and is appropriate. Physical Exam: General: Alert and oriented x3, no acute distress, pleasant and cooperative Lungs: Respirations even and unlabored, symmetrical chest expansion Eyes: PERRL Musculoskeletal: Flexion and extension of lumbar [spine] somewhat guarded secondary to pain, [antalgic gait noted] Neurological: Speech clear, no gross sensory deficit Procedure Details:: Informed consent was obtained and the risk and benefits of the procedure were explained to the patient. The patient had noninvasive monitoring placed including noninvasive blood pressure cuff and pulse oximeter. Patient's pump was interrogated. The area over the pump was cleansed with chlorhexidine as a cleansing solution. In sterile fashion the pump was accessed with a 22-gauge needle. Approximately 6.5 mls of the pump solution was removed and discarded appropriately. The pump was then refilled with 20 mL's of fentanyl 750 mcg/mL and bupivacaine 5 mg/mL. The needle was withdrawn and a bandage was placed over the puncture site. The infusion rate was reprogrammed and fentanyl 335.57 mcg/day. The patient tolerated well with no complication. Plan and Disposition:: Patient tolerated his intrathecal refill and reprogram with no complications and was discharged neurologically intact. Patient will return to clinic on or before his next refill date. We will see the patient back in the clinic at the next intrathecal refill. Patient has been instructed to contact the clinic with any concerns before the next appointment. Dr. Carey has reviewed this note and agrees with this plan of care. This note was dictated using voice recognition software and make contain errors or omissions. -- It Is medically necessary for this patient to continue to have their intrathecal pump refilled at regular intervals. This patient had an intrathecal pain pump implanted after meeting criteria of chronic intractable pain for greater than 3 months and failing conservative treatments. Patient has committed and been compliant to the treatment plan and all planned follow up care. Since implantation of the intrathecal pain pump, the patient has had decreased pain and been more functional. Oral medications have been reduced including intake of oral opioids. Patient continues to do well with intrathecal therapy with decrease in pain symptoms and increase in functional status. Stopping intrathecal medications can lead to life threatening withdrawal, seizures, c ardiac arrest, severe pain, and possible . Pumps that are not refilled at regular intervals can be damages and cause and need for replacement. We continually titrate dose and concentration to optimize pain relief and function. We are limited in concentration for certain drugs to safely deliver medications through the pump and stay within the recommendations from the [employer] Consensus [employer] Guidelines. Depending on dose and concentration these pumps may need to be refilled sooner than 3 months as we titrate. A UDS is needed to verify patient's compliance with our office pain contract. This is ordered based off specific treatments related to chronic pain with the potential to abuse certain medications.
[2024-06-13 10:46] VITALS: BP 151/77; PULSE 69; RESP 16; O2SAT 98
[2024-06-13 10:49] VITALS: BP 151/77; PULSE 67; RESP 18; O2SAT 100
[2024-06-13 11:06] VITALS: BP 150/86; PULSE 66; RESP 16; O2SAT 96
== END 2024-06-13 11:06 | disposition home or self-care (01) ==
PROVIDERS: PCP Family Medicine; Visit Provider Nurse Practitioner Family
DX: M51.16 Intervertebral disc disorders with radiculopathy, lumbar region (principal); M48.061 Spinal stenosis, lumbar region without neurogenic claudication
CPT/HCPCS: 62370

== ENCOUNTER 2024-07-11 11:12 | Day surgery (SDC) | payer MEDICARE, SELFPAY ==
--- NOTE | 2024-07-11 11:25 | P.PCN_ITS ---
Procedure Date: 07/11/24 Time: 11:45 Anesthesiologist:: Sadaf Proctor APRN Complications:: None Pre-procedure Diagnosis:: Degenerative disc disease of lumbar spine with lumbar radiculopathy symptoms Post-procedure Diagnosis:: Same Indications for Procedure:: Patient is a pleasant 83-year-old male who presents today for intrathecal refill and reprogram. Today he rates his pain a 8 out of 10. He denies any new trauma or injury. He does state that he would like an increase. He does state that he is now doing physical therapy at home. He states that he was doing well enough that they released him from [place]. He states he really does not notice much improvement with this therapy currently. Patient is currently managed with fentanyl 750 mcg/mL with a daily dose of 335.57 mcg/day and bupivacaine 5 mg/mL. He denies any side effects from this medication. His Levi has been reviewed and is appropriate. Physical Exam: General: Alert and oriented x3, no acute distress, pleasant and cooperative Lungs: Respirations even and unlabored, symmetrical chest expansion Eyes: PERRL Musculoskeletal: Flexion and extension of lumbar [spine] somewhat guarded secondary to pain, [antalgic gait noted] Neurological: Speech clear, no gross sensory deficit Procedure Details:: Informed consent was obtained and the risk and benefits of the procedure were explained to the patient. The patient had noninvasive monitoring placed including noninvasive blood pressure cuff and pulse oximeter. Patient's pump was interrogated. The area over the pump was cleansed with chlorhexidine as a cleansing solution.In sterile fashion the pump was accessed with a 22-gauge needle. Approximately 6 point mls of the pump solution was removed and discarded appropriately. The pump was then refilled with 20 mL's of fentanyl 750 mcg/mL and bupivacaine 5 mg/mL. The needle was withdrawn and a bandage was placed over the puncture site. The infusion rate was reprogrammed and increased 5% to fentanyl 352.35 mcg/day. The patient tolerated well with no complication. Plan and Disposition:: Patient tolerated his intrathecal refill and reprogram with no complications and was discharged neurologically intact. Patient will return to clinic on or before his next intrathecal refill date. We will see the patient back in the clinic at the next intrathecal refill. Patient has been instructed to contact the clinic with any concerns before the next appointment. Dr. Carey has reviewed this note and agrees with this plan of care. This note was dictated using voice recognition software and make contain errors or omissions. -- It Is medically necessary for this patient to continue to have their intrathecal pump refilled at regular intervals. This patient had an intrathecal pain pump implanted after meeting criteria of chronic intractable pain for greater than 3 months and failing conservative treatments. Patient has committed and been compliant to the treatment plan and all planned follow up care. Since implantation of the intrathecal pain pump, the patient has had decreased pain and been more functional. Oral medications have been reduced including intake of oral opioids. Patient continues to do well with intrathecal therapy with decrease in pain symptoms and increase in functional status. Stopping intrathecal medications can lead to life threatening withdrawal, seizures, cardiac arrest, severe pain, and possible . Pumps that are not refilled at regular intervals can be damages and cause and need for replacement. We continually titrate dose and concentration to optimize pain relief and function. We are limited in concentration for certain drugs to safely deliver medications through the pump and stay within the recommendations from the [employer] Consensus Committee Guidelines. Depending on dose and concentration these pumps may need to be refilled sooner than 3 months as we titrate. A UDS is needed to verify patient's compliance with our office pain contract. This is ordered based off specific treatments related to chronic pain with the potential to abuse certain medications.
[2024-07-11 11:27] VITALS: BP 134/68; PULSE 69; RESP 16; TEMP 36.8; O2SAT 95; BMI 35.2
[2024-07-11 11:42] VITALS: BP 136/71; PULSE 70; RESP 18; O2SAT 96
[2024-07-11 11:45] VITALS: BP 136/71; PULSE 70; RESP 18; O2SAT 96
[2024-07-11 11:57] VITALS: BP 112/64; PULSE 69; RESP 16; O2SAT 95
== END 2024-07-11 11:57 | disposition home or self-care (01) ==
PROVIDERS: PCP Family Medicine; Visit Provider Nurse Practitioner Family
DX: M51.16 Intervertebral disc disorders with radiculopathy, lumbar region (principal)
CPT/HCPCS: 62370

== ENCOUNTER 2024-08-05 10:19 | Day surgery (SDC) | payer MEDICARE, SELFPAY ==
[2024-08-05 10:35] VITALS: BP 124/68; PULSE 65; RESP 18; TEMP 36.6; O2SAT 96; BMI 35.9
[2024-08-05 11:05] VITALS: BP 132/79; PULSE 69; RESP 16; O2SAT 96
--- NOTE | 2024-08-05 11:08 | P.PCN_ITS ---
Procedure Date: 08/05/24 Time: 10:45 Anesthesiologist:: Bora Solo CRNA Complications:: None Pre-procedure Diagnosis:: Degenerative disc lumbar spine multilevels. Lumbar radiculopathy. Lumbar spondylosis. Multilevel lumbar facet arthropathy. Lumbar postlaminectomy syndrome. Lumbar disc bulge multilevel lumbar spine Post-procedure Diagnosis:: Same. Indications for Procedure:: Patient is a pleasant 84-year-old male who comes our clinic today for intrathecal pain pump interrogation and refill. Patient is currently being managed with fentanyl 750 mcg/mL at a rate of 352.35 mcg/day. Also bupivacaine 5 mg/mL at a rate of 2.3490 mg/day. Patient doing very well with his current s ettings. He is reporting some increased low but lumbar back pain left greater than right. Patient reports falling at home in the bathroom a few days prior to 2023. Back has been hurting to some degree since. He reports having a T-spine fracture that was diagnosed at that time. However, the majority of his pain is low lumbar. I recommend lumbar medial branch blocks/facet injections L4-5, L5-S1 level. He has had these in the past with significant improvement. Also, patient has had lumbar ablation in the past. He rates his pain today 6/10. Patient is not reporting side effects or complications with in regards to intrathecal pain pump management. Procedure Details:: Details of the procedure explained to the patient. The patient taken procedure and placed in sitting position. They over the pump was cleaned using chlorhexidine as a cleansing solution. The pump was accessed with ease using a 22-gauge inch and half needle. 6.5 mL of solution was withdrawn and discarded appropriate. The pump was then filled incrementally with 20 cc of a solution containing fentanyl 750 mcg/mL and bupivacaine 5 mg/mL. Patient tolerated procedure without difficulty. No complications. Plan and Disposition:: Patient was discharged without incident.
[2024-08-05 11:39] VITALS: BP 124/68; PULSE 65; RESP 18; O2SAT 96
[2024-08-05 11:40] VITALS: BP 124/68; PULSE 65; RESP 18; O2SAT 96
== END 2024-08-05 11:05 | disposition home or self-care (01) ==
PROVIDERS: PCP Family Medicine; Visit Provider Nurse Anesthetist, Certified Registered
DX: M51.16 Intervertebral disc disorders with radiculopathy, lumbar region (principal); M47.26 Other spondylosis with radiculopathy, lumbar region; M96.1 Postlaminectomy syndrome, not elsewhere classified
CPT/HCPCS: 95991

== ENCOUNTER 2024-08-29 10:53 | Day surgery (SDC) | payer MEDICARE, SELFPAY ==
[2024-08-29 10:57] VITALS: BP 137/64; PULSE 72; RESP 16; O2SAT 97; BMI 35.2
--- NOTE | 2024-08-29 10:59 | EXP.PAIN.PRO ---
Procedure Date: 08/29/24 Time: 11:27 Anesthesiologist:: Sadaf Proctor APRN Complications:: None Pre-procedure Diagnosis:: Degenerative disc disease of lumbar spine with lumbar radiculopathy symptoms Post-procedure Diagnosis:: Same Indications for Procedure:: Patient is a pleasant 84-year-old male who presents today for intrathecal refill and reprogram. Today he rates his pain a 5 out of 10. He denies any new trauma or injury. He has just been having increased pain especially with the weather. He states it is no specific spot but is still along his low back. He states that it does seem harder to get position when he goes to bed. Patient is currently managed with intrathecal fentanyl 750 mcg/mL with a daily dose of 352.35 mcg/day and bupivacaine 5 mg/mL with a daily dose of 2.349 mg/day. He denies any side effects. He is asking for a small increase.Patient was recently prescribed oxycodone from his primary care with 60 tablets given. He states this was just a temporary medicine to help with some of the trouble sleeping due to the pain at night and that he has not even taken all of these and it has been a while since he even even taken any extra medication. His Levi has been reviewed. Physical Exam: General: Alert and oriented x3, no acute distress, pleasant and cooperative Lungs: Respirations even and unlabored, symmetrical chest expansion Eyes: PERRL Musculoskeletal: Flexion and extension of lumbar [spine] somewhat guarded secondary to pain, [antalgic gait noted] Neurological: Speech clear, no gross sensory deficit Procedure Details:: Informed consent was obtained and the risk and benefits of the procedure were explained to the patient. The patient had noninvasive monitoring placed including noninvasive blood pressure cuff and pulse oximeter. Patient's pump was interrogated. The area over the pump was cleansed with chlorhexidine as a cleansing solution. In sterile fashion the pump was accessed with a 22-gauge needle. Approximately 8 mls of the pump solution was removed and discarded appropriately. The pump was then refilled with 20 mL's of fentanyl 750 mcg/mL and bupivacaine 5 mg/mL. The needle was withdrawn and a bandage was placed over the puncture site. The infusion rate was reprogrammed and increased to fentanyl 370.01 mcg/day and bupivacaine 15.42 mg per day. The patient tolerated well with no complication. Plan and Disposition:: Patient tolerated the procedure well with no complications and was discharged neurologically intact. I did discuss with the patient to make sure that he did understand that we want a be very cautious with oral pain medications in combination with the intrathecal fentanyl. Patient acknowledges understanding and agrees with plan of care. Patient will return to clinic on or before their next intrathecal refill date. We will see the patient back in the clinic at the next intrathecal refill. Patient has been instructed to contact the clinic with any concerns before the next appointment. Dr. Carey has reviewed this note and agrees with this plan of care. This note was dictated using voice recognition software and make contain errors or omissions. -- It Is medically necessary for this patient to continue to have their intrathecal pump refilled at regular intervals. This patient had an intrathecal pain pump implanted after meeting criteria of chronic intractable pain for greater than 3 months and failing conservative treatments. Patient has committed and been compliant to the treatment plan and all planned follow up care. Since implantation of the intrathecal pain pump, the patient has had decreased pain and been more functional. Oral medications have been reduced including intake of oral opioids. Patient continues to do well with intrathecal therapy with decrease in pain symptoms and increase in functional status. Stopping intrathecal medications can lead to life threatening withdrawal, seizures, cardiac arrest, severe pain, and possible . Pumps that are not refilled at regular intervals can be damages and cause and need for replacement. We continually titrate dose and concentration to optimize pain relief and function. We are limited in concentration for certain drugs to safely deliver medications through the pump and stay within the recommendations from the [employer] Consensus Committee Guidelines. Depending on dose and concentration these pumps may need to be refilled sooner than 3 months as we titrate. A UDS is needed to verify patient's compliance with our office pain contract. This is ordered based off specific treatments related to chronic pain with the potential to abuse certain medications.
[2024-08-29 11:20] VITALS: BP 152/80; PULSE 74; RESP 18; O2SAT 96
[2024-08-29 11:23] VITALS: BP 152/80; PULSE 74; RESP 18; O2SAT 96
[2024-08-29 11:41] VITALS: BP 137/79; PULSE 66; RESP 16; O2SAT 96
== END 2024-08-29 11:41 | disposition home or self-care (01) ==
PROVIDERS: PCP Family Medicine; Visit Provider Nurse Practitioner Family
DX: M51.16 Intervertebral disc disorders with radiculopathy, lumbar region (principal)
CPT/HCPCS: 62370

== ENCOUNTER 2024-09-01 15:21 | Outpatient (CLI) | payer MEDICARE, SELFPAY ==
--- NOTE | 2024-09-01 15:25 | XR_ITS ---
FINAL REPORT CLINICAL HISTORY: Left 2nd toe ulcer FINDINGS: LEFT FOOT Three views of the left foot demonstrate no acute fracture or dislocation. There are advanced hypertrophic changes of osteoarthritis at the first metatarsophalangeal joint. There is soft tissue edema throughout the second digit. No definite bony erosion is seen. IMPRESSION: No acute bony abnormality. 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 Soft tissue edema throughout the second digit. Reviewed, Interpreted and Dictated by Mathew Ozuna MD Transcribed by Amina Ayala Authenticated and [facility]
== END 2024-09-01 23:59 | disposition home or self-care (01) ==
LOC: RAD 15:22
PROVIDERS: PCP Family Medicine; Visit Provider Nurse Practitioner
DX: L97.529 Non-pressure chronic ulcer of other part of left foot with unspecified severity (principal); R60.9 Edema, unspecified
CPT/HCPCS: 73630

== ENCOUNTER 2024-09-19 09:27 | Day surgery (SDC) | payer MEDICARE, SELFPAY ==
--- NOTE | 2024-09-19 09:55 | P.PCN_ITS ---
Procedure Date: 09/19/24 Time: 10:26 Anesthesiologist:: Sadaf Proctor APRN Complications:: None Pre-procedure Diagnosis:: Degenerative disc disease of lumbar spine with lumbar radiculopathy symptoms Post-procedure Diagnosis:: Same Indications for Procedure:: Patient is a pleasant 84-year-old male who presents today for intrathecal refill and reprogram. Today he rates his pain 6 out of 10. He denies any new trauma or injury. He is currently managed with fentanyl 750 mcg/mL with a daily dose of 370.01 mcg/day and bupivacaine 5 mg/mL with a daily dose of 2.4668 mg/day.He denies any side effects. He states overall the dosage is working fine and does not feel like he needs any additional adjustment. His Levi has been reviewed and is appropriate. Physical Exam: General: Alert and oriented x3, no acute distress, pleasant and cooperative Lungs: Respirations even and unlabored, symmetrical chest expansion Eyes: PERRL Musculoskeletal: Flexion and extension of lumbar [spine] somewhat guarded secondary to pain, [antalgic gait noted] Neurological: Speech clear, no gross sensory deficit Procedure Details:: Informed consent was obtained and the risk and benefits of the procedure were explained to the patient. The patient had noninvasive monitoring placed including noninvasive blood pressure cuff and pulse oximeter. Patient's pump was interrogated. The area over the pump was cleansed with chlorhexidine as a cleansing solution. In sterile fashion the pump was accessed with a 22-gauge needle. Approximately 9.3 mls of the pump solution was removed and discarded appropriately. The pump was then refilled with 20 mL's of fentanyl 750 mcg/mL and bupivacaine 5 mg/mL. The needle was withdrawn and a bandage was placed over the puncture site. The infusion rate was reprogrammed and continued at its current dosage. The patient tolerated well with no complication. Plan and Disposition:: Patient tolerated the procedure well with no complications and was discharged neurologically intact. Patient will return to clinic on or before their next intrathecal refill date. We will see the patient back in the clinic at the next intrathecal refill. Patient has been instructed to contact the clinic with any concerns before the next appointment. Dr. Carey has reviewed this note and agrees with this plan of care. This note was dictated using voice recognition software and make contain errors or omissions. -- It Is medically necessary for this patient to continue to have their intrathecal pump refilled at regular intervals. This patient had an intrathecal pain pump implanted after meeting criteria of chronic intractable pain for greater than 3 months and failing conservative treatments. Patient has committed and been compliant to the treatment plan and all planned follow up care. Since implantation of the intrathecal pain pump, the patient has had decreased pain and been more functional. Oral medications have been reduced including intake of oral opioids. Patient continues to do well with intrathecal therapy with decrease in pain symptoms and increase in functional status. Stopping intrathecal medications can lead to life threatening withdrawal, seizures, ca rdiac arrest, severe pain, and possible . Pumps that are not refilled at regular intervals can be damages and cause and need for replacement. We continually titrate dose and concentration to optimize pain relief and function. We are limited in concentration for certain drugs to safely deliver medications through the pump and stay within the recommendations from the Polyanalgesic Consensus Committee Guidelines. Depending on dose and concentration these pumps may need to be refilled sooner than 3 months as we titrate. A UDS is needed to verify patient's compliance with our office pain contract. This is ordered based off specific treatments related to chronic pain with the potential to abuse certain medications.
[2024-09-19 10:13] VITALS: BP 125/75; PULSE 61; RESP 16; TEMP 36.8; O2SAT 97; BMI 35.2
[2024-09-19 10:39] VITALS: BP 125/75; PULSE 61; RESP 18; O2SAT 97
[2024-09-19 10:40] VITALS: BP 125/75; PULSE 61; RESP 18; O2SAT 97
[2024-09-19 10:41] VITALS: BP 155/84; PULSE 65; RESP 18; O2SAT 97
== END 2024-09-19 10:42 | disposition home or self-care (01) ==
PROVIDERS: PCP Family Medicine; Visit Provider Nurse Practitioner Family
DX: M51.16 Intervertebral disc disorders with radiculopathy, lumbar region (principal)
CPT/HCPCS: 62370

== ENCOUNTER 2024-10-07 14:26 | Day surgery (SDC) | payer MEDICARE, SELFPAY ==
[2024-10-07 12:55] VITALS: BP 145/84; PULSE 71; RESP 16; O2SAT 94
[2024-10-07 14:35] VITALS: BP 131/60; PULSE 76; RESP 16; TEMP 37.2; O2SAT 96; BMI 35.2
--- NOTE | 2024-10-07 14:50 | P.PCN_ITS ---
Procedure Date: 10/07/24 Time: 14:40 Anesthesiologist:: Bora Solo CRNA Complications:: None Pre-procedure Diagnosis:: Degenerative disc lumbar spine multilevels. Lumbar radiculopathy. Lumbar postlaminectomy syndrome. Lumbar spondylosis. Multilevel lumbar facet arthropathy. Post-procedure Diagnosis:: Same. Indications for Procedure:: Patient is a very pleasant 84-year-old male who comes our clinic today for intrathecal pain pump interrogation, refill and reprogram. Today he rates his pain 5/10. He does not report any side effects or complications with his intrathecal pain pump management. He is not requesting any changes. Patient is being managed with intrathecal fentanyl 750 mcg/mL at 370.01 mcg/day and bupivacaine 5 mg/mL at 2.4668 mg/day. Patient is awake alert [place] x 3. In no acute distress. Flexion-extension lumbar spine guarded secondary to pain. Deep tendon reflexes upper lower extremities normal. Motor strength upper extremities 5/5. Lower extremities 4/5. Patient presents today in wheelchair. There is no gross sensory deficit. Procedure Details:: Details of the procedure explained to the patient. The patient taken procedure and placed in the sitting position. They over the palms cleansed using chlorhexidine as a cleansing solution. The pump was interrogated. The pump was accessed with ease using a 22-gauge inch and a half needle. 10 mL of solution was withdrawn discarded appropriately. The pump was then filled with 20 cc of solution containing fentanyl 750 mcg/mL and bupivacaine 5 mg/mL. The rate is unchanged. Patient tolerated procedure without difficulty. No complications. Plan and Disposition:: Patient was discharged without incident.
[2024-10-07 14:55] VITALS: BP 148/70; PULSE 70; RESP 18; O2SAT 94
[2024-10-07 15:02] VITALS: BP 148/70; PULSE 70; RESP 18; O2SAT 94
== END 2024-10-07 14:50 | disposition home or self-care (01) ==
PROVIDERS: PCP Family Medicine; Visit Provider Nurse Anesthetist, Certified Registered
DX: M51.16 Intervertebral disc disorders with radiculopathy, lumbar region (principal); M96.1 Postlaminectomy syndrome, not elsewhere classified; M47.26 Other spondylosis with radiculopathy, lumbar region
CPT/HCPCS: 62370

== ENCOUNTER 2024-10-16 12:35 | Outpatient (CLI) | payer MEDICARE, SELFPAY ==
[2024-10-16 12:52] LABS: Basophils # 0.1 K/mm3 (0-0.2); Basophils % 0.6 % (0.1-2.0); Eosinophils # 0.4 Kmm3 (0.0-0.4); Eosinophils % 4.8 % (0.1-12.0); Hematocrit 34.5 % (42.0-52.0); Hemoglobin 11.4 g/dL (14.1-18.0); Lymphocytes # 2.5 K/mm3 (0.7-4.5); Lymphocytes % 30.3 % (10-50); Mean Corpuscular Hemoglobin 31.5 pg (27.0-31.2); Mean Corpuscular Volume 95.3 fl (80-94); Mean Platelet Volume 10.8 fl (7.4-10.4); Monocytes # 0.5 K/mm3 (0.1-1.0); Monocytes % 6.2 % (1.7-9.3); Neutrophils # 4.7 K/mm3 (1.8-7.8); Neutrophils % 57.6 % (37.0-80.0); Nucleated Red Blood Cells # 0 10^3/uL; Nucleated Red Blood Cells % 0 %; Platelet Count 162 K/mm3 (142-424); Red Blood Count 3.62 M/mm3 (4.60-6.20); Red Cell Distribution Width 13.4 % (11.5-17.5); Red Cell Distribution Width-SD 46.6 fL; White Blood Count 8.1 K/mm3 (4.8-10.8)
[2024-10-16 12:58] LABS: Albumin Level 4.4 g/dl (3.5-5.0)
[2024-10-16 12:59] LABS: Chloride 107 mmol/L (98-107); Potassium 4.2 mmoL/L (3.5-5.1); Sodium 139 mmol/L (136-145)
[2024-10-16 13:01] LABS: Alanine Aminotransferase 19 U/L (12-78); Anion Gap 12.2 mEq/L (5-15); Aspartate Amino Transferase 27 U/L (17-59); Bilirubin,Unconjugated 0.4 mg/dL (0.0-1.1); Blood Urea Nitrogen 22 mg/dl (9-20); Carbon Dioxide 24 mmol/L (22.0-30.0); Estimated Glomerular Filt Rate 32 ml/min (>60); GFR (African American) 39 ML/MIN (>60); Total Protein,Serum 7.1 g/dl (6.3-8.2)
[2024-10-16 13:02] LABS: Alkaline Phosphatase 72 U/L (38-126); Bilirubin,Direct 0.1 mg/dl (0.0-0.4); Bilirubin,Indirect 0.3 mg/dL (0.0-0.9); Bilirubin,Total 0.4 mg/dl (0.2-1.3); Chol/HDL Ratio 3.4 (1-3.5); Cholesterol 158 mg/dl (140-200); Glucose 130 mg/dl (74-100); HDL Cholesterol 47 mg/dl (40-60); Magnesium 1.8 mg/dl (1.6-2.3); Triglycerides 339 mg/dl (30-150); VLDL Cholesterol 68 mg/dL (0-40)
[2024-10-16 13:13] LABS: Direct LDL Cholesterol 67.14 mg/dL (100-129)
[2024-10-16 13:32] LABS: Thyroid Stimulating Hormone 1.46 uIU/mL (0.465-4.68)
[2024-10-16 14:09] LABS: Free T4 (Free Thyroxine) 0.77 ng/dl (0.78-2.19)
== END 2024-10-16 23:59 | disposition home or self-care (01) ==
LOC: LAB 12:37
PROVIDERS: PCP Family Medicine; Visit Provider Physician Assistant
DX: E78.2 Mixed hyperlipidemia (principal); R60.9 Edema, unspecified; E87.6 Hypokalemia; R42 Dizziness and giddiness; I65.29 Occlusion and stenosis of unspecified carotid artery; I10 Essential (primary) hypertension; I25.10 Atherosclerotic heart disease of native coronary artery without angina pectoris; R53.83 Other fatigue
CPT/HCPCS: 36415; 80048; 80061; 80076; 83735; 84439; 84443; 85025

== ENCOUNTER 2024-10-31 08:30 | Day surgery (SDC) | payer MEDICARE, SELFPAY ==
[2024-10-31 08:48] VITALS: BP 154/82; PULSE 68; RESP 16; TEMP 37.1; O2SAT 96; BMI 35.9
[2024-10-31 08:50] VITALS: BP 140/64; PULSE 65; RESP 18; O2SAT 96
--- NOTE | 2024-10-31 08:59 | P.HP_ITS ---
History of Present Illness *Admission Date: 10/31/24 *Reason for visit:: Intrathecal refill; DDD *History of present illness: Degenerative disc disease [facility] Disclaimer: The information contained in this section may have been updated after the patient was seen, as this information can be updated by other users. Medical History Venous insufficiency Depression HLD (hyperlipidemia) CAD (coronary artery disease) Renal mass Fatigue Surgical History History of brain shunt History of appendectomy H/O kidney removal History of back surgery Family History Other Family history of cancer Family history of emphysema Social History Smoking Status: Never smoker second hand exposure: Yes alcohol intake: never substance use type: denies use current occupational status: retired Travel in the last 8 weeks?: None household members: spouse housing: house current occupational exposures/hazards: No caffeine: No Other Medical History Have you received the Flu Vaccine for this season: No Have you received the Pneumonia Vaccine: No Review of Systems Review of Systems Review of systems:: pertinent systems reviewed and negative unless documented below Review of systems (narrative): Review of Systems: General: No recent weight changes, no fever, no sleep disturbances Respiratory: No cough, no shortness of air, no recurring pulmonary infections Cardiovascular/peripheral vascular: No chest pain, no palpitations, no edema, no shortness of breath Gastrointestinal: No new onset incontinence, normal bowel movements reported Genitourinary: No new onset incontinence Musculoskeletal: Chronic back pain Psychiatric: [Normal mood/affect] Neurological: [Denies weakness in extremities], [denies balance issues] Meds Home Medications and Allergies Home Medications ?Medication ?Instructions ?Recorded ?Confirmed ?Type aspirin 81 mg tablet,delayed 81 mg PO DAILY HEART HEALTH 09/28/17 10/31/24 History release tamsulosin 0.4 mg capsule 0.8 mg PO DAILY PROSTATE 09/28/17 10/31/24 History dutasteride 0.5 mg capsule 0.5 mg PO DAILY PROSTATE 03/25/19 10/31/24 History diazepam 5 mg tablet 5 mg PO DAILYP PRN Anxiety 09/30/21 10/31/24 History bethanechol chloride 25 mg tablet 25 mg PO TID retention 01/09/22 10/31/24 History furosemide 20 mg tablet 20 mg PO DAILY Fluid #90 tabs 11/22/22 10/31/24 Rx spironolactone 25 mg tablet See Rx Instructions .Route 04/15/24 10/31/24 Rx .COMPLEX #30 tabs erythromycin 250 mg tablet 250 mg PO TID #270 tabs 09/18/24 10/31/24 Rx methylcellulose (laxative) 2 g PO DAILY 09/18/24 10/31/24 History (Citrucel Sugar Free oral powder) polyethylene glycol 3350 17 17 g PO DAILY 09/18/24 10/31/24 History gram/dose oral powder (Miralax) vortioxetine 5 mg tablet 5 mg PO DIRECTED 09/18/24 10/31/24 History (Trintellix) omeprazole 40 mg capsule,delayed 40 mg PO DAILY 09/19/24 10/31/24 History release rosuvastatin 10 mg tablet 10 mg PO DAILY 09/19/24 10/31/24 History mupirocin 2 % topical ointment 1 applic topical BID infection 14 10/13/24 10/31/24 Rx days #15 grams New Prescriptions to Start Prescriptions: Allergies Allergy/AdvReac Type Severity Reaction Status Date / Time Sulfa (Sulfonamide Allergy Mild Hives Verified 10/22/24 14:54 Antibiotics) (SULFA (SULFONAMIDE ANTIBIOTICS)) Exam Data for Last 24 hours Vital signs and Labs for Last 24 Hours: Temp Pulse Resp BP Pulse Ox O2 Del Method 98.7 F 65 18 140/64 96 Room Air 10/31/24 08:48 10/31/24 08:50 10/31/24 08:50 10/31/24 08:50 10/31/24 08:50 10/31/24 08:50 I & O for Last 24 hours: Intake & Output 10/28/24 10/29/24 10/30/24 10/31/24 23:59 23:59 23:59 23:59 Weight 265 lb Constitutional Constitutional: no acute distress *Routine HEENT Exam Head: Present normocephalic and atraumatic Eye: Present PERRL ENT: Present mucous membranes moist *Routine Neck Exam Neck: Present supple *Routine Respiratory Exam Respiratory: Present CTA bilaterally *Routine Cardiovascular Exam Cardiovascular: Present RRR *Routine Abdominal Exam Abdominal: Present soft *Routine Rectal Exam Rectal:: deferred *Routine Genitalia Exam Genitalia:: normal male Routine Back/Spine/Pelvis Exam Back/Spine: Present pain with flexion *Routine Skin Exam Skin: Present intact *Routine Neurological Exam Neurological: Present alert and oriented X3 Routine Psychiatric Exam Psychiatric: Present normal affect and normal thought process Assessment and Plan *Assessment and plan (1) Lumbar spinal stenosis: Status: Acute Category: Medical Code(s): M48.061 - Spinal stenosis, lumbar region without neurogenic claudication (2) Degenerative disc disease: Status: Acute Category: Medical Plan Patient has been instructed to contact the clinic with any concerns before the next appointment. Dr. Carey has reviewed this note and agrees with this plan of care. This note was dictated using voice recognition software and make contain errors or omissions. All injections are used with Lidocaine, Bupivacaine and dexamethasone. Occasionally urine drug screen is needed to verify patient's compliance with our office pain contract. This is ordered based off specific treatments related to chronic pain with the potential to abuse certain medications.
--- NOTE | 2024-10-31 09:01 | P.PCN_ITS ---
Procedure Date: 10/31/24 Time: 08:57 Anesthesiologist:: Sadaf Proctor APRN Complications:: None Pre-procedure Diagnosis:: Degenerative disc disease of lumbar spine with lumbar radiculopathy symptoms Post-procedure Diagnosis:: Same Indications for Procedure:: Patient is a pleasant 84-year-old male who presents today for intrathecal refill and reprogram. Today he rates his pain a 7 out of 10. He denies any new injury or trauma. Patient does state overall he is still doing really well with his intrathecal pump. Patient is currently managed with fentanyl 750 mcg/mL with a daily dose of 370.01 mcg/day and bupivacaine 5 mg/mL with a daily dose of 2.4668 mg/day. He denies any side effects. His Levi has been reviewed. Physical Exam: General: Alert and oriented x3, no acute distress, pleasant and cooperative Lungs: Respirations even and unlabored, symmetrical chest expansion Eyes: PERRL Musculoskeletal: Flexion and extension of lumbar [spine] somewhat guarded secondary to pain, [antalgic gait noted] Neurological: Speech clear, no gross sensory deficit Procedure Details:: Informed consent was obtained and the risk and benefits of the procedure were explained to the patient. The patient had noninvasive monitoring placed in cluding noninvasive blood pressure cuff and pulse oximeter. Patient's pump was interrogated. The area over the pump was cleansed with chlorhexidine as a cleansing solution. In sterile fashion the pump was accessed with a 22-gauge needle. Approximately 7.5 mls of the pump solution was removed and discarded appropriately. The pump was then refilled with 20 mL's of fentanyl 750 mcg/mL and bupivacaine 5 mg/mL. The needle was withdrawn and a bandage was placed over the puncture site. The infusion rate was reprogrammed and continued at its current dosage. The patient tolerated well with no complication. Plan and Disposition:: Patient tolerated the procedure well with no complications and was discharged neurologically intact. Patient will return to clinic on or before their next intrathecal refill date. We will see the patient back in the clinic at the next intrathecal refill. Patient has been instructed to contact the clinic with any concerns before the next appointment. Dr. Carey has reviewed this note and agrees with this plan of care. This note was dictated using voice recognition software and make contain errors or omissions. -- It Is medically necessary for this patient to continue to have their intrathecal pump refilled at regular intervals. This patient had an intrathecal pain pump implanted after meeting criteria of chronic intractable pain for greater than 3 months and failing conservative treatments. Patient has committed and been compliant to the treatment plan and all planned follow up care. Since implantat ion of the intrathecal pain pump, the patient has had decreased pain and been more functional. Oral medications have been reduced including intake of oral opioids. Patient continues to do well with intrathecal therapy with decrease in pain symptoms and increase in functional status. Stopping intrathecal medications can lead to life threatening withdrawal, seizures, cardiac arrest, severe pain, and possible . Pumps that are not refilled at regular intervals can be damages and cause and need for replacement. We continually titrate dose and concentration to optimize pain relief and function. We are limited in concentration for certain drugs to safely deliver medications through the pump and stay within the recommendations from the Polyanalgesic Consensus Committee Guidelines. Depending on dose and concentration these pumps may need to be refilled sooner than 3 months as we titrate. A UDS is needed to verify patient's compliance with our office pain contract. This is ordered based off specific treatments related to chronic pain with the potential to abuse certain medications.
[2024-10-31 09:03] VITALS: BP 150/87; PULSE 64; RESP 16; O2SAT 95
== END 2024-10-31 09:03 | disposition home or self-care (01) ==
PROVIDERS: PCP Family Medicine; Visit Provider Nurse Practitioner Family
DX: M51.16 Intervertebral disc disorders with radiculopathy, lumbar region (principal)
CPT/HCPCS: 62370

== ENCOUNTER 2024-11-18 14:47 | Day surgery (SDC) | payer MEDICARE, SELFPAY ==
[2024-11-18 14:55] VITALS: BP 122/63; PULSE 78; RESP 16; TEMP 36.6; O2SAT 98; BMI 35.2
--- NOTE | 2024-11-18 15:22 | EXP.PAIN.PRO ---
Procedure Date: 11/18/24 Time: 15:30 Anesthesiologist:: Bora Solo CRNA Complications:: None Pre-procedure Diagnosis:: Degenerative disc lumbar spine multilevels. Lumbar radiculopathy. Lumbar spondylosis. Multilevel lumbar facet arthropathy. Lumbar postlaminectomy syndrome. Post-procedure Diagnosis:: Same. Indications for Procedure:: Patient is a very pleasant 84-year-old male who comes our clinic today for intrathecal pain pump interrogation and refill. He is currently being managed with fentanyl 750 mcg/mL with a daily dose of 370.01 mcg/day and bupivacaine 5 mg/mL or with a dose of 2.4668 mg/day. We will be changed him to fentanyl 1000 mcg/mL today. No change in the bupivacaine. He is doing very well with his current settings. He is not requesting changes. He is not reporting side effects. Patient is awake alert [place] x 3. No acute distress. Flexion extension lumbar spine guarded secondary to pain. Deep tendon reflexes upper lower extremities normal. Motor strength upper and lower extremities normal. There is no gross sensory deficit. Gait is normal. Patient presents in a wheelchair due to the distance from the parking lot to the clinic. However, he reports ambulating at home. Procedure Details:: Details of the procedure explained to the patient. The patient taken procedure and placed in the sitting position. The area of the pump is cleansed using chlorhexidine as a cleansing solution. Using a 22-gauge inch and half needle the pump was accessed with ease. 9 mL of solution was withdrawn discarded appropriately. The pump was then filled with 20 cc of a solution containing fentanyl 1000 mcg/mL and bupivacaine 5 mg/mL. Fentanyl rate will remain at 370 mcg/day. Bupivacaine to 1.8523 mg/day. Plan and Disposition:: Patient was discharged without incident.
[2024-11-18 15:27] VITALS: BP 145/66; PULSE 76; RESP 16; O2SAT 96
[2024-11-18 15:36] VITALS: BP 122/63; PULSE 78; RESP 18; O2SAT 98
== END 2024-11-18 15:27 | disposition home or self-care (01) ==
PROVIDERS: PCP Family Medicine; Visit Provider Nurse Anesthetist, Certified Registered
DX: M51.16 Intervertebral disc disorders with radiculopathy, lumbar region (principal); M47.26 Other spondylosis with radiculopathy, lumbar region; M96.1 Postlaminectomy syndrome, not elsewhere classified
CPT/HCPCS: 95991

== ENCOUNTER 2024-11-20 07:15 | Outpatient (CLI) | payer MEDICARE, SELFPAY ==
--- NOTE | 2024-11-20 07:32 | CT_ITS ---
FINAL REPORT TECHNIQUE: Axial images through the abdomen and pelvis were performed without contrast. This study was performed with techniques to keep radiation doses as low as reasonably achievable, (ALARA). Individualized dose reduction techniques using automated exposure control or adjustment of mA and/or kV according to the patient's size were employed. CLINICAL HISTORY: MALIGNANT NEOPLASM OF UNSPECIFIED KIDNEY COMPARISON: 05/23/2024 FINDINGS: Abdomen: Pleural and parenchymal scarring is noted in the left lung base. Aeration in the lung bases has improved since the prior exam. There is mild elevation of the left hemidiaphragm. There are 2 hypodense foci in the liver, measuring 2.9 cm in the right lobe of the liver, and 1.8 cm in the left lobe of the liver. These are stable and likely represent hepatic cysts. The gallbladder is present. The pancreas and adrenals are unremarkable. Calcified granulomas are noted in the spleen. The left kidney is surgically absent. There is a nonobstructing 11 mm stone present in the lower pole of the right kidney, also seen on the prior CT. Pelvis: There is streak artifact secondary to posterior fusion hardware as well as a spinal stimulator device. The urinary bladder is decompressed. The appendix is not visualized, likely surgically absent. There is no pelvic mass or inflammation. IMPRESSION: Prior left nephrectomy once again identified. Stable nonobstructing stone in the lower pole of the right kidney. Stable presumed hepatic cysts. Reviewed, Interpreted and Dictated by Mathew Ozuna MD Transcribed by Kay Sanchez Authenticated and [facility]
== END 2024-11-20 23:59 | disposition home or self-care (01) ==
LOC: RAD 07:16
PROVIDERS: PCP Family Medicine; Visit Provider Urology
DX: C64.9 Malignant neoplasm of unspecified kidney, except renal pelvis (principal); Q61.02 Congenital multiple renal cysts; Z90.5 Acquired absence of kidney
CPT/HCPCS: 74176

== ENCOUNTER 2024-12-16 14:46 | Day surgery (SDC) | payer MEDICARE, SELFPAY ==
[2024-12-16 14:49] VITALS: BP 137/68; PULSE 78; RESP 18; O2SAT 98; BMI 35.2
--- NOTE | 2024-12-16 15:17 | P.PCN_ITS ---
Procedure Date: 12/16/24 Time: 15:15 Anesthesiologist:: Bora Solo CRNA Complications:: None Pre-procedure Diagnosis:: Degenerative disc lumbar spine multilevels. Lumbar radiculopathy. Lumbar postlaminectomy syndrome. Lumbar spondylosis. Multilevel lumbar facet arthropathy. Chronic pain syndrome. Post-procedure Diagnosis:: Same. Indications for Procedure:: Patient is a pleasant 84-year-old male who comes our clinic today for intrathecal pain pump interrogation and refill. Patient is currently being managed with fentanyl 1000 mcg/mL at a rate of 370.5 mcg/day also, bupivacaine 5 mg/mL at a daily dose of 1.8523 mg/day. He is not reporting any side effects or complications. He is not requesting any changes. Patient is awake alert [place] x 3. In no acute distress. Flexion-extension lumbar spine guarded secondary to pain. Deep tendon reflexes upper lower extremities normal. Motor strength upper and lower extremities normal. There is no gross sensory deficit. Patient presents in a wheelchair today due to the distance from the parking lot. Discussed in detail with the patient regarding lumbar medial branch blocks/facet injections. He is having midline low lumbar back pain he describes as constant, dull, aching. He reports responding very well to previous lumbar medial branch blocks/facet injections at bilateral L4-5 and L5-S1 level. He is requesting a repeat injections of the bilateral lumbar facet injections at the L4-5 and L5-S1 level. This pain is superseding his intrathecal pain pump therapy. He reports difficulty with lumbar flexion, extension, left and right rotation. He rates his pain 7/10. Procedure Details:: Details of the procedure explained to the patient. Patient taken procedure and placed in the sitting position. The over the pump was cleaned using chlorhexidine as a cleansing solution. The pump was interrogated. The pump was accessed with ease using a 22-gauge inch and half needle. 12.3 mL of solution was withdrawn discarded appropriate. The pump was then filled with 20 cc of a solution containing 1000 mcg/mL and bupivacaine 5 mg/mL. No changes in the intrathecal pain pump rate. Patient tolerated procedure without difficulty. There are no complications. Plan and Disposition:: Patient was discharged without incident.
[2024-12-16 15:20] VITALS: BP 132/57; PULSE 81; RESP 18; O2SAT 98
[2024-12-16 15:30] VITALS: BP 151/80; PULSE 74; RESP 18; O2SAT 97
== END 2024-12-16 15:30 | disposition home or self-care (01) ==
PROVIDERS: PCP Family Medicine; Visit Provider Nurse Anesthetist, Certified Registered
DX: Z45.1 Encounter for adjustment and management of infusion pump (principal); M51.16 Intervertebral disc disorders with radiculopathy, lumbar region; M96.1 Postlaminectomy syndrome, not elsewhere classified; M47.26 Other spondylosis with radiculopathy, lumbar region; G89.4 Chronic pain syndrome; I25.10 Atherosclerotic heart disease of native coronary artery without angina pectoris; F32.A Depression, unspecified; E78.5 Hyperlipidemia, unspecified; Z88.2 Allergy status to sulfonamides
CPT/HCPCS: 95991

== ENCOUNTER 2025-01-16 09:05 | Day surgery (SDC) | payer MEDICARE, SELFPAY ==
[2025-01-16 09:19] VITALS: BP 103/58; PULSE 66; RESP 18; O2SAT 96; BMI 35.2
[2025-01-16 09:47] VITALS: BP 129/49; PULSE 74; RESP 18; O2SAT 95
[2025-01-16 09:59] VITALS: BP 124/65; PULSE 71; RESP 16; O2SAT 96
--- NOTE | 2025-01-16 10:14 | EXP.PM.HP ---
History of Present Illness *Admission Date: 01/16/25 *Reason for visit:: Intrathecal refill; DDD *History of present illness: Same [facility] Disclaimer: The information contained in this section may have been updated after the patient was seen, as this information can be updated by other users. Medical History Venous insufficiency Depression HLD (hyperlipidemia) CAD (coronary artery disease) Renal mass Fatigue Surgical History History of brain shunt History of appendectomy H/O kidney removal History of back surgery Family History Other Family history of cancer Family history of emphysema Social History Smoking Status: Never smoker second hand exposure: Yes alcohol intake: never substance use type: denies use current occupational status: retired Travel in the last 8 weeks?: None household members: spouse housing: house current occupational exposures/hazards: No caffeine: No Other Medical History Have you received the Flu Vaccine for this season: No Have you received the Pneumonia Vaccine: No Review of Systems Review of Systems Review of systems:: pertinent systems reviewed and negative unless documented below Review of systems (narrative): Review of Systems: General: No recent weight changes, no fever, no sleep disturbances Respiratory: No cough, no shortness of air, no recurring pulmonary infections Cardiovascular/peripheral vascular: No chest pain, no palpitations, no edema, no shortness of breath Gastrointestinal: No new onset incontinence, normal bowel movements reported Genitourinary: No new onset incontinence Musculoskeletal: Chronic back pain Psychiatric: [Normal mood/affect] Neurological: [Denies weakness in extremities], [denies balance issues] Meds Home Medications and Allergies Home Medications ?Medication ?Instructions ?Recorded ?Confirmed ?Type aspirin 81 mg tablet,delayed 81 mg PO DAILY HEART HEALTH 09/28/17 01/16/25 History release tamsulosin 0.4 mg capsule 0.8 mg PO DAILY PROSTATE 09/28/17 01/16/25 History dutasteride 0.5 mg capsule 0.5 mg PO DAILY PROSTATE 03/25/19 01/16/25 History diazepam 5 mg tablet 5 mg PO DAILYP PRN Anxiety 09/30/21 01/16/25 History bethanechol chloride 25 mg tablet 25 mg PO TID retention 01/09/22 01/16/25 History furosemide 20 mg tablet 20 mg PO DAILY Fluid #90 tabs 11/22/22 01/16/25 Rx spironolactone 25 mg tablet See Rx Instructions .Route 04/15/24 01/16/25 Rx .COMPLEX #30 tabs erythromycin 250 mg tablet 250 mg PO TID #270 tabs 09/18/24 01/16/25 Rx methylcellulose (laxative) 2 g PO DAILY 09/18/24 01/16/25 History (Citrucel Sugar Free oral powder) polyethylene glycol 3350 17 17 g PO DAILY 09/18/24 01/16/25 History gram/dose oral powder (Miralax) omeprazole 40 mg capsule,delayed 40 mg PO DAILY 09/19/24 01/16/25 History release rosuvastatin 10 mg tablet 10 mg PO DAILY 09/19/24 01/16/25 History mupirocin 2 % topical ointment 1 applic topical BID infection 14 10/13/24 01/16/25 Rx days #15 grams New Prescriptions to Start Prescriptions: Allergies Allergy/AdvReac Type Severity Reaction Status Date / Time Sulfa (Sulfonamide Allergy Mild Hives Verified 12/15/24 10:58 Antibiotics) (SULFA (SULFONAMIDE ANTIBIOTICS)) Exam Data for Last 24 hours Vital signs and Labs for Last 24 Hours: Pulse Resp BP Pulse Ox O2 Del Method 74 18 129/49 L 95 Room Air 01/16/25 09:47 01/16/25 09:47 01/16/25 09:47 01/16/25 09:47 01/16/25 09:47 I & O for Last 24 hours: Intake & Output 01/13/25 01/14/25 01/15/25 01/16/25 23:59 23:59 23:59 23:59 Weight 260 lb Constitutional Constitutional: no acute distress *Routine HEENT Exam Head: Present normocephalic Eye: Present PERRL ENT: Present mucous membranes moist *Routine Neck Exam Neck: Present supple *Routine Respiratory Exam Respiratory: Present CTA bilaterally *Routine Cardiovascular Exam Cardiovascular: Present RRR *Routine Abdominal Exam Abdominal: Present soft *Routine Rectal Exam Rectal:: deferred *Routine Genitalia Exam Genitalia:: deferred Routine Back/Spine/Pelvis Exam Back/Spine: Present pain with flexion *Routine Skin Exam Skin: Present intact, dry and warm *Routine Neurological Exam Neurological: Present alert and oriented X3 Routine Psychiatric Exam Psychiatric: Present normal affect and normal thought process Assessment and Plan *Assessment and plan (1) Degenerative disc disease: Status: Acute Category: Medical Plan Patient has been instructed to contact the clinic with any concerns before the next appointment. Dr. Carey has reviewed this note and agrees with this plan of care. This note was dictated using voice recognition software and make contain errors or omissions. All injections are used with Lidocaine, Bupivacaine and dexamethasone. Occasionally urine drug screen is needed to verify patient's compliance with our office pain contract. This is ordered based off specific treatments related to chronic pain with the potential to abuse certain medications.
--- NOTE | 2025-01-16 10:21 | P.PCN_ITS ---
Procedure Date: 01/16/25 Time: 09:12 Anesthesiologist:: Sadaf Proctor APRN Complications:: None Pre-procedure Diagnosis:: Degenerative disc disease of lumbar spine, chronic pain syndrome Post-procedure Diagnosis:: Same Indications for Procedure:: Patient is a pleasant 84-year-old male who presents today for intrathecal refill and reprogram. Today he rates his pain a 6 out of 10. He denies any new trauma or injury from our last visit. He is currently managed with fentanyl 1000 mcg/mL with a daily dose of 370.5 mcg/day and bupivacaine 5 mg/mL with a daily dose of 1.85 to 3 mg/day. He denies any side effects or need for any additional adjustment. His Levi has been reviewed and is appropriate. Physical Exam: General: Alert and oriented x3, no acute distress, pleasant and cooperative Lungs: Respirations even and unlabored, symmetrical chest expansion Eyes: PERRL Musculoskeletal: Flexion and extension of lumbar [spine] somewhat guarded secondary to pain, [antalgic gait noted] Neurological: Speech clear, no gross sensory deficit Procedure Details:: Informed consent was obtained and the risk and benefits of the procedure were explained to the patient. The patient had noninvasive monitoring placed including noninvasive blood pressure cuff and pulse oximeter. Patient's pump was interrogated. The area over the pump was cleansed with chlorhexidine as a cleansing solution. In sterile fashion the pump was accessed with a 22-gauge needle. Approximately 7.6 mls of the pump solution was removed and discarded appropriately. The pump was then refilled with 20 mL's of fentanyl 1000 mcg/mL and bupivacaine 5 mg/mL. The needle was withdrawn and a bandage was placed over the puncture site. The infusion rate was reprogrammed and continued at its current dose. The patient tolerated well with no complication. Plan and Disposition:: Patient tolerated the procedure well with no complications and was discharged neurologically intact. Patient will return to clinic on or before their next intrathecal refill date. We will see the patient back in the clinic at the next intrathecal refill. Patient has been instructed to contact the clinic with any concerns before the n ext appointment. Dr. Carey has reviewed this note and agrees with this plan of care. This note was dictated using voice recognition software and make contain errors or omissions. -- It Is medically necessary for this patient to continue to have their intrathecal pump refilled at regular intervals. This patient had an intrathecal pain pump implanted after meeting criteria of chronic intractable pain for greater than 3 months and failing conservative treatments. Patient has committed and been compliant to the treatment plan and all planned follow up care. Since implantation of the intrathecal pain pump, the patient has had decreased pain and been more functional. Oral medications have been reduced including intake of oral opioids. Patient continues to do well with intrathecal therapy with decrease in pain symptoms and increase in functional status. Stopping intrathecal medications can lead to life threatening withdrawal, seizures, cardiac arrest, severe pain, and possible . Pumps that are not refilled at regular intervals can be damages and cause and need for replacement. We continually titrate dose and concentration to optimize pain relief and function. We are limited in concentration for certain drugs to safely deliver medications through the pump and stay within the recommendations from the Polyanalgesic Consensus Committee Guidelines. Depending on dose and concentration these pumps may need to be refilled sooner than 3 months as we titrate. A UDS is needed to verify patient's compliance with our office pain contract. This is ordered based off specific treatments related to chronic pain with the potential to abuse certain medications.
== END 2025-01-16 09:59 | disposition home or self-care (01) ==
LOC: SC.PAIN 09:06
PROVIDERS: PCP Family Medicine; Visit Provider Nurse Practitioner Family
DX: M51.369 Other intervertebral disc degeneration, lumbar region without mention of lumbar back pain or lower extremity pain (principal); G89.4 Chronic pain syndrome; I25.10 Atherosclerotic heart disease of native coronary artery without angina pectoris; F32.A Depression, unspecified; E78.5 Hyperlipidemia, unspecified; I87.2 Venous insufficiency (chronic) (peripheral); Z88.2 Allergy status to sulfonamides; Z79.82 Long term (current) use of aspirin; Z79.899 Other long term (current) drug therapy
CPT/HCPCS: 62370

== ENCOUNTER 2025-02-17 13:31 | Day surgery (SDC) | payer MEDICARE, SELFPAY ==
[2025-02-17 13:47] VITALS: BP 125/75; PULSE 68; RESP 18; O2SAT 95; BMI 36.6
[2025-02-17 14:11] VITALS: BP 114/58; PULSE 65; RESP 16; O2SAT 96
[2025-02-17 14:12] VITALS: BP 125/75; PULSE 68; RESP 18; O2SAT 95
--- NOTE | 2025-02-17 14:26 | P.PCN_ITS ---
Procedure Date: 02/17/25 Time: 14:00 Anesthesiologist:: Rashel Solo CRNA Complications:: None Pre-procedure Diagnosis:: Degenerative disc lumbar spine multilevels. Lumbar radiculopathy. Lumbar spondylosis. Multilevel lumbar facet arthropathy. Lumbar postlaminectomy syndrome. Chronic pain syndrome. Post-procedure Diagnosis:: Same. Indications for Procedure:: Patient is a pleasant 84-year-old male who comes our clinic today for intrathecal pain pump interrogation and refill. Patient describes low lumbar back pain as constant, dull, aching. Patient also reports some bilateral hip and leg radicular symptoms at times. Overall, he is doing very well with his current settings. He is not requesting any changes. He is not reporting side effects or complications. We currently managed the patient with intrathecal fentanyl 1000 mcg/mL and bupivacaine 5 mg/mL. Fentanyl rate is 370.5 mcg/day. The bupivacaine rate is 1.8523 milligrams per day. Patient is awake alert [place] x 3. In no acute distress. Flexion-extension lumbar spine somewhat guarded secondary to pain. Deep tendon reflexes upper lower extremities normal. Motor strength upper and lower extremities normal. There is no gross sensory deficit. Patient presents in a wheelchair today due to the distance from the parking lot. However, he does report he is ambulatory at home. Procedure Details:: Details of the procedure explained to the patient. The patient taken procedure and placed in the sitting position. They over the palms cleansed using chlorhexidine as a cleansing solution. The pump was interrogated. The pump was accessed with ease using a 22-gauge inch and half needle. 7.2 mL of solution was withdrawn and discarded properly. The pump was then filled with 20 cc of a solution containing fentanyl 1000 mcg/mL and bupivacaine 5 mg/mL. The pump rate will remain the same. Fentanyl 370.5 mcg/day. Bupivacaine 1.85 to 3 mg/day. Patient tolerated procedure without difficulty. There are no complications. Plan and Disposition:: Patient was discharged without incident.
== END 2025-02-17 14:11 | disposition home or self-care (01) ==
LOC: SC.PAIN 13:32
PROVIDERS: PCP Family Medicine; Visit Provider Nurse Anesthetist, Certified Registered
DX: M51.16 Intervertebral disc disorders with radiculopathy, lumbar region (principal); Z45.1 Encounter for adjustment and management of infusion pump; M47.26 Other spondylosis with radiculopathy, lumbar region; M96.1 Postlaminectomy syndrome, not elsewhere classified; G89.4 Chronic pain syndrome; I25.10 Atherosclerotic heart disease of native coronary artery without angina pectoris; F32.A Depression, unspecified; E78.5 Hyperlipidemia, unspecified; Z88.2 Allergy status to sulfonamides; Z79.899 Other long term (current) drug therapy; Z79.82 Long term (current) use of aspirin
CPT/HCPCS: 62370

== ENCOUNTER 2025-04-20 08:26 | Outpatient (CLI) | payer MEDICARE, SELFPAY ==
--- OUTSIDE RECORDS SUMMARY | 2024-02-18 09:45 | XMS_ITS ---
Author Organization [facility] Address [address] [facility] [address] [place] [id number] Care Team Providers Care Sexual Assault Nurse Name Role Phone Dorene Haynes Primary Care Provider Tari Barrera Unavailable [phone] Allergies Allergen (clinical drug ingredient) Drug/Non Drug Allergy documented on EMR Reaction Allergy Type Onset Date Status Substance with sulfonamide structure and antibacterial mechanism of action (substance) Sulfa Antibiotics rash Drug Allergy Active REASON FOR VISIT removal of roselyn in head, follow up ER at [facility] Medications Medication SIG (Take, Route, Frequency, Duration) Notes Start Date End Date Status Nitroglycerin 0.4 mg DISSOLVE 1 TABLET UNDER THE TONGUE EVERY 5 MINUTES NEEDED FOR CHEST PAIN. DO NOT EXCEED A TOTAL OF 3 DOSES IN 15 MINUTES. IF NO RELIEF AFTER 3 DOSES CALL 911/GO TO ER; Duration: 5 Unknown DULoxetine HCl 60 MG 1 cap(s) orally onc e a day Unknown busPIRone HCl 10 MG 1/2 tab orally 2 kati es a day Unknown Melatonin 10 MG 1 tab(s) orally once a day (at bedtime) Unknown Ipratropium-Albuterol 3/ 0.5/ 3 ML 3 ML TID 08/22/2022 Unknown Plavix 75 MG 1 tab(s) orally once a day; Duration: 30 day(s) Not-Taking metOLazone 5 MG 1 tablet Orally Once a day 08/09/2023 Not-Taking rOPINIRole HCl 1 MG 1 tab(s) orally qhs; Duration: 30 day(s) Not-Taking Zolpidem Tartrate ER 12.5 MG 1 tab(s) orally once a day (at bedtime) 09/16/2021 Not-Taking Valium 5 MG 1/2 -1 tab(s) orally two times a day as needed 08/09/2023 Unknown Trintellix 5 MG TAKE ONE TABLET BY MOUTH EVERY DAY; Duration: 30 days Active HYDROcodone-Acetaminophen 10-325 MG 1 tab(s) orally every 6 hours prn 07/03/2023 Active Reglan 5 MG 1 tablet before meal s Orally Twice a day; Duration: 30 day(s) Not-Taking Tamsulosin HCl 0.4 mg TAKE TWO CAPSULES BY MOUTH EVERY DAY; Duration: 90 Active Dutasteride 0.5 mg TAKE ONE CAPSULE BY MOUTH EVERY DAY; Duration: 90 Active Spironolactone 25 MG 1 tablet Orally; Duration: 30 day(s) Active Rosuvastatin Calcium 20 MG 1/2 tab(s) or ally once a day Active Aspirin Low Dose 81 MG 1 tab(s) orally o nce a day Active Furosemide 40 mg TAKE ONE TABLET BY MOUTH EVERY DAY; Duration: 30 Active Vital Signs Weight 277.6 lbs 02/18/2024 Blood pressure systolic 110 mm Hg 02/18/20 24 Blood pressure diastolic 60 mm Hg 024 Heart Rate 75 /min 02/18/2024 Height 69 in 02/18/2024 BMI 40.99 kg/m2 02/18/2024 Encounters Encounter Location Date Provider Diagnosis [facility] [address], [place] [id number] 02/18/2024 Tari Barrera Removal of roselyn Z48.02 Assessments Encounter Date Diagnosis (ICD Code) Assessment Notes Treatment Notes Treatment Clinical Notes Section Notes 02/18/2024 Removal of roselyn (ICD-10 - Z48.02) wound care Plan Of Treatment Treatment Notes Assessment Notes Removal of roselyn wound care Next Appt Details Follow Up: prn, Reason: Progress Notes * Damir LARSON RDOB: [birth year] (84 yo M)Acc No.[id number]:02/18/2024 Progress Notes Patient: Damir GONZALES Provider: ARCHIE Hoover :1940 A ge:83 Y S ex:Male Date:02/18/2024 Address:[facility] [address], [place], [id number] Pcp:Dorene Haynes Subjective: * Chief Complaints: * 1 . removal of roselyn in head, follow up ER at [facility]. * HPI: D ermatology: Staple Removal P t presents today to have roselyn removed from the left side of his head above the left ear. Pt was seen and treated at [facility] ER on 02/07. Pt sts he does not have any other conercns or complaints at this time. 02/08/2024 [facility] ER note reviewed and as follows: General Chief complaint: Fall Stated complaint: AO 02/07 1730 Fall cut on left side of head Time Seen by Provider: 02/08/24 18:26 Mode of Arrival: Wheelchair Source of Information: Patient Limitations: No Limitations Description of Symptoms (Recalled from ER Triage Doc. by RN): pt states he was walking and he slipped on his socks. pt states he lost his balance and hit the L side of his head above his ear on the trim of a door frame. pt denies LOC. pt presents with a lac that is no longer bleeding. pt states the area surrounding the lac is painful 4/10. pt denies neck/back pain. pt takes a daily baby ASA History of Present Illness HPI narrative: 83-year-old male presents to the ER with concerns of mechanical fall calling left head laceration. 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 Patient denies loss of consciousness, denies neck pain, denies headache. He has no numbness, tingling, or weakness, he denies pain anywhere else in the body. Patient states his head initially bled quite a bit but has slowed. He does take daily aspirin but no other blood thinners. No other complaints at this time. Medical Decision Narrative: In summary, this 83-year-old male presents to the emergency department today with left scalp laceration after fall. On initial evaluation patient is hemodynamically stable, afebrile, GCS 15, neurologically intact,, no tenderness of the C-spine, no deformity of the skull, hemostatic wound as described in physical exam is present, remainder of exam benign. Differential diagnosis includes but is not limited to intracranial bleed, skull fracture, laceration, foreign body, C-spine injury. Based on these concerns, I ordered CT imaging. Topical analgesia was applied to the wound. Wound was repaired. See procedure note for details. Tdap administered. CT imaging personally interpreted does not demonstrate acute traumatic injury in the head or C-spine. See radiology read for final interpretation. Patient is appropriate for discharge at this time. Patient was given instructions on symptomatic management, follow up instructions, and return precautions for the emergency department. Patient indicated understanding and was discharged in stable condition. . E ndocrinology: ER note reviewed. * ROS: A LLERGY: no C ough. n o R unny nose. D ERMATOLOGY: no R vamsi. n o H kahlil. U ROLOGY: no D ifficulty urinating. n o B lood in urine. * Medical History: H LP, GERD, Arthritis , Headaches , Enlarged Prostate , Sleep Apnea, Neuropathy, ASCVD, NSTEMI 09/30/15 - [facility], Vertigo. * Surgical History: C -spine laminectomy x 2 , Lumbar surgery x 4 for spinal stenosis , Appendectomy , Hemorrhoid surgery , Brain surgery-shunt placed in the back of pts head 18 y.o., 2 stents in heart , Eye Surgery , cardiac stent placed-[facility]-Dr King 09/30/15, Implanted pain pump 01/2017, C-scope , EGD/Dr. Delarosa/moderate esophageal dysmotility; bile reflux gastropathy 02/14/2021, C 2-3 laminectomy and fusion/ Dr. Doty 09/2021, Laproscopic Left Radical Nephrectomy - Renal Cell Carcinoma/ Dr. Tracy 06/05/23. * Hospitalization/Major Diagno stic Procedure: s ee above , [facility] ER - Laceration November 2017. * Family History: F ather: 70 yrs, emphysema. M other: 99 yrs, old age. 3 brother(s) , 4 sister(s) . 1 son(s) , 1 daughter(s) . . * Social History: C URRENT TOBACCO USE S moking Status: Patient does NOT smoke. C affeine: yes, frequency: coffee. Exercise: no. Home smoke detector use: yes. Past smoking status: no. Alcohol: No. * Medications: T aking Spironolactone 25 MG Tablet 1 tablet Orally , Taking Rosuvastatin Calcium 20 MG Tablet 1/2 tab(s) orally once a day , Taking Aspirin Low Dose 81 MG Tablet Delayed Release 1 tab(s) orally once a day , Taking Furosemide 40 mg Tablet TAKE ONE TABLET BY MOUTH EVERY DAY , Taking Tamsulosin HCl 0.4 mg Capsule TAKE TWO CAPSULES BY MOUTH EVERY DAY , Taking Dutasteride 0.5 mg Capsule TAKE ONE CAPSULE BY MOUTH EVERY DAY , Taking Trintellix 5 MG Tablet TAKE ONE TABLET BY MOUTH EVERY DAY , Taking HYDROcodone-Acetaminophen 10-325 MG Tablet 1 tab(s) orally every 6 hours prn , Not-Taking Reglan 5 MG Tablet 1 tablet before meals Orally Twice a day , Not- Taking Plavix 75 MG Tablet 1 tab(s) orally once a day , Not-Taking metOLazone 5 MG Tablet 1 tablet Orally Once a day , Not-Taking rOPINIRole HCl 1 MG Tablet 1 tab(s) orally qhs , Not-Taking Zolpidem Tartrate ER 12.5 MG Tablet Extended Release 1 tab(s) orally once a day (at bedtime) , Unknown Valium 5 MG Tablet 1/2 -1 tab(s) orally two times a day as needed , Unknown Melatonin 10 MG Tablet 1 tab(s) orally once a day (at bedtime) , Unknown Ipratropium-Albuterol 3/ 0.5/ 3 ML 3 ML TID , Unknown Nitroglycerin 0.4 mg Tablet Sublingual DISSOLVE 1 TABLET UNDER THE TONGUE EVERY 5 MINUTES NEEDED FOR CHEST PAIN. DO NOT EXCEED A TOTAL OF 3 DOSES IN 15 MINUTES. IF NO RELIEF AFTER 3 DOSES CALL 911/GO TO ER , Unknown DULoxetine HCl 60 MG Capsule Delayed Release Particles 1 cap(s) orally once a day , Unknown busPIRone HCl 10 MG Tablet 1/2 tab orally 2 times a day , Medication List reviewed and reconciled with the patient * Allergies: S ulfa Antibiotics: rash. Objective: * Vitals: W t:277.6, Temp:97.7, BP:110/60, HR:75, O2 Sat:95% on RA, Nurse:, Ht: 69, BMI:40.99. * Examination: G eneral Examination: General Appearance: NAD, appears healthy, alert, pleasant. H eart: RRR. L ungs: CTAB A&P. 8 roselyn removed from the left top of the head with the assistance of Dr. Michele. Assessment: * Assessment: 1. R emoval of roselyn - Z48.02 (Primary) Plan: * Treatment: * Procedure Codes: G 2211 Complex e/m visit add on * Follow Up: p rn * Images: Billing Information: * Visit Code: 77799 Office Visit, Est Pt., Level 3. * Procedure Codes: G2211 Complex e/m visit add on. * Electronic signature of Stacey Barrera APRN on 04/20/2025 at 08:36 AM EDT Sign off status: Pending * Provider: ARCHIE Hoover Date: 0 02/18/2024 Generated for Trina wright/Eb on: 08:36 AM EDT History and Physical Notes * HPI (History of Present Illness) Category Sub-Category Detail Notes Category Not es Dermatology Staple Removal Pt presents to y to have roselyn removed from the left side of his head above the left ear. Pt was seen and treated at [facility] ER on 02/07. Pt sts he does not have any other conercns or complaints at this time 02/08/2024 [facility] ER note reviewed and as follows: General Chief complaint: Fall Stated complaint: AO 02/07 1730 Fall cut on left side of head Time Seen by Provider: 02/08/24 18:26 Mode of Arrival: Wheelchair Source of Information: Patient Limitations: No Limitations Description of Symptoms (Recalled from ER Triage Doc. by RN): pt states he was walking and he slipped on his socks. pt states he lost his balance and hit the L side of his head above his ear on the trim of a door frame. pt denies LOC. pt presents with a lac that is no longer bleeding. pt states the area surrounding the lac is painful /10. pt denies neck/back pain. pt takes a daily baby ASA History of Present Illness HPI narrative: 83-year-old male presents to the ER with concerns of mechanical fall calling left head laceration. 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 Patient denies loss of consciousness, denies neck pain, denies headache. He has no numbness, tingling, or weakness, he denies pain anywhere else in the body. Patient states his head initially bled quite a bit but has slowed. He does take daily aspirin but no other blood thinners. No other complaints at this time. Medical Decision Narrative: In summary, this 83-year-old male presents to the emergency department today with left scalp laceration after fall. On initial evaluation patient is hemodynamically stable, afebrile, GCS 15, neurologically intact,, no tenderness of the C-spine, no deformity of the skull, hemostatic wound as described in physical exam is present, remainder of exam benign. Differential diagnosis includes but is not limited to intracranial bleed, skull fracture, laceration, foreign body, C-spine injury. Based on these concerns, I ordered CT imaging. Topical analgesia was applied to the wound. Wound was repaired. See procedure note for details. Tdap administered. CT imaging personally interpreted does not demonstrate acute traumatic injury in the head or C-spine. See radiology read for final interpretation. Patient is appropriate for discharge at this time. Patient was given instructions on symptomatic management, follow up instructions, and return precautions for the emergency department. Patient indicated understanding and was discharged in stable condition. Endocrinology ER note review ed Examination Category Sub-Category Detail Notes Category Not es General Examination Heart: RRR 8 staple s removed from the left top of the head with the assistance of Dr. Michele Lungs: CTAB A&P General Appearance: NAD, appears healthy , alert, pleasant
--- OUTSIDE RECORDS SUMMARY | 2024-04-03 10:20 | XMS_ITS ---
Author Organization [facility] Address [address] [facility] [address] [place] [id number] Care Team Providers Care Analysis Or Research Safety Inspector Name Role Phone Dorene Haynes Primary Care Provider REASON FOR VISIT pnemonia shot Medications Medication SIG (Take, Route, Frequency, Duration) Notes Start Date End Date Status Melatonin 10 MG 1 tab(s) orally once a day (at bedtime) Unknown Ipratropium-Albuterol 3/ 0.5/ 3 ML 3 ML TID 08/22/2022 Unknown Nitroglycerin 0.4 mg DISSOLVE 1 TABLET U NDER THE TONGUE EVERY 5 MINUTES NEEDED FOR CHEST PAIN. DO NOT EXCEED A TOTAL OF 3 DOSES IN 15 MINUTES. IF NO RELIEF AFTER 3 DOSES CALL 911/GO TO ER; Duration: 5 Unknown DULoxetine HCl 60 MG 1 cap(s) orally onc e a day Unknown busPIRone HCl 10 MG 1/2 tab orally 2 kati es a day Unknown metOLazone 5 MG 1 tablet Orally Once a day 08/09/2023 Unknown rOPINIRole HCl 1 MG 1 tab(s) orally qhs; Duration: 30 day(s) Unknown Zolpidem Tartrate ER 12.5 MG 1 tab(s) or ally once a day (at bedtime) 09/16/2021 Unknown Valium 5 MG 1/2 -1 tab(s) orally two times a day as needed 08/09/2023 Unknown Plavix 75 MG 1 tab(s) orally once a day; Duration: 30 day(s) Unknown Tamsulosin HCl 0.4 mg TAKE TWO CAPSULES BY MOUTH EVERY DAY; Duration: 90 Unknown Dutasteride 0.5 mg TAKE ONE CAPSULE BY MOUTH EVERY DAY; Duration: 90 Unknown Trintellix 5 MG TAKE ONE TABLET BY MOUTH EVERY DAY; Duration: 30 days Unknown HYDROcodone-Acetaminophen 10-325 MG 1 tab(s) orally every 6 hours prn 07/03/2023 Unknown Reglan 5 MG 1 tablet before meal s Orally Twice a day; Duration: 30 day(s) Unknown Spironolactone 25 MG 1 tablet Orally; Duration: 30 day(s) Unknown Rosuvastatin Calcium 20 MG 1/2 tab(s) or ally once a day Unknown Aspirin Low Dose 81 MG 1 tab(s) orally o nce a day Unknown Furosemide 40 mg TAKE ONE TABLET BY MOUTH EVERY DAY; Duration: 30 Unknown Immunizations Vaccine Route Administration Date Status Comme nts Prevnar (PCV20) IM Intramuscular 04/03/2024 Administered Encounters Encounter Location Date Provider Diagnosis [facility] [address] [facility] [address] [place], [place] [address] [phone] 04/03/2024 Dorene Haynes Encounter for immunization Z23 Assessments Encounter Date Diagnosis (ICD Code) Assessment Notes Treatment Notes Treatment Clinical Notes Section Notes 04/03/2024 Encounter for immunization (ICD-10 - Z23) Plan Of Treatment No Information Progress Notes * Damir LARSON RDOB: [birth year] (84 yo M)Acc No.[id number]:04/03/2024 Patient: Damir GONZALES Provider: Dorene Haynes M.D. :1940 A ge:83 Y S ex:Male Date:04/03/2024 Address:[facility] [address], [id number] Subjective: * Chief Complaints: * 1 . Pnemonia shot. * Medical History: * Medications: U nknown Spironolactone 25 MG Tablet 1 tablet Orally , Unknown Rosuvastatin Calcium 20 MG Tablet 1/2 tab(s) orally once a day , Unknown Aspirin Low Dose 81 MG Tablet Delayed Release 1 tab(s) orally once a day , Unknown Furosemide 40 mg Tablet TAKE ONE TABLET BY MOUTH EVERY DAY , Unknown Tamsulosin HCl 0.4 mg Capsule TAKE TWO CAPSULES BY MOUTH EVERY DAY , Unknown Dutasteride 0.5 mg Capsule TAKE ONE CAPSULE BY MOUTH EVERY DAY , Unknown Trintellix 5 MG Tablet TAKE ONE TABLET BY MOUTH EVERY DAY , Unknown HYDROcodone-Acetaminophen 10-325 MG Tablet 1 tab(s) orally every 6 hours prn , Unknown Reglan 5 MG Tablet 1 tablet before meals Orally Twice a day , Unknown Plavix 75 MG Tablet 1 tab(s) orally once a day , Unknown metOLazone 5 MG Tablet 1 tablet Orally Once a day , Unknown rOPINIRole HCl 1 MG Tablet 1 tab(s) orally qhs , Unknown Zolpidem Tartrate ER 12.5 MG Tablet Extended [...] List reviewed and reconciled with the patient Objective: * Vitals: Assessment: * Assessment: 1. E ncounter for immunization - Z23 (Primary) Plan: * Treatment: * Immunizations: Prevnar (PCV20) : 0.5 mL (Route: Intramuscular) given by CHRISTI Garcia on Right Deltoid (Encounter for immunization) * Images: Billing Information: * Visit Code: * Procedure Codes: * Electronic signature of Dorene Haynes MD on 04/20/2025 at 08:36 AM EDT Sign off status: Pending * Provider: Dorene Haynes M.D. Date: Generated for Trina wright/Chris/Shamar on: 08:36 AM EDT
--- OUTSIDE RECORDS SUMMARY | 2024-06-03 12:00 | XMS_ITS ---
Author [facility] Address [address] [facility] [address] [place] [phone] Care Team Providers Care Db2 Developer Name Role Phone Dorene Haynes Primary Care Provider Tari Barrera [phone] Allergies Allergen (clinical drug ingredient) Drug/Non Drug Allergy documented on EMR Reaction Allergy Type Onset Date Status Substance with sulfonamide structure and antibacterial mechanism of action (substance) Sulfa Antibiotics rash Drug Allergy Active REASON FOR VISIT [facility] VISIT Medications Medication SIG (Take, Route, Frequency, [...] W/U Status Risk Notes Problem Neurogenic bladder (350703219) Neurogenic bladder (N31.9) Active confirmed Vital Signs Weight 275.2 lbs 06/03/2024 Blood pressure systolic 124 mm Hg 06/03/20 24 Blood pressure diastolic 57 mm Hg 024 Heart Rate 78 /min 06/03/2024 Respiratory Rate 18 /min 06/03/2024 Encounters Encounter Location Date Provider Diagnosis [place] [place] [phone] 06/03/2024 Tari Barrera Chronic pain syndrom e [...] Damir LARSON RDOB: [birth year] (84 yo M)Acc No.[id number]:06/03/2024 Progress Notes Patient: Damir GONZALES Provider: ARCHIE Hoover :1940 A ge:83 Y S ex:Male Date:06/03/2024 Address:[facility] [address], [facility], [id number] Pcp:Dorene Haynes Subjective: * Chief Complaints: * 1 . [facility] VISIT. * HPI: H PI: For routine Half-Way visit; chart reviewed and patient examined; see PORSCHE, Progress Note by Dr. Haynes from visit 08/01/2023 as follows: ADMSSION H&P HPI: Mr. Larson is an 83-year-old white male who was admitted to [place] for subacute rehab following recent admission to [...] Neurogenic bladder PLAN: He is admitted to [place] for subacute rehab following his recent T10 [...] Diagno stic Procedure: s ee above , [facility] - Laceration November 2017, [place] after [...] 39, 48, 62,78, O2 Sat:92%, Nurse:reviewed/recorded by [facility], RR:18. * Examination: G eneral Examination: General [...] * Images: Billing Information: * Visit Code: 39351 subs. level 4. * Procedure Codes: * Electronic signature of Stacey Barrera APRN on 04/20/2025 at 08:37 AM EDT Sign off status: Pending * Provider: ARCHIE Hoover Date: 1 08/04/2023 Generated for Trina wright/Chris/Shamar on: 08:37 AM EDT History and Physical Notes * HPI (History of Present Illness) Category Sub-Category Detail Notes Category Not es HPI For routine Half-Way visit; chart reviewed and patient examined; see ROS, Progress Note by Dr. Haynes from visit 08/01/2023 as follows: ADMSSION H&P HPI: Mr. Larson is an 83-year-old white male who was admitted to [place] for subacute rehab following recent admission to [...] Neurogenic bladder PLAN: He is admitted to [place] for subacute rehab following his recent T10 [...] visiting with and eating a pimento cheese [facility] Neurologic Exam: alert and oriented
--- OUTSIDE RECORDS SUMMARY | 2024-07-28 10:45 | XMS_ITS ---
Author [facility] Address [address] [facility] [address] [place] [phone] Care Team Providers Care Breast Surgeon Name Role Phone Dorene Haynes Primary Care Provider Tari Barrera Unavailable [phone] Allergies Allergen (clinical drug ingredient) Drug/Non Drug Allergy documented on EMR Reaction Allergy Type Onset Date Status Substance with sulfonamide structure and antibacterial mechanism of action (substance) Sulfa Antibiotics rash Drug Allergy Active Reason For Referral Diagnosis 1 Cellulitis and absce ss (L03.90) [facility] Referring Provider First Name Tari Referring Provider Last Name Holly Referring Provider Speciality Family Pra ctice Referred Provider Tonia Sorto Referred Provider Specialty Podiatry General Notes Tari Barrera 07/28/2024 3:26:14 PM > left toe infectionDebbie Brynn 07/28/2024 3:28:37 PM > faxed to [facility] Podiatry, Luann Lewis 07/31/2024 9:39:55 AM > 09/01/2024 at 02:00pm Referral Priority Routine REASON FOR VISIT sore on toe Medications Medication SIG (Take, Route, Frequency, Duration) Notes Start Date End Date Status HYDROcodone-Acetaminophen 10-325 MG 1 tab(s) orally every 6 hours prn 06/02/2024 Active Dutasteride 0.5 mg TAKE ONE CAPSULE BY MOUTH EVERY DAY; Duration: 90 Active Rosuvastatin Calcium 20 MG 1/2 tab(s) or ally once a day Active Aspirin Low Dose 81 MG 1 tab(s) orally o nce a day Active Tamsulosin HCl 0.4 mg TAKE TWO CAPSULES BY MOUTH EVERY DAY Active Erythromycin 250 MG as directed Orally tid Active Metamucil 0.36 GM as directed Orally 1 pkg qd Active Acetaminophen 500 MG 2 tablet as needed Orally every 6 hrs Active Bethanechol Chloride 25 MG 1 tablet 1 ho ur before or 2 hours after meals Orally Three times a day Active Trintellix 5 MG TAKE ONE TABLET BY M OUTH EVERY DAY Active Methocarbamol 1000 MG 1 tablet Orally Fo ur times a day Active Furosemide 40 mg TAKE ONE TABLET BY M OUTH EVERY DAY Active Spironolactone 25 MG 1 tablet Orally Active MiraLax 17 GM/SCOOP 1 scoop mixed with 8 ounces of fluid Orally Once a day Active Omeprazole 40 MG 1 capsule 1/2 to 1 h our before morning meal Orally Once a day Active Ondansetron 4 MG 1 tablet on the tong ue and allow to dissolve Orally q6h prn Active Senna Plus 8.6-50 MG 1 tablet as needed Orally at HS Active oxyCODONE HCl 5 MG 1 tab(s) Orally ever y 4 hrs prn 06/04/2024 Active Tums 500 MG 1 tablet Orally qid prn Active Tylenol PM Extra Strength 500-25 MG 1 tablet at bedtime as needed Orally Once a day at HS Active Cephalexin 500 MG 1 capsule Orally haroldo ry 8 hrs; Duration: 10 day(s) 07/28/2024 Active Vital Signs Weight 270.8 lbs 07/28/2024 Blood pressure systolic 120 mm Hg 07/28/19 25 Blood pressure diastolic 68 mm Hg 025 Heart Rate 96 /min 07/28/2024 Height 69 in 07/28/2024 BMI 39.99 kg/m2 07/28/2024 Encounters Encounter Location Date Provider Diagnosis [facility] [address] [facility] [address] [place], [place] [phone] 07/28/2024 Tari Barrera Cellulitis and abscess L03.90 and Leg edema R60.0 Assessments Encounter Date Diagnosis (ICD Code) Assessment Notes Treatment Notes Treatment Clinical Notes Section Notes 07/28/2024 Cellulitis and abscess (ICD-10 - L03.90) warm soaks and dressing changes; to elevated the foot; present and will do the dressing changes; dressing change while in the office 07/28/2024 Leg edema (ICD-10 - R60.0) pt has been sporatically taking spironolactone due to urinary frequency; encouraged to take daily and he agrees to do so Plan Of Treatment Medication Medication Name Sig Start Date Stop Date Notes Furosemide 40 mg TAKE ONE TABLET BY MOUTH EVERY DAY Spironolactone 25 MG 1 tablet Orally Cephalexin 500 MG 1 capsule Orally haroldo ry 8 hrs; Duration: 10 day(s) 07/28/2024 Treatment Notes Assessment Notes Cellulitis and abscess warm soaks and dr reynolds changes; to elevated the foot; present and will do the dressing changes; dressing change while in the office Leg edema pt has been sporatic ally taking spironolactone due to urinary frequency; encouraged to take daily and he agrees to do so Referrals Referral Date Details 07/28/2024 07/28/2024, Tonia potts Next Appt Details Follow Up: 07/31/2024, Reason: Progress Notes * LENA Damir RDOB: [birth year] (84 yo M)Acc No.[id number]:07/28/2024 Progress Notes Patient: Damir GONZALES Provider: ARCHIE Hoover :1940 A ge:83 Y S ex:Male Date:07/28/2024 Address:[facility] [address], [id number] Pcp:Dorene Haynes Subjective: * Chief Complaints: * 1 . Sore on toe. * HPI: A nkle/Foot: 83 year old male presents with c/o Pain P t sts he has a spot o n the left middle toe. Pt sts the foot is swollen and sts the sore has been there for about 4 days now. Pt w ould like refedrral ot the youth officer. * ROS: R ESPIRATORY: no S hortness [...] daytime; needs to be in/out cathed at ; discussed with his nurse as to the preferred timing. V oiding dysfunction? yes. 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 Alcohol: No. * Medications: T aking oxyCODONE HCl 5 MG Tablet 1 tab(s) Orally every 4 hrs prn , Taking Tylenol PM Extra Strength 500-25 MG Tablet [...] directed Orally 1 pkg qd , Taking Erythromycin 250 MG Tablet Delayed Release as directed Orally tid , Taking Bethanechol Chloride 25 MG Tablet 1 [...] tab(s) orally every 6 hours prn , Taking Dutasteride 0.5 mg Capsule TAKE ONE CAPSULE BY MOUTH EVERY DAY , Medication List reviewed and reconciled with the patient * Allergies: S ulfa Antibiotics: rash. Objective: * Vitals: W t:270.8, Temp:98.3, BP:120/68, HR:96, O2 Sat:97% on RA, Nurse:CHRISTI, Ht: 69, BMI:39.99. * Examination: G eneral Examination: General Appearance: NAD, appears healthy, alert. H eart: RRR. L ungs: CTAB A&P. N eurologic Exam: alert and oriented. E xtremities: bilateral leg edema; left #2 toe with wound on the tip; some drainge nd edema around the toe. Assessment: * Assessment: 1. C ellulitis and abscess - L03.90 (Primary) S pecify :left second toe 2 . L eg edema - R60.0 Plan: * Treatment: 2. L eg edema Continue Spironolactone Tablet, 25 MG, 1 tablet, Orally; C ontinue Furosemide Tablet, 40 mg, TAKE ONE TABLET BY MOUTH EVERY DAY. Notes: pt has been sporatically taking spironolactone due to urinary frequency; encouraged to take daily and he agrees to do so * Procedure Codes: G 2211 Complex e/m visit add on, 3074F SYST BP LT 130 MM HG, 3078F DIAST BP < 80 MM HG * Follow Up: * Images: Billing Information: * Visit Code: 97495 Office Visit, Est Pt., Level 4. * Procedure Codes: G2211 Complex e/m visit add on. 3074F SYST BP LT 130 MM HG. 3078F DIAST BP < 80 MM HG. * Electronic signature of Stacey Barrera APRN on 04/20/2025 at 08:36 AM EDT Sign off status: Pending * Provider: ARCHIE Hoover Date: 0 07/28/2024 Generated for Trina wright/Chris/Shamar on: 1 08:36 AM EDT History and Physical Notes * HPI (History of Present Illness) Category Sub-Category Detail Notes Category Not es Ankle/Foot Pain Pt sts he has a spot on the left middle toe. Pt sts the foot is swollen and sts the sore has been there for about 4 days now. Pt would like refedrral ot the youth officer Examination Category Sub-Category Detail Notes Category Not es General Examination Heart: RRR Lungs: CTAB A&P Extremities: bilateral leg edema; left #2 toe with wound on the tip; some drainge nd edema around the toe General Appearance: NAD, appears healthy , alert Neurologic Exam: alert and oriented Consultation Request Notes Referral Date Referring Provider Referred Provider Not es 07/28/2024 Tari Barrera Sofie
--- OUTSIDE RECORDS SUMMARY | 2024-07-31 10:15 | XMS_ITS ---
Author Organization [facility] Address [address] [place] [phone] Care Team Providers Care Telephone Station Installer Name Role Phone Dorene Haynes Primary Care [...] 07/31/2024 Encounters Encounter Location Date Provider Diagnosis [facility] [address] [phone] 07/31/2024 R Jackson Haynes Friction blister T14.8XXA [...] Damir LARSON RDOB: [birth year] (84 yo M)Acc No.[id number]:07/31/2024 Progress Notes Patient: Damir GONZALES Provider: Dorene Haynes M.D. :1940 A ge:83 Y S ex:Male Date:07/31/2024 Address:[facility] [address], [address], [id number] Subjective: * Chief Complaints: * 1 . [...] heart , Eye Surgery , cardiac stent placed-[facility]-Dr King 09/30/15, Implanted pain pump 01/2017, C-scope , EGD/Dr. Delarosa/moderate esophageal dysmotility; bile reflux gastropathy 02/14/2021, C 2-3 laminectomy and fusion/ Dr. Doty 09/2021, Laproscopic Left Radical Nephrectomy - Renal Cell Carcinoma/ Dr. Tracy 06/05/23. * Hospitalization/Major Diagno stic Procedure: s ee above , [facility] ER - Laceration November 2017, [place] [...] * Images: Billing Information: * Visit Code: 95027 Office Visit, Est Pt., Level 3. * Procedure Codes: G2211 Complex e/m visit add on. 3074F SYST BP LT 130 MM HG. 3079F DIAST BP 80-89 MM HG. * Electronic signature of Dorene Haynes MD on 04/20/2025 at 08:37 AM EDT Sign off status: Pending * Provider: oDrene Haynes M.D. Date: 0 07/31/2024 Generated for Trina wright/Chris/Jean-Paulitting on: 1 08:37 AM EDT History and Physical Notes * HPI (History of Present Illness) Category Sub-Category Detail Notes Category Not es Ankle/Foot The original in jury came from trauma from scraping the toe on the threshold of his door.
--- OUTSIDE RECORDS SUMMARY | 2025-02-12 10:30 | XMS_ITS ---
Author Organization [facility] Address [address] [facility] [address] [place] [phone] Care Team Providers Care Hr Manager Name Role Phone Dorene Haynes Primary Care [...] Interpretation:189 Performing Lab: Notes/Report: Test performed by [facility] [address] [place] [address] , [address], [place] [address] Candelario Huynh MD, Fluid Power Mechanic CLIA: [id number] Vitamin B12 195 250-0140 pg/mL P-Comprehensive Metabolic Pa sage (CMP) Reviewed date:02/17/2025 08:58:38 AM Interpretation:GFR 31 (stable) Performing Lab: Notes/Report: Test performed by [facility] [address] [place] [address] , [address], [place] [address] Candelario Huynh MD, Fluid Power Mechanic CLIA: [id number] Sodium 143 135-145 mmol/L Potassium 4.5 3.5-5.3 [...] (low) Performing Lab: Notes/Report: Test performed by [facility] [address] [place] [address] , [address], [place] [address] Candelario Huynh MD, Fluid Power Mechanic CLIA: [id number] Iron 51 59-158 ug/dL P-Magnesium Reviewed date:02/17/2025 08:58:38 AM Interpretation:1.9 Performing Lab: Notes/Report: Test performed by [facility] [address] [place] [address] , [address], [place] [id number] Candelario Huynh MD, Fluid Power Mechanic CLIA: [id number] Magnesium 1.9 1.6-2.4 mg/dL P-Vitamin D, 1, 25 Dihydroxy Reviewed date:02/17/2025 08:58:38 AM Interpretation:27.8 Performing Lab: Notes/Report: Test performed by [facility] [address] [place] [address] , [address], [place] [address] Candelario Huynh MD, Fluid Power Mechanic CLIA: [id number] Vitamin D, 1, 25 Dihydroxy 27.8 19.9-79.3 [...] Status W/U Status Risk Notes Problem Anemia (858260398) Anemia (D64.9) Active confirmed Problem Vitamin D deficiency (17021813) Vitamin D deficiency (E55.9) Active confirmed Vital Signs Weight 281 lbs 02/12/2025 Blood pressure systolic 130 mm Hg 02/13/20 25 Blood pressure diastolic 74 mm Hg 025 Heart Rate 86 /min 02/12/2025 Height 69 in 02/12/2025 BMI 41.49 kg/m2 02/12/2025 Encounters Encounter Location Date Provider Diagnosis [facility] [address] [place] [id number] 02/12/2025 Dorene Haynes Anemia D64.9 ; Vitam [...] Damir LARSON RDOB: [birth year] (84 yo M)Acc No.[id number]:02/12/2025 Patient: Damir GONZALES Provider: Dorene Haynes M.D. :1940 A ge:84 Y S ex:Male Date:02/12/2025 Address:[address] [place] [address] , [place], [id number] Subjective: * Chief Complaints: * 1 . [...] Procedure: s ee above , [facility] ER - Laceration November 2017, [place] [...] G 2211 Complex e/[place], [address] CBC WITH AUTO DIFF, 55888 VENIPUNCT, ROUTINE*, 1036F TOBACCO NON-USER, G8950 PREHTN/HTN BP DOC INDCD F/U DOC, G8752 MOST RECENT SYSTOLIC BP < 140MM HG, G8754 MOST RECENT DIASTOLIC BP < 90MM HG * Follow Up: v ia phone to report test results * Images: Billing Information: * Visit Code: 67467 Office Visit, Est Pt., Level 4. * Procedure Codes: G2211 Complex e/[place]. [address] CBC WITH AUTO DIFF. 62150 VENIPUNCT, ROUTINE*. 1036F TOBACCO NON-USER. G8950 PREHTN/HTN BP DOC INDCD F/U DOC. G8752 MOST RECENT SYSTOLIC BP < 140MM HG. G8754 MOST RECENT DIASTOLIC BP < 90MM HG. * Electronic signature of Dorene Haynes MD on 04/20/2025 at 08:37 AM EDT Sign off status: Pending * Provider: Dorene Haynes M.D. Date: 0 02/12/2025 Generated for Trina wright/Chris/eTransmhorace on: 1 08:37 AM EDT History and [...]
--- OUTSIDE RECORDS SUMMARY | 2025-03-19 06:05 | XMS_ITS ---
[facility] [address] [facility] [address] [place] [phone] Care Team Providers Care Rolling Mill Operator Name Role Phone Dorene Haynes Primary Care [...] Administered Encounters Encounter Location Date Provider Diagnosis [facility] [facility] [address] [place] [phone] 03/19/2025 Dorene Haynes Encounter for immunization Z23 Assessments Encounter Date Diagnosis (ICD Code) Assessment Notes Treatment Notes Treatment Clinical Notes Section Notes 03/19/2025 Encounter for immunization (ICD-10 - Z23) Plan Of Treatment No Information Progress Notes * Daimr LARSON RDOB: [birth year] (84 yo M)Acc No.[id number]:03/19/2025 Patient: Micah BAILEYDamir Provider: Dorene Haynes M.D. :1940 A ge:84 Y S ex:Male Date:03/19/2025 Address:[facility] [place] [place], [place], [id number] Subjective: * Chief Complaints: * 1 . [...] 03/19/2025 Generated for Trina wright/Chris/Shamar on: 1 08:36 AM EDT
--- OUTSIDE RECORDS SUMMARY | 2025-04-20 08:37 | XMS_ITS | Clinical Summary ---
[facility] Address [address] [place] [address] Care Team Providers Care Melting Operator Name Role Phone Ruperto Carey MD Primary Care Provider [phone] Social History Tobacco Use Types Packs/Day Years Used Date Smoking Tobacco: Never Assessed Abuse Screen Answer Date Recorded Unsafe at Home or Work/School Not on file Feels Threatened by Someone? Not on file 02/2023 Does Anyone Keep You from Co ntacting Others or Doint Things Outside the Home? Not on file 04/02/2023 Physical Sign of Abuse Present Not on file 1 Housing Stability Answer Date Recorded Current Living Arrangements Not on file 02/2023 Potentially Unsafe Housing Conditions Not on jairo e 04/02/2023 Family and Community Support Answer Mariano e Recorded Help with Day-to-Day Activities Not on file 04/02/2023 Lonely or Isolated Not on file 04/02/2023 Employment Answer Date Recorded Do you want help finding or keeping work or a reji b? Not on file 04/02/2023 Disabilities Answer Date Recorded Concentrating, Remembering, or Making Decisions Difficulty Not on file 04/02/2023 Doing Errands Independently Difficulty Not on fi le 04/02/2023 Education Answer Date Recorded Help with school or training? Not on file Preferred Language Not on file 04/02/2023 Sex and Gender Information Value Date Recorded Sex Assigned at Not on file Legal Sex Male 11:17 AM EDT Gender Identity Not on file Sexual Orientation Not on file Plan of Treatment Health Maintenance Due Date Last Done Comments TDAP/TD VACCINES (1 - Tdap) 1957 Pneumococcal Vaccine 50+ (1 of 1 - PCV) 1988 ZOSTER VACCINE (1 of 2) 1988 RSV Vaccine - Adults (1 - 1-dose 75+ series) 4 ANNUAL PHYSICAL 10/26/2016 INFLUENZA VACCINE 01/23/2025 COVID-19 Vaccine (2023- season) 2025 Insurance [facility] MEDICARE ADVANTAGE Care Teams Melting Operator Relationship Specialty Start Date End Date Ruperto Carey MD [address] [place], [place] [phone] PCP - General Anesthesiology 10/26/16
--- OUTSIDE RECORDS SUMMARY | 2025-04-20 08:37 | XMS_ITS | Clinical Summary ---
Author Organization [facility] Address [address] [place] [address] Care Team Providers Care Philatelic Consultant Name Role Phone Ryan Haynes MD Primary Care Provider [phone] Allergies Active Allergy Reactions Criticality Noted Date Comments Sulfa Drugs Rash,Other - please document in the comment field Low 05/16/2011 Medications bethanechol (Urecholine) 25 MG tablet Take 1 tablet (25 mg) by mouth 3 (three) times a day. Active dutasteride (Avodart) 0.5 MG capsule Take 1 capsule (0.5 mg) by mouth 1 (one) time each day. Active erythromycin base (E-Mycin) 250 MG tablet Take 1 tablet (250 mg) by mouth 3 (three) times a day. Active furosemide (Lasix) 40 MG tablet Take 1 tablet (40 mg) by mouth 1 (one) time each day. Active omeprazole (PriLOSEC) [address] capsule Take 1 capsule (40 mg) by mouth 1 (one) time each day. Do not crush or chew. Active rosuvastatin (Crestor) 10 MG tablet Take 1 tablet (10 mg) by mouth 1 (one) time each day. Active spironolactone (Aldactone) 25 MG tablet Take 1 tablet (25 mg) by mouth 1 (one) time each day. Active tamsulosin (Flomax) 0.4 MG 24 hr capsule Take 2 capsules (0.8 mg) by mouth 1 (one) time each day with dinner. Active Vortioxetine HBr (Trintellix,) 5 MG tablet Take 1 tablet (5 mg) by mouth 1 (one) time each day. Active aspirin 81 MG EC tablet Take 1 tablet (81 mg) by mouth 1 (one) time each day. Active acetaminophen (Tylenol) 500 MG tablet Take 2 tablets (1,000 mg) by mouth every 6 (six) hours. 05/29/20 Active calcium carbonate (Tums) 500 MG chewable tablet Chew 1 tablet (500 mg) 4 (four) times a day if needed for indigestion or heartburn. 05/29/20 Active Additional Information Patient not taking.Reported on 07/08/2024 lidocaine (Lidoderm) 5 % patch Apply 2 patches topically 1 (one) time each day at the same time over 12 hours. Remove & discard patch within 12 hours or as directed by MD. 05/29/20 Active Additional Information Patient not taking.Reported on 07/08/2024 methocarbamol (Robaxin) 500 MG tablet Take 2 tablets (1,000 mg) by mouth 4 (four) times a day. 05/29/20 Active naloxone (Narcan) 0.4 MG/ML injection Infuse 1 mL (0.4 mg) into a venous catheter if needed for respiratory depression (every 2 minutes for RR < 8). 05/29/20 Active Additional Information Patient not taking.Reported on 07/08/2024 ondansetron ODT (Zofran-ODT) 4 MG disintegrating tablet Take 1 tablet (4 mg) by mouth every 6 (six) hours if needed for nausea or vomiting. 05/29/20 Active Additional Information Patient not taking.Reported on 07/08/2024 polyethylene glycol (Miralax) 17 g packet Take 17 g by mouth 1 (one) time each day. 05/30/20 Active psyllium (Metamucil) 60 % packet Take 1 packet by mouth 1 (one) time each day. 05/30/20 Active senna-docusate (Kami-Colace) 8.6-50 MG tablet Take 1 tablet by mouth every night. 05/29/20 Active Additional Information Patient not taking.Reported on 07/08/2024 busPIRone (Buspar) 10 MG tablet every 12 (twelve) hours. Active cefuroxime (Ceftin) 500 MG tablet Take 1 tablet (500 mg) by mouth every 12 (twelve) hours. 04/02/20 Active cephalexin (Keflex) 500 MG capsule TAKE ONE CAPSULE BY MOUTH THREE TIMES DAILY -- FINISH ALL MEDICINE -- Active clindamycin (Cleocin) 300 MG capsule TAKE ONE CAPSULE BY MOUTH THREE TIMES DAILY FOR 7 DAYS -- FINISH ALL MEDICINE -- 12/21/19 24 Active clopidogrel (Plavix) 75 MG tablet Take 1 tablet (75 mg) by mouth Daily. Active Valium 5 MG tablet 1/2 -1 tab(s) orally two times a day as needed 08/09/19 24 Active diphenhydrAMINE-ac etaminophen (Tylenol PM Extra Strength) 25-500 MG per tablet 1 tablet at bedtime as needed Orally Once a day at HS Active doxycycline (Monodox) 100 MG capsule 1 capsule (100 mg). Active DULoxetine (Cymbalta) [address] capsule Take 1 capsule (60 mg) by mouth Daily. Active gabapentin (Neurontin) 300 MG capsule Take 1 capsule (300 mg) by mouth 3 (three) times a day. 12/24/19 24 Active HYDROcodone-acetam inophen ([place]) 10-325 MG tablet 1 tab(s) orally every 6 hours prn 06/02/20 24 Active losartan (Cozaar) 25 MG tablet losartan 25 mg tablet TAKE ONE TABLET BY MOUTH EVERY DAY Active Melatonin 10 MG tablet Take 1 tablet by mouth Daily at Bedtime. Active metoclopramide (Reglan) 5 MG tablet every 12 (twelve) hours. Active metOLazone (Zaroxolyn) 5 MG tablet Take 1 tablet (5 mg) by mouth Daily. 08/09/19 24 Active nitroglycerin (Nitrostat) 0.4 MG SL tablet DISSOLVE 1 TABLET UNDER THE TONGUE EVERY 5 MINUTES NEEDED FOR CHEST PAIN. DO NOT EXCEED A TOTAL OF 3 DOSES IN 15 MINUTES. IF NO RELIEF AFTER 3 DOSES CALL 911/GO TO ER for 5 Active nystatin (Mycostatin) cream nystatin 100,000 unit/gram topical cream APPLY TOPICALLY TO THE AFFECTED AREA(S) TWICE DAILY DIRECTED Active ondansetron (Zofran) 4 MG tablet ondansetron HCl 4 mg tablet TAKE ONE TABLET BY MOUTH EVERY 6 HOURS NEEDED MAY CAUSE DROWSINESS Active oxyCODONE (Roxicodone) 5 MG immediate release tablet 1 tab(s) Orally every 4 hrs prn 06/04/20 24 Active rifAXIMin (Xifaxan) 550 MG tablet TAKE ONE TABLET BY MOUTH THREE TIMES DAILY FOR FOURTEEN DAYS FOR IRRITABLE BOWEL SYNDROME Active rOPINIRole (Requip) 1 MG tablet 1 tab(s) orally qhs for 30 day(s) Active tiZANidine (Zanaflex) 4 MG tablet tizanidine 4 mg tablet TAKE ONE TABLET BY MOUTH THREE TIMES DAILY MAY CAUSE DROWSINESS Active bethanechol (Urecholine) 25 MG tablet Take 1 tablet (25 mg) by mouth 3 (three) times a day. 01/28/20 24 Active dutasteride (Avodart) 0.5 MG capsule Take 1 capsule (0.5 mg) by mouth 1 (one) time each day. Active Erythromycin 250 MG tablet delayed-release TAKE ONE TABLET BY MOUTH THREE TIMES DAILY DIRECTED Active furosemide (Lasix) 40 MG tablet Take 1 tablet (40 mg) by mouth 1 (one) time each day. Active methocarbamol (Robaxin) 750 MG tablet TAKE ONE TABLET BY MOUTH THREE TIMES DAILY MAY CAUSE DROWSINESS 12/21/19 24 Active naloxone (Narcan) 4 mg/0.1 mL nasal spray CALL 911. DO NOT PRIME. SPRAY INTO NOSTRIL UPON SIGNS OF OPIOID OVERDOSE. MAY REPEAT IN 2-3 MINUTES IN OPPOSITE NOSTRIL IF NO OR MINIMAL BREATHING AND RESPONSIVENESS THEN NEEDED EVERY 2-3 MINUTES (IF AVAILABLE) Active omeprazole (PriLOSEC) [address] capsule TAKE ONE CAPSULE BY MOUTH ONCE DAILY DIRECTED Active rosuvastatin (Crestor) 20 MG tablet Take 1 tablet (20 mg) by mouth 1 (one) time each day. Active spironolactone (Aldactone) 25 MG tablet Take 1 tablet (25 mg) by mouth 1 (one) time each day. Active tamsulosin (Flomax) 0.4 MG 24 hr capsule Take 2 capsules (0.8 mg) by mouth 1 (one) time each day. Active Vortioxetine HBr (Trintellix) 5 MG tablet Take 1 tablet (5 mg) by mouth 1 (one) time each day. Active Active Problems Problem Noted Date Diagnosed Date Other closed fracture of ten th thoracic vertebra, initial encounter 05/24/2024 Overview (05/27/2024): -Admitted for bracing; tlso above 45 degrees -NSG consulted, non-op ABLA (acute blood loss anemia) 05/24/2024 Overview (05/24/2024): Trend and treat Hyperglycemia 05/24/2024 Overview (05/24/2024): Monitor Likely related to stress History of cervical spinal surgery 05/24/2024 Overview (05/24/2024): C2-3 posterior cervical fusion, C3-5 ACDF History of lumbar fusion 05/24/2024 Overview (05/24/2024): L2-5 Posterior fusion Presence of stent in coronar y artery in patient with coronary artery disease 05/24/2024 Overview (05/24/2024): Resume daily ASA when appropriate Hx of myocardial infarction 05/24/2024 Overview (05/24/2024): Daily ASA, resume when able Obesity 05/24/2024 Overview (05/24/2024): Complicates all aspects of care BPH (benign prostatic hyperplasia) 05/24/2024 Overview (05/24/2024): Resume any home meds HTN (hypertension) 05/24/2024 Overview (05/24/2024): Resume all home meds when verified HLD (hyperlipidemia) 05/24/2024 Overview (05/24/2024): Resume all home meds when verified Hx of renal cell carcinoma 05/24/2024 Overview (05/24/2024): Prior Partial Nephrectomy with Dr. Tracy GERD (gastroesophageal reflux disease) Overview (05/24/2024): Resume all home meds Neurogenic bladder 05/24/2024 Overview (05/24/2024): Intermittent self caths at home Bladder scan when necessary In and Out as needed Resolved Problems Problem Noted Date Diagnosed Date Resolved Date Fall at home, initial encounter 05/24/2024 03/15/2025 Overview (05/24/2024): SGT 1 Admission Tertiary on 05/25 MARCELLA (acute kidney injury) 05/24/2024 Overview (05/29/2024): Encourage fluids Improving prior to discharge Social History Tobacco Use Types Packs/Day Years Used Date Smoking Tobacco: Never Smokeless Tobacco: Never Tobacco Cessation:Counseling Given: Not Answered Alcohol Use Standard Drinks/Week Comments Never 0 (1 standard drink = 0.6 oz pur e alcohol) Humiliation, Afraid, Rape, and Kick questionnair e Answer Date Recorded Within the last year, have y ou been afraid of your partner or ex-partner? No 05/26/2024 Within the last year, have y ou been humiliated or emotionally abused in other ways by your partner or ex-partner? No Within the last year, have y ou been kicked, hit, slapped, or otherwise physically hurt by your partner or ex-partner? No 05/26/2024 Within the last year, have y ou been raped or forced to have any kind of sexual activity by your partner or ex-partner? No 05/26/2024 Hunger Vital Sign Answer Date Recorded Within the past 12 months, y ou worried that your food would run out before you got the money to buy more. Never true 05/26/20 24 Within the past 12 months, t he food you bought just didn't last and you didn't have money to get more. Never true 05/26/2024 PRAPARE - Transportation Answer Date Re corded In the past 12 months, has l ack of transportation kept you from medical appointments or from getting medications? No 07/2023 In the past 12 months, has l ack of transportation kept you from meetings, work, or from getting things needed for daily living? No 05/26/2024 Housing Stability Vital Sign Answer Mariano e Recorded In the last 12 months, was t here a time when you were not able to pay the mortgage or rent on time? No 05/26/2024 Number of Times Moved in the Last Year Not on fi le 05/26/2024 At any time in the past 12 m [facility], were you homeless or living in a chcf (including now)? No 05/26/2024 Utilities Answer Date Recorded In the past 12 months has [employer], gas, oil, or water company threatened to shut off services in your home? No 05/26/2024 Sex and Gender Information Value Date Recorded Sex Assigned at Not on file Legal Sex Male 6:34 PM EDT Gender Identity Not on file Sexual Orientation Not on file Last Filed Vital Signs Vital Sign Reading Time Taken Comments Blood Pressure 130/80 07/08/2024 10:49 AM EST Pulse 111 07/08/2024 10:49 AM EST Temperature 36.5 C (97.7 F) 05/29/2024 7:48 AM EST Respiratory Rate 18 05/28/2024 11:59 PM EST Oxygen Saturation 95% 07/08/2024 10:49 AM EST Inhaled Oxygen Concentration - - Weight 118 kg (260 lb) 07/08/2024 10:49 AM EST Height 182.9 cm (6') 07/08/2024 10:49 AM EST Body Mass Index 35.26 07/08/2024 10:49 AM EST Plan of Treatment Health Maintenance Due Date Last Done Comments [facility]-Depression Screening 1938 [facility]-Medicare Annual Wellness (AWV) 1938 [facility]-/Child/Adol SDOH Screenings 1938 [facility]-Zoster Vaccines (1 of 2) 1988 [facility]-Pneumococcal Vaccine: 50+ Years (2 of 2 - PCV) 04/10/2018 04/10/2017 [facility]- SDOH Screenings 11/24/2024 [facility]-Adult SDOH Screenings 11/24/2024 05/26/2024 [id number] Vaccine ( season) 2025 03/28/2024, 03/20/2023, 03/22/2022, Additional history exists [facility]-Influenza Vaccine (#1) 02/23/202503/28, 03/20/2023, 04/17/2022, Additional history exists [facility]-DTaP,Tdap,and Td Vaccines (5 - Td or Tdap) 02/07/2034 02/08/2024, 06/21/2021, 04/23/2018, Additional history exists [facility]-RSV Vaccine: 60+ Years or Completed 03/20/2023 [facility]-Obesity Intervention Completed 07/08/2024, 04/26 HPV Vaccines Aged Out No longer eligi ble based on patient's age to complete this topic [facility]-HIB Vaccines Aged Out No longer e ligible based on patient's age to complete this topic [facility]-Hepatitis A Vaccines Aged Out No longer eligible based on patient's age to complete this topic [facility]-IPV Vaccines Aged Out No longer e ligible based on patient's age to complete this topic [facility]-Rotavirus Vaccines Aged Out No lo nger eligible based on patient's age to complete this topic Insurance [place] [id number] [facility] MEDICARE Advance Directives * Full Code (Latest Code Status on File) Date Activated Date Inactivated Comments 05/24/2024 2:25 AM 05/29/2024 11:46 AM Question Answer Comments Patient has decision-making capacity? Yes Care Teams Philatelic Consultant Relationship Specialty Start Date End Date Ryan Haynes MD [address] [place] [id number] PCP - General 11/05/20
--- OUTSIDE RECORDS SUMMARY | 2025-04-20 08:37 | XMS_ITS | Patient Health Record ---
Author Organization [facility] Address [address] [facility] [address] [place] [id number] Care Team Providers Care Press Tender Smoke Signal Name Role Phone Dorene Haynes Primary Care Provider Tari Barrera Unavailable [phone] Allergies Allergen (clinical drug ingredient) Drug/Non Drug [...] date:02/17/2025 08:58:38 AM Interpretation:189 Performing Lab: Notes/Report: CLIA: [id number] Candelario Huynh MD, [facility] [address] [place] [address] , [address], [place] [address] Test performed by [employer] Vitamin B12 747 727-1935 pg/mL P-Comprehensive Metabolic Pa sage (CMP) Reviewed date:02/17/2025 08:58:38 AM Interpretation:GFR 31 (stable) Performing Lab: Notes/Report: Test performed by [facility] [address] , [address], [place] [address] Candelario Huynh MD, [facility] CLIA: [id number] Sodium 143 135-145 mmol/L Potassium 4.5 3.5-5.3 [...] (low) Performing Lab: Notes/Report: Test performed by [facility] [address] , [place] [id number] Candelario Huynh MD, [facility] CLIA: [id number] Iron 51 59-158 ug/dL P-Magnesium Reviewed date:02/17/2025 08:58:38 AM Interpretation:1.9 Performing Lab: Notes/Report: Test performed by [facility] [address] , [address], [place] [address] Candelario Huynh MD, [facility] CLIA: [id number] Magnesium 1.9 1.6-2.4 mg/dL P-Vitamin D, 1, 25 Dihydroxy Reviewed date:02/17/2025 08:58:38 AM Interpretation:27.8 Performing Lab: Notes/Report: Test performed by [facility] [address] [place] [address] , [address], [place] [address] Candelario Huynh MD, [facility] CLIA: [id number] Vitamin D, 1, 25 Dihydroxy 27.8 19.9-79.3 pg/m L Medications Medication SIG (Take, Route, Frequency, Duration) Notes Start Date End Date Status Ondansetron 4 MG 1 tablet on the tong ue and allow to dissolve Orally q6h prn Active Senna Plus 8.6-50 MG 1 tablet as needed Orally at HS Active Iron 325 (65 Fe) MG 1 tablet Orally daily 02/19/20 Active MiraLax 17 GM/SCOOP 1 scoop mixed with 8 ounces of fluid Orally Once a day Active Omeprazole 40 MG 1 capsule 1/2 to 1 h our before morning meal Orally Once a day Active Cephalexin 500 MG 1 capsule Orally 3 t imes a day 07/28/2024 Active Valium 5 MG 1/2 -1 tab(s) orally two times a day as needed 02/12/2025 Active Tums 500 MG 1 tablet Orally qid prn Active Vitamin D3 50 MCG (2000 UT) 1 capsule Or ally Once a day 02/18/2025 Active Tylenol PM Extra Strength 500-25 MG 1 tablet at bedtime as needed Orally Once a day at HS Active Vitamin B12 1000 MCG 1 tablet Orally Onc e a day 02/18/2025 Active Furosemide 40 mg TAKE ONE TABLET BY M OUTH EVERY DAY; Duration: 30 Active oxyCODONE HCl 5 MG 1 tab(s) Orally ever y 6 hrs prn 07/31/2024 Active Trintellix 5 mg TAKE ONE TABLET BY M OUTH EVERY DAY; Duration: 30 Active HYDROcodone-Acetaminophen 10-325 MG 1 tab(s) orally [...] Orally Fo ur times a day Active Bethanechol Chloride 25 MG 1 tablet 1 ho ur before or 2 hours after meals Orally Three times a day Active Erythromycin 250 MG as directed Orally tid Active Immunizations Vaccine Route Administration Date Status Comme nts COVID 19 Moderna Unknown 03/23/2021 Administered DT, 7 YEARS OR OLDER Unknown 09/01/1996 Administered Fluzone High Dose (65yr and older) IM Intramuscular 04/22/2019 Administered Fluzone High Dose (65yr and older) IM Intramuscular 03/11/2021 Administered Fluzone High Dose (65yr and older) IM Intramuscular 04/17/2022 Administered Fluzone High Dose (65yr and older) Unknown 03/20/2023 Administered Fluzone High Dose (65yr and older) IM Intramuscular 03/19/2025 Administered Fluzone Quad-Medicare (6months&older) IM Intramuscular 03/05/2020 Administered Hepatitis A (adult) IM Intramuscular 12/19/2018 Administer ed Prevnar (PCV20) IM Intramuscular 04/03/2024 Administered Shingrix IM Intramuscular 11/28/2018 Administered Tetanus Tdap-Adacel (over 7yrs) Unknown 12/21/2017 Administered Tetanus Tdap-Adacel (over 7yrs) Unknown 06/21/2021 Administered xFluzone High Dose-private (65yr&older) Unknown 03/28/2024 Administered COVID 19 Moderna Unknown 08/06/2020 Administered COVID 19 Moderna Unknown 07/06/2020 Administered eFwncjsh-whligraux-wpexoon e pts. IM Intramuscular 05/01/2011 Administered Tetanus Tdap-Adacel (over 7yrs) IM Intramuscular 04/23/2018 Administered Shingrix IM Intramuscular 06/04/2018 Administered Prevnar (PCV13) IM Intramuscular 03/12/2015 Administered PNEUMOVAX 23 VACCINE IM Intramuscular 04/10/2017 Administe red PNEUMOVAX 23 VACCINE IM Intramuscular 05/05/2011 Administe red Hepatitis A (adult) IM Intramuscular 06/13/2018 Administer ed Fluzone High Dose (65yr and older) IM Intramuscular 03/29/2018 Administered Fluzone High Dose (65yr and older) IM Intramuscular 03/22/2017 Administered Fluzone High Dose (65yr and older) IM Intramuscular 03/17/2016 Administered Fluzone High Dose (65yr and older) IM Intramuscular 03/08/2015 Administered Fluzone High Dose (65yr and older) IM Intramuscular 03/13/2014 Administered xFluzone High Dose-private (65yr&older) IM Intramuscular 03/17/2013 Administered Problems Problem Type SNOMED Code ICD Code Onset Dates Problem Status W/U Status Risk Notes Problem Gastro-esophageal reflux disease without esophagitis (432878664) Gastro-esophageal reflux disease without esophagitis (K21.9) Active confirmed Problem Essential hypertension (46849741) Essential (primary) hypertension (I10) Active confirmed Problem Coronary arteriosclerosis (98733384) ASCVD (arteriosclerotic cardiovascular disease) (I25.10) Active confirmed Problem Vitamin D deficiency (38142299) Vitamin D deficiency (E55.9) Active confirmed Problem Anemia (981853045) Anemia (D64.9) Active confir med Problem Peripheral venous insufficiency (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) Venous insufficiency (I87.2) Active confirmed Problem Mixed anxiety and depressive disorder (543775596) Depression with anxiety (F41.8) Active confirmed Problem Neurogenic bladder (597393199) Neurogenic bladder (N31.9) Active confirmed Problem Recurrent falls (935457759) Multiple falls (R29.6) Active confirmed Problem Primary generalised osteoarthritis (206449924) 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) Active confirmed Problem Primary insomnia (1712680) Primary insomnia (F51.01) Active confirmed Problem Polyneuropathy (33865666) Polyneuropathy, unspecified (G62.9) Active confirmed Problem Chronic pain syndrome (037095570) Chronic pain syndrome (G89.4) Active confirmed Problem Depressive disorder (97232437) Depressive disorder (F32.9) Active confirmed Problem Displacement of lumbar intervertebral disc without myelopathy (66032923) Bulging lumbar disc (M51.26) Active confirmed Problem Dyslipidemia (427122159) Dyslipidemia (E78.5) Active confirmed Problem Restless legs (85674394) RLS (restless legs syndrome) (G25.81) Active confirmed Problem Peripheral vascular disease (241454997) PAD (peripheral artery disease) (I73.9) Active confirmed Problem Atherosclerotic heart disease of [place] coronary artery without angina pectoris (042424976256410) Atherosclerosis of [place] coronary artery without angina pectoris, unspecified whether [place] or transplanted heart (I25.10) Active confirmed Problem Osteoarthritis (364904954) Osteoarthritis, unspecified osteoarthritis type, unspecified site (M19.90) Active confirmed Problem Lower urinary tract symptoms due to benign prostatic hypertrophy (44916881434370) Benign prostatic hyperplasia with lower urinary tract symptoms (N40.1) Active confirmed Problem Urge incontinence of urine (48403795) Urge incontinence of urine (N39.41) Active confirmed Problem Sleep apnea (60026604) Sleep apnea in adult (G47.30) Active confirmed Problem Carotid artery occlusion (164499716) Stenosis of carotid artery, unspecified laterality (I65.29) Active confirmed Problem Lower urinary tract symptoms due to benign prostatic hypertrophy (59702867108646) Benign prostatic hyperplasia with lower urinary tract symptoms, symptom details unspecified (N40.1) Active confirmed Problem Neurogenic claudication (097103253) 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) Active confirmed Problem Insomnia disorder related to known organic factor (75412520) 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) Active confirmed Vital Signs Heart Rate 86 /min 02/12/2025 Respiratory Rate 18 /min 06/03/2024 Blood pressure diastolic 74 mm Hg 02/12/2025 Height 69 in 02/12/2025 Blood pressure systolic 130 mm Hg 02/12/2025 Weight 281 lbs 02/12/2025 BMI 41.49 kg/m2 02/12/2025 Encounters Encounter Location Date Provider Diagnosis [address] [place] [id number] 06/03/2024 Tari Barrera Chronic pain syndrom e [...] bladder N31.9 and Depression with anxiety F41.8 [facility] [address] [place] [id number] 07/28/2024 Tari Barrera Cellulitis and absce ss L03.90 and Leg edema R60.0 [facility] [address] [place] [id number] 07/31/2024 R [place] Friction blister T14.8XXA ; Cellulitis L03.90 ; Wedge compression fracture of T9-T10 vertebra, subsequent encounter for fracture with routine healing S22.070D ; Spinal stenosis of lumbar region with neurogenic claudication M48.062 and Chronic pain syndrome G89.4 [facility] [address] [place] [id number] 02/12/2025 R [place] Anemia D64.9 ; Vitam in D deficiency E55.9 ; HBP (high blood pressure) I10 ; Cellulitis L03.90 ; Dyslipidemia E78.5 ; Sleep apnea in adult G47.30 and Vertigo R42 [facility] [address] [place] [id number] 03/19/2025 R [place] Encounter for immunization Z23 [facility] [address] [place], [place] [id number] 06/02/2024 R [place] Chronic pain syndrom e G89.4 [facility] [address] [place], [place] [id number] 06/02/2024 R [place] [facility] [address] [place] [id number] 06/04/2024 R [place] [facility] [address] [place], [place] [id number] 06/19/2024 R [place] [facility] [address] [place] [id number] 08/08/2024 R [place] [facility] [address] [place] [id number] 02/17/2025 R [place] Assessments Encounter Date Diagnosis (ICD Code) Assessment Notes Treatment Notes Treatment Clinical Notes Section Notes 06/02/2024 Chronic pain syndrome (ICD-10 - G89.4) 06/03/2024 Leg edema (ICD-10 - R60.0) he wears compression hose daily 06/03/2024 Chronic pain syndrome (ICD-10 - G89.4) 07/28/2024 Leg edema (ICD-10 - R60.0) pt has been sporatically taking spironolactone due to urinary frequency; encouraged to take daily and he agrees to do so 07/28/2024 Cellulitis and abscess (ICD-10 - L03.90) warm soaks and dressing changes; to elevated the foot; present and will do the dressing changes; dressing change while in the office 07/31/2024 Cellulitis (ICD-10 - L03.90) 07/31/2024 Friction blister (ICD-10 - T14.8XXA) Continue local wound care. Anticipate continued healing 03/19/2025 Encounter for immunization (ICD-10 - Z23) 02/12/2025 Vitamin D deficiency (ICD-10 - E55.9) 02/12/2025 Anemia (ICD-10 - D64.9) 02/12/2025 HBP (high blood pressure) (ICD-10 - I10) 07/31/2024 Wedge compression fracture of T9-T10 vertebra, subsequent encounter for fracture with routine healing (ICD-10 - S22.070D) 06/03/2024 Lumbar spinal stenosis (ICD-10 - M48.06) 06/03/2024 Dyslipidemia (ICD-10 - E78.5) 07/31/2024 Spinal stenosis of lumbar region with neurogenic claudication (ICD-10 - M48.062) 02/12/2025 Cellulitis (ICD-10 - L03.90) 02/12/2025 Dyslipidemia (ICD-10 - E78.5) 06/03/2024 Benign prostatic hyperplasia with lower urinary tract symptoms (ICD-10 - N40.1) 07/31/2024 Chronic pain syndrome (ICD-10 - G89.4) 06/03/2024 History of ASCVD (ICD-10 - Z86.79) 02/12/2025 Sleep apnea in adult (ICD-10 - G47.30) 02/12/2025 Vertigo (ICD-10 - R42) 06/03/2024 Primary insomnia (ICD-10 - F51.01) 06/03/2024 [...] after inpt PT completed Plan Of Treatment No Information Insurance Providers Payer Name Payer Address Payer Phone Subscriber Number Group Number Insured Name Patient Relationship to Insured Coverage Start Date Coverage End Date [employer] [address] [address] [place] [address] [phone] [id number] Damir Larson Self - patient is the insured Medical (General) History Medical History History ICD Code HLP GERD Arthritis Headaches 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 2 stents in heart Eye Surgery cardiac stent placed-[facility]-Dr King Implanted pain pump 01/2017 C-scope EGD/Dr. Delarosa/moderate eso phageal dysmotility; bile reflux gastropathy 02/14/2021 C 2-3 laminectomy and fusion/ Dr. Doty Laproscopic Left Radical Nep hrectomy - Renal Cell Carcinoma/ Dr. Tracy 06/05/23 Hospitalization History Reason Date(Month/Year) [facility] after fall and T10 Fx 05/23-05/29/2024 [facility] - Laceration November 2017 see above
--- OUTSIDE RECORDS SUMMARY | 2025-04-20 08:38 | XMS_ITS | Data Portability ---
Author Organization REMI PAMELA Howard [place] Address [address] [place] [address] Care Team Providers Care Pipe Fitter Supervisor Name Role Phone DOMENICO PATTEN Primary Care Provider [phone] Assessment Encounter Date Assessment Date Assessment LastModified by Organization Details LastModified Time 03/05/2024 03/05/2024 Pre-op diagnosis : Bilateral hydrocele Postoperative diagnosis: Bilateral hydrocele Anesthesia: General Complications: None Findings: Bilateral hydrocele Operative report: After consent is obtained patient is brought to the operating suite was placed in supine position. Anesthesia is induced. He sterilely prepped and draped in normal fashion. Midline raphae incision is created and we dissected down into the right hemiscrotum. We dissected onto the tunica vaginalis. We opened the tunica vaginalis and aspirated hydrocele fluid. Excess hydrocele tissue was excised. The tunica vaginalis was then reapproximated posterior to the testis and the Jabaley fashion. Hemostasis was excellent. Cord block was performed. Gubernacular fibers still intact, testis is allowed to return to the hemiscrotum. we then opened the scrotal septum and dissected into the left hemiscrotum. We dissected onto the tunica vaginalis. Tunica vaginalis was opened hydrocele fluid aspirated excess hydrocele tissue removed. Tunica vaginalis was reapproximated posterior to the testis and a Jabaley fashion. Hemostasis was excellent. Cord block performed. Gubernacular fibers still intact. Testis is allowed to go back down into the hemiscrotum. Surgical site is irrigated. Dartos fascia brought together using 3-0 Vicryl suture. Skin brought together using running 3-0 chromic horizontal mattress. Sterile dressing applied. Anesthesia reversed. Patient was taken to the recovery room in stable condition. [email or web address] Not available 03/19/2024 07:39:55 11/03/2024 11/03/2024 84-year-old male with chronic urinary retention and history of renal cell carcinoma presenting for post-hydroselecto my follow-up. Postoperative swelling resolved. Continues combination therapy for urinary retention; catheterizes twice daily. Renal cell carcinoma follow-up imaging is scheduled. History Of Renal Cell Carcinoma: Imaging follow-up planned to monitor for recurrence. Stable at present. [id number] Not available 11/03/2024 10:44:12 Plan of Treatment Reminders Order Date Submit Date Provider Last Modified By Organization Details Last Modified Time Details Appointments RECHECK 2024 01:45P Johanna KYLE MD Not available Not available Not available Lab urinaly sis panel, auto 2024 025 [facility], [address], [address], [place], [address], 11/13/2024 12:36:42 urinaly sis panel, auto 2023 024 [facility], [address], [address], [place], [address], 04/01/2024 09:28:43 culture , urine 2023 024 [facility], [address] [place] [address], [address], 04/01/2024 11:22:11 urinaly sis panel, auto 2023 024 [facility], [address], [address], [place], [address], 02/10/2024 15:38:16 urinaly sis panel, auto 2023 024 [facility], [address], [address], [place], [address], 10/28/2023 13:37:27 Referral None recorde d. Procedures None recorde d. Surgeries hydroce lectomy (SURG) 2023 024 [facility], [address] [facility], [address], [place], [address], 03/03/2024 15:46:13 Imaging XR, chest, 2 view - XR CHEST PA/LAT MARIA VICTORIA Catherine @ [phone] [address], [address] [place] [address] [address], [place], [address], 12/12/2024 15:14:30 CT, abdomen + pelvis, w/o contras t [address], [address] [facility] [address], [place], [address], 12/12/2024 15:14:30 CT, abdomen + pelvis, w/o contras t 2023 024 [facility], [address] [place], [address], 02/04/2024 10:33:13 XR, chest, 2 view 2023 024 [facility], [address] [place], [address], 02/04/2024 10:40:43 Medication Orders tamsulo sin 0.4 mg capsule 2024 025 [facility], [facility] [address], [place], [place], [id number], 04/02/2025 15:13:46 dutaste ride 0.5 mg capsule 2024 025 [facility], [address] [place] [address] E [address], REMI Diaz, [id number], 02/11/2025 13:50:29 bethane chol chlorid e 25 mg tablet 2024 025 [facility], [address] [place] [address] [address]-Viral, REMI Diaz, [id number], 02/11/2025 13:50:28 doxycyc line hyclate 100 mg tablet 2023 024 [facility], [address] [place] [address] [address], [id number], 03/05/2024 16:55:58 oxycodo ne-acet aminoph en 7.5 mg-325 mg tablet 2023 024 [facility], [address] [place] [address] [address] Laguerre[place], [id number], 03/05/2024 16:55:58 Patient TargetsNo targets recorded. Patient Instructions Encounter Date Encounter Id Patient Instructions Last Modified By Organization Details Last Modified Time 10/26/2023 [id number] learning about healthy weight [email or web address] Not available 10/28/2023 13:37:25 11/03/2024 [id number] - Continue takin g your medications as prescribed. - Use the catheters twice daily as discussed. - Look out for signs of urinary tract infection, such as fever or unusual pain. - Attend all scheduled imaging appointments to monitor your condition. - Report any new or worsening symptoms to me immediately. [email or web address] Not available 11/03/2024 10:44:15 Reason for Referral None Reported. Results Created Date Observation Date Name Description Value Unit Range Abnormal Flag Note LastModifiedBy Organization Detail LastModifiedTime 10/26/19 24 10/26/2023 urina lysis panel , auto Unknown Analyte Cathet er Not Available [facility] [address], [place], [address], 10/26/2023 10:57:56 10/26/19 24 10/26/2023 urina lysis panel , auto Unknown Analyte Yellow Not Available [facility] [address], [place], [address], 10/26/2023 10:57:56 10/26/19 24 10/26/2023 urina lysis panel , auto Unknown Analyte Cloudy Not Available [facility] [address], [place], [address], 10/26/2023 10:57:56 10/26/19 24 10/26/2023 urina lysis panel , auto Unknown Analyte 1.010 Not Available [facility] [address], [place], [address], 10/26/2023 10:57:56 10/26/19 24 10/26/2023 urina lysis panel , auto Unknown Analyte 1.003- 1.035 Not Available [facility] [address], [place], [address], 10/26/2023 10:57:56 10/26/19 24 10/26/2023 urina lysis panel , auto Unknown Analyte 6.0 Not Available [facility] [address], [place], [address], 10/26/2023 10:57:56 10/26/19 24 10/26/2023 urina lysis panel , auto Unknown Analyte 5.0-8. 0 Not Available [facility] [address], [place], [address], 10/26/2023 10:57:56 10/26/19 24 10/26/2023 urina lysis panel , auto Unknown Analyte 500 Mauro/ul (++) Not Available [facility] [address], [place], [address], 10/26/2023 10:57:56 10/26/19 24 10/26/2023 urina lysis panel , auto Unknown Analyte Negati ve Not Available [facility] [address], [place], [address], 10/26/2023 10:57:56 10/26/19 24 10/26/2023 urina lysis panel , auto Unknown Analyte Negati ve Not Available [facility] [address], [place], [address], 10/26/2023 10:57:56 10/26/19 24 10/26/2023 urina lysis panel , auto Unknown Analyte Negati ve Not Available [facility] [address], [place], [address], 10/26/2023 10:57:56 10/26/19 24 10/26/2023 urina lysis panel , auto Unknown Analyte Negati ve Not Available [facility] [address], [place], [address], 10/26/2023 10:57:56 10/26/19 24 10/26/2023 urina lysis panel , auto Unknown Analyte Negati ve Not Available [facility] [address], [place], [address], 10/26/2023 10:57:56 10/26/19 24 10/26/2023 urina lysis panel , auto Unknown Analyte Normal Not Available [facility] [address], [place], [address], 10/26/2023 10:57:56 10/26/19 24 10/26/2023 urina lysis panel , auto Unknown Analyte Normal Not Available [facility] [address], [place], [address], 10/26/2023 10:57:56 10/26/19 24 10/26/2023 urina lysis panel , auto Unknown Analyte Negati ve Not Available [facility] [address], [place], [address], 10/26/2023 10:57:56 10/26/19 24 10/26/2023 urina lysis panel , auto Unknown Analyte Negati ve Not Available [facility] [address], [place], [address], 10/26/2023 10:57:56 10/26/19 24 10/26/2023 urina lysis panel , auto Unknown Analyte Normal Not Available [facility] [address], [place], [address], 10/26/2023 10:57:56 10/26/19 24 10/26/2023 urina lysis panel , auto Unknown Analyte Normal 1 mg/dl Not Available [facility] [address], [place], [address], 10/26/2023 10:57:56 10/26/19 24 10/26/2023 urina lysis panel , auto Unknown Analyte Negati ve Not Available [facility] [address], [place], [address], 10/26/2023 10:57:56 10/26/19 24 10/26/2023 urina lysis panel , auto Unknown Analyte Negati ve Not Available [facility] [address], [place], [address], 10/26/2023 10:57:56 10/26/19 24 10/26/2023 urina lysis panel , auto Unknown Analyte Negati ve Not Available [facility] [address], [place], [address], 10/26/2023 10:57:56 10/26/19 24 10/26/2023 urina lysis panel , auto Unknown Analyte Negati ve Not Available [facility] [address], [place], [address], 10/26/2023 10:57:56 02/04/20 24 02/04/2024 urina lysis panel , auto Unknown Analyte Clean Catch Not Available [facility] [address], [place], [address], 02/04/2024 11:17:55 02/04/20 24 02/04/2024 urina lysis panel , auto Unknown Analyte Yellow Not Available [facility] [address], [place], [address], 02/04/2024 11:17:55 02/04/20 24 02/04/2024 urina lysis panel , auto Unknown Analyte Slight ly Hazy Not Available [facility] [address], [place], [address], 02/04/2024 11:17:55 02/04/2002/04/2024 urina lysis panel , auto Unknown Analyte 1.015 Not Available [facility] [address], [place], [address], 02/04/2024 11:17:55 02/04/20 24 02/04/2024 urina lysis panel , auto Unknown Analyte 1.003- 1.035 Not Available [facility] [address], [place], [address], 02/04/2024 11:17:55 02/04/20 24 02/04/2024 urina lysis panel , auto Unknown Analyte 5.0 Not Available [facility] [address], [place], [address], 02/04/2024 11:17:55 02/04/20 24 02/04/2024 urina lysis panel , auto Unknown Analyte 5.0-8. 0 Not Available [facility] [address], [place], [address], 02/04/2024 11:17:55 02/04/2002/04/2024 urina lysis panel , auto Unknown Analyte 500 Mauro/ul (++) Not Available [facility] [address], [place], [address], 02/04/2024 11:17:55 02/04/20 24 02/04/2024 urina lysis panel , auto Unknown Analyte Negati ve Not Available [facility] [address], [place], [address], 02/04/2024 11:17:55 02/04/2002/04/2024 urina lysis panel , auto Unknown Analyte Negati ve Not Available [facility] [address], [place], [address], 02/04/2024 11:17:55 02/04/20 24 02/04/2024 urina lysis panel , auto Unknown Analyte Negati ve Not Available [facility] [address], [place], [address], 02/04/2024 11:17:55 02/04/20 24 02/04/2024 urina lysis panel , auto Unknown Analyte Trace Not Available [facility] [address], [place], [address], 02/04/2024 11:17:55 02/04/20 24 02/04/2024 urina lysis panel , auto Unknown Analyte Negati ve Not Available [facility] [address], [place], [address], 02/04/2024 11:17:55 02/04/20 24 02/04/2024 urina lysis panel , auto Unknown Analyte Normal Not Available [facility] [address], [place], [address], 02/04/2024 11:17:55 02/04/20 24 02/04/2024 urina lysis panel , auto Unknown Analyte Normal Not Available [facility] [address], [place], [address], 02/04/2024 11:17:55 02/04/20 24 02/04/2024 urina lysis panel , auto Unknown Analyte Negati ve Not Available [facility] [address], [place], [address], 02/04/2024 11:17:55 02/04/20 24 02/04/2024 urina lysis panel , auto Unknown Analyte Negati ve Not Available [facility] [address], [place], [address], 02/04/2024 11:17:55 02/04/20 24 02/04/2024 urina lysis panel , auto Unknown Analyte Normal Not Available [facility] [address], [place], [address], 02/04/2024 11:17:55 02/04/20 24 02/04/2024 urina lysis panel , auto Unknown Analyte Normal 1 mg/dl Not Available [facility] [address], [place], [address], 02/04/2024 11:17:55 02/04/2002/04/2024 urina lysis panel , auto Unknown Analyte Negati ve Not Available [facility] [address], [place], [address], 02/04/2024 11:17:55 02/04/20 24 02/04/2024 urina lysis panel , auto Unknown Analyte Negati ve Not Available [facility] [address], [place], [address], 02/04/2024 11:17:55 02/04/20 24 02/04/2024 urina lysis panel , auto Unknown Analyte Trace Not Available [facility] [address], [place], [address], 02/04/2024 11:17:55 02/04/20 24 02/04/2024 urina lysis panel , auto Unknown Analyte Negati ve Not Available [facility] [address] [facility] [address], [place], [address], 02/04/2024 11:17:55 03/05/20 24 03/05/2024 POTAS SIUM potassium 4.1 mmol/ L 3.4-5. 0 normal Not Available [facility] [address], [place], [address], 03/05/2024 14:41:39 03/05/20 24 03/05/2024 SURGI DANITA surgical SEE BELOW normal Depar tment of Patho logy Surgi danita Patho logy Repor t NAME: HARVEY JACK PATH. :[id number] Copy to: Diagn osis: Bilat eral hydro joseluis sac: [place] joseluis sac fragm ents with areas of colla genou s fibro sis. SOURC E OF SPECI MEN: HYDRO JOSELUIS, BILAT ERAL HYDRO JOSELUIS SAC CLINI DANITA INFOR MATIO N: N63.3 BILAT ERAL HYDRO JOSELUIS Gross Descr iptio n: Recei edie in forma jimy label ed with the patie nt's name and desig nated as bila teral hydro joseluis sac are three irreg ular fragm ents of pinki sh-pu rple, fibro membr anous soft tissu e (rang ing in size from 3.5 x 2.4 x 0.5 cm up to 7.0 x 3.0 x 0.5 cm) and a separ ate firm, hafsa h white nodul e which is 0.7 x 0.6 x 0.[address]. [address] fibro membr anous tissu e fragm ent has attac hed adipo se tissu e which is yello w, glist ening and unrem arkab le. The fibro membr anous tissu e fragm ents have a hafsa h linin g with no disti nct lesio ns. Bisec ting the white nodul e revea ls a possi ble cysti c cut surfa ce conta ining friab le brown debri s. Repre senta tive secti ons of the fibro membr anous tissu e fragm ents are submi tted in casse ttes A1-A2 . The white nodul e is submi tted entir samantha in casse tte A3. JAB 03/06 12:01 PM Micro scopi c Descr iptio n: A micro scopi c exami natio n has been perfo rmed and the resul t(s) are as noted above . STARR NATION MD Roberta d Out Date: 03/07 11:35 Page 1 of 1 Not Available [facility] [address] [place], [address], 03/07/2024 11:36:05 03/31/2003/31/2024 URINE CULTU RE escherichia coli Organi sm: Escher ichia coli Not Available [facility] [address] [place], [address], 04/02/2024 13:03:05 03/31/2004/02/2024 URINE CULTU RE urine culture abnormal ISOLA TE #1 COLON Y COUNT : > 100,0 00 CFU/M L Proba ble Gram Negat matthew Bacil eduardo. ID and sensi tivit y in progr ess. See [place] te Resul t(s) Below Esche gaurang a coli Not Available [facility] [address] [place] [address], [address], 04/02/2024 13:03:05 03/31/20 24 04/02/2024 URINE CULTU RE amox/K clav'ate(C) <=8/4 ug/mL susceptib le Not Available [facility] [address] [place] [address], [address], 04/02/2024 13:03:05 03/31/20 24 04/02/2024 URINE CULTU RE ampicillin >16 ug/mL resistant Not Available [facility] [address] [place] [address], [address], 04/02/2024 13:03:05 03/31/20 24 04/02/2024 URINE CULTU RE cefazolin <=2 ug/mL susceptib le Not Available [facility] [address] [place] [address], [address], 04/02/2024 13:03:05 03/31/20 24 04/02/2024 URINE CULTU RE ceftazidime <=1 ug/mL susceptib le Not Available [facility] [address] [place] [address], [address], 04/02/2024 13:03:05 03/31/20 24 04/02/2024 URINE CULTU RE ceftriaxone <=1 ug/mL susceptib le Not Available [facility] [address] [place] [address], [address], 04/02/2024 13:03:05 03/31/20 24 04/02/2024 URINE CULTU RE cefuroxime <=4 ug/mL susceptib le Not Available [facility] [address] [place] [address], [address], 04/02/2024 13:03:05 03/31/20 24 04/02/2024 URINE CULTU RE ciprofloxaci n >2 ug/mL resistant Not Available [facility] [address] [place] [address], [address], 04/02/2024 13:03:05 03/31/20 24 04/02/2024 URINE CULTU RE gentamicin >8 ug/mL resistant Not Available [facility] [address] [place] [address], [address], 04/02/2024 13:03:05 03/31/20 24 04/02/2024 URINE CULTU RE imipenem <=1 ug/mL susceptib le Not Available [facility] [address] [place] [address], [address], 04/02/2024 13:03:05 03/31/20 24 04/02/2024 URINE CULTU RE levofloxacin >4 ug/mL resistant Not Available [facility] [address] [place] [address], [address], 04/02/2024 13:03:05 03/31/20 24 04/02/2024 URINE CULTU RE nitrofuranto in <=32 ug/mL susceptib le Not Available [facility] [address] [place] [address], [address], 04/02/2024 13:03:05 03/31/20 24 04/02/2024 URINE CULTU RE piperacillin /nain <=16 ug/mL susceptib le Not Available [facility] [address] [place] [address], [address], 04/02/2024 13:03:05 03/31/20 24 04/02/2024 URINE CULTU RE tetracycline >8 ug/mL resistant Not Available [facility] [address] [place] [address], [address], 04/02/2024 13:03:05 03/31/20 24 04/02/2024 URINE CULTU RE tobramycin 8 ug/mL intermedi ate Not Available [facility] [address] [place] [address], [address], 04/02/2024 13:03:05 03/31/20 24 04/02/2024 URINE CULTU RE trimeth/sulf a >2/38 ug/mL resistant Not Available [facility] [address] [facility], [place], [address], 04/02/2024 13:03:05 03/31/2003/31/2024 urina lysis panel , auto Unknown Analyte Clean Catch Not Available [facility] [address], [place], [address], 03/31/2024 11:48:54 03/31/2003/31/2024 urina lysis panel , auto Unknown Analyte Yellow Not Available [facility] [address] [place] [address] [address], [place], [address], 03/31/2024 11:48:54 03/31/2003/31/2024 urina lysis panel , auto Unknown Analyte Clear Not Available [facility] [address], [place], [address], 03/31/2024 11:48:54 03/31/2003/31/2024 urina lysis panel , auto Unknown Analyte 1.005 Not Available [facility] [address], [place], [address], 03/31/2024 11:48:54 03/31/2003/31/2024 urina lysis panel , auto Unknown Analyte 1.003- 1.035 Not Available [facility] [address], [place], [address], 03/31/2024 11:48:54 03/31/2003/31/2024 urina lysis panel , auto Unknown Analyte 5.0 Not Available [facility] [address], [place], [address], 03/31/2024 11:48:54 03/31/2003/31/2024 urina lysis panel , auto Unknown Analyte 5.0-8. 0 Not Available [facility] [address], [place], [address], 03/31/2024 11:48:54 03/31/2003/31/2024 urina lysis panel , auto Unknown Analyte 500 Mauro/ul (++) Not Available [facility] [address], [place], [address], 03/31/2024 11:48:54 03/31/2003/31/2024 urina lysis panel , auto Unknown Analyte Negati ve Not Available [facility] [address], [place], [address], 03/31/2024 11:48:54 03/31/2003/31/2024 urina lysis panel , auto Unknown Analyte POSITI VE (Abnor mal) Not Available [facility] [address], [place], [address], 03/31/2024 11:48:54 03/31/2003/31/2024 urina lysis panel , auto Unknown Analyte Negati ve Not Available [facility] [address], [place], [address], 03/31/2024 11:48:54 03/31/2003/31/2024 urina lysis panel , auto Unknown Analyte Negati ve Not Available [facility] [address], [place], [address], 03/31/2024 11:48:54 03/31/2003/31/2024 urina lysis panel , auto Unknown Analyte Negati ve Not Available [facility] [address], [place], [address], 03/31/2024 11:48:54 03/31/2003/31/2024 urina lysis panel , auto Unknown Analyte Normal Not Available [facility] [address], [place], [address], 03/31/2024 11:48:54 03/31/2003/31/2024 urina lysis panel , auto Unknown Analyte Normal Not Available [facility] [address], [place], [address], 03/31/2024 11:48:54 03/31/2003/31/2024 urina lysis panel , auto Unknown Analyte Negati ve Not Available [facility] [address], [place], [address], 03/31/2024 11:48:54 03/31/2003/31/2024 urina lysis panel , auto Unknown Analyte Negati ve Not Available [facility] [address], [place], [address], 03/31/2024 11:48:54 03/31/2003/31/2024 urina lysis panel , auto Unknown Analyte Normal Not Available [facility] [address], [place], [address], 03/31/2024 11:48:54 03/31/2003/31/2024 urina lysis panel , auto Unknown Analyte Normal 1 mg/dl Not Available [facility] [address], [place], [address], 03/31/2024 11:48:54 03/31/2003/31/2024 urina lysis panel , auto Unknown Analyte Negati ve Not Available [facility] [address], [place], [address], 03/31/2024 11:48:54 03/31/2003/31/2024 urina lysis panel , auto Unknown Analyte Negati ve Not Available [facility] [address], [place], [address], 03/31/2024 11:48:54 03/31/2003/31/2024 urina lysis panel , auto Unknown Analyte Negati ve Not Available [facility] [address], [place], [address], 03/31/2024 11:48:54 03/31/2003/31/2024 urina lysis panel , auto Unknown Analyte Negati ve Not Available [facility] [address], [place], [address], 03/31/2024 11:48:54 11/04/1911/03/2024 urina lysis panel , auto Unknown Analyte Clean Catch Not Available [facility] [address], [place], [address], 11/03/2024 10:57:03 11/04/19 25 11/03/2024 urina lysis panel , auto Unknown Analyte Yellow Not Available [facility] [address], [place], [address], 11/03/2024 10:57:03 11/04/19 25 11/03/2024 urina lysis panel , auto Unknown Analyte Clear Not Available [facility] [address], [place], [address], 11/03/2024 10:57:03 11/04/19 25 11/03/2024 urina lysis panel , auto Unknown Analyte 1.015 Not Available [facility] [address], [place], [address], 11/03/2024 10:57:03 11/04/19 25 11/03/2024 urina lysis panel , auto Unknown Analyte 1.003 - 1.030 Not Available [facility] [address], [place], [address], 11/03/2024 10:57:03 11/04/19 25 11/03/2024 urina lysis panel , auto Unknown Analyte 5.0 Not Available [facility] [address], [place], [address], 11/03/2024 10:57:03 11/04/19 25 11/03/2024 urina lysis panel , auto Unknown Analyte 5.0 - 8.0 Not Available [facility] [address], [place], [address], 11/03/2024 10:57:03 11/04/19 25 11/03/2024 urina lysis panel , auto Unknown Analyte 500 Mauro/uL Not Available [facility] [address], [place], [address], 11/03/2024 10:57:03 11/04/19 25 11/03/2024 urina lysis panel , auto Unknown Analyte Negati ve Not Available [facility] [address], [place], [address], 11/03/2024 10:57:03 11/04/19 25 11/03/2024 urina lysis panel , auto Unknown Analyte Negati ve Not Available [facility] [address], [place], [address], 11/03/2024 10:57:03 11/04/19 25 11/03/2024 urina lysis panel , auto Unknown Analyte Negati ve Not Available [facility] [address], [place], [address], 11/03/2024 10:57:03 11/04/19 25 11/03/2024 urina lysis panel , auto Unknown Analyte Negati ve Not Available [facility] [address], [place], [address], 11/03/2024 10:57:03 11/04/19 25 11/03/2024 urina lysis panel , auto Unknown Analyte Negati ve Not Available [facility] [address], [place], [address], 11/03/2024 10:57:03 11/04/19 25 11/03/2024 urina lysis panel , auto Unknown Analyte Normal Not Available [facility] [address], [place], [address], 11/03/2024 10:57:03 11/04/19 25 11/03/2024 urina lysis panel , auto Unknown Analyte Normal Not Available [facility] [address], [place], [address], 11/03/2024 10:57:03 11/04/19 25 11/03/2024 urina lysis panel , auto Unknown Analyte Negati ve Not Available [facility] [address], [place], [address], 11/03/2024 10:57:03 11/04/19 25 11/03/2024 urina lysis panel , auto Unknown Analyte Negati ve Not Available [facility] [address], [place], [address], 11/03/2024 10:57:03 11/04/19 25 11/03/2024 urina lysis panel , auto Unknown Analyte Normal Not Available [facility] [address], [place], [address], 11/03/2024 10:57:03 11/04/19 25 11/03/2024 urina lysis panel , auto Unknown Analyte Normal Not Available [facility] [address], [place], [address], 11/03/2024 10:57:03 11/04/19 25 11/03/2024 urina lysis panel , auto Unknown Analyte Negati ve Not Available [facility] [address] [facility] [address], [place], [address], 11/03/2024 10:57:03 11/04/19 25 11/03/2024 urina lysis panel , auto Unknown Analyte Negati ve Not Available [facility] [address] [facility] [address], [place], [address], 11/03/2024 10:57:03 11/04/19 25 11/03/2024 urina lysis panel , auto Unknown Analyte Negati ve Not Available [facility] [address] [facility] [address], [place], [address], 11/03/2024 10:57:03 11/04/19 25 11/03/2024 urina lysis panel , auto Unknown Analyte Negati ve Not Available [facility] [address] [facility] [address], [place], [address], 11/03/2024 10:57:03 10/26/19 24 10/26/2023 CT, abdom en + pelvi s, w/o contr ast [place] [facility] [address] [place] [address] Patien t Name: HARVEY HERNANDEZ ER Patirachel t : [birth year] Patien t Orderi ng Provid er: REG BUSH [facility] EXAM DATE: 2023 EXAM: CT ABD/PE LVIS WITHOU T CONTRA ST CLINIC AL INFORM ATION: Kidney cancer 5 TECHNI QUE: Multip le axial CT images of the abdome n and pelvis were obtain ed withou t inject ion of IV contra st. Bowel was marked with water. COMPAR ROBBIN: [address] ABDOME N: LOWER THORAX : Persis tent infilt rate in the left lower lobe. I suspec t this relate s underl desmond bronch iectas is. No obviou s cardia c abnorm ality. UPPER ABDOMI NAL ORGANS : Gallbl adder, spleen , pancre as, and adrena ls are normal . No change in multip le benign -appea ring liver cysts. Interv al resect ion of the left kidney . The operat matthew bed appear s clear. The solita ry right kidney shows no hydron ephros is. There is a 9 mm nonobs tructi ng stone in the bottom of the right kidney as before . BOWEL AND MESENT LOU: Stomac h, small bowel and colon are normal . No mesent fany lympha denopa thy or perito kimberly free fluid. RETROP ERITON EUM: Aorta, IVC and their branch es are patent and normal . No retrop eriton eal lympha denopa thy. ABDOMI NAL WALL AND SKELET AL STRUCT URES: Normal . FINDIN GS ON CT PELVIS : PELVIC CAVITY : Urinar y bladde r and rectos igmoid are normal . The prosta te is enlarg ed. No pelvic or inguin al lympha denopa thy, mass or fluid. MUSCUL OSKELE TRAE STRUCT URES: Normal . COMBIN ED IMPRES GOVIND: 1. Interv al resect ion of the left kidney . No indica tion of neopla stic recurr ence involv ing the abdome n and pelvis 2. Nonobs tructi ve stone right kidney 3. Benign cysts involv ing the liver 4. Persis tent left base infilt rate likely due to underl desmond focal patch of bronch iectas is Interp reted By: Wandy Celis MD Electr onical ly Signed By: Wandy Celis MD on 10/26/19 10:36 AM [facility] [address] [place] [address] , [place], [address], 10/29/2023 08:49:06 02/04/20 24 02/04/2024 CT, abdom en + pelvi s, w/o contr ast [facility] [address] [facility] [place] [address] Patien t Name: HARVEY HERNANDEZ ER Patien t : [birth year] Patien t Orderi ng Provid er: REG COOPER JR EXAM DATE: 2023 EXAM: CT ABD/PE LVIS WITHOU T CONTRA ST CLINIC AL INFORM ATION: Kidney cancer TECHNI QUE: Multip le axial CT images of the abdome n and pelvis were obtain ed withou t inject ion of IV contra st. No oral contra st or water was admini stered to the patien t. COMPAR ROBBIN: None. FINDIN GS ON CT ABDOME N: LOWER THORAX : Mild depend ent atelec tasis left base. No obviou s cardia c abnorm ality. UPPER ABDOMI NAL ORGANS : Stable benign -appea ring liver cysts are again noted. The pancre as, spleen , adrena ls, and gallbl adder have unrema rkable unenha nced CT appear ance. The left kidney is surgic ally absent and the operat matthew bed is clear. The single ton right kidney shows a nonobs tructi ve stone involv ing the inferi or aspect , unchan ged. BOWEL AND MESENT LOU: Stomac h, small bowel and colon are normal . No mesent fany lympha denopa thy or perito kimberly free fluid. RETROP ERITON EUM: Aorta, IVC and their branch es are patent and normal . No retrop eriton eal lympha denopa thy. ABDOMI NAL WALL AND SKELET AL STRUCT URES: Normal . FINDIN GS ON CT PELVIS : PELVIC CAVITY : Urinar y bladde r and rectos igmoid are normal . Minima l promin ence of the prosta te. No pelvic or inguin al lympha denopa thy, mass or fluid. Right testic ular hydroc adelso. MUSCUL OSKELE TRAE STRUCT URES: Normal . COMBIN ED IMPRES GOVIND: 1. Previo us remova l of left kidney . No indica tion neopla stic recurr ence involv ing the abdome n and pelvis 2. Nonobs tructi ve right renal stone 3. Stable benign cysts involv ing the liver Interp reted By: Wandy Celis MD Electr onical ly Signed By: Wandy Celis MD on 10:28 AM [facility] [address] [place], [address], 02/04/2024 12:32:11 02/04/20 24 02/04/2024 XR, chest , [address] [address] Patirachel t Name: HARVEY HERNANDEZ ER Patirachel t : [birth year] Patirachel t Orderi ng Provid er: REG COOPER JR EXAM DATE: 2023 EXAM: XR CHEST PA/LAT CLINIC AL INFORM ATION: Cough. IMAGES PROVID ED: PA and latera l views of the chest. COMPAR ROBBIN: 018 FINDIN GS: Heart size is within normal limits . Lung israel are clear. Chroni c appear ing inters titial change s in both lung bases, stable . No superi mposed airspa ce diseas e or mass IMPRES GOVIND: No acute cardio pulmon yovani change s. Interp reted By: Wandy Celis MD Electr onical ly Signed By: Wandy Celis MD on 10:35 AM [facility] [address] [place], [address], 02/04/2024 12:32:12 11/21/19 25 11/20/2024 CT, abdom en + pelvi s, w/o contr ast No observ ation record ed. [email or web address] Not Available 2024 16:38:51 Result Notes Documentation Provider Name and Address Organization Details Recorded Time Ct, Abdomen + Pelvis, W/o Contrast : [facility] [address] [place] [address] Patient Name: HARVEY LARSON Patient : 1940 Patient Ordering Provider: REG KYLE JR EXAM DATE: 10/26/2023 EXAM: CT ABD/PELVIS WITHOUT CONTRAST CLINICAL INFORMATION: Kidney cancer5 TECHNIQUE: Multiple axial CT images of the abdomen and pelvis were obtained without injection of IV contrast. Bowel was marked with water. COMPARISON: 04/13/[address] ABDOMEN: LOWER THORAX: Persistent infiltrate in the left lower lobe. I suspect this relates underlying bronchiectasis. No obvious cardiac abnormality. UPPER ABDOMINAL ORGANS: Gallbladder, spleen, pancreas, and adrenals are normal. No change in multiple benign-appearing liver cysts. Interval resection of the left kidney. The operative bed appears clear. The solitary right kidney shows no hydronephrosis. There is a 9 mm nonobstructing stone in the bottom of the right kidney as before. BOWEL AND MESENTERY: Stomach, small bowel and colon are normal. No mesenteric lymphadenopathy or peritoneal free fluid. RETROPERITONEUM: Aorta, IVC and their branches are patent and normal. No retroperitoneal lymphadenopathy. ABDOMINAL WALL AND SKELETAL STRUCTURES: Normal. FINDINGS ON CT PELVIS: PELVIC CAVITY: Urinary bladder and rectosigmoid are normal. The prostate is enlarged. No pelvic or inguinal lymphadenopathy, mass or fluid. MUSCULOSKELETAL STRUCTURES: Normal. COMBINED IMPRESSION: 1. Interval resection of the left kidney. No indication of neoplastic recurrence involving the abdomen and pelvis 2. Nonobstructive stone right kidney 3. Benign cysts involving the liver 4. Persistent left base infiltrate likely due to underlying focal patch of bronchiectasis Interpreted By: Wandy Celis MD KYLE JR, MD [address] [place] [address], [address] 10/29/2023 08:49:06 Ct, Abdomen + Pelvis, W/o Contrast : [address] [address] Patient Name: HARVEY LARSON Patient : 1940 Patient Ordering Provider: REG KYLE JR EXAM DATE: 02/04/2024 EXAM: CT ABD/PELVIS WITHOUT CONTRAST CLINICAL INFORMATION: Kidney cancer TECHNIQUE: Multiple axial CT images of the abdomen and pelvis were obtained without injection of IV contrast. No oral contrast or water was administered to the patient. COMPARISON: None. FINDINGS ON CT ABDOMEN: LOWER THORAX: Mild dependent atelectasis left base. No obvious cardiac abnormality. UPPER ABDOMINAL ORGANS: Stable benign-appearing liver cysts are again noted. The pancreas, spleen, adrenals, and gallbladder have unremarkable unenhanced CT appearance. The left kidney is surgically absent and the operative bed is clear. The weinstein right kidney shows a nonobstructive stone involving the inferior aspect, unchanged. BOWEL AND MESENTERY: Stomach, small bowel and colon are normal. No mesenteric lymphadenopathy or peritoneal free fluid. RETROPERITONEUM: Aorta, IVC and their branches are patent and normal. No retroperitoneal lymphadenopathy. ABDOMINAL WALL AND SKELETAL STRUCTURES: Normal. FINDINGS ON CT PELVIS: PELVIC CAVITY: Urinary bladder and rectosigmoid are normal. Minimal prominence of the prostate. No pelvic or inguinal lymphadenopathy, mass or fluid. Right testicular hydrocele. MUSCULOSKELETAL STRUCTURES: Normal. COMBINED IMPRESSION: 1. Previous removal of left kidney. No indication neoplastic recurrence involving the abdomen and pelvis 2. Nonobstructive right renal stone 3. Stable benign cysts involving the liver Interpreted By: Wandy Celis MD KYLE JR, MD [address] [place] [address], [address], [facility] 02/04/2024 12:32:11 Xr, Chest, 2 View : [place] [address] Patient Name: HARVEY LARSON Patient : 1940 Patient Ordering Provider: REG KYLE JR EXAM DATE: 02/04/2024 EXAM: XR CHEST PA/LAT CLINICAL INFORMATION: Cough. IMAGES PROVIDED: PA and lateral views of the chest. COMPARISON: 10/09/2017 FINDINGS: Heart size is within normal limits. Lung israel are clear. Chronic appearing interstitial changes in both lung bases, stable. No superimposed airspace disease or mass IMPRESSION: No acute cardiopulmonary changes. 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 From [employer];Prov ider: Luz Wheeler;St atus: Active Not Available [facility] 6 07:36:32 Chest pain 20897477 Active 2015 From [employer];Prov ider: Marcus Loco;Sta tus: Active Not Available [facility] 6 07:36:32 Acute subendoca rdial infarctio n 48281798 Active 2015 From [employer];Prov ider: Marcus Loco;Sta tus: Active Not Available [facility] 6 07:36:32 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 28268091990 07 Active 2015 From [employer];Prov ider: Marcus Loco;Sta tus: Active Not Available [facility] 6 07:36:32 Hyperlipi demia 42806577 Active 2015 From [employer];Prov ider: Marcus Loco;Sta tus: Active Not Available [facility] 6 07:36:49 Systolic heart failure 299078182 Active 2015 From [employer];Prov ider: Wandy King;Stat us: Active Not Available [facility] 6 07:36:49 Progressi ve angina 497753479 Active 2015 From [employer];Prov ider: Wandy King;Stat us: Active Not Available [facility] 6 07:36:49 Hypertens matthew disorder 30376129 Active 2015 From [employer];Prov ider: Mark Child;St atus: Active Not Available [facility] 6 07:36:32 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 1580031 Active 2015 From [employer];Prov ider: Wandy King;Stat us: Active Not Available [facility] 6 07:36:32 Familial combined hyperlipi demia 780240471 Active 2015 From [employer];Prov ider: Wandy King;Stat us: Active Not Available [facility] 6 07:36:32 Lumbar radiculop athy 922704655 Active 2021 LOUIE SALDANA PA-C [address] [place], [address] , [facility] 2 11:48:53 Retention of urine 702686517 [place] 2021 [place] [address] [place] [address], [address] , [facility] 2 06:22:11 Benign prostatic hyperplas ia with outflow obstructi on 840179698 Active 2021 REG KYLE JR, MD [address] [place] [address], [address] , [facility] 2 06:22:12 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 163952994 Active 2021 [place] [address] [place] [address], [address] , [facility] 2 06:30:35 Low back pain 305694961 Active 2021 LOUIE SALDANA PA-C [address] [place], [address] , [facility] 2 16:29:42 History of lumbar fusion 89069857428 106 Active 2021 LOUIE SALDANA PA-C [address] [place], [address] , [facility] 2 16:29:43 History of cervical spine fusion 08702111229 01 Active 2021 LOUIE SALDANA PA-C [address] [place], [address] , [facility] 2 16:29:44 Chronic pain syndrome 865771714 Active 2021 LOUIE SALDANA PA-C [address] [place], [address] , [facility] 2 16:29:45 Incomplet e emptying of urinary bladder 817188198 Active 2022 REG KYLE JR, MD [facility] [place], [address] , [facility] 3 09:09:22 Renal cell carcinoma 514224136 Active 2023 REG KYLE JR, MD [facility] [place], [address] , [facility] 5 12:36:21 Hydrocele of testis 55427486 Active 2023 REG KYLE JR, MD [facility] [place] [place], [address] , [facility] 4 16:39:26 Problem Notes None recorded. Procedures Surgical History Date Name Laterality Status Provider Name and Address Organization Details Recorded Time 023 PARTIAL NEPHRECTOMY, ROBOT ASSISTED LAPAROSCOPIC, WITH INTRA-OPERATIVE ULTRASOUND (SURG) completed Jared Dubois [facility] 06/06/2023 16:49:27 023 Post Void Residual; Ultrasound completed Indiana Arias [facility] 08/17/2022 13:10:49 022 Post Void Residual; Catheter completed Josefina Cisneros [facility] 12/08/2021 16:33:31 019 Stress Test - Echo completed WANDY KING MD [address] [place] [address] [place], [address], [facility] 01/09/2019 13:26:07 019 Echocardiogram - Stress Test completed WANDY KING MD [address] [place] [address] [place], [address], [facility] 01/09/2019 13:28:01 018 Cardiac Catheterization completed WANDY KING MD [address] [place] [address] [place], [address], [facility] 11/08/2017 15:30:37 018 Stress Test - Echo completed WANDY KING MD [address] [place] [address] [place], [address], [facility] 11/02/2017 12:51:53 018 Echocardiogram - Stress Test completed WANDY KING MD [address] [place], [address], [facility] 11/02/2017 12:48:32 005 Cardiac Surgery completed Cara [facility]HAL[facility] 09/20/2016 13:52:45 Appendectomy completed Cara Smith [place] [facility] 09/20/2016 13:50:54 Other completed Cara Smith [place] [facility] 09/20/2016 13:51:13 Other completed Cara Smith [place] [facility] 09/20/2016 13:51:28 Stent Placement completed Cara [place] [facility] 09/20/2016 13:51:43 Hemorrhoidectomy completed Cara Smith [facility] 09/20/2016 13:51:53 Other completed Carolina Short [place] [facility] 10/09/2017 11:51:58 Imaging Results None recorded. Procedure Notes None recorded. Medical Equipment None Reported. Allergies Allergen ID Allergen Name Allergen Category Reaction Reaction Severity Criticality Documentation Date Start Date Code Code System Note Provider Name and Address Organization Details Recorded Time 910063 Substance with sulfonami de structure and antibacte rial mechanism of action (substanc e) medicatio n Not available Not available Not available 05/19/20162010 28400 8003 SNOMED updat ed 7-201 9 Janell Nilesanamika, [facility] 9 10:21:49 Medications Name Sig Start Date Stop Date Status Note LastModified by Organization Details LastModified Time celecoxib 200 mg capsule TAKE ONE CAPSULE BY MOUTH EVERY DAY --TAKE WITH FOOD-- 12/08 completed Not Available Not Available Not Available cyclobenz aprine 10 mg tablet TAKE ONE TABLET BY MOUTH TWICE DAILY NEEDED FOR MUSCLE SPASMS MAY CAUSE DROWSINE SS 12/02 completed Not Available Not Available Not Available furosemid e 40 mg tablet TAKE ONE TABLET BY MOUTH EVERY DAY active Not Available Not Available No t Available ropinirol e 1 mg tablet TAKE ONE TABLET BY MOUTH EVERY DAY AT BEDTIME 10/04 completed Not Available Not Available Not Available clindamyc in HCl 300 mg capsule TAKE ONE CAPSULE BY MOUTH THREE TIMES DAILY FOR 7 DAYS -- FINISH ALL MEDICINE -- 12/08 completed Not Available Not Available Not Available trazodone 50 mg tablet TAKE ONE TABLET BY MOUTH EVERY DAY AT BEDTIME 12/02 completed Not Available Not Available Not Available tizanidin e 4 mg tablet TAKE ONE TABLET BY MOUTH THREE TIMES DAILY MAY CAUSE DROWSINE SS 03/29 completed Not Available Not Available Not Available Lortab 7.5 mg-500 mg tablet As needed 10/09 completed Frequenc y: prn;Medi cation Descript ion: acetamin ophen-hy drocodon e; Route:or al; refills: 0 Not Available Not Available Not Available ondansetr on HCl 4 mg tablet TAKE ONE TABLET BY MOUTH EVERY 6 HOURS NEEDED MAY CAUSE DROWSINE SS 03/29 completed Not Available Not Available Not Available prednison e 20 mg tablet TAKE ONE TABLET BY MOUTH TWICE DAILY FOR 5 DAYS --TAKE WITH FOOD-- 12/02 completed Not Available Not Available Not Available metolazon e 5 mg tablet TAKE ONE TABLET BY MOUTH EVERY DAY 03/29 completed Not Available Not Available Not Available atenolol 25 mg tablet Daily 10/09 completed Frequenc y: daily;Me dication Descript ion: atenolol ; Dosage:1 ; Route:or al; refills: 4; Quantity :90 tablet Not Available Not Available Not Available erythromy charli 250 mg tablet,de layed release TAKE ONE TABLET BY MOUTH THREE TIMES DAILY DIRECTED active Not Available Not Available No t Available clopidogr el 75 mg tablet TAKE ONE TABLET BY MOUTH EVERY DAY 03/29 completed Not Available Not Available Not Available hydrocodo ne 10 mg-acetam inophen 325 mg tablet TAKE ONE TABLET BY MOUTH EVERY 6 HOURS MAY CAUSE DROWSINE SS 03/29 completed Not Available Not Available Not Available omeprazol e 40 mg capsule,d elayed release TAKE ONE CAPSULE BY MOUTH ONCE DAILY DIRECTED active Not Available Not Available No t Available tramadol 50 mg tablet TAKE ONE TABLET BY MOUTH THREE TIMES DAILY MAY CAUSE DROWSINE SS 12/02 completed Not Available Not Available Not Available spironola ctone 25 mg tablet TAKE ONE TABLET BY MOUTH EVERY DAY active Not Available Not Available No t Available simvastat in 40 mg tablet TAKE ONE TABLET BY MOUTH EVERY DAY AT BEDTIME 12/02 completed Not Available Not Available Not Available ondansetr on 8 mg disintegr ating tablet DISSOLVE ONE TABLET in MOUTH EVERY 8 HOURS NEEDED FOR NAUSEA AND VOMITING 02/03 completed Not Available Not Available Not Available betnehemiahech ol chloride 25 mg tablet Take 1 tablet 3 times a day by oral route. 2024 active Not Available Not Available Not Avai lable Mobic 15 mg tablet Daily 12/02 completed Frequenc y: daily;Me dication Descript ion: meloxica m; Dosage:1 ; Route:or al; refills: 5; Quantity :30 tablet Not Available Not Available Not Available erythromy charli 250 mg tablet TAKE ONE TABLET BY MOUTH THREE TIMES DAILY BEFORE MEALS DIRECTED 02/09 completed Not Available Not Available Not Available famotidin e 20 mg tablet TAKE ONE TABLET BY MOUTH EVERY DAY 02/03 completed Not Available Not Available Not Available metoclopr amide 5 mg tablet TAKE ONE TABLET BY MOUTH TWICE DAILY 02/03 completed Not Available Not Available Not Available tamsulosi n 0.4 mg capsule TAKE TWO CAPSULES BY MOUTH EVERY DAY 2024 active Not Available Not Available Not Avai lable doxycycli ne monohydra te 100 mg capsule TAKE ONE CAPSULE BY MOUTH TWICE DAILY FOR 10 DAYS -- FINISH ALL MEDICINE -- 04/18 completed Not Available Not Available Not Available cephalexi n 500 mg capsule TAKE ONE CAPSULE BY MOUTH THREE TIMES DAILY --TAKE WITH FOOD-- -- FINISH ALL MEDICINE -- 03/29 completed Not Available Not Available Not Available nystatin 100,000 unit/gram topical cream APPLY TOPICALL Y TO THE AFFECTED AREA(S) TWICE DAILY DIRECTED 02/03 completed Not Available Not Available Not Available buspirone 10 mg tablet TAKE 1/2 TABLET BY MOUTH EVERY DAY FOR 14 DAYS, THEN TAKE 1/2 TABLET TWICE DAILY 12/02 completed Not Available Not Available Not Available losartan 25 mg tablet TAKE ONE TABLET BY MOUTH EVERY DAY 03/29 completed Not Available Not Available Not Available nitroglyc ray 0.4 mg sublingua l tablet DISSOLVE 1 TABLET UNDER THE TONGUE EVERY 5 MINUTES NEEDED FOR CHEST PAIN. DO NOT EXCEED A TOTAL OF 3 DOSES IN 15 MINUTES. IF NO RELIEF AFTER 3 DOSES CALL 911/GO TO ER active Not Available Not Available No t Available docusate sodium 100 mg capsule TAKE ONE CAPSULE BY MOUTH TWICE DAILY FOR 10 DAYS 02/03 completed Not Available Not Available Not Available omeprazol e 20 mg capsule,d elayed release TAKE ONE CAPSULE BY MOUTH EVERY DAY DIRECTED 02/03 completed Not Available Not Available Not Available gentamici n 0.1 % topical cream APPLY 1 GM TOPICALL Y TO AREA 2X'S DAILY 12/08 completed Not Available Not Available Not Available aspirin 81 mg tablet Daily active Duration : 30 days;Dilan quency: daily;Me dication Descript ion: aspirin; Dosage:1 ; refills: 0; Quantity :30 Not Available Not Available Not Available furosemid e 20 mg tablet TAKE ONE TABLET BY MOUTH DAILY FOR fluid 02/03 completed Not Available Not Available Not Available cefuroxim e axetil 500 mg tablet Take 1 tablet every 12 hours by oral route. 2023 active Not Available Not Available Not Avai lable oxycodone -acetamin ophen 7.5 mg-325 mg tablet Take 1 tablet every 6 hours by oral route as needed. 2023 active Not Available Not Available Not Avai lable zolpidem 10 mg tablet TAKE ONE TABLET BY MOUTH EVERY DAY AT BEDTIME NEEDED MAY CAUSE DROWSINE SS 12/02 completed Not Available Not Available Not Available doxycycli ne hyclate 100 mg tablet Take 1 tablet twice a day by oral route. 2023 active Not Available Not Available Not Avai lable diazepam 5 mg tablet TAKE 1/2 TO 1 TABLET BY MOUTH TWICE DAILY NEEDED active Not Available Not Available No t Available metoclopr amide 10 mg tablet TAKE ONE TABLET BY MOUTH FOUR TIMES DAILY 02/03 completed Not Available Not Available Not Available dutasteri de 0.5 mg capsule TAKE ONE CAPSULE BY MOUTH EVERY DAY 2024 active Not Available Not Available Not Avai lable rosuvasta tin 10 mg tablet TAKE ONE TABLET BY MOUTH EVERY DAY 02/03 completed Not Available Not Available Not Available rosuvasta tin 20 mg tablet TAKE ONE TABLET BY MOUTH DAILY active Not Available Not Available No t Available duloxetin e 30 mg capsule,d elayed release TAKE ONE CAPSULE BY MOUTH EVERY DAY 10/04 completed Not Available Not Available Not Available duloxetin e 60 mg capsule,d elayed release TAKE ONE CAPSULE BY MOUTH EVERY DAY 10/04 completed Not Available Not Available Not Available pregabali n 50 mg capsule TAKE ONE CAPSULE BY MOUTH TWICE DAILY 12/02 completed Not Available Not Available Not Available zolpidem ER 12.5 mg tablet,ex tended release,m ultiphase TAKE ONE TABLET BY MOUTH EVERY DAY AT BEDTIME 12/02 completed Not Available Not Available Not Available omeprazol e PRN 10/04 completed Not Available Not Available Not Available Lasix as needed 02/03 completed Not Available Not Available Not Available ranitidin e HCl 07/14 completed Medicati on Descript ion: ranitidi ne; Dosage:1 ; Route:or al; refills: 0 Not Available Not Available Not Available Vitamin D3 12/02 completed Medicati on Descript ion: cholecal ciferol; Route:or al; refills: 0 Not Available Not Available Not Available Xifaxan 550 mg tablet TAKE ONE TABLET BY MOUTH THREE TIMES DAILY FOR FOURTEEN DAYS FOR IRRITABL E BOWEL SYNDROME active Not Available Not Available No t Available Brilinta 90 mg tablet TAKE ONE TABLET BY MOUTH TWICE DAILY 12/02 completed Not Available Not Available Not Available Narcan 4 mg/actuat ion nasal spray CALL 911. DO NOT PRIME. SPRAY INTO NOSTRIL UPON SIGNS OF OPIOID OVERDOSE . MAY REPEAT IN 2-3 MINUTES IN OPPOSITE NOSTRIL IF NO OR MINIMAL BREATHIN G AND RESPONSI VENESS THEN NEEDED EVERY 2-3 MINUTES (IF AVAILABL E) active Not Available Not Available No t Available Trintelli x 5 mg tablet TAKE ONE TABLET BY MOUTH EVERY DAY active Not Available Not Available No t Available Vitals Date Recorded Body height Body mass index (BMI) Body weight Provider Name and Address Organization Details Last Updated DateTime 10/26/2023 182.88 cm 34.6 kg/m2 943611.05 g iJng Tesfaye [facility] 10/26/2023 11:01:36 Date Recorded Body height Body mass index (BMI) Body weight Provider Name and Address Organization Details Last Updated DateTime 11/03/2024 182.88 cm 35.9 kg/m2 772153.98 g Radha Curry [facility] 11/03/2024 10:32:26 Date Recorded Body height Body mass index (BMI) Body weight Provider Name and Address Organization Details Last Updated DateTime 02/04/2024 182.88 cm 35.3 kg/m2 418036.02 g Rufina Sanchez [facility] 02/04/2024 11:05:47 Date Recorded Body height Provider Name an d Address Organization Details Last Updated DateTime 03/31/2024 182.88 cm Ashwini Cortezers [facility] 03/31/2024 10:07:34 Social History Question Answer Notes LastModified by Organizat ion Details LastModified Time Tobacco Smoking Status Never Smoker Cara nguyen [facility] 09/20/2016 13:49:45 How Much Tobacco Do You Chew? None [email or web address] Information not available 07/01/2018 Marital Status Informatio n not available 09/20/2016 What Was The Date Of Your Most Recent Tobacco Screening? 11/03/2024 Information not available 11/03/2024 How Many Children Do You Have? 2 Information not available 09/20/2016 What Is Your Relationship Status? [email or web address] Information not available 12/02/2021 Has Tobacco Cessation Counseling Been Provided? No [email or web address] Information not available 12/02/2021 Have You Recently Traveled Abroad? No [email or web address] Information not available 12/02/2021 Sex: Male Functional Status Question Answer Note LastModified by Organizat ion Details LastModified Time Do you use any illicit or recreational drugs? No [email or web address] Information not available 12/02/2021 Do you or have you ever used any other forms of tobacco or nicotine? No Information not available 12/02/2021 What is your level of alcohol consumption? None [email or web address] Information not available 10/04/2021 Do you or have you ever used smokeless tobacco? Never used smokeless tobacco [email or web address] Information not available 02/17/2019 What is your occupation? Retired Information not available 09/20/2016 Do you or have you ever used e-cigarettes or vape? Never used electronic cigarettes [email or web address] Information not available 02/17/2019 Mental Status None recorded. Family History Relationship Description Onset Age of this Age Resolved Age Notes LastModified by Organization Details LastModified Time Unspecified Relation Family history of malignant neoplasm Not available 2016 13:49:24 Unspecified Relation Heart disease Not available 2016 13:49:35 Medical History Condition Response Heart Disease Y Mental Illness Y GERD/Reflux Y High Cholesterol Y Immunizations Vaccine Type Date Status Note Provider Nam e and Address Organization Details Recorded Time Influenza, split virus, quadrivalent, preservative 7 completed Not Available [facility] 08/17/[facility] 12:57:14 Tdap 1 completed Honey Alirio null, [facility] 05/16/2022 11:26:35 Influenza, high-dose, quadrivalent, PF 1 completed Honey Alirio null, [facility] 05/16/2022 11:26:35 Influenza, high-dose, trivalent, PF 7 completed Honey Alirio null, [facility] 05/16/2022 11:26:35 Influenza, high-dose, trivalent, PF 8 completed Honey Alirio null, [facility] 05/16/2022 11:26:35 Influenza, high-dose, quadrivalent, PF 2 completed Honey Alirio null, [facility] 05/16/2022 11:26:35 COVID-19, mRNA, LNP-S, bivalent, PF, 50 mcg/0.5 mL or 25mcg/0.25 mL dose 2 completed Honey Alirio null, [facility] 05/16/2022 11:26:35 COVID-19, mRNA, LNP-S, PF, 100 mcg/0.5mL dose or 50 mcg/0.25mL dose 1 completed Honey Alirio null, [facility] 05/16/2022 11:26:35 COVID-19, mRNA, LNP-S, PF, 100 mcg/0.5mL dose or 50 mcg/0.25mL dose 1 completed Honey Alirio null, [facility] 05/16/2022 11:26:35 Tdap 8 completed [facility] 05/16/2022 11:26:35 pneumococcal polysaccharide PPV23 7 completed [facility] 05/16/2022 11:26:35 Influenza, split virus, quadrivalent, preservative 0 completed [facility] 05/16/2022 11:26:35 Tdap 8 completed [facility] 05/16/2022 11:26:35 Influenza, high-dose, trivalent, PF 9 completed [facility] 05/16/2022 11:26:35 COVID-19, mRNA, LNP-S, PF, 100 mcg/0.5mL dose or 50 mcg/0.25mL dose 1 completed [facility] 05/16/2022 11:26:35 Td (adult), 2 Lf tetanus toxoid, preservative free, adsorbed 7 completed [facility] 05/16/2022 11:26:35 Past Encounters Encounter ID Performer Location Encounter Start Date Encounter Closed Date Diagnosis/Indication Diagnosis SNOMED-CT Code Diagnosis ICD10 Code Diagnosis IMO Codes Diagnosis Note [id number] WANDY KING MD CARDIOLOG [address] [place] [address] 10/09/2016 10:54:18 10/09/2016 12:03:54 Old myocardial infarction 4935198 I25.2 Management of this problem was reviewed with the patient. No changes recommende d, status for this problem is stable at this time.He is now a year since his non-Q AL and I advised him that he may discontinu e his atenolol. Familial c ombined hyperlipidemia 928897622 E78.4 Management of this problem was reviewed with the patient. No changes recommende d, status for this problem is stable at this time. Coronary arteriosclerosis in [place] [id number] 107 I25.10 Medication changes, as well as new medication s were reviewed and discussed in detail including benefit and risk of therapy. The patient is otherwise doing well on current management . No new active problems identified . Chronic problems are all stable. Patient is to continue current regimen without change. All questions answered and regimen reviewed. Patient is to call for any change in status. It's now been a year since he received stents and I told him that he may discontinu e his clopidogre l. [id number] WANDY KING MD CARDIOLOG Y [place] [address] [place] [address] 10/09/2017 10:36:24 10/10/2017 13:51:10 Coronary arteriosclerosis in [place] [id number] 107 I25.10 Medication changes, as well as new medication s were reviewed and discussed in detail including benefit and risk of therapy. The patient is otherwise doing well on current management . No new active problems identified . Chronic problems are all stable. Patient is to continue current regimen without change. All questions answered and regimen reviewed. Patient is to call for any change in status. It's now been a year since he received stents and I told him that he may discontinu e his clopidogre l. Old myocar dial infarction [id number] I25.2 Management of this problem was reviewed with the patient. No changes recommende d, status for this problem is stable at this time.He is now a year since his non-Q AL and I advised him that he may discontinu e his atenolol. Familial c ombined hyperlipidemia 069633592 E78.4 Management of this problem was reviewed with the patient. No changes recommende d, status for this problem is stable at this time. Dyspnea on exertion 6084 5006 R06.09 The patient complains of dyspnea on exertion. I have ordered baseline laboratory studies including CMP, TSH, CBC and BNP. I will also arrange a stress echocardio gram. If all of his testing is normal, I would like to see him back in 6 months. [id number] WANDY KING MD ECHO VASCULAR LAB [place] [address] [place] [address] 11/02/2017 10:16:43 11/09/2017 10:57:34 Dyspnea on exertion 75315162 R06.09 [id number] WANDY KING MD [facility] [address] [place] [address] 11/02/2017 10:21:26 11/02/2017 15:21:51 [id number] WANDY KING MD CARDIOLOG Y [address] [place] [address] 12/24/2017 10:05:11 12/25/2017 15:55:24 Dyspnea on exertion 45319057 R06.09 The patient complains of dyspnea on exertion. I have ordered baseline laboratory studies including CMP, TSH, CBC and BNP. I will also arrange a stress echocardio gram. If all of his testing is normal, I would like to see him back in 6 months. Coronary arteriosclerosis in [place] [id number] 107 I25.10 Medication changes, as well as new medication s were reviewed and discussed in detail including benefit and risk of therapy. The patient is otherwise doing well on current management . No new active problems identified . Chronic problems are all stable. Patient is to continue current regimen without change. All questions answered and regimen reviewed. Patient is to call for any change in status. It's now been a year since he received stents and I told him that he may discontinu e his clopidogre l. Old myocar dial infarction [id number] I25.2 Management of this problem was reviewed with the patient. No changes recommende d, status for this problem is stable at this time.He is now a year since his non-Q AL and I advised him that he may discontinu e his atenolol. Familial c ombined hyperlipidemia 356449125 E78.4 Management of this problem was reviewed with the patient. No changes recommende d, status for this problem is stable at this time.I advised him to hold off on his simvastati n for 2 weeks to see if it helps his leg weakness. If no improvemen t he should restart the medication . If improved he is to contact us for adjustment in his medication s. [id number] WANDY KING MD CARDIOLOG Y [address] [place] [address] 07/01/2018 10:49:34 07/01/2018 11:23:19 Dyspnea on exertion 05446231 R06.09 The patient complains of dyspnea on exertion. I have ordered baseline laboratory studies including CMP, TSH, CBC and BNP. I will also arrange a stress echocardio gram. If all of his testing is normal, I would like to see him back in 6 months. Coronary arteriosclerosis in [place] [id number] 107 I25.10 Medication changes, as well as new medication s were reviewed and discussed in detail including benefit and risk of therapy. The patient is otherwise doing well on current management . No new active problems identified . Chronic problems are all stable. Patient is to continue current regimen without change. All questions answered and regimen reviewed. Patient is to call for any change in status. It's now been a year since he received stents and I told him that he may discontinu e his clopidogre l. Old myocar dial infarction [id number] I25.2 Management of this problem was reviewed with the patient. No changes recommende d, status for this problem is stable at this time.He is now a year since his non-Q AL and I advised him that he may discontinu e his atenolol. Familial c ombined hyperlipidemia 793679991 E78.49 Management of this problem was reviewed with the patient. No changes recommende d, status for this problem is stable at this time.I advised him to hold off on his simvastati n for 2 weeks to see if it helps his leg weakness.T here was no improvemen t and therefore he restarted his simvastati n. [id number] WANDY KING MD CARDIOLOG Y [address] [place] [address] 12/30/2018 11:09:30 12/30/2018 12:08:12 Dyspnea on exertion 48460911 R06.09 The patient complains of dyspnea on exertion. I ordered baseline laboratory studies including CMP, TSH, CBC and BNP which were OK.I've ordered a treadmill stress echo and if this is normal recommend pulmonary evaluation . Patient indicates his been evaluated for COY in the past with negative findings. Coronary arteriosclerosis in [place] [id number] 107 I25.10 Medication changes, as well as new medication s were reviewed and discussed in detail including benefit and risk of therapy. The patient is otherwise doing well on current management . No new active problems identified . Chronic problems are all stable. Patient is to continue current regimen without change. All questions answered and regimen reviewed. Patient is to call for any change in status. Old myocar dial infarction [id number] I25.2 Management of this problem was reviewed with the patient. No changes recommende d, status for this problem is stable at this time.He is now a year since his non-Q AL and I advised him that he may discontinu e his atenolol. Familial c ombined hyperlipidemia [id number] E78.49 Management of this problem was reviewed with the patient. No changes recommende d, status for this problem is stable at this time.I advised him to hold off on his simvastati n for 2 weeks to see if it helps his leg weakness.T here was no improvemen t and therefore he restarted his simvastati n. [id number] WANDY KING MD ECHO [facility] [address] [place] [address] 01/09/2019 10:13:20 01/13/2019 09:41:24 Chest pain [id number] R07.9 [id number] WANDY KING MD HEART STATION [address] [place] [address] 01/09/2019 10:14:57 01/09/2019 13:32:30 [id number] WANDY KING MD CARDIOLOG Y [address] [place] [address] 02/17/2019 10:55:31 02/17/2019 11:48:04 Coronary arteriosclerosis in [place] artery [id number] 107 I25.10 Medication changes, as well as new medication s were reviewed and discussed in detail including benefit and risk of therapy. The patient is otherwise doing well on current management . No new active problems identified . Chronic problems are all stable. Patient is to continue current regimen without change. All questions answered and regimen reviewed. Patient is to call for any change in status. Old myocar dial infarction [id number] I25.2 Management of this problem was reviewed with the patient. No changes recommende d, status for this problem is stable at this time.He is now a year since his non-Q AL and I advised him that he may discontinu e his atenolol. Dyslipidemia [id number] E 78.5 Most recent testing reviewed. All laboratory measuremen ts in appropriat e parameters on current medical therapy. This was reviewed and discussed with the patient and all questions answered. [id number] WANDY KING MD CARDIOLOG Y [address] [place] [address] 07/14/2019 11:59:09 07/14/2019 13:32:26 Coronary arteriosclerosis in [place] artery [id number] 107 I25.10 Medication changes, as well as new medication s were reviewed and discussed in detail including benefit and risk of therapy. The patient is otherwise doing well on current management . No new active problems identified . Chronic problems are all stable. Patient is to continue current regimen without change. All questions answered and regimen reviewed. Patient is to call for any change in status. Old myocar dial infarction [id number] I25.2 Management of this problem was reviewed with the patient. No changes recommende d, status for this problem is stable at this time.He is now a year since his non-Q AL and I advised him that he may discontinu e his atenolol. Dyslipidemia [id number] E 78.5 In light of loss of strength in his legs I advised him to stay off simvastati n for 2 weeks to see if it helps. If improved, will develop a different method of management of his hyperlipid emia.I'll recheck the patient in 3 months. [id number] MINGO ZAMORA MD [facility] [address] [place] [address] 07/21/2019 10:57:18 07/21/2019 12:40:28 Benign prostatic hyperplasia with outflow obstruction [id number] N40.1 continue current therapy follow-up 6 months at which time we will likely move him to yearly follow-up [id number] WANDY KING MD CARDIOLOG Y EAST [address] [place] [address] ,[address] [place] [address] 10/13/2019 13:28:55 10/13/2019 15:14:29 Coronary arteriosclerosis in [place] artery [id number] 107 I25.10 Medication changes, as well as new medication s were reviewed and discussed in detail including benefit and risk of therapy. The patient is otherwise doing well on current management . No new active problems identified . Chronic problems are all stable. Patient is to continue current regimen without change. All questions answered and regimen reviewed. Patient is to call for any change in status. Old myocar dial infarction [id number] I25.2 Dyslipidemia 384036310 E 78.5 Myalgias improved after holding simvastati n and therefore advised to restart simvastati n one night a week. Consider addition of ezetimibe pending results or possible PCSK9 inhibitor ( Ermias Gonzalez). [id number] LOUIE SALDANA PA-C NEUROSURG [facility] CL[facility] [address] [place] [address] 10/04/2021 10:13:45 10/04/2021 17:41:05 Lumbar radiculopathy [id number] M54.16 81-year-ol d male history of multiple cervical and lumbar surgeries, Intratheca l pain pump coronary artery disease, history of myocardial infarction , cardiac stents anticoagul ated on baby aspirin and Plavix With worsening left greater than right lumbar radiculopa thy and weakness and inability to ambulate. Patient provided MRI from her [facility] for lumbar spine reviewed with Dr. Kirby. There is significan t artifact created from the patient's pain pump and lumbar hardware which makes interpreti ng the MRI extremely difficult. We are able to see an L5-S1 anterolist hesis. Probable foraminal stenosis at L1-2. At this time given the patient's significan t neurologic deficits, extreme difficulty of the patient's family to care for the patient, we are recommendi ng direct admission to the hospital for further workup. While in the hospital we will hold the patient's aspirin and Plavix in anticipati on of possible spine surgery given the significan t neurologic deficits that are seen on exam. We will order MRIs of the cervical drastic and lumbar spine. When he to rule out spinal cord compressio n. If significan t artifact is again seen in the lumbar spine, we may consider myelograms . We will consult medicine to also evaluate the patient given his significan t heart history. If there is no significan t neural compressio n seen on imaging, we will then likely have neurology evaluate the patient while in-house. Patient will also likely need inpatient rehabilita tion given his significan t debility. We will also ask the flow on X representa tive to be present during the MRIs which should be performed tomorrow as they will likely need to aspirate medication from his pain pump prior to the MRI. He and the family are very happy with this plan. [id number] MD LETICIA CHILDERS JR, [facility] [address] [place] [address] 10/21/2021 09:00:43 10/21/2021 10:01:01 Benign prostatic hyperplasia with outflow obstruction [id number] N40.1 Retention of urine 14420 4002 R33.9 [id number] PHI KIRBY MD SURGERY SCHEDULE [address] [place] [address] 10/21/2021 12:56:50 10/21/2021 15:50:08 [id number] LOUIE BARAHONA MD [facility] [address] [place] [address] 11/16/2021 11:25:03 11/16/2021 12:41:50 Benign prostatic hyperplasia with outflow obstruction [id number] N40.1 Retention of urine 24614 4002 R33.9 [id number] PH[facility] [address] [place] [address] 11/22/2021 12:44:14 11/22/2021 16:30:31 Spinal stenosis in cervical region 29475657 M48.02 [id number] REG KYLE JR, MD [facility] [address] [place] [address] 12/01/2021 13:00:26 12/01/2021 13:33:56 Benign prostatic hyperplasia with outflow obstruction 970894568 N40.1 Retention of urine 52370 4002 R33.9 [id number] REG KYLE JR, MD [facility] [address] [place] [address] 12/08/2021 14:19:49 12/08/2021 15:36:32 Retention of urine 166744163 R33.9 Benign pro static hyperplasia with outflow obstruction 827674629 N40.1 Neurogenic dysfunction of urinary bladder 612435179 N31.9 [id number] RADHA RICHARDSON PA-C NEUROSURG [facility] [address] [place] [address] 02/07/2022 12:52:46 02/07/2022 15:18:52 Postoperative care [id number] Z48.89 Patient is an 81-year-ol d male status post C2-3 laminectom y and fusion on October 06, [address] Kirby. Presents today for second follow-up appointkarl salter. Patient doing great at this time. Minimal pain but does still have significan t weakness in the legs. They still feel like he is moving with a positive trajectory but maybe not quite as quickly as they want to. He is now using a walker instead of a wheelchair which she was using prior to surgery. He has been doing physical therapy multiple times a week which he does get great benefit from. Presents today with new postop x-rays. Gave patient a printed copy to take home. These have remained stable since the patient's last visit. Discussed with Dr. Kirby. Because the patient did have severe spinal stenosis prior to surgery would like to continue to follow this patient. Discussed with them that there can be a component of his weakness that is due to the cervical issues as well as his hydrocepha eduardo. We would like to see patient back in 3 months with another set of AP lateral cervical x-rays. They know to call with questions and are happy with this plan. AP lateral cervical x-rays today at the [facility] placement of hardware with no evidence of loosening or complicati on Cervical myelopathy 2025 99391 G95.9 [id number] MD LETICIA CHILDERS JR, [facility] [address] [place] [address] 02/09/2022 12:56:08 02/09/2022 13:28:42 Benign prostatic hyperplasia with outflow obstruction 261029049 N40.1 Neurogenic dysfunction of urinary bladder 709604159 N31.9 [id number] LOUIE SALDANA PA-C NE[facility]OSURG [facility] [address] [place] [address] 05/09/2022 12:33:54 05/11/2022 16:21:34 Low back pain 742844273 M54.50 History of lumbar fusion 1391087189 9106 Z98.1 History of cervical spine fusion [id number] 101 Z98.1 Chronic pain syndrome 37 8425934 G89.4 [id number] AVELINO WOOTEN, NURSE LICENSED PRACTICAL NEUROSURG [facility] [address] [facility] [place] [address] 05/16/2022 11:10:21 05/16/2022 16:02:18 Lumbar spondylosis 624324770 M47.896 [id number] REG KYLE JR, MD [facility] [address] [place] [address] 08/17/2022 12:47:03 08/17/2022 13:37:26 Urinary tract infectious disease 49579026 N39.0 Benign pro static hyperplasia with outflow obstruction 648530036 N40.1 Neurogenic dysfunction of urinary bladder 579536043 N31.9 Retention of urine 34465 4002 R33.9 [id number] REG KYLE JR, MD [facility] [address] [place] [address] 03/29/2023 15:07:25 03/29/2023 16:28:02 Urinary tract infectious disease 39590895 N39.0 Renal mass 793434676 N28 .89 Benign pro static hyperplasia with outflow obstruction 533600652 N40.1 Retention of urine 79270 4002 R33.9 [id number] REG KYLE JR, MD [address] [place] [address] 04/18/2023 09:47:24 04/23/2023 04:04:21 Renal mass 266359928 N28.89 Neurogenic dysfunction of urinary bladder 007411080 N31.9 Benign pro static hyperplasia with outflow obstruction 414442422 N40.1 Incomplete emptying of urinary bladder 844394082 R39.14 [id number] REG KYLE JR, MD [facility] [address] [place] [address] 06/27/2023 10:13:34 06/27/2023 11:27:46 Renal cell carcinoma 479837992 C64.9 Benign pro static hyperplasia with outflow obstruction 056167241 N40.1 Incomplete emptying of urinary bladder 008165400 R39.14 Neurogenic dysfunction of urinary bladder 757892027 N31.9 Hydrocele of testis 2661 4003 N43.3 [id number] RGE KYLE JR, MD [facility] [address] [address] 08/16/2023 12:14:28 08/16/2023 13:19:11 Neurogenic dysfunction of urinary bladder 998790048 N31.9 Renal cell carcinoma 702 655549 C64.9 [id number] REG KYLE JR, MD [facility] [address] [address] 10/26/2023 10:48:23 10/26/2023 11:19:20 Benign prostatic hyperplasia with outflow obstruction 775038370 N40.1 Incomplete emptying of urinary bladder 188907895 R39.14 Neurogenic dysfunction of urinary bladder 771004631 N31.9 Renal cell carcinoma 702 850852 C64.9 [id number] REG KYLE JR, MD [facility] [address] [address] 02/04/2024 10:50:41 02/04/2024 11:41:28 Hydrocele of testis 11681742 N43.3 [id number] REG KYLE JR, MD SURGERY SCHEDULE [address] [place] [address] 03/05/2024 12:26:37 03/05/2024 12:27:05 Postoperative pain 876467917 G89.18 [id number] REG KYLE JR, MD [facility] [address] [address] 03/31/2024 09:46:54 03/31/2024 10:43:04 Acute urinary tract infection 345670720 N39.0 Hydrocele of testis 2661 4003 N43.3 [id number] REG KYLE JR, MD [facility] [address] [address] 11/03/2024 10:01:09 11/03/2024 10:46:23 Retention of urine 865698791 R33.9 Maintain current therapy regimen. Monitor for complicati ons and adjust as needed. Continuing combinatio n therapy and self-yelena terization . Monitoring for complicati ons. Regular follow-up scheduled. Neurogenic dysfunction of urinary bladder 075053646 N31.9 Renal cell carcinoma 702 445872 C64.9 [id number] Health Concerns Section Related Observation LastModified by Organization Detai ls LastModified Time None Recorded Concern Status LastModified by Organization Details LastModified Time None Recorded Advance Directives Directive None Recorded Payers Insurance Date Sequence Insurance Name Policy Number Policy [place] Covered Member ID [place] Member ID Guarantor Name 11/14/2024 1 [employer] (MEDICARE REPLACEMENT/ ADVANTAGE - PPO) Harvey Larson [id number] Harvey Larson Notes Date Note Type Note Provider Name and Address Organization Details Recorded Time 10/26/2023 text/html Patient is in today for follow-up of renal cell carcinoma. He underwent robotic assisted laparoscopic left radical nephrectomy June 05, 2023. 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 CT scan of the abdomen and pelvis without contrast October 26, 2023 does not show any evidence of recurrent cancer. Stone is noted in the solitary kidney lower pole. Due to permanent urinary retention, he does self catheterize Twice daily and he requires coude due to unable to pass straight tip through enlarged prostate. He remains on tamsulosin and finasteride. Urinary retention followed, spinal surgery. Patient does have a large kidney stone which we have decided to monitor. Patient does have large bilateral hydrocele. REG KYLE JR, MD [address] [place] [address], [id number], [place] [facility] 10/28/2023 13:37:29 02/04/2024 text/html Patient is in today for follow-up of renal cell carcinoma. He underwent robotic assisted laparoscopic left radical nephrectomy June 05, 2023. 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 CT scan of the abdomen and pelvis without contrast October 26, 2023 does not show any evidence of recurrent cancer. Stone is noted in the solitary kidney lower pole. Due to permanent urinary retention, he does self catheterize Twice daily and he requires coude due to unable to pass straight tip through enlarged prostate. He remains on tamsulosin and finasteride. Urinary retention followed, spinal surgery. Patient does have a large kidney stone which we have decided to monitor. Patient does have large bilateral hydrocele. Enlarging and asymptomatic. REG KYLE JR, MD [address] [place], [address], [facility] 02/10/2024 15:38:34 03/31/2024 text/html Patient is in today for follow-up of renal cell carcinoma. He underwent robotic assisted laparoscopic left radical nephrectomy June 05, 2023. 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 CT scan of the abdomen and pelvis without contrast October 26, 2023 does not show any evidence of recurrent cancer. Stone is noted in the solitary kidney lower pole. Due to permanent urinary retention, he does self catheterize Twice daily and he requires coude due to unable to pass straight tip through enlarged prostate. He remains on tamsulosin and finasteride. Urinary retention followed, spinal surgery. Patient does have a large kidney stone which we have decided to monitor. Patient underwent bilateral hydrocelectomy 03/05/2024. Significant swelling, improving. REG KYLE JR, MD [address] [place] [address], [address], [facility] 04/01/2024 16:56:39 11/03/2024 text/html The patient is an 84-year-old male presenting for follow-up post bilateral hydroselectomy. He experienced initial postoperative swelling, now resolved. The patient has chronic urinary retention on combination therapy with tamsulosin and finasteride. Uses Cuday catheters twice daily for catheterization. Past medical history includes renal cell carcinoma treated with left radical oophorectomy in 2022. Currently stable with planned imaging follow-up. Patient is in today for follow-up of renal cell carcinoma. He underwent robotic assisted laparoscopic left radical nephrectomy June 05, 2023. 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 Due to permanent urinary retention, he does self catheterize Twice daily and he requires coude due to unable to pass straight tip through enlarged prostate. He remains on tamsulosin and finasteride. Urinary retention followed, spinal surgery. Patient underwent bilateral hydrocelectomy 03/05/2024. REG KYLE JR, MD [address] [place], [address], [facility] 11/13/2024 12:36:45
[2025-04-20 09:25] LABS: Hematocrit 33.7 % (42.0-52.0); Hemoglobin 11.1 g/dL (14.1-18.0); Immature Granulocytes % 0.7 %; Mean Corpuscular HGB Conc 32.9 g/dL (31.8-35.4); Mean Corpuscular Hemoglobin 32.1 pg (27.0-31.2); Mean Corpuscular Volume 97.4 fl (80-94); Nucleated Red Blood Cells % 0 %; Platelet Count 142 K/mm3 (142-424); Red Blood Count 3.46 M/mm3 (4.60-6.20); Red Cell Distribution Width-SD 47.4 fL; White Blood Count 5.9 K/mm3 (4.8-10.8)
[2025-04-20 11:13] LABS: Hemoglobin A1C 6.3 % (4.0-6.0)
[2025-04-20 11:34] LABS: Alanine Aminotransferase 16 U/L (12-78); Albumin Level 3.5 g/dl (3.5-5.0); Alkaline Phosphatase 80 U/L (38-126); Anion Gap 12.8 mEq/L (5-15); Aspartate Amino Transferase 23 U/L (17-59); Bilirubin,Direct 0.3 mg/dl (0.0-0.4); Bilirubin,Indirect 0.3 mg/dL (0.0-0.9); Bilirubin,Total 0.6 mg/dl (0.2-1.3); Bilirubin,Unconjugated 0.3 mg/dL (0.0-1.1); Blood Urea Nitrogen 27 mg/dl (9-20); Calcium 9.0 mg/dl (8.4-10.2); Carbon Dioxide 24 mmol/L (22.0-30.0); Chloride 104 mmol/L (98-107); Cholesterol 139 mg/dl (140-200); Creatinine,Serum 2.00 mg/dl (0.66-1.25); Estimated Glomerular Filt Rate 32 ml/min (>60); GFR (African American) 39 ML/MIN (>60); Glucose 118 mg/dl (74-100); HDL Cholesterol 49 mg/dl (40-60); Magnesium 1.8 mg/dl (1.6-2.3); Potassium 3.8 mmoL/L (3.5-5.1); Sodium 137 mmol/L (136-145); Total Protein,Serum 6.3 g/dl (6.3-8.2); Triglycerides 270 mg/dl (30-150)
[2025-04-20 11:51] LABS: Free T4 (Free Thyroxine) 0.91 ng/dl (0.78-2.19)
[2025-04-20 12:04] LABS: Thyroid Stimulating Hormone 2.51 uIU/mL (0.465-4.68)
== END 2025-04-20 23:59 | disposition home or self-care (01) ==
LOC: LAB 08:27
PROVIDERS: PCP Family Medicine; Visit Provider Internal Medicine
DX: I25.10 Atherosclerotic heart disease of native coronary artery without angina pectoris (principal); I10 Essential (primary) hypertension; R73.9 Hyperglycemia, unspecified; E78.5 Hyperlipidemia, unspecified
CPT/HCPCS: 36415; 80048; 80061; 80076; 83036; 83735; 84439; 84443; 85025

== ENCOUNTER 2025-04-21 14:44 | Day surgery (SDC) | payer MEDICARE, SELFPAY ==
[2025-04-21 14:50] VITALS: BP 128/71; PULSE 63; RESP 16; O2SAT 96; BMI 36.6
--- NOTE | 2025-04-21 14:59 | P.PCN_ITS ---
Procedure Date: 04/21/25 Time: 15:05 Anesthesiologist:: Rashel Solo CRNA Complications:: None Pre-procedure Diagnosis:: Degenerative disc lumbar spine multilevels. Lumbar radiculopathy. Lumbar postlaminectomy syndrome. Lumbar spondylosis. Multilevel lumbar facet arthropathy. Post-procedure Diagnosis:: Same Indications for Procedure:: Patient is a very pleasant 84-year-old male who comes our clinic today for intrathecal pain pump interrogation and refill. Patient currently being managed with fentanyl 394.5 mcg/day. Also bupivacaine 1.9725 mg/day. Patient doing very well with his current settings. He is not requesting any changes. He is not reporting any side effects or complications. He rates his pain 4/10. Patient is awake alert [employer] x 3. In no acute distress. Flexion-extension lumbar spine very guarded secondary to pain. Deep tendon reflexes upper lower extremities normal. Motor strength upper extremities normal. Lower extremities 4/5. Patient presents today in a wheelchair. Procedure Details:: Details of the procedure explained to the patient. The patient taken procedure and placed in the sitting position. The area over the pump is cleansed using chlorhexidine as a cleansing solution. The pump was interrogated. The pump was accessed with ease using a 22-gauge inch and half needle. 6 ml was solution was withdrawn and discarded appropriately. The pump was then filled with 20 cc of a solution containing fentanyl 1000 mcg/mL and bupivacaine 5 mg/mL. There is no change in pump rate. Patient tolerated procedure without difficulty. There are no complications. Plan and Disposition:: Patient tolerated the procedure without difficulty. There are no complications.
[2025-04-21 15:00] VITALS: BP 147/81; PULSE 74; RESP 18; O2SAT 92
[2025-04-21 15:13] VITALS: BP 147/81; PULSE 74; RESP 16; O2SAT 92
== END 2025-04-21 15:13 | disposition home or self-care (01) ==
PROVIDERS: PCP Family Medicine; Visit Provider Nurse Anesthetist, Certified Registered
DX: M51.16 Intervertebral disc disorders with radiculopathy, lumbar region (principal); Z45.1 Encounter for adjustment and management of infusion pump; M47.26 Other spondylosis with radiculopathy, lumbar region; M96.1 Postlaminectomy syndrome, not elsewhere classified; I25.10 Atherosclerotic heart disease of native coronary artery without angina pectoris; E78.5 Hyperlipidemia, unspecified; Z98.890 Other specified postprocedural states; Z88.2 Allergy status to sulfonamides; Z79.82 Long term (current) use of aspirin; Z79.899 Other long term (current) drug therapy
CPT/HCPCS: 62370

== ENCOUNTER 2025-04-22 12:55 | Outpatient (CLI) | payer MEDICARE, SELFPAY ==
--- OUTSIDE RECORDS SUMMARY | 2024-02-18 09:45 | XMS_ITS ---
Author Organization [facility] Address [address] [facility] [address] [place] [id number] Care Team Providers Care Web Ui Software Engineer Name Role Phone Dorene Haynes Primary Care Provider [phone] Tari Barrera Unavailable [phone] Allergies Allergen (clinical drug ingredient) Drug/Non Drug Allergy documented on EMR Reaction Allergy Type Onset Date Status Substance with sulfonamide structure and antibacterial mechanism of action (substance) Sulfa Antibiotics rash Drug Allergy Active REASON FOR VISIT removal of roselyn in head, follow up ER at [facility] Medications Medication SIG (Take, Route, [...] 02/18/2024 Encounters Encounter Location Date Provider Diagnosis [facility] [address], [place] [id number] 02/18/2024 Tari Barrera Removal of roselyn Z48.02 Assessments Encounter Date Diagnosis (ICD Code) Assessment Notes Treatment Notes Treatment Clinical Notes Section Notes 02/18/2024 Removal of roselyn (ICD-10 - Z48.02) wound care Plan Of Treatment Treatment Notes Assessment Notes Removal of roselyn wound care Next Appt Details Follow Up: prn, Reason: Progress Notes * Damir LARSON RDOB: [birth year] (84 yo M)Acc No.[id number]:02/18/2024 Progress Notes Patient: Damir GONZALES Provider: ARCHIE Hoover :1940 A ge:83 Y S ex:Male Date:02/18/2024 Address:[facility] [address], [place], [id number] Pcp:Dorene Haynes Subjective: * Chief Complaints: * 1 . removal of roselyn in head, follow up ER at [facility]. * HPI: D ermatology: Staple Removal P t presents today to have roselyn removed from the left side of his head above the left ear. Pt was seen and treated at [facility] ER on 02/07. Pt sts he does not have any other conercns or complaints at this time. 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 Delarosa/moderate esophageal dysmotility; bile reflux gastropathy 02/14/2021, C 2-3 laminectomy and fusion/ Dr. Doty 09/2021, Laproscopic Left Radical Nephrectomy - Renal Cell Carcinoma/ Dr. Tracy 06/05/23. * Hospitalization/Major Diagno stic Procedure: s ee above , [facility] ER - Laceration November 2017. [...] * Images: Billing Information: * Visit Code: 58766 Office Visit, Est Pt., Level 3. * Procedure Codes: G2211 Complex e/m visit add on. * Electronic signature of Stacey Barrera APRN on 04/22/2025 at 12:56 PM EDT Sign off status: Pending * Provider: ARCHIE Hoover Date: 0 02/18/2024 Generated for Trina Pollock on: 12:56 PM EDT History and Physical Notes * HPI (History of Present Illness) Category Sub-Category Detail Notes Category Not es Dermatology Staple Removal Pt presents to y to have roselyn removed from the left side of his head above the left ear. Pt was seen and treated at [facility] ER on 02/07. 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
--- OUTSIDE RECORDS SUMMARY | 2024-04-03 10:20 | XMS_ITS ---
Author [facility] Address [address] [facility] [address] [place] [phone] Care Team Providers Care Bakery Clerk Name Role Phone Dorene Haynes Primary Care [...] Administered Encounters Encounter Location Date Provider Diagnosis [facility] [address] [facility] [address] [place], [place] [address] [phone] 04/03/2024 Dorene Haynes Encounter for immunization Z23 Assessments Encounter Date Diagnosis (ICD Code) Assessment Notes Treatment Notes Treatment Clinical Notes Section Notes 04/03/2024 Encounter for immunization (ICD-10 - Z23) Plan Of Treatment No Information Progress Notes * Damir LARSON RDOB: [birth year] (84 yo M)Acc No.[id number]:04/03/2024 Patient: Damir GONZALES Provider: Dorene Haynes M.D. :1940 A ge:83 Y S ex:Male Date:04/03/2024 Address:[facility] [address], [id number] Subjective: * Chief Complaints: * 1 . [...] Electronic signature of Dorene Haynes MD on 04/22/2025 at 12:58 PM EDT Sign off status: Pending * Provider: Dorene Haynes M.D. Date: Generated for Trina wright/Chris/Shamar on: 12:58 PM EDT
--- OUTSIDE RECORDS SUMMARY | 2024-06-03 12:00 | XMS_ITS ---
Author Organization [facility] Address [address] [facility] [address] [place] [id number] Care Team Providers Care Kitchen Work Supervisor Name Role Phone Dorene Haynes Primary Care Provider [phone] Tari Barrera [phone] Allergies Allergen (clinical drug ingredient) Drug/Non Drug Allergy documented on EMR Reaction Allergy Type Onset Date Status Substance with sulfonamide structure and antibacterial mechanism of action (substance) Sulfa Antibiotics rash Drug Allergy Active REASON FOR VISIT [facility] VISIT Medications Medication SIG (Take, Route, Frequency, [...] W/U Status Risk Notes Problem Neurogenic bladder (893633063) Neurogenic bladder (N31.9) Active confirmed Vital Signs Weight 275.2 lbs 06/03/2024 Blood pressure systolic 124 mm Hg 06/03/20 24 Blood pressure diastolic 57 mm Hg 024 Heart Rate 78 /min 06/03/2024 Respiratory Rate 18 /min 06/03/2024 Encounters Encounter Location Date Provider Diagnosis [place] [place] [id number] 06/03/2024 Tari Barrera Chronic pain syndrom e [...] Damir LARSON RDOB: [birth year] (84 yo M)Acc No.[id number]:06/03/2024 Progress Notes Patient: Damir GONZALES Provider: ARCHIE Hoover :1940 A ge:83 Y S ex:Male Date:06/03/2024 Address:[facility] [address], [facility], [id number] Pcp:Dorene Haynes Subjective: * Chief Complaints: * 1 . [facility]. * HPI: H PI: For routine Senior Care visit; chart reviewed and patient examined; see PORSCHE, Progress Note by Dr. Haynes from visit 08/01/2023 as follows: ADMSSION H&P HPI: Mr. Larson is an 83-year-old white male who was admitted to [place] for subacute rehab following recent admission to [...] Neurogenic bladder PLAN: He is admitted to [place] for subacute rehab following his recent T10 [...] Diagno stic Procedure: s ee above , [facility] - Laceration November 2017, [place] [...] 39, 48, 62,78, O2 Sat:92%, Nurse:reviewed/recorded by [facility], RR:18. * Examination: G eneral Examination: General [...] * Images: Billing Information: * Visit Code: 05114 subs. level 4. * Procedure Codes: * Electronic signature of Stacey Barrera APRN on 04/22/2025 at 12:57 PM EDT Sign off status: Pending * Provider: ARCHIE Hoover Date: 1 08/04/2023 Generated for Trina wright/Chris/Shamar on: 12:57 PM EDT History and Physical Notes * HPI (History of Present Illness) Category Sub-Category Detail Notes Category Not es HPI For routine Senior Care visit; chart reviewed and patient examined; see ROS, Progress Note by Dr. Haynes from visit 08/01/2023 as follows: ADMSSION H&P HPI: Mr. Larson is an 83-year-old white male who was admitted to [place] for subacute rehab following recent admission to [...] Neurogenic bladder PLAN: He is admitted to [place] for subacute rehab following his recent T10 [...] [facility] Neurologic Exam: alert and oriented
--- OUTSIDE RECORDS SUMMARY | 2024-07-28 10:45 | XMS_ITS ---
[facility] Address [address] [facility] [address] [place] [phone] Care Team Providers Care Pullman Conductor Name Role Phone Dorene Haynes Primary Care Provider Tari Barrera Unavailable [phone] Allergies Allergen (clinical drug ingredient) Drug/Non Drug Allergy documented on EMR Reaction Allergy Type Onset Date Status Substance with sulfonamide structure and antibacterial mechanism of action (substance) Sulfa Antibiotics rash Drug Allergy Active Reason For Referral Diagnosis 1 Cellulitis and absce ss (L03.90) [facility] Referring Provider First Name Tari Referring Provider Last Name Holly Referring Provider Speciality Family Pra ctice Referred Provider Tonia Sorto Referred Provider Specialty Podiatry General Notes Tari Barrera 07/28/2024 3:26:14 PM > left toe infectionDebbie Brynn 07/28/2024 3:28:37 PM > faxed to [facility] Podiatry, Luann Lewis 07/31/2024 9:39:55 AM > [...] 07/28/2024 Encounters Encounter Location Date Provider Diagnosis [facility] [address] [facility] [address] [place], [place] [phone] 07/28/2024 Tari Barrera Cellulitis and abscess L03.90 [...] LENA Damir RDOB: [birth year] (84 yo M)Acc No.[id number]:07/28/2024 Progress Notes Patient: Damir GONZALES Provider: ARCHIE Hoover :1940 A ge:83 Y S ex:Male Date:07/28/2024 Address:[facility] [address], [id number] Pcp:Dorene Haynes Subjective: * Chief Complaints: * 1 . Sore on toe. * HPI: A nkle/Foot: 83 year old male presents with c/o Pain P t sts he has a spot o n the left middle toe. Pt sts the foot is swollen and sts the sore has been there for about 4 days now. Pt w ould like refedrral ot the financial services technician. * ROS: R ESPIRATORY: no S hortness [...] Procedure: s ee above , [facility] ER - Laceration November 2017, [place] after [...] * Images: Billing Information: * Visit Code: 69187 Office Visit, Est Pt., Level 4. * Procedure Codes: G2211 Complex e/m visit add on. 3074F SYST BP LT 130 MM HG. 3078F DIAST BP < 80 MM HG. * Electronic signature of Stacey Barrera APRN on 04/22/2025 at 12:57 PM EDT Sign off status: Pending * Provider: ARCHIE Hoover Date: 0 07/28/2024 Generated for Trina wright/Chris/Jean-Paulitting on: 1 12:57 PM EDT History and Physical Notes * HPI (History of Present Illness) Category Sub-Category Detail Notes Category Not es Ankle/Foot Pain Pt sts he has a spot on the left middle toe. Pt sts the foot is swollen and sts the sore has been there for about 4 days now. Pt would like refedrral ot the financial services technician Examination Category Sub-Category Detail Notes Category Not [...]
--- OUTSIDE RECORDS SUMMARY | 2024-07-31 10:15 | XMS_ITS ---
Author [facility] Address [address] [place] [phone] Care Team Providers Care Vice President Education Name Role Phone Dorene Haynes Primary Care Provider Allergies Allergen (clinical drug ingredient) Drug/Non Drug Allergy documented on EMR Reaction Allergy Type Onset Date Status Substance with sulfonamide structure and antibacterial mechanism of action (substance) Sulfa Antibiotics rash Drug Allergy Active REASON FOR VISIT follow up from Sunday visit Medications Medication SIG (Take, Route, Frequency, Duration) Notes Start Date End Date Status Spironolactone 25 MG 1 tablet Orally Active Furosemide 40 mg TAKE ONE TABLET BY M OUTH EVERY DAY Active Dutasteride 0.5 mg TAKE ONE CAPSULE BY MOUTH EVERY DAY; Duration: 90 Active HYDROcodone-Acetaminophen 10-325 MG 1 tab(s) orally every 6 hours prn 06/02/2024 Active Cephalexin 500 MG 1 capsule Orally haroldo ry 8 hrs 07/28/2024 Active Aspirin Low Dose 81 MG 1 tab(s) orally o nce a day Active Tamsulosin HCl 0.4 mg TAKE TWO CAPSULES BY MOUTH EVERY DAY Active Rosuvastatin Calcium 20 MG 1/2 tab(s) or ally once a day Active Acetaminophen 500 MG 2 tablet as needed Orally every 6 hrs Active Trintellix 5 MG TAKE ONE TABLET BY M OUTH EVERY DAY Active MiraLax 17 GM/SCOOP 1 scoop mixed with 8 ounces of fluid Orally Once a day Active Erythromycin 250 MG as directed Orally tid Active Bethanechol Chloride 25 MG 1 tablet 1 ho ur before or 2 hours after meals Orally Three times a day Active Methocarbamol 1000 MG 1 tablet Orally Fo ur times a day Active Metamucil 0.36 GM as directed Orally 1 pkg qd Active Omeprazole 40 MG 1 capsule 1/2 to 1 h our before morning meal Orally Once a day Active Ondansetron 4 MG 1 tablet on the tong ue and allow to dissolve Orally q6h prn Active Tums 500 MG 1 tablet Orally qid prn Active Senna Plus 8.6-50 MG 1 tablet as needed Orally at HS Active oxyCODONE HCl 5 MG 1 tab(s) Orally ever y 6 hrs prn 07/31/2024 Active Tylenol PM Extra Strength 500-25 MG 1 tablet at bedtime as needed Orally Once a day at HS Active Vital Signs Weight 222.6 lbs 07/31/2024 Blood pressure systolic 120 mm Hg 07/31/19 25 Blood pressure diastolic 80 mm Hg 025 Heart Rate 77 /min 07/31/2024 Height 69 in 07/31/2024 BMI 32.87 kg/m2 07/31/2024 Encounters Encounter Location Date Provider Diagnosis [facility] [address] [phone] 07/31/2024 R Jackson Haynes Friction blister T14.8XXA ; Cellulitis L03.90 ; Wedge compression fracture of T9-T10 vertebra, subsequent encounter for fracture with routine healing S22.070D ; 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 Anticipate continued healing 07/31/2024 Cellulitis (ICD-10 - L03.90) 07/31/2024 Wedge compression fracture of T9-T10 vertebra, subsequent encounter for fracture with routine healing (ICD-10 - S22.070D) 07/31/2024 Spinal stenosis of lumbar region with neurogenic claudication (ICD-10 - M48.062) 07/31/2024 Chronic pain syndrome (ICD-10 - G89.4) Plan Of Treatment Medication Medication Name Sig Start Date Stop Date Notes Cephalexin 500 MG 1 capsule Orally every 8 hrs 07/28/2024 oxyCODONE HCl 5 MG 1 tab(s) Orally every 6 hrs prn 025 Treatment Notes Assessment Notes Friction blister Continue local wound care. Anticipate continued healing Next Appt Details Follow Up: prn, Reason: Progress Notes * Damir LARSON RDOB: [birth year] (84 yo M)Acc No.[id number]:07/31/2024 Progress Notes Patient: Damir GONZALES Provider: Droene Haynes M.D. :1940 A ge:83 Y S ex:Male Date:07/31/2024 Address:[facility] [address], [address], [id number] Subjective: * Chief Complaints: * 1 . follow up from Sunday visit. * HPI: A nkle/Foot: He returns to follow-up on the wound to his left middle toe. has been doing wound care and states that the blister opened and drained and now the area is drying out. There has been no drainage for the past 24 hours. She notes that swelling and redness have also decreased. He denies pain due to his chronic numbness. The original injury came from trauma from scraping the toe on the threshold of his door. L ower back: Regarding his recent spine fracture, his neurosurgeon has discontinued bracing but he is still having significant pain, more so when lying down. * ROS: R ESPIRATORY: no S hortness [...] 2 stent placements, NSTEMI 09/30/15 - [facility], Vertigo, Neurogenic bladder, Renal cell carcinoma, Depression, T10 Fx. * Surgical History: C -spine laminectomy x 2 , Lumbar surgery x 4 for spinal stenosis , Appendectomy , Hemorrhoid surgery , Brain surgery-shunt placed in the back of pts head 18 y.o., 2 stents in heart , Eye Surgery , cardiac stent placed-[facility]-Dr King 09/30/15, Implanted pain pump 01/2017, C-scope , EGD/Dr. Delarosa/moderate esophageal dysmotility; bile reflux gastropathy 02/14/2021, C 2-3 laminectomy and fusion/ Dr. Doty 09/2021, Laproscopic Left Radical Nephrectomy - Renal Cell Carcinoma/ Dr. Tracy 06/05/23. * Hospitalization/Major Diagno stic Procedure: s ee above , [facility] ER - Laceration November 2017, [place] [...] CAPSULES BY MOUTH EVERY DAY , Taking Rosuvastatin Calcium 20 MG Tablet 1/2 tab(s) orally once a day , Taking Aspirin Low Dose 81 MG Tablet Delayed Release 1 tab(s) orally once a day , Taking HYDROcodone-Acetaminophen 10-325 MG Tablet 1 tab(s) orally every 6 hours prn , Taking Dutasteride 0.5 mg Capsule TAKE ONE CAPSULE BY MOUTH EVERY DAY , Taking Cephalexin 500 MG Capsule 1 capsule Orally every 8 hrs , Taking Spironolactone 25 MG Tablet 1 tablet Orally , Taking Furosemide 40 mg Tablet TAKE ONE TABLET BY MOUTH EVERY DAY , Medication List reviewed and reconciled with the patient * Allergies: S ulfa Antibiotics: rash. Objective: * Vitals: W t:222.6, Temp:97.7, BP:120/80, HR:77, O2 Sat:95% on RA, Nurse:CHRISTI, Ht: 69, BMI:32.87. Assessment: * Assessment: 1. C cecytis - L03.90 (Primary) 2 . F riction blister - T14.8XXA ? 3 . W edge compression fracture of T9-T10 vertebra, subsequent encounter for fracture with routine healing - S22.070D 4 . S sugar stenosis of lumbar region with neurogenic claudication - M48.062 5 . C hronic pain syndrome - G89.4 Plan: * Treatment: 2. F riction blister Notes: Continue local wound care. Anticipate continued healing 3. O thers Refill oxyCODONE HCl Tablet, 5 MG, 1 tab(s), Orally, every 6 hrs prn, 60, Refills 0. * Procedure Codes: G 2211 Complex e/m visit add on, 3074F SYST BP LT 130 MM HG, 3079F DIAST BP 80-89 MM HG * Follow Up: p rn * Images: Billing Information: * Visit Code: 15926 Office Visit, Est Pt., Level 3. * Procedure Codes: G2211 Complex e/m visit add on. 3074F SYST BP LT 130 MM HG. 3079F DIAST BP 80-89 MM HG. * Electronic signature of Dorene Haynes MD on 04/22/2025 at 12:57 PM EDT Sign off status: Pending * Provider: Dorene Haynes M.D. Date: 0 07/31/2024 Generated for Trina wright/Chris/Jean-Paulitting on: 1 12:57 PM EDT History and Physical Notes * HPI (History of Present Illness) Category Sub-Category Detail Notes Category Not es Ankle/Foot The original in jury came from trauma from scraping the toe on the threshold of his door.
--- OUTSIDE RECORDS SUMMARY | 2025-02-12 10:30 | XMS_ITS ---
Author Organization [facility] Address [address] [facility] [address] [place] [id number] Care Team Providers Care Mallet And Die Cutter Name Role Phone Dorene Haynes Primary Care Provider [phone] Allergies Allergen (clinical drug ingredient) Drug/Non Drug [...] Interpretation:189 Performing Lab: Notes/Report: Test performed by [facility] [address] [place] [address] , [address], [place] [address] Candelario Huynh MD, Stations Superintendent CLIA: [id number] Vitamin B12 826 573-0413 pg/mL P-Comprehensive Metabolic Pa sage (CMP) Reviewed date:02/17/2025 08:58:38 AM Interpretation:GFR 31 (stable) Performing Lab: Notes/Report: Test performed by [facility] [address] [place] [address] , [address], [place] [address] Candelario Huynh MD, Stations Superintendent CLIA: [id number] Sodium 143 135-145 mmol/L Potassium 4.5 3.5-5.3 [...] (low) Performing Lab: Notes/Report: Test performed by [facility] [address] [place] [address] , [address], [place] [address] Candelario Huynh MD, Stations Superintendent CLIA: [id number] Iron 51 59-158 ug/dL P-Magnesium Reviewed date:02/17/2025 08:58:38 AM Interpretation:1.9 Performing Lab: Notes/Report: Test performed by [facility] [address] [place] [address] , [address], [place] [id number] Candelario Huynh MD, Stations Superintendent CLIA: [id number] Magnesium 1.9 1.6-2.4 mg/dL P-Vitamin D, 1, 25 Dihydroxy Reviewed date:02/17/2025 08:58:38 AM Interpretation:27.8 Performing Lab: Notes/Report: Test performed by [facility] [address] [place] [address] , [address], [place] [address] Candelario Huynh MD, Stations Superintendent CLIA: [id number] Vitamin D, 1, 25 Dihydroxy 27.8 19.9-79.3 [...] Status W/U Status Risk Notes Problem Anemia (033107685) Anemia (D64.9) Active confirmed Problem Vitamin D deficiency (80807572) Vitamin D deficiency (E55.9) Active confirmed Vital Signs Weight 281 lbs 02/12/2025 Blood pressure systolic 130 mm Hg 02/13/20 25 Blood pressure diastolic 74 mm Hg 025 Heart Rate 86 /min 02/12/2025 Height 69 in 02/12/2025 BMI 41.49 kg/m2 02/12/2025 Encounters Encounter Location Date Provider Diagnosis [facility] [address] [place] [id number] 02/12/2025 Dorene Haynes Anemia D64.9 ; Vitam [...] Damir LARSON RDOB: [birth year] (84 yo M)Acc No.[id number]:02/12/2025 Patient: Damir GONZALES Provider: Dorene Haynes M.D. :1940 A ge:84 Y S ex:Male Date:02/12/2025 Address:[address] [place] [address] , [place], [id number] Subjective: * Chief Complaints: * 1 . [...] above , [facility] - Laceration November 2017, [place] [...] G 2211 Complex e/[place], [address] CBC WITH AUTO DIFF, 57735 VENIPUNCT, ROUTINE*, 1036F TOBACCO NON-USER, G8950 PREHTN/HTN BP DOC INDCD F/U DOC, G8752 MOST RECENT SYSTOLIC BP < 140MM HG, G8754 MOST RECENT DIASTOLIC BP < 90MM HG * Follow Up: v ia phone to report test results * Images: Billing Information: * Visit Code: 11029 Office Visit, Est Pt., Level 4. * Procedure Codes: G2211 Complex e/[place]. [address] CBC WITH AUTO DIFF. 99000 VENIPUNCT, ROUTINE*. 1036F TOBACCO NON-USER. G8950 PREHTN/HTN BP DOC INDCD F/U DOC. G8752 MOST RECENT SYSTOLIC BP < 140MM HG. G8754 MOST RECENT DIASTOLIC BP < 90MM HG. * Electronic signature of Dorene Haynes MD on 04/22/2025 at 12:57 PM EDT Sign off status: Pending * Provider: Dorene Haynes M.D. Date: 0 02/12/2025 Generated for Trina wright/Chris/eTransmhorace on: 1 12:57 PM EDT History and [...]
--- OUTSIDE RECORDS SUMMARY | 2025-03-19 06:05 | XMS_ITS ---
Author Organization [facility] Address [address] [facility] [address] [place] [phone] Care Team Providers Care Construction Area Manager Name Role Phone Dorene Haynes Primary Care Provider REASON FOR VISIT flu shot Medications Medication SIG (Take, Route, Frequency, Duration) Notes Start Date End Date Status Senna Plus 8.6-50 MG 1 tablet as needed Orally at HS Active Iron 325 (65 Fe) MG 1 tablet Orally daily 02/19/20 Active Tums 500 MG 1 tablet Orally qid prn Active Vitamin D3 50 MCG (1999 UT) 1 capsule Or ally Once a day 02/18/2025 Active Tylenol PM Extra Strength 500-25 MG 1 tablet at bedtime as needed Orally Once a day at HS Active Furosemide 40 mg TAKE ONE TABLET BY M OUTH EVERY DAY; Duration: 30 Active Trintellix 5 mg TAKE ONE TABLET BY M OUTH EVERY DAY; Duration: 30 Active Cephalexin 500 MG 1 capsule Orally 3 t imes a day 07/28/2024 Active Valium 5 MG 1/2 -1 tab(s) orally two times a day as needed 02/12/2025 Active Vitamin B12 1000 MCG 1 tablet Orally Onc e a day 02/18/2025 Active oxyCODONE HCl 5 MG 1 tab(s) Orally ever y 6 hrs prn 07/31/2024 Active HYDROcodone-Acetaminophen 10-325 MG 1 tab(s) orally every 6 hours prn 06/02/2024 Active Aspirin Low Dose 81 MG 1 tab(s) orally o nce a day Active Spironolactone 25 MG 1 tablet Orally Active Dutasteride 0.5 mg TAKE ONE CAPSULE BY MOUTH EVERY DAY; Duration: 90 Active Bethanechol Chloride 25 MG 1 tablet 1 ho ur before or 2 hours after meals Orally Three times a day Active Erythromycin 250 MG as directed Orally tid Active Acetaminophen 500 MG 2 tablet as needed Orally every 6 hrs Active Rosuvastatin Calcium 20 MG 1/2 tab(s) or ally once a day Active Tamsulosin HCl 0.4 mg TAKE TWO CAPSULES BY MOUTH EVERY DAY Active Metamucil 0.36 GM as directed Orally 1 pkg qd Active Methocarbamol 1000 MG 1 tablet Orally Fo ur times a day Active Ondansetron 4 MG 1 tablet on the tong ue and allow to dissolve Orally q6h prn Active MiraLax 17 GM/SCOOP 1 scoop mixed with 8 ounces of fluid Orally Once a day Active Omeprazole 40 MG 1 capsule 1/2 to 1 h our before morning meal Orally Once a day Active Immunizations Vaccine Route Administration Date Status Comme nts Fluzone High Dose (65yr and older) IM Intramuscular 03/19/2025 Administered Encounters Encounter Location Date Provider Diagnosis [facility] [facility] [address] [place] [phone] 03/19/2025 Dorene Haynes Encounter for immunization Z23 Assessments Encounter Date Diagnosis (ICD Code) Assessment Notes Treatment Notes Treatment Clinical Notes Section Notes 03/19/2025 Encounter for immunization (ICD-10 - Z23) Plan Of Treatment No Information Progress Notes * Damir LARSON RDOB: [birth year] (84 yo M)Acc No.[id number]:03/19/2025 Patient: Micah BAILEYDamir Provider: Dorene Haynes M.D. :1940 A ge:84 Y S ex:Male Date:03/19/2025 Address:[facility] [place], [place], [id number] Subjective: * Chief Complaints: * 1 . Flu shot. * Medical History: * Medications: T aking Tylenol PM Extra [...] Orally every 6 hrs prn , Taking Furosemide 40 mg Tablet TAKE ONE TABLET BY MOUTH EVERY DAY , Taking Trintellix 5 mg Tablet TAKE ONE TABLET BY MOUTH EVERY DAY , Taking Valium 5 MG Tablet 1/2 -1 tab(s) orally two times a day as needed , Taking Cephalexin 500 MG Capsule 1 capsule Orally 3 times a day , Taking Vitamin B12 1000 MCG Tablet 1 tablet Orally Once a day , Taking Vitamin D3 50 MCG (2000 UT) Capsule 1 capsule Orally Once a day , Taking Iron 325 (65 Fe) MG Tablet 1 tablet Orally daily , Medication List reviewed and reconciled with the patient Objective: * Vitals: Assessment: * Assessment: 1. E ncounter for immunization - Z23 (Primary) Plan: * Treatment: * Immunizations: Fluzone High Dose (65yr and older) : 0.5 mL (Route: Intramuscular) given by Leisa Atwood on Right Arm (Encounter for immunization) * Images: Billing Information: * Visit Code: * Procedure Codes: * Electronic signature of Dorene Haynes MD on 04/22/2025 at 12:56 PM EDT Sign off status: Pending * Provider: Dorene Haynes M.D. Date: 0 03/19/2025 Generated for Trina wright/Chris/Shamar on: 1 12:56 PM EDT
--- NOTE | 2025-04-22 | CA_ITS ---
APPROVED REPORT Exam: Pharmacologic Technologist: Alison Pitts Stress Nurse: Mary BLOOM, RN Ht: 6 ft 0 in Wt: 277 lbs BSA: 2.45 m2 HR: 79 bpm BP: 157/83 mmHg Indications: Shortness of breath, coronary artery disease, fatigue Stress Test Details Test: Lexiscan HR Resting HR: 79 bpm Max Heart Rate (APMHR): 134.799521 bpm Max HR Achieved: 89 bpm Target HR (85% APMHR): 113.421256 bpm % of APMHR: 66.42 Recovery HR: 86 bpm BP Resting BP: 157.0/83.0 mmHg Max BP: 166.0/87.0 mmHg Recovery BP: 156.0/82.0 mmHg ECG Stress ECG Conclusion Lungs clear to auscultation prior to start of test. Symptoms: None Arrhythmias/Ectopy: PAC/PVC ST-T Changes: Less than 0.[address] segment changes. Conclusion: Nondiagnostic ECG/Lexiscan Electronically signed by : Nica Rodriguez MD 04/26/2025 16:16:14
--- OUTSIDE RECORDS SUMMARY | 2025-04-22 12:57 | XMS_ITS | Referral Summary ---
Author Organization [facility] ([place], [place], [place], [place]) Address [address] [place] [address] Care Team Providers Care Industrial Service Technician Name Role Phone Ryan Haynes MD Primary Care Provider [phone] Kyler Moraes MD Unavailable [phone] Allergies Active Allergy Reactions Criticality Noted Date Comments Sulfa (Sulfonamide Antibiotics) Rash Low 11/2022 Medications tamsulosin (FLOMAX) 0.4 mg Cap 24 hr capsule Take 2 capsules (0.8 mg total) by mouth daily. 03/16/2023 Active omeprazole (PriLOSEC) 20 MG capsule Take 1 capsule (20 mg total) by mouth daily. 05/01/2023 Active dutasteride (AVODART) 0.5 mg capsule Take 1 capsule (0.5 mg total) by mouth daily. 04/23/2023 Active erythromycin (LOU-TAB) 250 mg TbEC Take 1 tablet (250 mg total) by mouth 3 (three) times daily. 05/23/2023 Active bethanechol (URECHOLINE) 25 MG tablet Take 1 tablet (25 mg total) by mouth 3 (three) times daily. 04/16/2023 Active Trintellix 5 mg tablet Take 1 tablet (5 mg total) by mouth daily. 05/14/2023 Active spironolactone (ALDACTONE) 25 MG tablet Take 1 tablet (25 mg total) by mouth daily. 02/21/2023 Active furosemide (LASIX) 40 MG tablet Take 1 tablet (40 mg total) by mouth daily. 05/02/2023 Active rosuvastatin (CRESTOR) 10 MG tablet Take 1 tablet (10 mg total) by mouth daily. 05/14/2023 Active aspirin 81 MG EC tablet 1 Tab, Oral, Tab, Daily, # 30 Tab, 0 Refill(s) 10/05/2021 Active diazePAM (VALIUM) 5 MG tablet Take 0.5-1 tablets (2.5-5 mg total) by mouth 2 (two) times daily as needed. 03/12/2023 Active simethicone (GAS-X ORAL) Take by mouth. Active melatonin 10 mg Tab Take by mouth. Active Missing or Non-Formulary Medication Pain pump: Fentanyl and Bupivicain. Active Active Problems Problem Noted Date Diagnosed Date Postoperative state 06/07/2023 Acute kidney injury superimp osed on chronic kidney disease (HCC) stage III 06/06/2023 Left renal mass 06/05/2023 S/p robotic assisted laparoscopic left partial n ephrectomy 06/05/2023 Preop examination 05/30/2023 Left renal mass 05/30/2023 Coronary artery disease invo lving [place] coronary artery of [place] heart 05/30/2023 History of [place] (myocardial infarction) 05/30/2023 Overview (05/30/2023): 2015. Coronary stents X 2 Depression with anxiety 05/30/2023 Chronic low back pain 05/30/2023 Overview (05/30/2023): Patient has pain pump COY (obstructive sleep apnea) 05/30/2023 Obesity (BMI 30.0-34.9) 05/30/2023 Fluid retention in legs 05/30/2023 GERD (gastroesophageal reflux disease) Primary hypertension 05/30/2023 Hyperlipidemia 05/30/2023 BPH (benign prostatic hyperplasia) Neuropathy Social History Tobacco Use Types Packs/Day Years Used Date Smoking Tobacco: Never Smokeless Tobacco: Never Tobacco Cessation:Counseling Given: Not Answered Alcohol Use Standard Drinks/Week Comments Never 0 (1 standard drink = 0.6 oz pur e alcohol) PRAPARE - Transportation Answer Date Re corded In the past 12 months, has l ack of transportation kept you from medical appointments or from getting medications? No 06/05/2023 Lack of Transportation (Non-Medical) Not on file 06/05/2023 Food Insecurity Answer Date Recorded Food run out past 12 months Not on file 06/25 Food did not last past 12 months Not on file 07/06/2023 Employment Answer Date Recorded Help finding and keeping a job Not on file 0 07/06/2023 Family and Community Support Answer Mariano e Recorded Help with Day to Day Activities Not on file 07/06/2023 Feeling Lonely or Isolated Not on file 07/06 Educational Attainment Answer Date Jose rded Speak language other than Occitan at home Not on file 07/06/2023 Want help with school or training Not on file 07/06/2023 Substance Use Answer Date Recorded Used prescription meds for non-medical reasons N ot on file 07/06/2023 Used illegal drugs past 12 months Not on file 07/06/2023 Sex and Gender Information Value Date Recorded Sex Assigned at Not on file Legal Sex Male 1:45 PM CDT Gender Identity Not on file Sexual Orientation Not on file Last Filed Vital Signs Vital Sign Reading Time Taken Comments Blood Pressure 151/70 06/07/2023 5:10 AM EST Pulse 72 06/07/2023 5:10 AM EST Temperature 36.6 C (97.9 F) 06/07/2023 5:10 AM EST Respiratory Rate 18 06/07/2023 5:10 AM EST Oxygen Saturation 93% 06/07/2023 5:10 AM EST Inhaled Oxygen Concentration - - Weight 113.4 kg (250 lb) 06/04/2023 2:00 PM EST Height 182.9 cm (6') 06/04/2023 2:00 PM EST Body Mass Index 33.91 06/04/2023 2:00 PM EST Plan of Treatment Not on file Insurance [employer] MEDICARE PPO Care Teams Industrial Service Technician Relationship Specialty Start Date End Date Ryan Haynes MD [address] [place] [address] PCP - General Family Medicine 05/30/23 Kyler Moraes MD [address] [place] [address] Referring Physician Cardiology 06/04/23
--- OUTSIDE RECORDS SUMMARY | 2025-04-22 12:57 | XMS_ITS | Clinical Summary ---
Author Organization [facility] Address [address] [place] [address] Care Team Providers Care Neurophysiological Technician Name Role Phone Ryan Haynes MD Primary Care Provider [phone]- [phone] Allergies Active Allergy Reactions Criticality Noted Date [...] a day. 12/24/19 24 Active HYDROcodone-acetam inophen ([place]) 10-325 MG tablet 1 tab(s) orally every [...] any time in the past 12 m [facility], were you homeless or living in a care home (including now)? No 05/26/2024 Utilities Answer Date Recorded In the past 12 months has [employer], gas, oil, or water company threatened to [...] Screenings 11/24/2024 UKY-Adult SDOH Screenings 11/24/2024 05/26/2024 [id number] Vaccine ( season) 2025 03/28/2024, 03/20/2023, 03/22/2022, [...] to complete this topic Insurance [place] [id number] [facility] MEDICARE Advance Directives * Full Code (Latest Code Status on File) Date Activated Date Inactivated Comments 05/24/2024 2:25 AM 05/29/2024 11:46 AM Question Answer Comments Patient has decision-making capacity? Yes Care Teams Neurophysiological Technician Relationship Specialty Start Date End Date Ryan Haynes MD [address] [place] [address] PCP - General 11/05/20
--- OUTSIDE RECORDS SUMMARY | 2025-04-22 12:57 | XMS_ITS | Clinical Summary ---
Author Organization [facility] Address [address] [place] [address] Care Team Providers Care Continuous Drier Helper Name Role Phone Ruperto Carey MD Primary Care Provider [phone] Social History Tobacco Use Types Packs/Day Years [...] 01/23/2025 COVID-19 Vaccine (2023- season) 2025 Insurance [facility] MEDICARE ADVANTAGE Care Teams Continuous Drier Helper Relationship Specialty Start Date End Date Ruperto Carey MD [address] [place], [place] [id number] PCP - General Anesthesiology 10/26/16
--- OUTSIDE RECORDS SUMMARY | 2025-04-22 12:58 | XMS_ITS | Clinical Summary ---
Author Organization [facility] ([place], [place], [place], [place]) Address [address] [place] [address] Care Team Providers Care Control Valve Mechanic Name Role Phone Ryan Haynes MD Primary Care Provider [phone]- [phone] Kyler Moraes MD Unavailable [phone] Allergies Active Allergy Reactions Criticality Noted Date [...] mass 05/30/2023 Coronary artery disease invo lving [place] coronary artery of [place] heart 05/30/2023 History of [place] (myocardial infarction) 05/30/2023 Overview (05/30/2023): 2015. Coronary stents X 2 Depression with anxiety 05/30/2023 Chronic low back pain 05/30/2023 Overview (05/30/2023): Patient has pain pump COY (obstructive sleep apnea) 05/30/2023 Obesity (BMI 30.0-34.9) 05/30/2023 Fluid retention in legs 05/30/2023 GERD (gastroesophageal reflux disease) Primary hypertension 05/30/2023 Hyperlipidemia 05/30/2023 BPH (benign prostatic hyperplasia) Neuropathy Family History Medical History Relation Name Comments Coronary artery disease Father Colon cancer Mother Pulmonary embolism Sister After yenny annie Relation Name Status Comments Father Mother Sister Alive Social History Tobacco Use Types Packs/Day Years [...] 06/04/2023 2:00 PM EST Plan of Treatment Health Maintenance Due Date Last Done Comments Shingles Vaccine (Zoster) (1 of 2) 1988 Respiratory Syncytial Virus (RSV) Adult or (1 - 1-dose 75+ series) 2013 Pneumococcal 50+ years (2 of 2 - PCV) 04/10/2018 04/10/2017 Medicare Initial AWV [id number] 06/26/2018 Tobacco Cessation Counseling and Screening (12+) 06/05/2024 06/05/2023 Falls Risk Screening 06/25/2024 COVID-19 VACCINE (6 - 2024-2 6 season) 2025 03/20/2023, 03/22/2022, 03/23/2021, Additional history exists Influenza Vaccine (#1) 2025 , 04/17/2022, 03/24/2022, Additional history exists DTAP/TDAP/TD VACCINES (5 - T d or Tdap) 06/21/2031 06/21/2021, 04/23/2018, 12/21/2017, Additional history exists Insurance [place] [id number] [employer] MEDICARE PPO Care Teams Control Valve Mechanic Relationship Specialty Start Date End Date Ryan Haynes MD [address] [place] [address] PCP - General Family Medicine 05/30/23 Kyler Moraes MD [address] [place] [address] Referring Physician Cardiology 06/04/23
--- OUTSIDE RECORDS SUMMARY | 2025-04-22 12:58 | XMS_ITS | Patient Health Record ---
Author Organization [facility] Address [address] [facility] [address] [place] [id number] Care Team Providers Care Customer Account Representative Name Role Phone Dorene Haynes Primary Care Provider Tari Barrera [phone] Allergies Allergen (clinical drug ingredient) Drug/Non Drug Allergy documented on EMR Reaction Allergy Type Onset Date Status Substance with sulfonamide structure and antibacterial mechanism of action (substance) Sulfa Antibiotics rash Drug Allergy Active Results Component Value Reference Range Notes P-Vitamin D, 1, 25 Dihydroxy Reviewed date:02/17/2025 08:58:38 AM Interpretation:27.8 Performing Lab: Notes/Report: Test performed by [facility] [address] [place], [place] [address] [place] [address] Candelario Huynh MD, Erp Engineer CLIA: [id number] Vitamin D, 1, 25 Dihydroxy 27.8 19.9-79.3 pg/m L P-Magnesium Reviewed date:02/17/2025 08:58:38 AM Interpretation:1.9 Performing Lab: Notes/Report: Test performed by [facility] [address] [place] [address] [facility] [place] [address] Candelario Huynh MD, Erp Engineer CLIA: [id number] Magnesium 1.9 1.6-2.4 mg/dL P-Iron Reviewed date:02/17/2025 08:58:38 AM Interpretation:51 (low) Performing Lab: Notes/Report: Test performed by [facility] [address] [place] [address] [place] [address] Candelario Huynh MD, Erp Engineer CLIA: [id number] Iron 51 59-158 ug/dL P-Comprehensive Metabolic Pa sage (CMP) Reviewed date:02/17/2025 08:58:38 AM Interpretation:GFR 31 (stable) Performing Lab: Notes/Report: Test performed by [facility] [address] [place] [address] , [place] [address] Candelario Huynh MD, Erp Engineer CLIA: [id number] Sodium 143 135-145 mmol/L Potassium 4.5 3.5-5.3 [...] 0.3 <0.2-1.2 mg/dL A/G Ratio 2.2 1.1-2.5 P-Vitamin B12 Reviewed date:02/17/2025 08:58:38 AM Interpretation:189 Performing Lab: Notes/Report: Test performed by [facility] [address] [place] [address] , [place] [address] Candelario Huynh MD, Erp Engineer CLIA: [id number] Vitamin B12 704 206-1203 pg/mL CBC Venipuncture (in house) Reviewed date:02/17/2025 08:58:38 [...] - 38 platlet 142 100 - 400 Medications Medication SIG (Take, Route, Frequency, Duration) [...] Vaccine Route Administration Date Status Comme nts [id number] e pts. IM Intramuscular 05/01/2011 Administered xFluzone High Dose-private (65yr&older) IM Intramuscular 03/17/2013 Administered xFluzone High Dose-private (65yr&older) Unknown 03/28/2024 Administered Tetanus Tdap-Adacel (over 7yrs) Unknown 12/21/2017 Administered Tetanus Tdap-Adacel (over 7yrs) IM Intramuscular 04/23/2018 Administered Tetanus Tdap-Adacel (over 7yrs) Unknown 06/21/2021 Administered Shingrix IM Intramuscular 06/04/2018 Administered Shingrix IM Intramuscular 11/28/2018 Administered Prevnar (PCV20) IM Intramuscular 04/03/2024 Administered Prevnar (PCV13) IM Intramuscular 03/12/2015 Administered PNEUMOVAX 23 VACCINE IM Intramuscular 05/05/2011 Administe red PNEUMOVAX 23 VACCINE IM Intramuscular 04/10/2017 Administe red Hepatitis A (adult) IM Intramuscular 06/13/2018 Administer ed Hepatitis A (adult) IM Intramuscular 12/19/2018 Administer ed Fluzone Quad-Medicare (6months&older) IM Intramuscular 03/05/2020 Administered Fluzone High Dose (65yr and older) IM Intramuscular 03/13/2014 Administered Fluzone High Dose (65yr and older) [...] (65yr and older) IM Intramuscular 03/19/2025 Administered DT, 7 YEARS OR OLDER Unknown 09/01/1996 Administered COVID 19 Moderna Unknown 07/06/2020 Administered COVID 19 Moderna Unknown 08/06/2020 Administered COVID 19 Moderna Unknown 03/23/2021 Administered Problems Problem Type SNOMED Code ICD Code Onset Dates Problem Status W/U Status Risk Notes Problem Gastro-esophageal reflux disease without esophagitis (243779358) Gastro-esophageal reflux disease without esophagitis (K21.9) Active confirmed Problem Essential hypertension (51691668) Essential (primary) hypertension (I10) Active confirmed Problem Coronary arteriosclerosis (24561276) ASCVD (arteriosclerotic cardiovascular disease) (I25.10) Active confirmed Problem Vitamin D deficiency (48498920) Vitamin D deficiency (E55.9) Active confirmed Problem Anemia (213870903) Anemia (D64.9) Active confir med Problem 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) Venous insufficiency (I87.2) Active confirmed Problem Mixed anxiety and depressive disorder (493909637) Depression with anxiety (F41.8) Active confirmed Problem Neurogenic bladder (246991505) Neurogenic bladder (N31.9) Active confirmed Problem Recurrent falls (714205498) Multiple falls (R29.6) Active confirmed Problem 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) Active confirmed Problem Primary insomnia (2191533) Primary insomnia (F51.01) Active confirmed Problem Polyneuropathy (06054877) Polyneuropathy, unspecified (G62.9) Active confirmed Problem Chronic pain syndrome (822046384) Chronic pain syndrome (G89.4) Active confirmed Problem Depressive disorder (46861490) Depressive disorder (F32.9) Active confirmed Problem Displacement of lumbar intervertebral disc without myelopathy (21698283) Bulging lumbar disc (M51.26) Active confirmed Problem Dyslipidemia (066646730) Dyslipidemia (E78.5) Active confirmed Problem Restless legs (57331085) RLS (restless legs syndrome) (G25.81) Active confirmed Problem Peripheral vascular disease (521670259) PAD (peripheral artery disease) (I73.9) Active confirmed Problem Atherosclerotic heart disease of [place] coronary artery without angina pectoris (944427892299779) Atherosclerosis of [place] coronary artery without angina pectoris, unspecified whether pala or transplanted heart (I25.10) Active confirmed Problem Osteoarthritis (474890033) Osteoarthritis, unspecified osteoarthritis type, unspecified site (M19.90) Active confirmed Problem Lower urinary tract symptoms due to benign prostatic hypertrophy (91941917511512) Benign prostatic hyperplasia with lower urinary tract symptoms (N40.1) Active confirmed Problem Urge incontinence of urine (69179693) Urge incontinence of urine (N39.41) Active confirmed Problem Sleep apnea (61331977) Sleep apnea in adult (G47.30) Active confirmed Problem Carotid artery occlusion (467145545) Stenosis of carotid artery, unspecified laterality (I65.29) Active confirmed Problem Lower urinary tract symptoms due to benign prostatic hypertrophy (15675817690910) Benign prostatic hyperplasia with lower urinary tract symptoms, symptom details unspecified (N40.1) Active confirmed Problem Neurogenic claudication (545839303) 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) Active confirmed Problem Insomnia disorder related to known organic factor (02748200) 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) Active confirmed Vital Signs Heart Rate 86 /min 02/12/2025 Respiratory Rate 18 /min 06/03/2024 Blood pressure diastolic 74 mm Hg 02/12/2025 Height 69 in 02/12/2025 Blood pressure systolic 130 mm Hg 02/12/2025 Weight 281 lbs 02/12/2025 BMI 41.49 kg/m2 02/12/2025 Encounters Encounter Location Date Provider Diagnosis [address] [place] [id number] 06/03/2024 Tari Barrera Chronic pain syndrom e [...] bladder N31.9 and Depression with anxiety F41.8 [facility] [address] [place] [id number] 07/28/2024 Tari Barrera Cellulitis and absce ss L03.90 and Leg edema R60.0 [facility] [address] [place] [id number] 07/31/2024 R [place] Friction blister T14.8XXA ; Cellulitis L03.90 ; Wedge compression fracture of T9-T10 vertebra, subsequent encounter for fracture with routine healing S22.070D ; Spinal stenosis of lumbar region with neurogenic claudication M48.062 and Chronic pain syndrome G89.4 [facility] [address] [place] [id number] 02/12/2025 R [place] Anemia D64.9 ; Vitam in D deficiency E55.9 ; HBP (high blood pressure) I10 ; Cellulitis L03.90 ; Dyslipidemia E78.5 ; Sleep apnea in adult G47.30 and Vertigo R42 [facility] [address] [place] [id number] 03/19/2025 R [place] Encounter for immunization Z23 [facility] [address] [place], [place] [id number] 06/02/2024 R [place] Chronic pain syndrom e G89.4 [facility] [address] [place], [place] [id number] 06/02/2024 R [place] [facility] [address] [place] [id number] 06/04/2024 R [place] [facility] [address] [place], [place] [id number] 06/19/2024 R [place] [facility] [address] [place] [id number] 08/08/2024 R [place] [facility] [address] [place] [id number] 02/17/2025 R [place] Assessments Encounter Date Diagnosis (ICD Code) Assessment Notes Treatment Notes Treatment Clinical Notes Section Notes 06/02/2024 Chronic pain syndrome (ICD-10 - G89.4) 06/03/2024 Leg edema (ICD-10 - R60.0) he wears compression hose daily 06/03/2024 Chronic pain syndrome (ICD-10 - G89.4) 07/31/2024 Cellulitis (ICD-10 - L03.90) 07/31/2024 Friction blister (ICD-10 - T14.8XXA) Continue local wound care. Anticipate continued healing 03/19/2025 Encounter for immunization (ICD-10 - Z23) 02/12/2025 Vitamin D deficiency (ICD-10 - E55.9) 02/12/2025 Anemia (ICD-10 - D64.9) 07/28/2024 Leg edema (ICD-10 - R60.0) pt has been sporatically taking spironolactone due to urinary frequency; encouraged to take daily and he agrees to do so 07/28/2024 Cellulitis and abscess (ICD-10 - L03.90) warm soaks and dressing changes; to elevated the foot; present and will do the dressing changes; dressing change while in the office 02/12/2025 HBP (high blood pressure) (ICD-10 - I10) 07/31/2024 Wedge compression fracture of T9-T10 vertebra, subsequent encounter for fracture with routine healing (ICD-10 - S22.070D) 06/03/2024 Lumbar spinal stenosis (ICD-10 - M48.06) 06/03/2024 Dyslipidemia (ICD-10 - E78.5) 07/31/2024 Spinal stenosis of lumbar region with neurogenic claudication (ICD-10 - M48.062) 02/12/2025 Cellulitis (ICD-10 - L03.90) 02/12/2025 Dyslipidemia (ICD-10 - E78.5) 07/31/2024 Chronic pain syndrome (ICD-10 - G89.4) 06/03/2024 Benign prostatic hyperplasia with lower urinary [...] Coverage End Date [employer] [address] [address] [place] [address] [phone] [id number] Damir Larson Self - patient is the [...] [place] after fall and T10 Fx 05/23-05/29/2024 [facility] ER - Laceration November 2017 see above
--- OUTSIDE RECORDS SUMMARY | 2025-04-22 12:58 | XMS_ITS | Data Portability ---
Author Organization REMI PAMELA Howard [place] Address [address] [facility] [facility] [address] [place] [address] Care Team Providers Care Accountancy Professor Name Role Phone DOMENICO PATTEN Primary Care Provider Assessment Encounter Date Assessment Date Assessment LastModified [...] Lab urinaly sis panel, auto 2024 025 [facility], [address], [address], [place], [address], 11/13/2024 12:36:42 urinaly sis panel, auto 2023 024 [facility], [address], [address], [place], [address], 04/01/2024 09:28:43 culture , urine 2023 024 [facility], [address] [place] [address], [address], 04/01/2024 11:22:11 urinaly sis panel, auto 2023 024 [facility], [address], [address], [place], [address], 02/10/2024 15:38:16 urinaly sis panel, auto 2023 024 [facility], [address], [address], [place], [address], 10/28/2023 13:37:27 Referral None recorde d. Procedures None recorde d. Surgeries hydroce lectomy (SURG) 2023 024 [facility], [address] [facility], [address], [place], [address], 03/03/2024 15:46:13 Imaging XR, chest, 2 view - XR CHEST PA/LAT MARIA VICTORIA Catherine @ [address], [address] [place] [address] [address], [place], [address], 12/12/2024 15:14:30 CT, abdomen + pelvis, w/o contras t [address], [address] [facility] [address], [place], [address], 12/12/2024 15:14:30 CT, abdomen + pelvis, w/o contras t 2023 024 [facility], [address] [place], [address], 02/04/2024 10:33:13 XR, chest, 2 view 2023 024 [facility], [address] [place], [address], 02/04/2024 10:40:43 Medication Orders tamsulo sin 0.4 mg capsule 2024 025 [facility], [facility] [address], [place], [id number], 04/02/2025 15:13:46 dutaste ride 0.5 mg capsule 2024 025 [facility], [address] [place] [address] E [address], REMI Diaz, [id number], 02/11/2025 13:50:29 bethane chol chlorid e 25 mg tablet 2024 025 [facility], [address] [place] [address] E [address]-Viral, REMI Diaz, [id number], 02/11/2025 13:50:28 doxycyc line hyclate 100 mg tablet 2023 024 [facility], [address] [place] [address] E [address], [id number], 03/05/2024 16:55:58 oxycodo ne-acet aminoph en 7.5 mg-325 mg tablet 2023 024 [facility], [address] [place] [address] E [address] Laguer[place], [id number], 03/05/2024 16:55:58 Patient TargetsNo targets recorded. Patient Instructions Encounter Date Encounter Id Patient Instructions Last Modified By Organization Details Last Modified Time 10/26/2023 [id number] learning about healthy weight tslabaugh Not available 10/28/2023 13:37:25 11/03/2024 [id number] - Continue takin g your medications as [...] Analyte Cathet er Not Available [facility] [address], [place], [address], 10/26/2023 10:57:56 10/26/19 24 10/26/2023 urina lysis panel , auto Unknown Analyte Yellow Not Available [facility] [address], [place], [address], 10/26/2023 10:57:56 10/26/19 24 10/26/2023 urina lysis panel , auto Unknown Analyte Cloudy Not Available [facility] [address], [place], [address], 10/26/2023 10:57:56 10/26/19 24 10/26/2023 urina lysis panel , auto Unknown Analyte 1.010 Not Available [facility] [address], [place], [address], 10/26/2023 10:57:56 10/26/19 24 10/26/2023 urina lysis panel , auto Unknown Analyte 1.003- 1.035 Not Available [facility] [address], [place], [address], 10/26/2023 10:57:56 10/26/19 24 10/26/2023 urina lysis panel , auto Unknown Analyte 6.0 Not Available [facility] [address], [place], [address], 10/26/2023 10:57:56 10/26/19 24 10/26/2023 urina lysis panel , auto Unknown Analyte 5.0-8. 0 Not Available [facility] [address], [place], [address], 10/26/2023 10:57:56 10/26/19 24 10/26/2023 urina lysis panel , auto Unknown Analyte 500 Mauro/ul (++) Not Available [facility] [address], [place], [address], 10/26/2023 10:57:56 10/26/19 24 10/26/2023 urina lysis panel , auto Unknown Analyte Negati ve Not Available [facility] [address], [place], [address], 10/26/2023 10:57:56 10/26/19 24 10/26/2023 urina lysis panel , auto Unknown Analyte Negati ve Not Available [facility] [address], [place], [address], 10/26/2023 10:57:56 10/26/19 24 10/26/2023 urina lysis panel , auto Unknown Analyte Negati ve Not Available [facility] [address], [place], [address], 10/26/2023 10:57:56 10/26/19 24 10/26/2023 urina lysis panel , auto Unknown Analyte Negati ve Not Available [facility] [address], [place], [address], 10/26/2023 10:57:56 10/26/19 24 10/26/2023 urina lysis panel , auto Unknown Analyte Negati ve Not Available [facility] [address], [place], [address], 10/26/2023 10:57:56 10/26/19 24 10/26/2023 urina lysis panel , auto Unknown Analyte Normal Not Available [facility] [address], [place], [address], 10/26/2023 10:57:56 10/26/19 24 10/26/2023 urina lysis panel , auto Unknown Analyte Normal Not Available [facility] [address], [place], [address], 10/26/2023 10:57:56 10/26/19 24 10/26/2023 urina lysis panel , auto Unknown Analyte Negati ve Not Available [facility] [address], [place], [address], 10/26/2023 10:57:56 10/26/19 24 10/26/2023 urina lysis panel , auto Unknown Analyte Negati ve Not Available [facility] [address], [place], [address], 10/26/2023 10:57:56 10/26/19 24 10/26/2023 urina lysis panel , auto Unknown Analyte Normal Not Available [facility] [address], [place], [address], 10/26/2023 10:57:56 10/26/19 24 10/26/2023 urina lysis panel , auto Unknown Analyte Normal 1 mg/dl Not Available [facility] [address], [place], [address], 10/26/2023 10:57:56 10/26/19 24 10/26/2023 urina lysis panel , auto Unknown Analyte Negati ve Not Available [facility] [address], [place], [address], 10/26/2023 10:57:56 10/26/19 24 10/26/2023 urina lysis panel , auto Unknown Analyte Negati ve Not Available [facility] [address], [place], [address], 10/26/2023 10:57:56 10/26/19 24 10/26/2023 urina lysis panel , auto Unknown Analyte Negati ve Not Available [facility] [address], [place], [address], 10/26/2023 10:57:56 10/26/19 24 10/26/2023 urina lysis panel , auto Unknown Analyte Negati ve Not Available [facility] [address], [place], [address], 10/26/2023 10:57:56 02/04/20 24 02/04/2024 urina lysis panel , auto Unknown Analyte Clean Catch Not Available [facility] [address], [place], [address], 02/04/2024 11:17:55 02/04/20 24 02/04/2024 urina lysis panel , auto Unknown Analyte Yellow Not Available [facility] [address], [place], [address], 02/04/2024 11:17:55 02/04/20 24 02/04/2024 urina lysis panel , auto Unknown Analyte Slight ly Hazy Not Available [facility] [address], [place], [address], 02/04/2024 11:17:55 02/04/2002/04/2024 urina lysis panel , auto Unknown Analyte 1.015 Not Available [facility] [address], [place], [address], 02/04/2024 11:17:55 02/04/20 24 02/04/2024 urina lysis panel , auto Unknown Analyte 1.003- 1.035 Not Available [facility] [address], [place], [address], 02/04/2024 11:17:55 02/04/20 24 02/04/2024 urina lysis panel , auto Unknown Analyte 5.0 Not Available [facility] [address], [place], [address], 02/04/2024 11:17:55 02/04/20 24 02/04/2024 urina lysis panel , auto Unknown Analyte 5.0-8. 0 Not Available [facility] [address], [place], [address], 02/04/2024 11:17:55 02/04/2002/04/2024 urina lysis panel , auto Unknown Analyte 500 Mauro/ul (++) Not Available [facility] [address], [place], [address], 02/04/2024 11:17:55 02/04/20 24 02/04/2024 urina lysis panel , auto Unknown Analyte Negati ve Not Available [facility] [address], [place], [address], 02/04/2024 11:17:55 02/04/2002/04/2024 urina lysis panel , auto Unknown Analyte Negati ve Not Available [facility] [address], [place], [address], 02/04/2024 11:17:55 02/04/20 24 02/04/2024 urina lysis panel , auto Unknown Analyte Negati ve Not Available [facility] [address], [place], [address], 02/04/2024 11:17:55 02/04/20 24 02/04/2024 urina lysis panel , auto Unknown Analyte Trace Not Available [facility] [address], [place], [address], 02/04/2024 11:17:55 02/04/20 24 02/04/2024 urina lysis panel , auto Unknown Analyte Negati ve Not Available [facility] [address], [place], [address], 02/04/2024 11:17:55 02/04/20 24 02/04/2024 urina lysis panel , auto Unknown Analyte Normal Not Available [facility] [address], [place], [address], 02/04/2024 11:17:55 02/04/20 24 02/04/2024 urina lysis panel , auto Unknown Analyte Normal Not Available [facility] [address], [place], [address], 02/04/2024 11:17:55 02/04/20 24 02/04/2024 urina lysis panel , auto Unknown Analyte Negati ve Not Available [facility] [address], [place], [address], 02/04/2024 11:17:55 02/04/20 24 02/04/2024 urina lysis panel , auto Unknown Analyte Negati ve Not Available [facility] [address], [place], [address], 02/04/2024 11:17:55 02/04/20 24 02/04/2024 urina lysis panel , auto Unknown Analyte Normal Not Available [facility] [address], [place], [address], 02/04/2024 11:17:55 02/04/20 24 02/04/2024 urina lysis panel , auto Unknown Analyte Normal 1 mg/dl Not Available [facility] [address], [place], [address], 02/04/2024 11:17:55 02/04/2002/04/2024 urina lysis panel , auto Unknown Analyte Negati ve Not Available [facility] [address], [place], [address], 02/04/2024 11:17:55 02/04/20 24 02/04/2024 urina lysis panel , auto Unknown Analyte Negati ve Not Available Critical access hospital [facility] [address], [place], [address], 02/04/2024 11:17:55 02/04/20 24 02/04/2024 urina lysis panel , auto Unknown Analyte Trace Not Available [facility] [address], [place], [address], 02/04/2024 11:17:55 02/04/20 24 02/04/2024 urina lysis panel , auto Unknown Analyte Negati ve Not Available [facility] [address] [facility] [address], [place], [address], 02/04/2024 11:17:55 03/05/20 24 03/05/2024 POTAS SIUM potassium 4.1 mmol/ L 3.4-5. 0 normal Not Available [facility] [address] [facility], [place], [address], 03/05/2024 14:41:39 03/05/20 24 03/05/2024 SURGI DANITA surgical SEE BELOW normal Depar tment of Patho logy Surgi danita Patho logy Repor t NAME: HARVEY JACK PATH. :SS-2 [id number] Copy to: Diagn osis: Bilat eral hydro joseluis sac: Theriot joseluis sac fragm ents with areas of [...] 11:35 Page 1 of 1 Not Available [facility] [address] [place], [address], 03/07/2024 11:36:05 03/31/2003/31/2024 URINE CULTU RE escherichia coli Organi sm: Escher ichia coli Not Available [facility] [address] [place], [address], 04/02/2024 13:03:05 03/31/2004/02/2024 URINE CULTU RE urine culture abnormal ISOLA TE #1 COLON Y COUNT : > 100,0 00 CFU/M L Proba ble Gram Negat matthew Bacil eduardo. ID and sensi tivit y in progr ess. See [place] te Resul t(s) Below Esche gaurang a coli Not Available [facility] [address] [place] [address], [address], 04/02/2024 13:03:05 03/31/20 24 04/02/2024 URINE CULTU RE amox/K clav'ate(C) <=8/4 ug/mL susceptib le Not Available [facility] [address] [place] [address], [address], 04/02/2024 13:03:05 03/31/20 24 04/02/2024 URINE CULTU RE ampicillin >16 ug/mL resistant Not Available [facility] [address] [place] [address], [address], 04/02/2024 13:03:05 03/31/20 24 04/02/2024 URINE CULTU RE cefazolin <=2 ug/mL susceptib le Not Available [facility] [address] [place] [address], [address], 04/02/2024 13:03:05 03/31/20 24 04/02/2024 URINE CULTU RE ceftazidime <=1 ug/mL susceptib le Not Available [facility] [address] [place] [address], [address], 04/02/2024 13:03:05 03/31/20 24 04/02/2024 URINE CULTU RE ceftriaxone <=1 ug/mL susceptib le Not Available [facility] [address] [place] [address], [address], 04/02/2024 13:03:05 03/31/20 24 04/02/2024 URINE CULTU RE cefuroxime <=4 ug/mL susceptib le Not Available [facility] [address] [place] [address], [address], 04/02/2024 13:03:05 03/31/20 24 04/02/2024 URINE CULTU RE ciprofloxaci n >2 ug/mL resistant Not Available [facility] [address] [place] [address], [address], 04/02/2024 13:03:05 03/31/20 24 04/02/2024 URINE CULTU RE gentamicin >8 ug/mL resistant Not Available [facility] [address] [place] [address], [address], 04/02/2024 13:03:05 03/31/20 24 04/02/2024 URINE CULTU RE imipenem <=1 ug/mL susceptib le Not Available [facility] [address] [place] [address], [address], 04/02/2024 13:03:05 03/31/20 24 04/02/2024 URINE CULTU RE levofloxacin >4 ug/mL resistant Not Available [facility] [address] [place] [address], [address], 04/02/2024 13:03:05 03/31/20 24 04/02/2024 URINE CULTU RE nitrofuranto in <=32 ug/mL susceptib le Not Available [facility] [address] [place] [address], [address], 04/02/2024 13:03:05 03/31/20 24 04/02/2024 URINE CULTU RE piperacillin /nain <=16 ug/mL susceptib le Not Available [facility] [address] [place] [address], [address], 04/02/2024 13:03:05 03/31/20 24 04/02/2024 URINE CULTU RE tetracycline >8 ug/mL resistant Not Available [facility] [address] [place] [address], [address], 04/02/2024 13:03:05 03/31/20 24 04/02/2024 URINE CULTU RE tobramycin 8 ug/mL intermedi ate Not Available [facility] [address] [place] [address], [address], 04/02/2024 13:03:05 03/31/20 24 04/02/2024 URINE CULTU RE trimeth/sulf a >2/38 ug/mL resistant Not Available [facility] [address] [facility], [place], [address], 04/02/2024 13:03:05 03/31/2003/31/2024 urina lysis panel , auto Unknown Analyte Clean Catch Not Available [facility] [address], [place], [address], 03/31/2024 11:48:54 03/31/2003/31/2024 urina lysis panel , auto Unknown Analyte Yellow Not Available [facility] [address] [place] [address] [address], [place], [address], 03/31/2024 11:48:54 03/31/2003/31/2024 urina lysis panel , auto Unknown Analyte Clear Not Available [facility] [address], [place], [address], 03/31/2024 11:48:54 03/31/2003/31/2024 urina lysis panel , auto Unknown Analyte 1.005 Not Available [facility] [address], [place], [address], 03/31/2024 11:48:54 03/31/2003/31/2024 urina lysis panel , auto Unknown Analyte 1.003- 1.035 Not Available [facility] [address], [place], [address], 03/31/2024 11:48:54 03/31/2003/31/2024 urina lysis panel , auto Unknown Analyte 5.0 Not Available [facility] [address], [place], [address], 03/31/2024 11:48:54 03/31/2003/31/2024 urina lysis panel , auto Unknown Analyte 5.0-8. 0 Not Available [facility] [address], [place], [address], 03/31/2024 11:48:54 03/31/2003/31/2024 urina lysis panel , auto Unknown Analyte 500 Mauro/ul (++) Not Available [facility] [address], [place], [address], 03/31/2024 11:48:54 03/31/2003/31/2024 urina lysis panel , auto Unknown Analyte Negati ve Not Available [facility] [address], [place], [address], 03/31/2024 11:48:54 03/31/2003/31/2024 urina lysis panel , auto Unknown Analyte POSITI VE (Abnor mal) Not Available [facility] [address], [place], [address], 03/31/2024 11:48:54 03/31/2003/31/2024 urina lysis panel , auto Unknown Analyte Negati ve Not Available [facility] [address], [place], [address], 03/31/2024 11:48:54 03/31/2003/31/2024 urina lysis panel , auto Unknown Analyte Negati ve Not Available [facility] [address], [place], [address], 03/31/2024 11:48:54 03/31/2003/31/2024 urina lysis panel , auto Unknown Analyte Negati ve Not Available [facility] [address], [place], [address], 03/31/2024 11:48:54 03/31/2003/31/2024 urina lysis panel , auto Unknown Analyte Normal Not Available [facility] [address], [place], [address], 03/31/2024 11:48:54 03/31/2003/31/2024 urina lysis panel , auto Unknown Analyte Normal Not Available [facility] [address], [place], [address], 03/31/2024 11:48:54 03/31/2003/31/2024 urina lysis panel , auto Unknown Analyte Negati ve Not Available [facility] [address], [place], [address], 03/31/2024 11:48:54 03/31/2003/31/2024 urina lysis panel , auto Unknown Analyte Negati ve Not Available [facility] [address], [place], [address], 03/31/2024 11:48:54 03/31/2003/31/2024 urina lysis panel , auto Unknown Analyte Normal Not Available [facility] [address], [place], [address], 03/31/2024 11:48:54 03/31/2003/31/2024 urina lysis panel , auto Unknown Analyte Normal 1 mg/dl Not Available [facility] [address], [place], [address], 03/31/2024 11:48:54 03/31/2003/31/2024 urina lysis panel , auto Unknown Analyte Negati ve Not Available [facility] [address], [place], [address], 03/31/2024 11:48:54 03/31/2003/31/2024 urina lysis panel , auto Unknown Analyte Negati ve Not Available [facility] [address], [place], [address], 03/31/2024 11:48:54 03/31/2003/31/2024 urina lysis panel , auto Unknown Analyte Negati ve Not Available [facility] [address], [place], [address], 03/31/2024 11:48:54 03/31/2003/31/2024 urina lysis panel , auto Unknown Analyte Negati ve Not Available [facility] [address], [place], [address], 03/31/2024 11:48:54 11/04/1911/03/2024 urina lysis panel , auto Unknown Analyte Clean Catch Not Available Critical access hospital [facility] [address], [place], [address], 11/03/2024 10:57:03 11/04/19 25 11/03/2024 urina lysis panel , auto Unknown Analyte Yellow Not Available [facility] [address], [place], [address], 11/03/2024 10:57:03 11/04/19 25 11/03/2024 urina lysis panel , auto Unknown Analyte Clear Not Available [facility] [address], [place], [address], 11/03/2024 10:57:03 11/04/19 25 11/03/2024 urina lysis panel , auto Unknown Analyte 1.015 Not Available [facility] [address], [place], [address], 11/03/2024 10:57:03 11/04/19 25 11/03/2024 urina lysis panel , auto Unknown Analyte 1.003 - 1.030 Not Available [facility] [address], [place], [address], 11/03/2024 10:57:03 11/04/19 25 11/03/2024 urina lysis panel , auto Unknown Analyte 5.0 Not Available [facility] [address], [place], [address], 11/03/2024 10:57:03 11/04/19 25 11/03/2024 urina lysis panel , auto Unknown Analyte 5.0 - 8.0 Not Available Critical access hospital [facility] [address], [place], [address], 11/03/2024 10:57:03 11/04/19 25 11/03/2024 urina lysis panel , auto Unknown Analyte 500 Mauro/uL Not Available [facility] [address], [place], [address], 11/03/2024 10:57:03 11/04/19 25 11/03/2024 urina lysis panel , auto Unknown Analyte Negati ve Not Available [facility] [address], [place], [address], 11/03/2024 10:57:03 11/04/19 25 11/03/2024 urina lysis panel , auto Unknown Analyte Negati ve Not Available [facility] [address], [place], [address], 11/03/2024 10:57:03 11/04/19 25 11/03/2024 urina lysis panel , auto Unknown Analyte Negati ve Not Available [facility] [address], [place], [address], 11/03/2024 10:57:03 11/04/19 25 11/03/2024 urina lysis panel , auto Unknown Analyte Negati ve Not Available [facility] [address], [place], [address], 11/03/2024 10:57:03 11/04/19 25 11/03/2024 urina lysis panel , auto Unknown Analyte Negati ve Not Available Critical access hospital [facility] [address], [place], [address], 11/03/2024 10:57:03 11/04/19 25 11/03/2024 urina lysis panel , auto Unknown Analyte Normal Not Available [facility] [address], [place], [address], 11/03/2024 10:57:03 11/04/19 25 11/03/2024 urina lysis panel , auto Unknown Analyte Normal Not Available [facility] [address], [place], [address], 11/03/2024 10:57:03 11/04/19 25 11/03/2024 urina lysis panel , auto Unknown Analyte Negati ve Not Available [facility] [address], [place], [address], 11/03/2024 10:57:03 11/04/19 25 11/03/2024 urina lysis panel , auto Unknown Analyte Negati ve Not Available [facility] [address], [place], [address], 11/03/2024 10:57:03 11/04/19 25 11/03/2024 urina lysis panel , auto Unknown Analyte Normal Not Available [facility] [address], [place], [address], 11/03/2024 10:57:03 11/04/19 25 11/03/2024 urina lysis panel , auto Unknown Analyte Normal Not Available [facility] [address], [place], [address], 11/03/2024 10:57:03 11/04/19 25 11/03/2024 urina lysis panel , auto Unknown Analyte Negati ve Not Available [facility] [address] [facility] [address], [place], [address], 11/03/2024 10:57:03 11/04/19 25 11/03/2024 urina lysis panel , auto Unknown Analyte Negati ve Not Available [facility] [address] [facility] [address], [place], [address], 11/03/2024 10:57:03 11/04/19 25 11/03/2024 urina lysis panel , auto Unknown Analyte Negati ve Not Available [facility] [address] [facility] [address], [place], [address], 11/03/2024 10:57:03 11/04/19 25 11/03/2024 urina lysis panel , auto Unknown Analyte Negati ve Not Available [facility] [address] [facility] [address], [place], [address], 11/03/2024 10:57:03 10/26/19 24 10/26/2023 CT, abdom en + pelvi s, w/o contr ast [place] [facility] [address] [place] [address] Patien t Name: HARVEY HERNANDEZ ER Patirachel t : [birth year] 37 Patien t Orderi ng Provid er: REG BUSH [facility] EXAM DATE: 2023 EXAM: CT ABD/PE LVIS [...] Wandy Celis MD on 10/26/19 10:36 AM [facility] [address] [place] [address] , [place], [address], 10/29/2023 08:49:06 02/04/20 24 02/04/2024 CT, abdom en + pelvi s, w/o contr ast [facility] [address] [facility] [place] [address] Patien t Name: HARVEY HERNANDEZ ER Patien [...] By: Wandy Celis MD on 10:28 AM [facility] [address] [place], [address], 02/04/2024 12:32:11 02/04/20 24 02/04/2024 XR, chest , [address] [address] Patirachel t Name: HARVEY HERNANDEZ ER Patirachel [...] By: Wandy Celis MD on 10:35 AM [facility] [address] [place], [address], 02/04/2024 12:32:12 11/21/19 25 11/20/2024 CT, abdom en + pelvi s, w/o contr ast No observ ation record ed. [email or web address] Not Available 2024 16:38:51 Result Notes Documentation Provider Name and Address Organization Details Recorded Time Ct, Abdomen + Pelvis, W/o Contrast : [facility] [address] [place] [address] Patient Name: HARVEY LARSON Patient : 1940 [...] By: Wandy Celis MD KYLE JR, MD [address] [place] [address], [address] 10/29/2023 08:49:06 Ct, Abdomen + Pelvis, W/o Contrast : [address] [address] Patient Name: HARVEY LARSON Patient : 1940 [...] By: Wandy Celis MD KYLE JR, MD [address] [place] [address], [address], [facility] 02/04/2024 12:32:11 Xr, Chest, 2 View : [place] [address] Patient Name: HARVEY LARSON Patient : 1940 [...] By: Wandy Celis MD KYLE JR, MD [address] [place] [address], [address], [facility] 02/04/2024 12:32:12 Problems Name Problem SNOMED Code Status Onset Date Resolution Date Notes Provider Name and Address Organization Details Recorded Time Lumbar spondylos is 802920878 Active 2014 From Automated Load;Prov ider: Luz Wheeler;St atus: Active Not Available [facility] 6 07:36:32 Spondylol isthesis 422165502 Active 2014 From Automated Load;Prov ider: Luz Wheeler;St atus: Active Not Available [facility] 6 07:36:32 Chest pain 84414938 Active 2015 From Automated Load;Prov ider: Marcus Loco;Sta tus: Active Not Available [facility] 6 07:36:32 Acute subendoca rdial infarctio n 35118361 Active 2015 From Automated Load;Prov ider: Marcus Loco;Sta tus: Active Not Available [facility] 6 07:36:32 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 66208553383 07 Active 2015 From Automated Load;Prov ider: Marcus Loco;Sta tus: Active Not Available [facility] 6 07:36:32 Hyperlipi demia 83637453 Active 2015 From Automated Load;Prov ider: Marcus Loco;Sta tus: Active Not Available [facility] 6 07:36:49 Systolic heart failure 706190898 Active 2015 From Automated Load;Prov ider: Wandy King;Stat us: Active Not Available [facility] 6 07:36:49 Progressi ve angina 204590679 Active 2015 From Automated Load;Prov ider: Wandy King;Stat us: Active Not Available [facility] 6 07:36:49 Hypertens matthew disorder 51343622 Active 2015 From Automated Load;Prov ider: Mark Child;St atus: Active Not Available [facility] 6 07:36:32 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 From Automated Load;Prov ider: Wandy King;Stat us: Active Not Available [facility] 6 07:36:32 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 From Automated Load;Prov ider: Wandy King;Stat us: Active Not Available [facility] 6 07:36:32 Lumbar radiculop athy 183772767 Active 2021 LOUIE SALDANA PA-C [address] [place], [address] , [facility] 2 11:48:53 Retention of urine 742739323 Active 2021 [place] [address] [place], [place] [address], [address] , [facility] 2 06:22:11 Benign prostatic hyperplas ia with outflow obstructi on 369509998 Active 2021 REG KYLE JR, MD [address] [place], [place] [address], [address] , [facility] 2 06:22:12 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 608846542 Active 2021 [place] [address] [place], [place] [address], [address] , [facility] 2 06:30:35 Low back pain 552867305 Active 2021 LOUIE SALDANA PA-C [address] [place], [address] , [facility] 2 16:29:42 History of lumbar fusion 35350522253 106 Active 2021 LOUIE SALDANA PA-C [address] [place], [address] , [facility] 2 16:29:43 History of cervical spine fusion 78422146183 01 Active 2021 LOUIE SALDANA PA-C [address] [place], [address] , [facility] 2 16:29:44 Chronic pain syndrome 680336929 Active 2021 LOUIE SALDANA PA-C [address] [place], [address] , [facility] 2 16:29:45 Incomplet e emptying of urinary bladder 383125561 Active 2022 REG KYLE JR, MD [facility] [place], [address] , [facility] 3 09:09:22 Renal cell carcinoma 822330834 Active 2023 REG KYLE JR, MD [facility] [place], [address] , [facility] 5 12:36:21 Hydrocele of testis 64556889 Active 2023 REG KYLE JR, MD [facility] [place], [address] , [facility] 4 16:39:26 Problem Notes None recorded. Procedures Surgical History Date Name Laterality Status Provider Name and Address Organization Details Recorded Time 023 PARTIAL NEPHRECTOMY, ROBOT ASSISTED LAPAROSCOPIC, WITH INTRA-OPERATIVE ULTRASOUND (SURG) completed Jared Dubois [facility] 06/06/2023 16:49:27 023 Post Void Residual; Ultrasound completed [place] Arias [facility] 08/17/2022 13:10:49 022 Post Void Residual; Catheter completed Josefina Cisneros [facility] 12/08/2021 16:33:31 019 Stress Test - Echo completed WANDY KING MD [address] [place] [address] [place], [address], [facility] 01/09/2019 13:26:07 019 Echocardiogram - Stress Test completed WANDY KING MD [address] [place] [address] [place], [address], [facility] 01/09/2019 13:28:01 018 Cardiac Catheterization completed WANDY KING MD [address] [place] [address] [place], [address], [facility] 11/08/2017 15:30:37 018 Stress Test - Echo completed WANDY KING MD [address] [place] [address] [place], [address], [facility] 11/02/2017 12:51:53 018 Echocardiogram - Stress Test completed WANDY KING MD [address] [place], [address], [facility] 11/02/2017 12:48:32 005 Cardiac Surgery completed [facility] 09/20/2016 13:52:45 Appendectomy completed Cara Smith [place] [facility] 09/20/2016 13:50:54 Other completed Cara Smith [place] [facility] 09/20/2016 13:51:13 Other completed Cara Smith [place] [facility] 09/20/2016 13:51:28 Stent Placement completed Cara [place] [facility] 09/20/2016 13:51:43 Hemorrhoidectomy completed Cara Smith [facility] 09/20/2016 13:51:53 Other completed Carolina Short [place] [facility] 10/09/2017 11:51:58 Imaging Results None recorded. Procedure Notes None recorded. Medical Equipment None Reported. Allergies Allergen ID Allergen Name Allergen Category Reaction Reaction Severity Criticality Documentation Date Start Date Code Code System Note Provider Name and Address Organization Details Recorded Time 868620 Substance with sulfonami de structure and antibacte rial mechanism of action (substanc e) medicatio n Not available Not available Not available 05/19/20162010 68184 8003 SNOMED updat ed 7-201 9 Janell Nilesanamika, [facility] 9 10:21:49 Medications Name Sig Start Date [...] Updated DateTime 10/26/2023 182.88 cm 34.6 kg/m2 191996.05 g Jing Tesfaye [facility] 10/26/2023 11:01:36 Date Recorded Body height Body mass index (BMI) Body weight Provider Name and Address Organization Details Last Updated DateTime 11/03/2024 182.88 cm 35.9 kg/m2 625325.98 g Radha Curry [facility] 11/03/2024 10:32:26 Date Recorded Body height Body mass index (BMI) Body weight Provider Name and Address Organization Details Last Updated DateTime 02/04/2024 182.88 cm 35.3 kg/m2 889998.02 g Rufina Sanchez [facility] 02/04/2024 11:05:47 Date Recorded Body height Provider Name an d Address Organization Details Last Updated DateTime 03/31/2024 182.88 cm Ashwini Cortezers [facility] 03/31/2024 10:07:34 Social History Question Answer Notes LastModified by Organizat ion Details LastModified Time Tobacco Smoking Status Never Smoker Cara nguyen [facility] 09/20/2016 13:49:45 How Much Tobacco Do You Chew? None [email or web address] Information not available 07/01/2018 Marital Status Informatio n not available 09/20/2016 What Was The Date Of Your Most Recent Tobacco Screening? 11/03/2024 [email or web address] Information not available 11/03/2024 How Many Children Do You Have? 2 Information not available 09/20/2016 What Is Your Relationship Status? [email or web address] Information not available 12/02/2021 Has Tobacco Cessation Counseling Been Provided? No [email or web address] Information not available 12/02/2021 Have You Recently Traveled Abroad? No [email or web address] Information not available 12/02/2021 Sex: Male Functional Status Question Answer Note LastModified by Organizat ion Details LastModified Time Do you use any illicit or recreational drugs? No [email or web address] Information not available 12/02/2021 Do you or have you ever used any other forms of tobacco or nicotine? No [email or web address] Information not available 12/02/2021 What is your level of alcohol consumption? None [email or web address] Information not available 10/04/2021 Do you or have you ever used smokeless tobacco? Never used smokeless tobacco Information not available 02/17/2019 What is your occupation? Retired Information not available 09/20/2016 Do you or have you ever used e-cigarettes or vape? Never used electronic cigarettes Information not available 02/17/2019 Mental Status None [...] virus, quadrivalent, preservative 7 completed Not Available [facility] 08/17/2022 12:57:14 Tdap 1 completed Honey Alirio null, [facility] 05/16/2022 11:26:35 Influenza, high-dose, quadrivalent, PF 1 completed Honey Alirio null, [facility] 05/16/2022 11:26:35 Influenza, high-dose, trivalent, PF 7 completed Honey Alirio null, [facility] 05/16/2022 11:26:35 Influenza, high-dose, trivalent, PF 8 completed Honey Alirio null, [facility] 05/16/2022 11:26:35 Influenza, high-dose, quadrivalent, PF 2 completed Honey Alirio null, [facility] 05/16/2022 11:26:35 COVID-19, mRNA, LNP-S, bivalent, PF, 50 mcg/0.5 mL or 25mcg/0.25 mL dose 2 completed Honey Alirio null, [facility] 05/16/2022 11:26:35 COVID-19, mRNA, LNP-S, PF, 100 mcg/0.5mL dose or 50 mcg/0.25mL dose 1 completed Honey Alirio null, [facility] 05/16/2022 11:26:35 COVID-19, mRNA, LNP-S, PF, 100 mcg/0.5mL dose or 50 mcg/0.25mL dose 1 completed Honey Alirio null, [facility] 05/16/2022 11:26:35 Tdap 8 completed [facility] 05/16/2022 11:26:35 pneumococcal polysaccharide PPV23 7 completed [facility] 05/16/2022 11:26:35 Influenza, split virus, quadrivalent, preservative 0 completed [facility] 05/16/2022 11:26:35 Tdap 8 completed [facility] 05/16/2022 11:26:35 Influenza, high-dose, trivalent, PF 9 completed [facility] 05/16/2022 11:26:35 COVID-19, mRNA, LNP-S, PF, 100 mcg/0.5mL dose or 50 mcg/0.25mL dose 1 completed [facility] 05/16/2022 11:26:35 Td (adult), 2 Lf tetanus toxoid, preservative free, adsorbed 7 completed [facility] 05/16/2022 11:26:35 Past Encounters Encounter ID Performer Location Encounter Start Date Encounter Closed Date Diagnosis/Indication Diagnosis SNOMED-CT Code Diagnosis ICD10 Code Diagnosis IMO Codes Diagnosis Note [id number] WANDY KING MD CARDIOLOG [address] [place] [address] 10/09/2016 10:54:18 10/09/2016 12:03:54 Old myocardial infarction 3527829 I25.2 Management of this problem was reviewed with the patient. No changes recommende d, status for this problem is stable at this time.He is now a year since his non-Q MS and I advised him that he may discontinu e his atenolol. 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 No changes recommende d, status for this problem is stable at this time. Coronary arteriosclerosis in [place] artery 8370505315 107 I25.10 Medication changes, as well as [...] he may discontinu e his clopidogre l. [id number] WANDY KING MD CARDIOLOG Y [place] [address] [place] [address] 10/09/2017 10:36:24 10/10/2017 13:51:10 Coronary arteriosclerosis in [place] artery 3665655887 107 I25.10 Medication changes, as well as [...] his clopidogre l. Old myocar dial infarction 5633634 I25.2 Management of this problem was reviewed with the patient. No changes recommende d, status for this problem is stable at this time.He is now a year since his non-Q MS and I advised him that he may discontinu e his atenolol. Familial c ombined hyperlipidemia 733384589 E78.4 Management of this problem was reviewed [...] to see him back in 6 months. [id number] WANDY KING MD ECHO VASCULAR LAB [place] [address] [place] [address] 11/02/2017 10:16:43 11/09/2017 10:57:34 Dyspnea on exertion 30954865 R06.09 [id number] WANDY KING MD [facility] [address] [address] 11/02/2017 10:21:26 11/02/2017 15:21:51 [id number] WANDY KING MD CARDIOLOG Y [address] [place] [address] 12/24/2017 10:05:11 12/25/2017 15:55:24 Dyspnea on exertion 04347228 R06.09 The patient complains of dyspnea on exertion. I have ordered baseline laboratory studies including CMP, TSH, CBC and BNP. I will also arrange a stress echocardio gram. If all of his testing is normal, I would like to see him back in 6 months. Coronary arteriosclerosis in [place] artery 4530700778 107 I25.10 Medication changes, as well as [...] his clopidogre l. Old myocar dial infarction 5029646 I25.2 Management of this problem was reviewed with the patient. No changes recommende d, status for this problem is stable at this time.He is now a year since his non-Q MS and I advised him that he may discontinu e his atenolol. Familial c ombined hyperlipidemia 308966724 E78.4 Management of this problem was reviewed [...] us for adjustment in his medication s. [id number] WANDY KING MD CARDIOLOG Y [address] [place] [address] 07/01/2018 10:49:34 07/01/2018 11:23:19 Dyspnea on exertion 68058196 R06.09 The patient complains of dyspnea on exertion. I have ordered baseline laboratory studies including CMP, TSH, CBC and BNP. I will also arrange a stress echocardio gram. If all of his testing is normal, I would like to see him back in 6 months. Coronary arteriosclerosis in [place] artery 3665615968 107 I25.10 Medication changes, as well as [...] his clopidogre l. Old myocar dial infarction 6206168 I25.2 Management of this problem was reviewed with the patient. No changes recommende d, status for this problem is stable at this time.He is now a year since his non-Q MS and I advised him that he may discontinu e his atenolol. Familial c ombined hyperlipidemia 452765676 E78.49 Management of this problem was reviewed with the patient. No changes recommende d, status for this problem is stable at this time.I advised him to hold off on his simvastati n for 2 weeks to see if it helps his leg weakness.T here was no improvemen t and therefore he restarted his simvastati n. [id number] WANDY KING MD CARDIOLOG Y [address] [place] [address] 12/30/2018 11:09:30 12/30/2018 12:08:12 Dyspnea on exertion 78023395 R06.09 The patient complains of dyspnea on exertion. I ordered baseline laboratory studies including CMP, TSH, CBC and BNP which were OK.I've ordered a treadmill stress echo and if this is normal recommend pulmonary evaluation . Patient indicates his been evaluated for COY in the past with negative findings. Coronary arteriosclerosis in [place] artery 6046273196 107 I25.10 Medication changes, as well as [...] change in status. Old myocar dial infarction 5166602 I25.2 Management of this problem was reviewed with the patient. No changes recommende d, status for this problem is stable at this time.He is now a year since his non-Q MS and I advised him that he may discontinu e his atenolol. Familial c ombined hyperlipidemia 084737170 E78.49 Management of this problem was reviewed with the patient. No changes recommende d, status for this problem is stable at this time.I advised him to hold off on his simvastati n for 2 weeks to see if it helps his leg weakness.T here was no improvemen t and therefore he restarted his simvastati n. [id number] WANDY KING MD ECHO VASCULAR LAB [address] [place] [address] 01/09/2019 10:13:20 01/13/2019 09:41:24 Chest pain 51134915 R07.9 [id number] WANDY KING MD HEART STATION [address] [place] [address] 01/09/2019 10:14:57 01/09/2019 13:32:30 [id number] WANDY KING MD CARDIOLOG Y [address] [address] 02/17/2019 10:55:31 02/17/2019 11:48:04 Coronary arteriosclerosis in [place] artery 3509682927 107 I25.10 Medication changes, as well as [...] change in status. Old myocar dial infarction 4176502 I25.2 Management of this problem was reviewed with the patient. No changes recommende d, status for this problem is stable at this time.He is now a year since his non-Q MS and I advised him that he may discontinu e his atenolol. Dyslipidemia 940463521 E 78.5 Most recent testing reviewed. All laboratory measuremen ts in appropriat e parameters on current medical therapy. This was reviewed and discussed with the patient and all questions answered. [id number] WANDY KING MD CARDIOLOG Y [address] [place] [address] 07/14/2019 11:59:09 07/14/2019 13:32:26 Coronary arteriosclerosis in [place] artery [id number] 107 I25.10 Medication changes, as well as [...] change in status. Old myocar dial infarction [id number] I25.2 Management of this problem was reviewed with the patient. No changes recommende d, status for this problem is stable at this time.He is now a year since his non-Q MS and I advised him that he may discontinu e his atenolol. Dyslipidemia 358278830 E 78.5 In light of loss of strength in his legs I advised him to stay off simvastati n for 2 weeks to see if it helps. If improved, will develop a different method of management of his hyperlipid emia.I'll recheck the patient in 3 months. [id number] MINGO ZAMORA MD [facility] [address] [place] [address] 07/21/2019 10:57:18 07/21/2019 12:40:28 Benign prostatic hyperplasia with outflow obstruction [id number] N40.1 continue current therapy follow-up 6 months at which time we will likely move him to yearly follow-up [id number] WANDY KING MD CARDIOLOG Y EAST [address] [place] [address] ,[address] [place] [address] 10/13/2019 13:28:55 10/13/2019 15:14:29 Coronary arteriosclerosis in [place] artery [id number] 107 I25.10 Medication changes, as well as [...] change in status. Old myocar dial infarction 5575188 I25.2 Dyslipidemia 488345783 E 78.5 Myalgias improved after holding simvastati n and therefore advised to restart simvastati n one night a week. Consider addition of ezetimibe pending results or possible PCSK9 inhibitor ( Ermias Gonzalez). [id number] LOUIE SALDANA PA-C NEUROSURG LOU KNOWLES CLOSED [address] [place] [address] 10/04/2021 10:13:45 10/04/2021 17:41:05 Lumbar radiculopathy 427227368 M54.16 81-year-ol d male history of multiple cervical and lumbar surgeries, Intratheca l pain pump coronary artery disease, history of myocardial infarction , cardiac stents anticoagul ated on baby aspirin and Plavix With worsening left greater than right lumbar radiculopa thy and weakness and inability to ambulate. Patient provided MRI from her [facility] for lumbar spine reviewed with Dr. Kirby. [...] family are very happy with this plan. [id number] MD LETICIA CHILDERS JR, [facility] [address] [place] [address] 10/21/2021 09:00:43 10/21/2021 10:01:01 Benign prostatic hyperplasia with outflow obstruction 023208062 N40.1 Retention of urine 35239 4002 R33.9 [id number] PHI KIRBY MD SURGERY SCHEDULE [address] [place] [address] 10/21/2021 12:56:50 10/21/2021 15:50:08 [id number] LOUIE BARAHONA MD [facility] UROLOGIC ASSOCIATE S [address] [place] [address] 11/16/2021 11:25:03 11/16/2021 12:41:50 Benign prostatic hyperplasia with outflow obstruction 036677216 N40.1 Retention of urine 42286 4002 R33.9 [id number] PHI KIRBY [facility] [address] [place] [address] 11/22/2021 12:44:14 11/22/2021 16:30:31 Spinal stenosis in cervical region 40152838 M48.02 [id number] REG KYLE JR, MD [facility] UROLOGIC [facility]OCIATE S [address] [place] [address] 12/01/2021 13:00:26 12/01/2021 13:33:56 Benign prostatic hyperplasia with outflow obstruction 768178025 N40.1 Retention of urine 11068 4002 R33.9 [id number] REG KYLE JR, MD [facility] UROLOGIC [facility]OC[facility]ATE S [address] [place] [address] 12/08/2021 14:19:49 12/08/2021 15:36:32 Retention of urine 007164323 R33.9 Benign pro static hyperplasia with outflow obstruction 246926189 N40.1 Neurogenic dysfunction of urinary bladder 981449976 N31.9 [id number] RADHA RICHARDSON PA-C NEUROSURG [facility] CLOSED [address] [place] [address] 02/07/2022 12:52:46 02/07/2022 15:18:52 Postoperative care [id number] Z48.89 Patient is an 81-year-ol d male [...] AP lateral cervical x-rays today at the [facility] placement of hardware with no evidence of loosening or complicati on Cervical myelopathy 2025 33634 G95.9 [id number] MD LETICIA CHILDERS JR, [facility] [address] [place] [address] 02/09/2022 12:56:08 02/09/2022 13:28:42 Benign prostatic hyperplasia with outflow obstruction 846787982 N40.1 Neurogenic dysfunction of urinary bladder 467394107 N31.9 [id number] LOUIE SALDANA PA-C NEUROSURG [facility] CLOSED [address] [place] [address] 05/09/2022 12:33:54 05/11/2022 16:21:34 Low back pain 329719823 M54.50 History of lumbar fusion 7255331631 9106 Z98.1 History of cervical spine fusion 9874063771 101 Z98.1 Chronic pain syndrome 37 2935637 G89.4 [id number] AVELINO OWOTEN, HIDE MILL MAN NEUROSURG LOU [facility]IE [facility] CLOSED [address] [facility] [place] [address] 05/16/2022 11:10:21 05/16/2022 16:02:18 Lumbar spondylosis 863261948 M47.896 [id number] REG KYLE JR, MD [facility] UROLOGIC ASSOCIATE S [address] [address] [place] [address] 08/17/2022 12:47:03 08/17/2022 13:37:26 Urinary tract infectious disease 29256019 N39.0 Benign pro static hyperplasia with outflow obstruction 380392136 N40.1 Neurogenic dysfunction of urinary bladder 083088587 N31.9 Retention of urine 05330 4002 R33.9 [id number] REG KYLE JR, MD LETICIA [facility] UROLOGIC ASSOCIATE S [facility] [address] [place] [address] 03/29/2023 15:07:25 03/29/2023 16:28:02 Urinary tract infectious disease 88279579 N39.0 Renal mass 293297055 N28 .89 Benign pro static hyperplasia with outflow obstruction 775414037 N40.1 Retention of urine 07168 4002 R33.9 [id number] REG KYLE JR, MD [address] [place] [address] 04/18/2023 09:47:24 04/23/2023 04:04:21 Renal mass 874036716 N28.89 Neurogenic dysfunction of urinary bladder 932245028 N31.9 Benign pro static hyperplasia with outflow obstruction 945325979 N40.1 Incomplete emptying of urinary bladder 296634053 R39.14 [id number] REG KYLE JR, MD LETICIA [facility] UROLOGIC ASSOCIATE S [address] [address] [place] [address] 06/27/2023 10:13:34 06/27/2023 11:27:46 Renal cell carcinoma 101215739 C64.9 Benign pro static hyperplasia with outflow obstruction 408701009 N40.1 Incomplete emptying of urinary bladder 070076040 R39.14 Neurogenic dysfunction of urinary bladder 346997369 N31.9 Hydrocele of testis 2661 4003 N43.3 [id number] REG KYLE JR, MD LETICIA [facility] UROLOGIC ASSOCIATE S [address] [address] 08/16/2023 12:14:28 08/16/2023 13:19:11 Neurogenic dysfunction of urinary bladder 659802047 N31.9 Renal cell carcinoma 702 966774 C64.9 [id number] REG KYLE JR, MD LETICIA [facility] UROLOGIC ASSOCIATE S [address] [address] 10/26/2023 10:48:23 10/26/2023 11:19:20 Benign prostatic hyperplasia with outflow obstruction 346115888 N40.1 Incomplete emptying of urinary bladder 853539169 R39.14 Neurogenic dysfunction of urinary bladder 139475830 N31.9 Renal cell carcinoma 702 860989 C64.9 [id number] REG KYLE JR, MD [facility] UROLOGIC [facility] S [address] [address] 02/04/2024 10:50:41 02/04/2024 11:41:28 Hydrocele of testis 67459580 N43.3 [id number] REG KYLE JR, MD SURGERY SCHEDULE [address] [place] [address] 03/05/2024 12:26:37 03/05/2024 12:27:05 Postoperative pain 340035456 G89.18 [id number] REG KYLE JR, MD LETICIA [facility] UROLOGIC ASSOCIATE S [address] [address] 03/31/2024 09:46:54 03/31/2024 10:43:04 Acute urinary tract infection 437818556 N39.0 Hydrocele of testis 2661 4003 N43.3 [id number] REG KYLE JR, MD [facility]UA [facility] UROLOGIC ASSOCIATE S [address] [address] 11/03/2024 10:01:09 11/03/2024 10:46:23 Retention of urine 255009505 R33.9 Maintain current therapy regimen. Monitor for complicati ons and adjust as needed. Continuing combinatio n therapy and self-yelena terization . Monitoring for complicati ons. Regular follow-up scheduled. Neurogenic dysfunction of urinary bladder 750667881 N31.9 Renal cell carcinoma 702 660547 C64.9 [id number] Health Concerns Section Related Observation LastModified by Organization Detai ls LastModified Time None Recorded Concern Status LastModified by Organization Details LastModified Time None Recorded Advance Directives Directive None Recorded Payers Insurance Date Sequence Insurance Name Policy Number Policy [place] Covered Member ID [place] Member ID Guarantor Name 11/14/2024 1 [employer] (MEDICARE REPLACEMENT/ ADVANTAGE - PPO) Harvey Larson [id number] Harvey Larson Notes Date Note Type Note [...] large bilateral hydrocele. REG KYLE JR, MD [address] [place] [address], [phone], [place] [facility] 10/28/2023 13:37:29 02/04/2024 text/html Patient is in [...] and asymptomatic. REG KYLE JR, MD [address] [place], [address], [facility] 02/10/2024 15:38:34 03/31/2024 text/html Patient is in [...] Significant swelling, improving. REG KYLE JR, MD [address] [place] [address], [phone], [facility] 04/01/2024 16:56:39 11/03/2024 text/html The patient is [...] hydrocelectomy 03/05/2024. REG KYLE JR, MD [address] [place], [address], [facility] 11/13/2024 12:36:45
--- NOTE | 2025-04-22 13:00 | NM_ITS ---
APPROVED REPORT Exam: Nuclear Stress Test Indication: soa Patient Location: Outpatient Stress Tech: Alison Pitts NM Tech:Carol Kenney, JENNYT, RT (R)(N) Ht: 6 ft 0 in Wt: 270 lbs HR: 77 bpm BP: 157/83 mmHg BSA: 2.42 m2 TID: 1.08 History: soa the patient Procedure: Patient received 0.4 mg of intravenous Lexiscan, resting heart rate 77 bpm, resting blood pressure 157/83 mmHg, with Lexiscan maximum heart rate achieved was 89 bpm which is 85 % of the maximum predicted heart rate and blood pressure was 166/87 mmHg. With Lexiscan, patient denied any complaint of chest pain. The patient was not able to lay on his abdomen for prone images. Cardiac Stress and Resting SPECT Images: Cardiac Stress and Resting SPECT images were obtained using technetium 99m Myoview 32.6 mCi stress and 10.32 mCi at rest. The patient is unable to lie on his abdomen. Therefore, prone stress imaging could not be performed. This may affect diagnostic interpretation of the study findings. Technically difficult study. Raw images demonstrate significant soft tissue overlap with the cardiac borders. Resting and stress imaging in supine positions demonstrate a large sized, moderate, fixed perfusion defect in the anterior, anteroseptal, and septal LV wall from the base and extending distally towards the LV apical wall. There is also a medium sized, moderate, fixed perfusion defect in the basal to mid inferior LV wall. Gated imaging demonstrates normal global LV systolic function. LVEF is calculated at 56%. Conclusion: Technically difficult study. This may affect the diagnostic interpretation of the study findings. Large sized, moderate, fixed perfusion defect in the anterior, anteroseptal, and septal LV wall from the base and extending distally towards the LV apical wall. There is also a medium sized, moderate, fixed perfusion defect in the basal to mid inferior LV wall. Gated imaging demonstrates normal global LV systolic function. LVEF is calculated at 56%. Electronically signed by : Nica Rodriguez MD 04/25/2025 00:38:48
--- OUTSIDE RECORDS SUMMARY | 2025-04-22 13:27 | XMS_ITS | Clinical Summary ---
Author Organization [employer] ([place], [place], [place], [place]) Address [address] [place] [address] Care Team Providers Care Employee Relations Manager Name Role Phone Ryan Haynes MD Primary Care Provider [phone] Kyler Moraes MD Unavailable [phone] Allergies Active Allergy Reactions Criticality Noted Date [...] mass 05/30/2023 Coronary artery disease invo lving [place] coronary artery of [place] heart 05/30/2023 History of [place] (myocardial infarction) 05/30/2023 Overview (05/30/2023): 2015. Coronary [...] Date Jose rded Speak language other than Uzbek at home Not on file 07/06/2023 Want [...] 12/21/2017, Additional history exists Insurance [place] [id number] [employer] MEDICARE PPO Care Teams Employee Relations Manager Relationship Specialty Start Date End Date Ryan Haynes MD [address] [place] [address] PCP - General Family Medicine 05/30/23 Kyler Moraes MD [address] [place] [address] Referring Physician Cardiology 06/04/23
--- OUTSIDE RECORDS SUMMARY | 2025-04-22 13:27 | XMS_ITS | Referral Summary ---
Author Organization [employer] ([place], [place], [place], [place]) Address [address] [place] [address] Care Team Providers Care Java Scala Developer Name Role Phone Ryan Haynes MD Primary Care Provider [phone] Kyler Moraes MD Unavailable [phone] Allergies Active Allergy Reactions Criticality Noted Date [...] mass 05/30/2023 Coronary artery disease invo lving [place] coronary artery of [place] heart 05/30/2023 History of [place] (myocardial infarction) 05/30/2023 Overview (05/30/2023): 2015. Coronary [...] Date Jose rded Speak language other than Urdu at home Not on file 07/06/2023 Want [...] file Insurance [employer] MEDICARE PPO Care Teams Java Scala Developer Relationship Specialty Start Date End Date Ryan Haynes MD [address] [place] [address] PCP - General Family Medicine 05/30/23 Kyler Moraes MD [address] [place] [address] Referring Physician Cardiology 06/04/23
--- OUTSIDE RECORDS SUMMARY | 2025-04-22 13:27 | XMS_ITS | Clinical Summary ---
Author Organization [facility] Address [address] [place] [address] Care Team Providers Care Cash Applications Representative Name Role Phone Ryan Haynes MD Primary Care Provider [phone] Allergies Active Allergy Reactions Criticality Noted Date [...] a day. 12/24/19 24 Active HYDROcodone-acetam inophen ([place]) 10-325 MG tablet 1 tab(s) orally every [...] any time in the past 12 m [facility], were you homeless or living in a half-way (including now)? No 05/26/2024 Utilities Answer Date Recorded In the past 12 months has [employer] gas, oil, or water company threatened to [...] Screenings 11/24/2024 UKY-Adult SDOH Screenings 11/24/2024 05/26/2024 [id number] Vaccine ( season) 2025 03/28/2024, 03/20/2023, 03/22/2022, [...] to complete this topic Insurance [place] [id number] [facility] MEDICARE Advance Directives * Full Code (Latest Code Status on File) Date Activated Date Inactivated Comments 05/24/2024 2:25 AM 05/29/2024 11:46 AM Question Answer Comments Patient has decision-making capacity? Yes Care Teams Cash Applications Representative Relationship Specialty Start Date End Date Ryan Haynes MD [address] [place] [address] PCP - General 11/05/20
--- OUTSIDE RECORDS SUMMARY | 2025-04-22 13:27 | XMS_ITS | Clinical Summary ---
[facility] Organization [facility] Address [address] [place] [address] Care Team Providers Care Geophysical Party Chief Name Role Phone Ruperto Carey MD Primary Care Provider [phone] Social History Tobacco Use Types Packs/Day Years [...] 01/23/2025 COVID-19 Vaccine (2023- season) 2025 Insurance [facility] MEDICARE ADVANTAGE Care Teams Geophysical Party Chief Relationship Specialty Start Date End Date Ruperto Carey MD [address] [place], [place] [id number] PCP - General Anesthesiology 10/26/16
[2025-04-22 13:57] VITALS: BP 157/83; PULSE 79; RESP 16
[2025-04-22] MEDS: SODIUM CHLORIDE 0.9% 10ML SYR (RAD ONLY) 10 ML IV ×2 (14:11)
[2025-04-22] MEDS: ISOTOPE MYOVIEW (PER STUDY) 1 DOSE IV (14:11)
== END 2025-04-22 23:59 | disposition home or self-care (01) ==
LOC: RT 12:55
PROVIDERS: PCP Family Medicine; Visit Provider Internal Medicine
DX: I49.1 Atrial premature depolarization (principal); I49.3 Ventricular premature depolarization; I25.10 Atherosclerotic heart disease of native coronary artery without angina pectoris; I73.9 Peripheral vascular disease, unspecified; R94.31 Abnormal electrocardiogram [ECG] [EKG]; R94.39 Abnormal result of other cardiovascular function study
CPT/HCPCS: 78452; 93017; 93018; A9502; J2785

== ENCOUNTER 2025-04-23 13:52 | Outpatient (CLI) | payer MEDICARE, SELFPAY ==
--- OUTSIDE RECORDS SUMMARY | 2024-02-18 09:45 | XMS_ITS ---
Author Organization [facility] Address [address] [facility] [address] [place] [id number] Care Team Providers Care Pole Tester Name Role Phone Dorene Haynes Primary Care Provider Tari Barrera Unavailable [phone] Allergies Allergen (clinical drug ingredient) Drug/Non Drug Allergy documented on EMR Reaction Allergy Type Onset Date Status Substance with sulfonamide structure and antibacterial mechanism of action (substance) Sulfa Antibiotics rash Drug Allergy Active REASON FOR VISIT removal of roselyn in head, follow up ER at [facility] Medications Medication SIG (Take, Route, Frequency, [...] 02/18/2024 Encounters Encounter Location Date Provider Diagnosis [facility] [address], [place] [phone] 02/18/2024 Tari Barrera Removal of roselyn Z48.02 Assessments Encounter Date Diagnosis (ICD Code) Assessment Notes Treatment Notes Treatment Clinical Notes Section Notes 02/18/2024 Removal of roselyn (ICD-10 - Z48.02) wound care Plan Of Treatment Treatment Notes Assessment Notes Removal of roselyn wound care Next Appt Details Follow Up: prn, Reason: Progress Notes * Damir LARSON RDOB: [birth year] (84 yo M)Acc No.[id number]:02/18/2024 Progress Notes Patient: Damir GONZALES Provider: ARCHIE Hoover :1940 A ge:83 Y S ex:Male Date:02/18/2024 Address:[facility] [address], [place], [id number] Pcp:Dorene Haynes Subjective: * Chief Complaints: * 1 . removal of roselyn in head, follow up ER at [facility]. * HPI: D ermatology: Staple Removal P t presents today to have roselyn removed from the left side of his head above the left ear. Pt was seen and treated at [facility] ER on 02/07. Pt sts he does not have any other conercns or complaints at this time. 02/08/2024 [facility] ER note reviewed and as follows: [...] was walking and did not have his cloth hand socks on so he lost his balance [...] heart , Eye Surgery , cardiac stent placed-[facility]-Dr King 09/30/15, Implanted pain pump 01/2017, C-scope , EGD/Dr. Delarosa/moderate esophageal dysmotility; bile reflux gastropathy 02/14/2021, C 2-3 laminectomy and fusion/ Dr. Doty 09/2021, Laproscopic Left Radical Nephrectomy - Renal Cell Carcinoma/ Dr. Tracy 06/05/23. * Hospitalization/Major Diagno stic Procedure: s ee above , [facility] ER - Laceration November 2017. * [...] * Images: Billing Information: * Visit Code: 28766 Office Visit, Est Pt., Level 3. * Procedure Codes: G2211 Complex e/m visit add on. * Electronic signature of Stacey Barrera APRN on 04/23/2025 at 02:08 PM EDT Sign off status: Pending * Provider: ARCHIE Hoover Date: 0 02/18/2024 Generated for Trina Pollock on: 02:08 PM EDT History and Physical Notes * HPI (History of Present Illness) Category Sub-Category Detail Notes Category Not es Dermatology Staple Removal Pt presents to y to have roselyn removed from the left side of his head above the left ear. Pt was seen and treated at [facility] ER on 02/07. Pt sts he does not have any other conercns or complaints at this time 02/08/2024 [facility] ER note reviewed and as follows: [...] was walking and did not have his cloth hand socks on so he lost his balance [...]
--- OUTSIDE RECORDS SUMMARY | 2024-04-03 10:20 | XMS_ITS ---
[facility] Address [address] [facility] [address] [place] [phone] Care Team Providers Care Conveyor System Dispatcher Name Role Phone Dorene Haynes Primary Care Provider [phone] REASON FOR VISIT pnemonia shot Medications Medication [...] Administered Encounters Encounter Location Date Provider Diagnosis [facility] [address] [facility] [address] [place], [place] [address] [phone] 04/03/2024 Dorene Haynes Encounter for immunization Z23 Assessments Encounter Date Diagnosis (ICD Code) Assessment Notes Treatment Notes Treatment Clinical Notes Section Notes 04/03/2024 Encounter for immunization (ICD-10 - Z23) Plan Of Treatment No Information Progress Notes * Damir LAROSN RDOB: [birth year] (84 yo M)Acc No.[id number]:04/03/2024 Patient: Damir GONZALES Provider: Dorene Haynes M.D. :1940 A ge:83 Y S ex:Male Date:04/03/2024 Address:[facility] [address], [id number] Subjective: * Chief Complaints: * 1 . [...] Electronic signature of Dorene Haynes MD on 04/23/2025 at 02:10 PM EDT Sign off status: Pending * Provider: Dorene Haynes M.D. Date: Generated for Trina wright/Chris/Shamar on: 02:10 PM EDT
--- OUTSIDE RECORDS SUMMARY | 2024-06-03 12:00 | XMS_ITS ---
[facility] Organization [facility] Address [address] [facility] [address] [place] [id number] Care Team Providers Care Manager Front Name Role Phone Dorene Haynes Primary Care Provider Tari Barrera [phone] Allergies Allergen (clinical drug ingredient) Drug/Non Drug Allergy documented on EMR Reaction Allergy Type Onset Date Status Substance with sulfonamide structure and antibacterial mechanism of action (substance) Sulfa Antibiotics rash Drug Allergy Active REASON FOR VISIT [facility] [place] [facility] Medications Medication SIG (Take, Route, Frequency, Duration) Notes Start Date End Date Status Rosuvastatin Calcium 20 MG 1/2 tab(s) orally once a day Active Spironolactone 25 MG 1 tablet Orally Active Dutasteride 0.5 mg TAKE ONE CAPSULE BY MOUTH EVERY DAY Active Furosemide 40 mg TAKE ONE TABLET BY MOUTH EVERY DAY Active Aspirin Low Dose 81 MG 1 tab(s) orally o nce a day Active Trintellix 5 MG TAKE ONE TABLET BY MOUTH EVERY DAY Active Acetaminophen 500 MG 2 tablet as needed Orally every 6 hrs Active Bethanechol Chloride 25 MG 1 tablet 1 hour before or 2 hours after meals Orally Three times a day Active Erythromycin 250 MG as directed Orally tid Active Tamsulosin HCl 0.4 mg TAKE TWO CAPSULES BY MOUTH EVERY DAY Active Omeprazole 40 MG 1 capsule 1/2 to 1 hour before morning meal Orally Once a day Active Metamucil 0.36 GM as directed Orally 1 pkg qd Active Methocarbamol 1000 MG 1 tablet Orally Fo ur times a day Active MiraLax 17 GM/SCOOP 1 scoop mixed with 8 ounces of fluid Orally Once a day Active Tums 500 MG 1 tablet Orally qid prn Active Tylenol PM Extra Strength 500-25 MG 1 tablet at bedtime as needed Orally Once a day at HS Active oxyCODONE HCl 5 MG 1 tab(s) Orally ever y 4 hrs prn 06/04/2024 Active Senna Plus 8.6-50 MG 1 tablet as needed Orally at HS Active Ondansetron 4 MG 1 tablet on the tongue and allow to dissolve Orally q6h prn Active Melatonin 10 MG 1 tab(s) orally once a day (at bedtime) Not-Taking Ipratropium-Albuterol 3/ 0.5/ 3 ML 3 ML TID 08/22/2022 Not-Taking Nitroglycerin 0.4 mg DISSOLVE 1 TABLET UNDER THE TONGUE EVERY 5 MINUTES NEEDED FOR CHEST PAIN. DO NOT EXCEED A TOTAL OF 3 DOSES IN 15 MINUTES. IF NO RELIEF AFTER 3 DOSES CALL 911/GO TO ER; Duration: 5 Not-Taking DULoxetine HCl 60 MG 1 cap(s) orally onc e a day Not-Taking busPIRone HCl 10 MG 1/2 tab orally 2 times a day Not-Taking rOPINIRole HCl 1 MG 1 tab(s) orally qhs; Duration: 30 day(s) Not-Taking Zolpidem Tartrate ER 12.5 MG 1 tab(s) orally once a day (at bedtime) 09/16/2021 Not-Taking Valium 5 MG 1/2 -1 tab(s) orally two times a day as needed 08/09/2023 Not-Taking Plavix 75 MG 1 tab(s) orally once a day; Duration: 30 day(s) Not-Taking metOLazone 5 MG 1 tablet Orally Once a day 08/09/2023 Not-Taking HYDROcodone-Acetaminophen 10-325 MG 1 tab(s) orally every 6 hours prn 06/02/2024 Active Reglan 5 MG 1 tablet before meal s Orally Twice a day; Duration: 30 day(s) Not-Taking Cefadroxil 500 MG 2 capsule Orally every 12 hrs 06/05/2024 Active Problems Problem Type SNOMED Code ICD Code Onset Dates Problem Status W/U Status Risk Notes Problem Neurogenic bladder (278988401) Neurogenic bladder (N31.9) Active confirmed Vital Signs Blood pressure systolic 124 mm Hg 06/03/20 24 Blood pressure diastolic 57 mm Hg 024 Heart Rate 78 /min 06/03/2024 Respiratory Rate 18 /min 06/03/2024 Weight 275.2 lbs 06/03/2024 Encounters Encounter Location Date Provider Diagnosis Olvin Stewart [address] [place], [place] [address]joseph [address] [place] [id number] 06/03/2024 Tari Barrera Chronic pain syndrom e G89.4 ; Leg edema R60.0 ; Lumbar spinal stenosis M48.06 ; Dyslipidemia E78.5 ; Benign prostatic hyperplasia with lower urinary tract symptoms N40.1 ; History of ASCVD Z86.79 ; Primary insomnia F51.01 ; Sleep apnea in adult G47.30 ; Gastro-esophageal reflux disease without esophagitis K21.9 ; Thoracic back pain M54.6 ; Wedge compression fracture of T9-T10 vertebra, subsequent encounter for fracture with routine healing S22.070D ; Acute blood loss anemia D62 ; Obesity, class 2 E66.812 ; Neurogenic bladder N31.9 and Depression with anxiety F41.8 Assessments Encounter Date Diagnosis (ICD Code) Assessment Notes Treatment Notes Treatment Clinical Notes Section Notes 06/03/2024 Chronic pain syndrome (ICD-10 - G89.4) 06/03/2024 Leg edema (ICD-10 - R60.0) he wears compression hose daily 06/03/2024 Lumbar spinal stenosis (ICD-10 - M48.06) 06/03/2024 Dyslipidemia (ICD-10 - E78.5) 06/03/2024 Benign prostatic hyperplasia with lower urinary tract symptoms (ICD-10 - N40.1) 06/03/2024 History of ASCVD (ICD-10 - Z86.79) 06/03/2024 Primary insomnia (ICD-10 - F51.01) 06/03/2024 Sleep apnea in adult (ICD-10 - G47.30) 06/03/2024 Gastro-esophagea l reflux disease without esophagitis (ICD-10 - K21.9) 06/03/2024 Thoracic back pain (ICD-10 - M54.6) 06/03/2024 Wedge compression fracture of T9-T10 vertebra, subsequent encounter for fracture with routine healing (ICD-10 - S22.070D) to wear TLSO brace at all times when >45 degrees in bed and at all times when up and OOB x 3 months; brace is for stabilization , comfort and pain control; pt is working with pt ; would like to walk more; nursing will assist him with walking in between PT SESSIONS 06/03/2024 Acute blood loss anemia (ICD-10 - D62) 06/03/2024 Obesity, class 2 (ICD-10 - E66.812) 06/03/2024 Neurogenic bladder (ICD-10 - N31.9) in/out cath at HS and prn 06/03/2024 Depression with anxiety (ICD-10 - F41.8) 06/03/2024 Other pt being treate d for UTI; he plans to return to home after inpt PT completed Plan Of Treatment Medication Medication Name Sig Start Date Stop Date Notes Rosuvastatin Calcium 20 MG 1/2 tab(s) or ally once a day Spironolactone 25 MG 1 tablet Orally Dutasteride 0.5 mg TAKE ONE CAPSULE BY MOUTH EVERY DAY Furosemide 40 mg TAKE ONE TABLET BY M OUTH EVERY DAY Aspirin Low Dose 81 MG 1 tab(s) orally once a day Trintellix 5 MG TAKE ONE TABLET BY M OUTH EVERY DAY Acetaminophen 500 MG 2 tablet as needed Orally every 6 hrs Bethanechol Chloride 25 MG 1 tablet 1 ho ur before or 2 hours after meals Orally Three times a day Erythromycin 250 MG as directed Orally tid Tamsulosin HCl 0.4 mg TAKE TWO CAPSULES BY MOUTH EVERY DAY Omeprazole 40 MG 1 capsule 1/2 to 1 h our before morning meal Orally Once a day HYDROcodone-Acetaminophen 10 -325 MG 1 tablet as needed Orally every 6 hrs prn Metamucil 0.36 GM as directed Orally 1 pkg qd Methocarbamol 1000 MG 1 tablet Orally Fo ur times a day MiraLax 17 GM/SCOOP 1 scoop mixed with 8 ounces of fluid Orally Once a day Tums 500 MG 1 tablet Orally qid prn Tylenol PM Extra Strength 50 0-25 MG 1 tablet at bedtime as needed Orally Once a day at HS oxyCODONE HCl 5 MG 1 tab(s) Orally ever y 4 hrs prn 06/04/2024 Senna Plus 8.6-50 MG 1 tablet as needed Orally at HS Ondansetron 4 MG 1 tablet on the tong ue and allow to dissolve Orally q6h prn Treatment Notes Assessment Notes Leg edema he wears compression hose daily Wedge compression fracture o f T9-T10 vertebra, subsequent encounter for fracture with routine healing to wear TLSO brace at all times when >45 degrees in bed and at all times when up and OOB x 3 months; brace is for stabilization , comfort and pain control; pt is working with pt ; would like to walk more; nursing will assist him with walking in between PT SESSIONS Neurogenic bladder in/out cath at HS an d prn Other pt being treated for UTI; he plans to return to home after inpt PT completed Next Appt Details Follow Up: 2 Weeks, Reason: Progress Notes * Damir LARSON RDOB: [birth year] (84 yo M)Acc No.[id number]:06/03/2024 Progress Notes Patient: Damir GONZALES Provider: ARCHIE Hoover :1940 A ge:83 Y S ex:Male Date:06/03/2024 Address:[facility] [address], [facility], [place], [id number] Pcp:Dorene Haynes Subjective: * Chief Complaints: * 1 . [facility] JAIL VISIT. * HPI: H PI: For routine [facility] visit; chart reviewed and patient examined; see PORSCHE, Progress Note by Dr. Haynes from visit 08/01/2023 as follows: ADMSSION H&P HPI: Mr. Larson is an 83-year-old white male who was admitted to [place] for subacute rehab following recent admission to for treatment of a T10 superior endplate fracture. He was treated nonoperatively and placed in a TLSO brace which is to be worn at all times that he is out of bed. He was also noted to have a urinary tract infection during the admission and is discharged on antibiotics. PMHx; -- ASCVD. 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 He does not smoke and does not drink. CURRENT MEDS: See MAR' ALLERGIES: Sulfa PE: VS: BP 147/72 P78 RR 20 O2 sat 95% weight 275 He is sitting up in wheelchair with TLSO brace in place. He is alert and oriented. Color is good. He appears mildly uncomfortable but no acute distress. Sclera clear. Oropharynx unremarkable. Neck is supple with no masses or bruits. Upper lung israel are clear. Abdomen soft and nondistended with no tenderness. Extremities with 1+ pretibial edema. ASSESSMENT: -- Ground-level fall -- T10 superior endplate fracture, nonoperative management -- ASCVD. 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 He is in a custom TLSO brace which is to be worn anytime he is out of bed. Medication list is reviewed and reconciled with his . His goal is to return home at discharge. Discipline Physician Date & Time 05/31/2024 12:21 PM e-Signed by Dorene Haynes MD . * ROS: R ESPIRATORY: no S hortness of breath. n o C hest pain. n o?Cough. C ARDIOLOGY: no C hest pain. n o P alpitations. L eg edema?yes. n o S hortness of breath. G ASTROENTEROLOGY: no N ausea. n o V omiting. n o A bdominal pain. n o D iarrhea. C onstipation y es, t his has resolved and stools are now loose. M USCULOSKELETAL: Positive for w alking with walker with PT; would like to walk more;. J oint pain y es, b ack pain ; would like to change back to Oxycodone. ? U ROLOGY: Positive for c an usually void in the daytime; needs to be in/out cathed at HS; discussed with his nurse as to the preferred timing. V oiding dysfunction? yes. * Medical History: H LP, GERD, Arthritis , Headaches , severe DDD of cervical and lumbar spine, Enlarged Prostate , Sleep Apnea, Neuropathy, ASCVD with 2 stent placements, NSTEMI 09/30/[address] - [facility], Vertigo, Neurogenic bladder, Renal cell carcinoma, Depression, T10 Fx. * Surgical History: C -spine laminectomy x 2 , Lumbar surgery x 4 for spinal stenosis , Appendectomy , Hemorrhoid surgery , Brain surgery-shunt placed in the back of pts head 18 y.o., 2 stents in heart , Eye Surgery , cardiac stent placed-[facility]-Dr King 09/30/15, Implanted pain pump 01/2017, C-scope , EGD/Dr. Delarosa/moderate esophageal dysmotility; bile reflux gastropathy 02/14/2021, C 2-3 laminectomy and fusion/ Dr. Doty 09/2021, Laproscopic Left Radical Nephrectomy - Renal Cell Carcinoma/ Dr. Tracy 06/05/23. * Hospitalization/Major Diagno stic Procedure: s ee above , [facility] ER - Laceration November 2017, [facility] after fall and T10 Fx 05/23-05/29/2024. * Family History: F ather: 70 yrs, emphysema. M other: 99 yrs, old age. 3 brother(s) , 4 sister(s) . 1 son(s) , 1 daughter(s) . . * Social History: C URRENT TOBACCO USE S moking Status: Patient does NOT smoke. C affeine: yes, frequency: coffee. Exercise: no. Home smoke detector use: yes. Past smoking status: no. Alcohol: No. * Medications: T aking Tylenol PM Extra Strength 500-25 MG Tablet 1 tablet at bedtime as needed Orally Once a day at HS , Taking Tums 500 MG Tablet Chewable 1 tablet Orally qid prn , Taking Senna Plus 8.6-50 MG Tablet 1 tablet as needed Orally at HS , Taking Ondansetron 4 MG Tablet Disintegrating 1 tablet on the tongue and allow to dissolve Orally q6h prn , Taking Omeprazole 40 MG Capsule Delayed Release 1 capsule 1/2 to 1 hour before morning meal Orally Once a day , Taking MiraLax 17 GM/SCOOP Powder 1 scoop mixed with 8 ounces of fluid Orally Once a day , Taking Methocarbamol 1000 MG Tablet 1 tablet Orally Four times a day , Taking Metamucil 0.36 GM Capsule as directed Orally 1 pkg qd , Taking HYDROcodone-Acetaminophen 10-325 MG Tablet 1 tablet as needed Orally every 6 hrs prn , Taking Erythromycin 250 MG Tablet Delayed Release as directed Orally tid , Taking Cefadroxil 500 MG Capsule 2 capsule Orally every 12 hrs , stop date 06/05/2024, Taking Bethanechol Chloride 25 MG Tablet 1 tablet 1 hour before or 2 hours after meals Orally Three times a day , Taking Acetaminophen 500 MG Tablet 2 tablet as needed Orally every 6 hrs , Taking Trintellix 5 MG Tablet TAKE ONE TABLET BY MOUTH EVERY DAY , Taking Tamsulosin HCl 0.4 mg Capsule TAKE TWO CAPSULES BY MOUTH EVERY DAY , Taking Spironolactone 25 MG Tablet 1 tablet Orally , Taking Rosuvastatin Calcium 20 MG Tablet 1/2 tab(s) orally once a day , Taking Aspirin Low Dose 81 MG Tablet Delayed Release 1 tab(s) orally once a day , Taking Furosemide 40 mg Tablet TAKE ONE TABLET BY MOUTH EVERY DAY , Taking Dutasteride 0.5 mg Capsule TAKE ONE CAPSULE BY MOUTH EVERY DAY , Taking HYDROcodone-Acetaminophen 10-325 MG Tablet 1 tab(s) orally every 6 hours prn , Not-Taking Reglan 5 MG Tablet 1 tablet before meals Orally Twice a day , Not-Taking Plavix 75 MG Tablet 1 tab(s) orally once a day , Not-Taking metOLazone 5 MG Tablet 1 tablet Orally Once a day , Not-Taking rOPINIRole HCl 1 MG Tablet 1 tab(s) orally qhs , Not-Taking Zolpidem Tartrate ER 12.5 MG Tablet Extended Release 1 tab(s) orally once a day (at bedtime) , Not-Taking Valium 5 MG Tablet 1/2 -1 tab(s) orally two times a day as needed , Not-Taking Melatonin 10 MG Tablet 1 tab(s) orally once a day (at bedtime) , Not-Taking Ipratropium- Albuterol 3/ 0.5/ 3 ML 3 ML TID , Not-Taking Nitroglycerin 0.4 mg Tablet Sublingual DISSOLVE 1 TABLET UNDER THE TONGUE EVERY 5 MINUTES NEEDED FOR CHEST PAIN. DO NOT EXCEED A TOTAL OF 3 DOSES IN 15 MINUTES. IF NO RELIEF AFTER 3 DOSES CALL 911/GO TO ER , Not-Taking DULoxetine HCl 60 MG Capsule Delayed Release Particles 1 cap(s) orally once a day , Not-Taking busPIRone HCl 10 MG Tablet 1/2 tab orally 2 times a day , Medication List reviewed and reconciled with the patient * Allergies: S ulfa Antibiotics: rash. Objective: * Vitals: W t:275.2, Temp:97.9, BP:124/57, HR: 39, 48, 62,78, O2 Sat:92%, Nurse:reviewed/recorded by [facility], RR:18. * Examination: G eneral Examination: General Appearance: NAD, alert, pleasant; TLSO brace;? visiting with and eating a pimento cheese sandwhich. H eart: RRR. L ungs: CTAB A&P. N eurologic Exam: alert and oriented. E xtremities: has support stockings on bilateral lower extremities. Assessment: * Assessment: 1. C hronic pain syndrome - G89.4 (Primary) 2 . L eg edema - R60.0 ? 3 . L umbar spinal stenosis - M48.06 4 . D yslipidemia - E78.5 ? 5 . B enign prostatic hyperplasia with lower urinary tract symptoms - N40.1 & #160; 6 . H istory of ASCVD - Z86.79 7 . P rimary insomnia - F51.01 ? 8 . S leep apnea in adult - G47.30 9 . G chano-esophageal reflux disease without esophagitis - K21.9 1 0. T horacic back pain - M54.6 11. W edge compression fracture of T9-T10 vertebra, subsequent encounter for fracture with routine healing - S22.070D 1 2. A cute blood loss anemia - D62 1 3. O besity, class 2 - E66.812 1 4. N eurogenic bladder - N31.9 15. D epression with anxiety - F41.8 Plan: * Treatment: 2. L eg edema Continue Spironolactone Tablet, 25 MG, 1 tablet, Orally; C ontinue Furosemide Tablet, 40 mg, TAKE ONE TABLET BY MOUTH EVERY DAY. Notes: he wears compression hose daily 3. D yslipidemia Continue Rosuvastatin Calcium Tablet, 20 MG, 1/2 tab(s), orally, once a day. 4. B enign prostatic hyperplasia with lower urinary tract symptoms Continue Dutasteride Capsule, 0.5 mg, TAKE ONE CAPSULE BY MOUTH EVERY DAY. 5. H istory of ASCVD Continue Aspirin Low Dose Tablet Delayed Release, 81 MG, 1 tab(s), orally, once a day. 6. P rimary insomnia Continue Tylenol PM Extra Strength Tablet, 500-25 MG, 1 tablet at bedtime as needed, Orally, Once a day at HS. 7. G chano-esophageal reflux disease without esophagitis Continue Tums Tablet Chewable, 500 MG, 1 tablet, Orally, qid prn; C ontinue Omeprazole Capsule Delayed Release, 40 MG, 1 capsule 1/2 to 1 hour before morning meal, Orally, Once a day. 8. T horacic back pain Continue Methocarbamol Tablet, 1000 MG, 1 tablet, Orally, Four times a day. 9. W edge compression fracture of T9-T10 vertebra, subsequent encounter for fracture with routine healing Continue oxyCODONE HCl Tablet, 5 MG, 1 tab(s), Orally, every 4 hrs prn. Notes: to wear TLSO brace at all times when >45 degrees in bed and at all times when up and OOB x 3 months; brace is for stabilization , comfort and pain control; pt is working with pt ; would like to walk more; nursing will assist him with walking in between PT SESSIONS 10. N eurogenic bladder Continue Bethanechol Chloride Tablet, 25 MG, 1 tablet 1 hour before or 2 hours after meals, Orally, Three times a day; C ontinue Tamsulosin HCl Capsule, 0.4 mg, TAKE TWO CAPSULES BY MOUTH EVERY DAY. Notes: in/out cath at HS and prn 11. D epression with anxiety Continue Trintellix Tablet, 5 MG, TAKE ONE TABLET BY MOUTH EVERY DAY. 12. O thers Continue Senna Plus Tablet, 8.6-50 MG, 1 tablet as needed, Orally, at HS; C ontinue Ondansetron Tablet Disintegrating, 4 MG, 1 tablet on the tongue and allow to dissolve, Orally, q6h prn; C ontinue MiraLax Powder, 17 GM/SCOOP, 1 scoop mixed with 8 ounces of fluid, Orally, Once a day; C ontinue Metamucil Capsule, 0.36 GM, as directed, Orally, 1 pkg qd; S top HYDROcodone-Acetaminophen Tablet, 10-325 MG, 1 tablet as needed, Orally, every 6 hrs prn; C ontinue Erythromycin Tablet Delayed Release, 250 MG, as directed, Orally, tid. Notes: pt being treated for UTI; he plans to return to home after inpt PT completed * Follow Up: 2 Weeks * Images: Billing Information: * Visit Code: 12299 subs. level 4. * Procedure Codes: * Electronic signature of Stacey Barrera APRN on 04/23/2025 at 02:09 PM EDT Sign off status: Pending * Provider: ARCHIE Hoover Date: 08/04/2023 Generated for Trina wright/Chris/Shamar on: 02:09 PM EDT History and Physical Notes * HPI (History of Present Illness) Category Sub-Category Detail Notes Category Not es HPI For routine [facility] visit; chart reviewed and patient examined; see ROS, Progress Note by Dr. Haynes from visit 08/01/2023 as follows: ADMSSION H&P HPI: Mr. Larson is an 83-year-old white male who was admitted to [place] for subacute rehab following recent admission to for treatment of a T10 superior endplate fracture. He was treated nonoperatively and placed in a TLSO brace which is to be worn at all times that he is out of bed. He was also noted to have a urinary tract infection during the admission and is discharged on antibiotics. PMHx; -- ASCVD. 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 He does not smoke and does not drink. CURRENT MEDS: See MAR' ALLERGIES: Sulfa PE: VS: BP 147/72 P78 RR 20 O2 sat 95% weight 275 He is sitting up in wheelchair with TLSO brace in place. He is alert and oriented. Color is good. He appears mildly uncomfortable but no acute distress. Sclera clear. Oropharynx unremarkable. Neck is supple with no masses or bruits. Upper lung israel are clear. Abdomen soft and nondistended with no tenderness. Extremities with 1+ pretibial edema. ASSESSMENT: -- Ground-level fall -- T10 superior endplate fracture, nonoperative management -- ASCVD. 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 He is in a custom TLSO brace which is to be worn anytime he is out of bed. Medication list is reviewed and reconciled with his . His goal is to return home at discharge. Discipline Physician Date & Time 05/31/2024 12:21 PM e-Signed by Dorene Haynes MD Examination Category Sub-Category Detail Notes Category Not es General Examination Heart: RRR Lungs: CTAB A&P Extremities: has support stocking s on bilateral lower extremities General Appearance: NAD, alert, pleasant ; TLSO brace; [facility] Neurologic Exam: alert and oriented
--- OUTSIDE RECORDS SUMMARY | 2024-07-28 10:45 | XMS_ITS ---
[facility] Address [address] [facility] [address] [place] [phone] Care Team Providers Care Shift Boss Name Role Phone Dorene Haynes Primary Care Provider [phone] Tari Barrera Unavailable [phone] Allergies Allergen (clinical drug ingredient) Drug/Non Drug Allergy documented on EMR Reaction Allergy Type Onset Date Status Substance with sulfonamide structure and antibacterial mechanism of action (substance) Sulfa Antibiotics rash Drug Allergy Active Reason For Referral Diagnosis 1 Cellulitis and absce ss (L03.90) [facility] Referring Provider First Name Tari Referring Provider Last Name Holly Referring Provider Speciality Family Pra ctice Referred Provider Tonia Sorto Referred Provider Specialty Podiatry General Notes Tari Barrera 07/28/2024 3:26:14 PM > left toe infectionDebbie Brynn 07/28/2024 3:28:37 PM > faxed to [facility] Podiatry, Luann Lewis 07/31/2024 9:39:55 AM [...] Duration: 10 day(s) 07/28/2024 Active Vital Signs Blood pressure systolic 120 mm Hg 07/28/19 25 Blood pressure diastolic 68 mm Hg 025 Heart Rate 96 /min 07/28/2024 Height 69 in 07/28/2024 Weight 270.8 lbs 07/28/2024 BMI 39.99 kg/m2 07/28/2024 Encounters Encounter Location Date Provider Diagnosis [facility] [address] [facility] [address] [place], [place] [phone] 07/28/2024 Tari Barrera Cellulitis and abscess L03.90 [...] LENA Damir RDOB: [birth year] (84 yo M)Acc No.[id number]:07/28/2024 Progress Notes Patient: Damir GONZALES Provider: ARCHIE Hoover :1940 A ge:83 Y S ex:Male Date:07/28/2024 Address:[facility] [address], [id number] Pcp:Dorene Haynes Subjective: * Chief Complaints: * 1 . Sore on toe. * HPI: A nkle/Foot: 83 year old male presents with c/o Pain P t sts he has a spot o n the left middle toe. Pt sts the foot is swollen and sts the sore has been there for about 4 days now. Pt w ould like refedrral ot the mailroom messenger. * ROS: R ESPIRATORY: no S hortness [...] Diagno stic Procedure: s ee above , [facility] ER - Laceration November 2017, [place] [...] * Images: Billing Information: * Visit Code: 01252 Office Visit, Est Pt., Level 4. * Procedure Codes: G2211 Complex e/m visit add on. 3074F SYST BP LT 130 MM HG. 3078F DIAST BP < 80 MM HG. * Electronic signature of Stacey Barrera APRN on 04/23/2025 at 02:10 PM EDT Sign off status: Pending * Provider: ARCHIE Hoover Date: 0 07/28/2024 Generated for Trina wright/Chris/Shamar on: 1 02:10 PM EDT History and Physical Notes * HPI (History of Present Illness) Category Sub-Category Detail Notes Category Not es Ankle/Foot Pain Pt sts he has a spot on the left middle toe. Pt sts the foot is swollen and sts the sore has been there for about 4 days now. Pt would like refedrral ot the mailroom messenger Examination Category Sub-Category Detail Notes Category Not [...]
--- OUTSIDE RECORDS SUMMARY | 2024-07-31 10:15 | XMS_ITS ---
[facility] [address] [place] [phone] Care Team Providers Care Investment Strategist Name Role Phone Dorene Haynes Primary Care Provider [phone] Allergies Allergen (clinical drug ingredient) Drug/Non Drug [...] a day at HS Active Vital Signs Blood pressure systolic 120 mm Hg 07/31/19 25 Blood pressure diastolic 80 mm Hg 025 Heart Rate 77 /min 07/31/2024 Height 69 in 07/31/2024 Weight 222.6 lbs 07/31/2024 BMI 32.87 kg/m2 07/31/2024 Encounters Encounter Location Date Provider Diagnosis [facility] [address] [phone] 07/31/2024 R Jackson Haynes Friction blister T14.8XXA [...] Damir LARSON RDOB: [birth year] (84 yo M)Acc No.[id number]:07/31/2024 Progress Notes Patient: Damir GONZALES Provider: Dorene Haynes M.D. :1940 A ge:83 Y S ex:Male Date:07/31/2024 Address:[facility] [address], [address], [id number] Subjective: * Chief Complaints: * 1 . [...] Diagno stic Procedure: s ee above , [facility] ER - Laceration November 2017, [place] [...] * Images: Billing Information: * Visit Code: 84263 Office Visit, Est Pt., Level 3. * Procedure Codes: G2211 Complex e/m visit add on. 3074F SYST BP LT 130 MM HG. 3079F DIAST BP 80-89 MM HG. * Electronic signature of Dorene Haynes MD on 04/23/2025 at 02:09 PM EDT Sign off status: Pending * Provider: Dorene Haynes M.D. Date: 0 07/31/2024 Generated for Trina wright/Chris/Jean-Paulitting on: 02:09 PM EDT History and Physical Notes * HPI (History of Present Illness) Category Sub-Category Detail Notes Category Not es Ankle/Foot The original in jury came from trauma from scraping the toe on the threshold of his door.
--- OUTSIDE RECORDS SUMMARY | 2025-02-12 10:30 | XMS_ITS ---
[facility] Address [address] [facility] [address] [place] [id number] Care Team Providers Care Civil Drafter Name Role Phone Dorene Haynes Primary Care Provider Allergies Allergen (clinical drug ingredient) Drug/Non Drug Allergy documented on EMR Reaction Allergy Type Onset Date Status Substance with sulfonamide structure and antibacterial mechanism of action (substance) Sulfa Antibiotics rash Drug Allergy Active Results Component Value Reference Range Notes CBC Venipuncture (in house) Reviewed date:02/17/2025 08:58:38 AM Interpretation:hgb 11.1 Performing Lab: Notes/Report: hgb 11.1 wbc 7.2 3.5 - 10 lymph 28.0 15 - 50 mid 6.7 2 - 15 gran 65.3 35 - 80 rbc 3.32 3.5 - 5.5 hgb 11.1 11.5 - 16.5 hct 31.7 35 - 55 mcv 95.3 75 - 100 mch 33.5 25 - 35 mchc 35.1 31 - 38 platlet 142 100 - 400 P-Vitamin B12 Reviewed date:02/17/2025 08:58:38 AM Interpretation:189 Performing Lab: Notes/Report: Test performed by [facility] [address] [place] [address] , [address], [place] [address] Candelario Huynh MD, Marketing Analytics Specialist CLIA: [id number] Vitamin B12 632 300-6718 pg/mL P-Comprehensive Metabolic Pa sage (CMP) Reviewed date:02/17/2025 08:58:38 AM Interpretation:GFR 31 (stable) Performing Lab: Notes/Report: Test performed by [facility] [address] [place] [address] , [address], [place] [address] Candelario Huynh MD, Marketing Analytics Specialist CLIA: [id number] Sodium 143 135-145 mmol/L Potassium 4.5 3.5-5.3 mmol/L Chloride 108 97-108 mmol/L CO2 22 20-32 mmol/L Glucose 116 65-99 mg/dL BUN 22 8-23 mg/dL Creatinine 2.06 0.70-1.30 mg/dL Calcium 8.7 8.6-10.4 mg/dL eGFR by Creatinine 31 >59 mL/min/1.73m2 Protein 6.0 6.0-8.3 g/dL Albumin 4.1 3.5-5.3 g/dL Alkaline Phosphatase 70 40-129 IU/L ALT (SGPT) 10 <5-55 IU/L AST (SGOT) 15 <5-46 IU/L Bilirubin, Total 0.3 <0.2-1.2 mg/dL A/G Ratio 2.2 1.1-2.5 P-Iron Reviewed date:02/17/2025 08:58:38 AM Interpretation:51 (low) Performing Lab: Notes/Report: Test performed by [facility] [address] [place] [address] , [address], [place] [address] Candelario Huynh MD, Marketing Analytics Specialist CLIA: [id number] Iron 51 59-158 ug/dL P-Magnesium Reviewed date:02/17/2025 08:58:38 AM Interpretation:1.9 Performing Lab: Notes/Report: Test performed by [facility] [address] [place] [address] , [address], [place] [id number] Candelario Huynh MD, Marketing Analytics Specialist CLIA: [id number] Magnesium 1.9 1.6-2.4 mg/dL P-Vitamin D, 1, 25 Dihydroxy Reviewed date:02/17/2025 08:58:38 AM Interpretation:27.8 Performing Lab: Notes/Report: Test performed by [facility] [address] [place] [address] , [address], [place] [address] Candelario Huynh MD, Marketing Analytics Specialist CLIA: [id number] Vitamin D, 1, 25 Dihydroxy 27.8 19.9-79.3 pg/m L REASON FOR VISIT 6 month follow up, Needs labs Medications Medication SIG (Take, Route, Frequency, Duration) Notes Start Date End Date Status Trintellix 5 mg TAKE ONE TABLET BY M OUTH EVERY DAY; Duration: 30 Active Furosemide 40 mg TAKE ONE TABLET BY M OUTH EVERY DAY; Duration: 30 Active Spironolactone 25 MG 1 tablet Orally Active oxyCODONE HCl 5 MG 1 tab(s) Orally ever y 6 hrs prn 07/31/2024 Active Dutasteride 0.5 mg TAKE ONE CAPSULE BY MOUTH EVERY DAY; Duration: 90 Active Acetaminophen 500 MG 2 tablet as needed Orally every 6 hrs Active HYDROcodone-Acetaminophen 10-325 MG 1 tab(s) orally every 6 hours prn 06/02/2024 Active Rosuvastatin Calcium 20 MG 1/2 tab(s) or ally once a day Active Aspirin Low Dose 81 MG 1 tab(s) orally o nce a day Active Tamsulosin HCl 0.4 mg TAKE TWO CAPSULES BY MOUTH EVERY DAY Active Bethanechol Chloride 25 MG 1 tablet 1 ho ur before or 2 hours after meals Orally Three times a day Active Metamucil 0.36 GM as directed Orally 1 pkg qd Active Erythromycin 250 MG as directed Orally tid Active MiraLax 17 GM/SCOOP 1 scoop mixed with 8 ounces of fluid Orally Once a day Active Methocarbamol 1000 MG 1 tablet Orally Fo ur times a day Active Cephalexin 500 MG 1 capsule Orally 3 t imes a day 07/28/2024 Active Ondansetron 4 MG 1 tablet on the tong ue and allow to dissolve Orally q6h prn Active Omeprazole 40 MG 1 capsule 1/2 to 1 h our before morning meal Orally Once a day Active Tums 500 MG 1 tablet Orally qid prn Active Senna Plus 8.6-50 MG 1 tablet as needed Orally at HS Active Tylenol PM Extra Strength 500-25 MG 1 tablet at bedtime as needed Orally Once a day at HS Active Valium 5 MG 1/2 -1 tab(s) orally two times a day as needed 02/12/2025 Active Problems Problem Type SNOMED Code ICD Code Onset Dates Problem Status W/U Status Risk Notes Problem Anemia (304431272) Anemia (D64.9) Active confirmed Problem Vitamin D deficiency (14008830) Vitamin D deficiency (E55.9) Active confirmed Vital Signs Blood pressure systolic 130 mm Hg 02/13/20 25 Blood pressure diastolic 74 mm Hg 025 Heart Rate 86 /min 02/12/2025 Height 69 in 02/12/2025 Weight 281 lbs 02/12/2025 BMI 41.49 kg/m2 02/12/2025 Encounters Encounter Location Date Provider Diagnosis [facility] [address] [place] [id number] 02/12/2025 Dorene Haynes Anemia D64.9 ; Vitam in D deficiency E55.9 ; HBP (high blood pressure) I10 ; Cellulitis L03.90 ; Dyslipidemia E78.5 ; Sleep apnea in adult G47.30 and Vertigo R42 Assessments Encounter Date Diagnosis (ICD Code) Assessment Notes Treatment Notes Treatment Clinical Notes Section Notes 02/12/2025 Anemia (ICD-10 - D64.9) 02/12/2025 Vitamin D deficiency (ICD-10 - E55.9) 02/12/2025 HBP (high blood pressure) (ICD-10 - I10) 02/12/2025 Cellulitis (ICD-10 - L03.90) 02/12/2025 Dyslipidemia (ICD-10 - E78.5) 02/12/2025 Sleep apnea in adult (ICD-10 - G47.30) 02/12/2025 Vertigo (ICD-10 - R42) Plan Of Treatment Medication Medication Name Sig Start Date Stop Date Notes Cephalexin 500 MG 1 capsule Orally 3 times a day Valium 5 MG 1/2 -1 tab(s) orally two times a day as needed 02/12/2025 Next Appt Details Follow Up: via phone to repo rt test results, Reason: Progress Notes * Damir LARSON RDOB: [birth year] (84 yo M)Acc No.[id number]:02/12/2025 Patient: Damir GONZALES Provider: Dorene Haynes M.D. :1940 A ge:84 Y S ex:Male Date:02/12/2025 Address:[address] [place] [address] , [place], [id number] Subjective: * Chief Complaints: * 1 . 6 month follow up. 2. Needs labs. * HPI: H PI: 84 year old male presents with c/o Patient is here today for?Pt is here today for a 6 month check up. . His main issue continues to be his chronic low back pain which significantly limits his functional mobility. He has gained weight since his last visit primarily due to inactivity. E NT/respiratory: He is requesting a refill on diazepam which he uses intermittently for vertigo. D ermatology: Swelling in his lower extremities is about the same. He typically wears compression stockings. He is concerned about some increased redness on the lower legs bilaterally. * ROS: C ARDIOLOGY: no C hest pain. n o P alpitations. L eg edema?yes. n o S hortness of breath. G ASTROENTEROLOGY: no N ausea. n o V omiting. n o A bdominal pain. n o D iarrhea. C onstipation y es, t his has resolved and stools are now loose. U ROLOGY: Positive for c an usually void in the daytime; needs to be in/out cathed at HS; discussed with his nurse as to the preferred timing. V oiding dysfunction?yes. * Medical History: H LP, GERD, Arthritis , Headaches , severe DDD of cervical and lumbar spine, Enlarged Prostate , Sleep Apnea, Neuropathy, ASCVD with 2 stent placements, NSTEMI 09/30/15 - [facility], Vertigo, Neurogenic bladder, Renal cell carcinoma, Depression, T10 Fx, Permanent urinary retention - self caths. * Surgical History: C -spine laminectomy x 2 , Lumbar surgery x 4 for spinal stenosis , Appendectomy , Hemorrhoid surgery , Brain surgery-shunt placed in the back of pts head 18 y.o., 2 stents in heart , Eye Surgery , cardiac stent placed-[facility]-Dr King 09/30/15, Implanted pain pump 01/2017, C-scope , EGD/Dr. Delarosa/moderate esophageal dysmotility; bile reflux gastropathy 02/14/2021, C 2-3 laminectomy and fusion/ Dr. Doty 09/2021, Laproscopic Left Radical Nephrectomy - Renal Cell Carcinoma/ Dr. Tracy 06/05/23. * Hospitalization/Major Diagno stic Procedure: s ee above , [facility] - Laceration November 2017, [place] [...] needed Orally every 6 hrs , Taking Tamsulosin HCl 0.4 mg Capsule [...] CAPSULE BY MOUTH EVERY DAY , Taking Spironolactone 25 MG Tablet 1 tablet Orally , Taking oxyCODONE HCl 5 MG Tablet 1 tab(s) Orally every 6 hrs prn , Taking Cephalexin 500 MG Capsule 1 capsule Orally every 8 hrs , Taking Furosemide 40 mg Tablet TAKE ONE TABLET BY MOUTH EVERY DAY , Taking Trintellix 5 mg Tablet TAKE ONE TABLET BY MOUTH EVERY DAY , Medication List reviewed and reconciled with the patient * Allergies: S ulfa Antibiotics: rash. Objective: * Vitals: W t: 281, Temp: 97.9, BP: 130/74, HR: 86, O2 Sat: 97% on RA, Nurse: joe, Ht: 69, BMI:41.49. * Examination: G eneral Examination: General Appearance: F lat affect.. H eart: R SR.?Lungs: c lear to auscultation. E xtremities: 2 + pretibial edema with erythema and mild warmth of both lower shins.. Assessment: * Assessment: 1. A nemia - D64.9 (Primary) 2 . V itamin D deficiency - E55.9 ?3. H BP (high blood pressure) - I10 4 . C ellulitis - L03.90 5 . D yslipidemia - E78.5 6 . S leep apnea in adult - G47.30 ? 7 . V ertigo - R42 Plan: * Treatment: Value Reference Range V itamin B12 189 L 232-1245 - pg/mL * Dorene Haynes 02/17/2025 08:58:19 AM EDT > See phone encounter ?LAB: P-Iron (Collection Date & Time - 02/12/2025 01:54 PM)?51 (low)* Value Reference Range I matteo 51 L 59-158 - ug/dL * Dorene Haynes 02/17/2025 08:58:19 AM EDT > See phone encounter ?LAB: CBC Venipuncture (in house) (Collection Date & Time - 02/12/2025)?hgb 11.1* Value Reference Range w bc 7.2 3.5 - 10 * l ymph 28.0 15 - 50 * m id 6.7 2 - 15 * g ran 65.3 35 - 80 * r bc 3.32 3.5 - 5.5 * h gb 11.1 11.5 - 16.5 * h ct 31.7 35 - 55 * m cv 95.3 75 - 100 * m ch 33.5 25 - 35 * m chc 35.1 31 - 38 * p latlet 142 100 - 400 * Elli Licha 02/12/2025 04:4 0:41 PM EDT > Dorene Haynes 02/17/2025 08:58:19 AM EDT > See phone encounter 2.?Vitamin D deficiency?LAB: P-Vitamin D, 1, 25 Dihydroxy (Collection Date & Time - 02/12/2025 01:54 PM)?27.8* Value Reference Range V itamin D, 1, 25 Dihydroxy 27.8 19.9-79.3 - pg /mL * Dorene Haynes 02/17/2025 08:58:19 AM EDT > See phone encounter 3.?HBP (high blood pressure)?LAB: P-Comprehensive Metabolic Panel (CMP) (Collection Date & Time - 02/12/2025 01:54 PM)?GFR 31 (stable)* Value Reference Range A /G Ratio 2.2 1.1-2.5 - * A lbumin 4.1 3.5-5.3 - g/dL * A lkaline Phosphatase 70 40-129 - IU/L * A LT (SGPT) 10 <5-55 - IU/L * A ST (SGOT) 15 <5-46 - IU/L * B ilirubin, Total 0.3 <0.2-1.2 - mg/dL * B UN 22 8-23 - mg/dL * C alcium 8.7 8.6-10.4 - mg/dL * C hloride 108 97-108 - mmol/L * C O2 22 20-32 - mmol/L * C reatinine 2.06 H 0.70-1.30 - mg/dL * G lucose 116 H 65-99 - mg/dL * P otassium 4.5 3.5-5.3 - mmol/L * S odium 143 135-145 - mmol/L * P rotein 6.0 6.0-8.3 - g/dL * e GFR by Creatinine 31 L >59 - mL/min/1.73m2 * Dorene Haynes 02/17/2025 08:58:19 AM EDT > See phone encounter ?LAB: P-Magnesium (Collection Date & Time - 02/12/2025 01:54 PM)?1.9* Value Reference Range M agnesium 1.9 1.6-2.4 - mg/dL * Dorene Haynes 02/17/2025 08:58:19 AM EDT > See phone encounter 4.?Cellulitis? Start Cephalexin Capsule, 500 MG, 1 capsule, Orally, 3 times a day, 21.?? 5.?Vertigo? Refill Valium Tablet, 5 MG, 1/2 -1 tab(s), orally, two times a day as needed, 30, Refills 1.? * Procedure Codes: G 2211 Complex [place], [address] CBC WITH AUTO DIFF, 79493 VENIPUNCT, ROUTINE*, 1036F TOBACCO NON-USER, G8950 PREHTN/HTN BP DOC INDCD F/U DOC, G8752 MOST RECENT SYSTOLIC BP < 140MM HG, G8754 MOST RECENT DIASTOLIC BP < 90MM HG * Follow Up: v ia phone to report test results * Images: Billing Information: * Visit Code: 92483 Office Visit, Est Pt., Level 4. * Procedure Codes: G2211 Complex e/[place]. [address] CBC WITH AUTO DIFF. 91681 VENIPUNCT, ROUTINE*. 1036F TOBACCO NON-USER. G8950 PREHTN/HTN BP DOC INDCD F/U DOC. G8752 MOST RECENT SYSTOLIC BP < 140MM HG. G8754 MOST RECENT DIASTOLIC BP < 90MM HG. * Electronic signature of Dorene Haynes MD on 04/23/2025 at 02:09 PM EDT Sign off status: Pending * Provider: Dorene Haynes M.D. Date: 0 02/12/2025 Generated for Trina wright/Chris/eTransmohrace on: 1 02:09 PM EDT History and Physical Notes * HPI (History of Present Illness) Category Sub-Category Detail Notes Category Not es ENT/respiratory He is reques ting a refill on diazepam which he uses intermittently for vertigo. Dermatology Swelling in his lower extremities is about the same. He typically wears compression stockings. He is concerned about some increased redness on the lower legs bilaterally. HPI Patient is here today for Pt is here today for a 6 month check up. His main issue continues to be his chronic low back pain which significantly limits his functional mobility. He has gained weight since his last visit primarily due to inactivity. Examination Category Sub-Category Detail Notes Category Not es General Examination Heart: RSR Lungs: clear to auscultatio n Extremities: 2+ pretibial edema w ith erythema and mild warmth of both lower shins. General Appearance: Flat affect.
--- OUTSIDE RECORDS SUMMARY | 2025-03-19 06:05 | XMS_ITS ---
Author Organization [facility] [address] [facility] [address] [place] [phone] Care Team Providers Care Estimator Project Manager Name Role Phone Dorene Haynes Primary [...] Administered Encounters Encounter Location Date Provider Diagnosis [facility] [facility] [address] [place] [phone] 03/19/2025 Dorene Haynes Encounter for immunization Z23 Assessments Encounter Date Diagnosis (ICD Code) Assessment Notes Treatment Notes Treatment Clinical Notes Section Notes 03/19/2025 Encounter for immunization (ICD-10 - Z23) Plan Of Treatment No Information Progress Notes * Damir LARSON RDOB: [birth year] (84 yo M)Acc No.[id number]:03/19/2025 Patient: Micah BAILEYDamir Provider: Dorene Haynes M.D. :1940 A ge:84 Y S ex:Male Date:03/19/2025 Address:[facility] [place], [place], [id number] Subjective: * Chief Complaints: * 1 . [...] of Dorene Haynes MD on 04/23/2025 at 02:08 PM EDT Sign off status: Pending * Provider: Dorene Haynes M.D. Date: 0 03/19/2025 Generated for Trina wright/Chris/Shamar on: 1 02:08 PM EDT
--- NOTE | 2025-04-23 14:00 | CA_ITS ---
FINAL REPORT TECHNIQUE: Arterial duplex Doppler evaluation of the lower extremities with spectral analysis. CLINICAL HISTORY: Multiple back surgeries with left leg numbness. CAD FINDINGS: Right lower extremity, flow velocities (cm per second): Common femoral artery: 207 Profunda: 73 Proximal SFA: 166 Mid SFA: 137 Distal SFA: 145 Popliteal proximal: 107 Popliteal distal: 101 Anterior tibial artery: 107 Posterior tibial artery: 125 Peroneal proximal: 95 Left lower extremity, flow velocities (cm per second): Common femoral artery: 163 Profunda: 93 Proximal SFA: 108 Mid SFA: 92 Distal SFA: 151 Popliteal proximal: 88 Popliteal distal: 73 Anterior tibial artery: 59 Posterior tibial artery: 151 Waveforms are multiphasic with monophasic bilaterally below the knee. No large vessel occlusion. IMPRESSION: Atherosclerotic disease with monophasic waveforms below the knee. No evidence of occlusion. Reviewed, Interpreted and Dictated by Libia Campos MD Transcribed by Katia Solorzano Authenticated and [facility]
--- OUTSIDE RECORDS SUMMARY | 2025-04-23 14:09 | XMS_ITS | Clinical Summary ---
[facility] Address [address] [place] [address] Care Team Providers Care Internet Marketing Intern Name Role Phone Ruperto Carey MD Primary Care Provider [phone] Social History Tobacco Use Types Packs/Day Years [...] 01/23/2025 COVID-19 Vaccine (2023- season) 2025 Insurance [facility] MEDICARE ADVANTAGE Care Teams Internet Marketing Intern Relationship Specialty Start Date End Date Ruperto Carey MD [address] [place], [place] [id number] PCP - General Anesthesiology 10/26/16
--- OUTSIDE RECORDS SUMMARY | 2025-04-23 14:09 | XMS_ITS | Referral Summary ---
Author Organization [employer] ([place], [place], [place], [place]) Address [address] [place] [address] Care Team Providers Care Ignition Mechanic Name Role Phone Ryan Haynes MD Primary Care Provider [phone] Kyler Moraes MD Unavailable [phone] Allergies Active Allergy Reactions Criticality Noted Date [...] mass 05/30/2023 Coronary artery disease invo lving [place] coronary artery of [place] heart 05/30/2023 History of [place] (myocardial infarction) 05/30/2023 Overview (05/30/2023): 2015. Coronary [...] Date Jose rded Speak language other than Frisian at home Not on file 07/06/2023 Want [...] file Insurance [employer] MEDICARE PPO Care Teams Ignition Mechanic Relationship Specialty Start Date End Date Ryan Haynes MD [address] [place] [address] PCP - General Family Medicine 05/30/23 Kyler Moraes MD [address] [place] [address] Referring Physician Cardiology 06/04/23
--- OUTSIDE RECORDS SUMMARY | 2025-04-23 14:10 | XMS_ITS | Clinical Summary ---
Author Organization [employer] ([place], [place], [place], [place]) Address [address] [place] [address] Care Team Providers Care Global Security Architect Name Role Phone Ryan Haynes MD Primary Care Provider [phone] Kyler Moraes MD Unavailable [phone] Allergies Active Allergy Reactions Criticality Noted Date [...] mass 05/30/2023 Coronary artery disease invo lving [place] coronary artery of [place] heart 05/30/2023 History of [place] (myocardial infarction) [...] 12/21/2017, Additional history exists Insurance [place] [id number] [employer] MEDICARE PPO Care Teams Global Security Architect Relationship Specialty Start Date End Date Ryan Haynes MD [address] [place] [address] PCP - General Family Medicine 05/30/23 Kyler Moraes MD [address] [place] [address] Referring Physician Cardiology 06/04/23
--- OUTSIDE RECORDS SUMMARY | 2025-04-23 14:10 | XMS_ITS | Clinical Summary ---
Author Organization [facility] Address [address] [place] [address] Care Team Providers Care Heavy Media Operator Name Role Phone Ryan Haynes MD Primary Care Provider [phone] Allergies Active Allergy Reactions Criticality Noted Date [...] a day. 12/24/19 24 Active HYDROcodone-acetam inophen ([place]) 10-325 MG tablet 1 tab(s) orally every [...] any time in the past 12 m [facility], were you homeless or living in a senior living (including now)? No 05/26/2024 Utilities Answer Date Recorded In the past 12 months has [employer] gas, oil, or water company threatened to [...] Screenings 11/24/2024 UKY-Adult SDOH Screenings 11/24/2024 05/26/2024 [id number] Vaccine ( season) 2025 03/28/2024, 03/20/2023, 03/22/2022, [...] to complete this topic Insurance [place] [id number] [facility] MEDICARE Advance Directives * Full Code (Latest Code Status on File) Date Activated Date Inactivated Comments 05/24/2024 2:25 AM 05/29/2024 11:46 AM Question Answer Comments Patient has decision-making capacity? Yes Care Teams Heavy Media Operator Relationship Specialty Start Date End Date Ryan Haynes MD [address] [place] [address] PCP - General 11/05/20
--- OUTSIDE RECORDS SUMMARY | 2025-04-23 14:10 | XMS_ITS | Patient Health Record ---
Author Organization [facility] Address [address] [facility] [address] [place] [id number] Care Team Providers Care Insole Tacker Name Role Phone Dorene Haynes Primary Care Provider Tari Barrera [phone] Allergies Allergen (clinical drug ingredient) Drug/Non Drug Allergy documented on EMR Reaction Allergy Type Onset Date Status Substance with sulfonamide structure and antibacterial mechanism of action (substance) Sulfa Antibiotics rash Drug Allergy Active Results Component Value Reference Range Notes P-Vitamin D, 1, 25 Dihydroxy Reviewed date:02/17/2025 08:58:38 AM Interpretation:27.8 Performing Lab: Notes/Report: Test performed by [facility] [address] [place], [place] [address] [place] [address] Candelario Huynh MD, Firestopper Installer CLIA: [id number] Vitamin D, 1, 25 Dihydroxy 27.8 19.9-79.3 pg/m L P-Magnesium Reviewed date:02/17/2025 08:58:38 AM Interpretation:1.9 Performing Lab: Notes/Report: Test performed by [facility] [address] [place] [address] Dr[facility] [place] [address] Candelario Huynh MD, Firestopper Installer CLIA: [id number] Magnesium 1.9 1.6-2.4 mg/dL P-Iron Reviewed date:02/17/2025 08:58:38 AM Interpretation:51 (low) Performing Lab: Notes/Report: Test performed by [facility] [address] [place] [address] [place] [address] Candelario Huynh MD, Firestopper Installer CLIA: [id number] Iron 51 59-158 ug/dL P-Comprehensive Metabolic Pa sage (CMP) Reviewed date:02/17/2025 08:58:38 AM Interpretation:GFR 31 (stable) Performing Lab: Notes/Report: Test performed by [facility] [address] [place] [address] , [place] [address] Candelario Huynh MD, Firestopper Installer CLIA: [id number] Sodium 143 135-145 mmol/L Potassium 4.5 3.5-5.3 [...] Interpretation:189 Performing Lab: Notes/Report: Test performed by [facility] [address] [place] [address] , [place] [address] Candelario Huynh MD, Firestopper Installer CLIA: [id number] Vitamin B12 084 527-3752 pg/mL CBC Venipuncture (in house) Reviewed date:02/17/2025 [...] Status Comme nts COVID 19 Moderna Unknown 07/06/2020 Administered COVID 19 Moderna Unknown 08/06/2020 Administered COVID 19 Moderna Unknown 03/23/2021 Administered DT, [...] 03/05/2020 Administered Hepatitis A (adult) IM Intramuscular 06/13/2018 Administer ed Hepatitis A (adult) IM Intramuscular 12/19/2018 Administer ed PNEUMOVAX 23 VACCINE IM Intramuscular 05/05/2011 Administe red PNEUMOVAX 23 VACCINE IM Intramuscular 04/10/2017 Administe red Prevnar (PCV13) IM Intramuscular 03/12/2015 Administered Prevnar (PCV20) IM Intramuscular 04/03/2024 Administered Shingrix IM Intramuscular 06/04/2018 Administered Shingrix IM Intramuscular 11/28/2018 Administered Tetanus Tdap-Adacel (over 7yrs) Unknown 12/21/2017 Administered Tetanus Tdap-Adacel (over 7yrs) IM Intramuscular 04/23/2018 Administered Tetanus Tdap-Adacel (over 7yrs) Unknown 06/21/2021 Administered xFluzone High Dose-private (65yr&older) IM Intramuscular 03/17/2013 Administered xFluzone High Dose-private (65yr&older) Unknown 03/28/2024 Administered rKeieznl-ipgpglceb-jrilnql e pts. IM Intramuscular 05/01/2011 Administered Problems Problem Type SNOMED Code ICD Code Onset Dates Problem Status W/U Status Risk Notes Problem Gastro-esophageal reflux disease without esophagitis (037564771) Gastro-esophageal reflux disease without esophagitis (K21.9) Active confirmed Problem Essential hypertension (14387459) Essential (primary) hypertension (I10) Active confirmed Problem Coronary arteriosclerosis (18231965) ASCVD (arteriosclerotic cardiovascular disease) (I25.10) Active confirmed Problem Vitamin D deficiency (13517774) Vitamin D deficiency (E55.9) Active confirmed Problem Anemia (236703988) Anemia (D64.9) Active confir med Problem Peripheral venous insufficiency (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) Venous insufficiency (I87.2) Active confirmed Problem Mixed anxiety and depressive disorder (786287516) Depression with anxiety (F41.8) Active confirmed Problem Neurogenic bladder (062908768) Neurogenic bladder (N31.9) Active confirmed Problem Recurrent falls (829240096) Multiple falls (R29.6) Active confirmed Problem Primary generalised osteoarthritis (652918724) 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) Active confirmed Problem Primary insomnia (2097062) Primary insomnia (F51.01) Active confirmed Problem Polyneuropathy (39974255) Polyneuropathy, unspecified (G62.9) Active confirmed Problem Chronic pain syndrome (508462482) Chronic pain syndrome (G89.4) Active confirmed Problem Depressive disorder (01490994) Depressive disorder (F32.9) Active confirmed Problem Displacement of lumbar intervertebral disc without myelopathy (39999135) Bulging lumbar disc (M51.26) Active confirmed Problem Dyslipidemia (181749645) Dyslipidemia (E78.5) Active confirmed Problem Restless legs (29718016) RLS (restless legs syndrome) (G25.81) Active confirmed Problem Peripheral vascular disease (337674011) PAD (peripheral artery disease) (I73.9) Active confirmed Problem Atherosclerotic heart disease of [place] coronary artery without angina pectoris (202848022622479) Atherosclerosis of [place] coronary artery without angina pectoris, unspecified whether [place] or transplanted heart (I25.10) Active confirmed Problem Osteoarthritis (174782041) Osteoarthritis, unspecified osteoarthritis type, unspecified site (M19.90) Active confirmed Problem Lower urinary tract symptoms due to benign prostatic hypertrophy (21529914222591) Benign prostatic hyperplasia with lower urinary tract symptoms (N40.1) Active confirmed Problem Urge incontinence of urine (20428279) Urge incontinence of urine (N39.41) Active confirmed Problem Sleep apnea (41450040) Sleep apnea in adult (G47.30) Active confirmed Problem Carotid artery occlusion (582432897) Stenosis of carotid artery, unspecified laterality (I65.29) Active confirmed Problem Lower urinary tract symptoms due to benign prostatic hypertrophy (41953241898213) Benign prostatic hyperplasia with lower urinary tract symptoms, symptom details unspecified (N40.1) Active confirmed Problem Neurogenic claudication (285672249) 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) Active confirmed Problem Insomnia disorder related to known organic factor (40029363) 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) Active confirmed Vital Signs Heart Rate 86 /min 02/12/2025 Respiratory Rate 18 /min 06/03/2024 Blood pressure diastolic 74 mm Hg 02/12/2025 Height 69 in 02/12/2025 Blood pressure systolic 130 mm Hg 02/12/2025 Weight 281 lbs 02/12/2025 BMI 41.49 kg/m2 02/12/2025 Encounters Encounter Location Date Provider Diagnosis [address] [place] [id number] 06/03/2024 Tari Barrera Chronic pain syndrom e [...] and Depression with anxiety F41.8 [facility] [address] [place] [id number] 07/28/2024 Tari Barrera Cellulitis and absce ss L03.90 and Leg edema R60.0 [facility] [place] [address] [place] [id number] 07/31/2024 R Jackson [place] Friction blister T14.8XXA ; Cellulitis L03.90 ; Wedge compression fracture of T9-T10 vertebra, subsequent encounter for fracture with routine healing S22.070D ; Spinal stenosis of lumbar region with neurogenic claudication M48.062 and Chronic pain syndrome G89.4 [facility] [place] [address] [place] [id number] 02/12/2025 R Jackson [place] Anemia D64.9 ; Vitam in D deficiency E55.9 ; HBP (high blood pressure) I10 ; Cellulitis L03.90 ; Dyslipidemia E78.5 ; Sleep apnea in adult G47.30 and Vertigo R42 [facility] [place] [address] [place] [id number] 03/19/2025 R Jackson [place] Encounter for immunization Z23 [facility] [address] [place], [place] [id number] 06/02/2024 R Jackson [place] Chronic pain syndrom e G89.4 [facility] [address] [place], [place] [id number] 06/02/2024 R Jackson [place] [facility] [place] [address] [place] [id number] 06/04/2024 R Jackson [place] [facility] [place] [address] [place], [place] [id number] 06/19/2024 R Jackson [place] [facility] [place] [address] [place] [id number] 08/08/2024 R Jackson [place] [facility] [place] [address] [place] [id number] 02/17/2025 R Jackson [place] Assessments Encounter Date [...] Continue local wound care. Anticipate continued healing 02/12/2025 Vitamin D deficiency (ICD-10 - E55.9) 02/12/2025 Anemia (ICD-10 - D64.9) 03/19/2025 Encounter for immunization (ICD-10 - Z23) 02/12/2025 HBP (high blood pressure) (ICD-10 - [...] Coverage End Date [employer] [address] [address] [place] [address] [id number] Damir Larson Self - patient is the [...] [place] after fall and T10 Fx 05/23-05/29/2024 [facility] - Laceration November 2017 see above
--- NOTE | 2025-04-23 14:30 | CA_ITS ---
APPROVED REPORT EXAM: Comprehensive 2D, Doppler, and color-flow Echocardiogram Steel Layer: Belia Aviles CRT Ht: 6 ft 0 in Wt: 277lbs BSA: 2.45 BP: 147/64 mmHg Indications: Shortness of Breath, Fatigue, CAD, Hyperlipidemia, Hypertension/HDD 2D Dimensions LA Volume 46.90 mL LA Volume Index 18.70 mL/m2 (M/F) 16-34 M-Mode Dimensions RVDd 2.44 cm (0.9-2.6) LA Diam 3.41 cm (1.9-4.0) LVDd 2.92 cm (3.5-5.7) LVDs 2.08 cm (3.5-5.7) IVSd 2.16 cm (0.6-1.1) PWd 1.24 cm (0.6-1.1) EF (Teich) 57.00% FS 28.80% EDV (Teich) 32.80 mL TAPSE 2.92 (<1.7) ESV (Teich) 14.10 mL LV Diastology E Decel Time 180 (160-240 msec) E/A Ratio 0.69 MED A' 14.50 cm/s LAT A' 14.00 cm/s Aortic Valve AO Peak GR. 12.00 mmHg Mitral Valve MV E Max Maurice. 85.0 (40-130 cm/s) MV A Velocity 123.0 (40-130 cm/s) E/A Ratio 0.69 MV PHT 53.0 ms Pulmonary Valve PV Peak Velocity 161.0 (50-150 cm/s) Tricuspid Valve TR P. Velocity 157.00 cm/s RAP Estimate 10.00 mmHg RVSP 19.90 mmHg Left Ventricle The left ventricle is normal size. Left ventricular systolic function is normal. The left ventricular ejection fraction is within the normal range. There is normal left ventricular wall thickness. There is normal LV segmental wall motion. The left ventricular diastolic function is normal. LVEF is 55% Right Ventricle The right ventricle is normal size. The right ventricular systolic function is normal. Atria The left atrium size is normal. The right atrium size is normal. There is no color Doppler evidence of interatrial shunt. Aortic Valve The aortic valve opens well. There is no hemodynamically significant aortic valvular stenosis. No aortic regurgitation is present. Mitral Valve The mitral valve is normal in structure. No evidence of mitral valve stenosis. Trace mitral regurgitation is present. Tricuspid Valve The tricuspid valve leaflets are thin and pliable. Trace tricuspid regurgitation. There is insufficient TR jet to estimate RVSP. Pulmonic Valve The pulmonary valve is grossly normal in structure. Trace pulmonic valve regurgitation is present. Great Vessels The aortic root is normal in size. IVC is normal in size and collapses >50% with inspiration. Pericardium There is a trivial, anterior pericardial effusion along the distal RV free wall. No echo indications of tamponade. Other Information Study Quality: Fair Conclusion Normal biventricular systolic function. No significant valvular stenosis or regurgitation. Trivial, anterior pericardial effusion along the distal RV free wall. No echo indications of tamponade. Electronically signed by : Nica Rodriguez MD 04/26/2025 21:03:01
== END 2025-04-23 23:59 | disposition home or self-care (01) ==
LOC: RT 13:52
PROVIDERS: PCP Family Medicine; Visit Provider Internal Medicine
DX: I73.9 Peripheral vascular disease, unspecified (principal); I25.10 Atherosclerotic heart disease of native coronary artery without angina pectoris; E78.5 Hyperlipidemia, unspecified; I10 Essential (primary) hypertension
CPT/HCPCS: 93306; 93925

== ENCOUNTER 2025-05-19 14:39 | Day surgery (SDC) | payer MEDICARE, SELFPAY ==
[2025-05-19 14:46] VITALS: BP 121/65; PULSE 76; RESP 18; O2SAT 96; BMI 37.3
[2025-05-19 14:49] VITALS: BP 121/65; PULSE 76; RESP 18; O2SAT 96
[2025-05-19 14:51] VITALS: BP 121/84; PULSE 76; RESP 18; O2SAT 96
--- NOTE | 2025-05-19 14:55 | EXP.PAIN.PRO ---
Procedure Date: 05/19/25 Time: 14:50 Anesthesiologist:: Rashel Solo CRNA Complications:: None Pre-procedure Diagnosis:: Degenerative disc lumbar spine multilevels. Lumbar radiculopathy. Lumbar postlaminectomy syndrome. Lumbar spondylosis. Multilevel lumbar facet arthropathy. Chronic pain syndrome. Post-procedure Diagnosis:: Same. Indications for Procedure:: Patient is a pleasant 84-year-old male who comes to our clinic today for intrathecal pain pump interrogation refill. He is currently being managed with fentanyl 394.5 mcg/day. Also bupivacaine 1.9725 mg/day. He is doing very well with his current settings. However, he is requesting an increase in the intrathecal pump rate. He reports using his PTC 3-4 times daily. However, often times he does not give himself a dose from PTC at bedtime due to insomnia. I recommend a 3% increase in his overall rate today. He does not report any side effects or complications. Patient is awake alert [place] x 3. No acute distress. Flexion-extension lumbar spine somewhat guarded secondary to pain. Deep tendon reflexes upper lower extremities normal. Motor strength upper lower extremities normal. There is no other gross acute deficit. Gait is normal. Procedure Details:: Details of the procedure explained to the patient. The patient procedure room placed in the seated position. They over the palms cleansed using chlorhexidine as a cleansing solution. The pump was interrogated. The pump was accessed with the used to obtain 2 gauge inch and half needle. 6 mL of solution was withdrawn and discarded appropriately. The pump was then filled with 20 cc of a solution containing 10 mL 1000 mcg/mL and bupivacaine 5 mg/mL. The overall rate of the intrathecal pain pump will be increased by 3%. The new rate will be fentanyl 429.2 mcg/day. Bupivacaine 2.1461 mg/day. Plan and Disposition:: Patient was discharged without incident.
[2025-05-19 15:05] VITALS: BP 126/63; PULSE 68; RESP 16; O2SAT 95
== END 2025-05-19 15:05 | disposition home or self-care (01) ==
PROVIDERS: PCP Family Medicine; Visit Provider Nurse Anesthetist, Certified Registered
DX: Z45.1 Encounter for adjustment and management of infusion pump (principal); G89.4 Chronic pain syndrome; M51.16 Intervertebral disc disorders with radiculopathy, lumbar region; M47.26 Other spondylosis with radiculopathy, lumbar region
CPT/HCPCS: 62370

== ENCOUNTER 2025-06-16 14:00 | Day surgery (SDC) | payer MEDICARE, SELFPAY ==
[2025-06-16 14:07] VITALS: BP 130/74; PULSE 67; RESP 16; O2SAT 97; BMI 36.4
[2025-06-16 14:11] VITALS: BP 117/62; PULSE 73; RESP 18; O2SAT 95
--- NOTE | 2025-06-16 14:19 | P.PCN_ITS ---
Procedure Date: 06/16/25 Time: 14:00 Anesthesiologist:: Rashel Solo CRNA Complications:: None Pre-procedure Diagnosis:: Degenerative disc lumbar spine multilevels. Lumbar radiculopathy. Lumbar postlaminectomy syndrome. Lumbar spondylosis. Lumbar facet arthropathy. Chronic pain syndrome. Post-procedure Diagnosis:: Same. Indications for Procedure:: Patient is a very pleasant 84-year-old male who comes to our clinic today for intrathecal pain pump interrogation and refill. He is currently being managed with fentanyl for 29.2 mcg/day. Also, bupivacaine 2.1461 mg/day. He is doing very well with his current settings. Did not request any changes or updates. He is not reporting any side effects or complications. Patient is awake alert oriented x 3. No acute distress. Flexion-extension lumbar spine guarded secondary to pain. Deep tendon reflexes upper lower extremities normal. Motor strength upper lower extremities normal. There is no gross sensory deficit. Patient presents in a wheelchair today due to the distance from parking [facility] to our clinic. Otherwise, he is up and around ambulating at home. Procedure Details:: Details of the procedure explained to the patient. The patient taken the procedure room placed in the sitting position. Air with bubbles cleansed using chlorhexidine as a cleansing solution. The pump was interrogated. The pump was accessed with ease using a 22-gauge 2 inch needle. 7.2 mL of solution was withdrawn discarded properly. The pump was then filled with 20 cc of solution containing fentanyl 1000 mcg/mL and bupivacaine 5 mg/mL. No change in rate. Patient tolerated procedure without difficulty. There are no complications. Plan and Disposition:: Patient was discharged without incident.
[2025-06-16 14:25] VITALS: BP 121/63; PULSE 71; RESP 16; O2SAT 97
== END 2025-06-16 14:30 | disposition home or self-care (01) ==
PROVIDERS: PCP Family Medicine; Visit Provider Nurse Anesthetist, Certified Registered
DX: M51.16 Intervertebral disc disorders with radiculopathy, lumbar region (principal); M96.1 Postlaminectomy syndrome, not elsewhere classified; M47.26 Other spondylosis with radiculopathy, lumbar region; G89.4 Chronic pain syndrome; I25.10 Atherosclerotic heart disease of native coronary artery without angina pectoris; E78.5 Hyperlipidemia, unspecified; F32.A Depression, unspecified; I87.2 Venous insufficiency (chronic) (peripheral)
CPT/HCPCS: 95991